=== PATIENT | female | born 1930 | race Caucasian/White ===

== ENCOUNTER 2016-09-29 15:34 | Inpatient (IN) | payer MEDICARE, OTHER ==
[2016-09-29] VITALS (9 sets, daily range): BP systolic 114–135; BP diastolic 64–85; PULSE 74–112; RESP 16–24; TEMP 97.6–98.6; O2SAT 93–94
[~2016-09-29] VITALS: Ht 157.5 cm; Wt 55.9 kg
[~2016-09-29 15:34] MED LIST: ACET5SOL5 PO; BACT2CRE TOP; CEFU1TAB42 PO; COUM5TAB PO; METR-1 PO; POTA20IN3 PO; TRAM50 PO
--- NOTE | 2016-09-29 15:48 | PD ---
Physical Exam Date Seen by Provider: September 29, 2016 Time Seen by Provider: 15:45 Narrative Pt presents with SOB, she has had an OP CT of the chest that shows a large right pleural effusion with collapse of the right lung with mediastinal shift to the left. Pt has stage 4 lung cancer with metastatic disease. She is followed by Dr. Gilman. She appears well despite imaging. VSS, awaiting bed placement. Data Data Last Documented VS Vital Signs Date Time Temp Pulse Resp B/P Pulse Ox O2 Delivery O2 Flow Rate FiO2 09/29/16 15:36 97.6 112 24 135/64 94 Room Air [facility] Supervised Visit with TIFFANY: Bettye Laura September 29, 2016 15:48
[2016-09-29] MEDS ORDERED: SODIUM CHLORIDE 0.9% FLUSH 10 ML FLUSH IVF PRN (16:15)
--- NOTE | 2016-09-29 16:29 | PD ---
HPI Chief Complaint: Respiratory Symptoms Time Seen by Provider: 16:05 Travel History International Travel<30 days: No Contact w/Intl Traveler<30days: No Traveled to known affect area: No History of Present Illness HPI 86-year-old female presents with shortness of breath. She follows with Dr. Gilman and had an outpatient CAT scan today that showed a large pleural effusion was shift and was advised to come here for drainage of this with a specialist. She denies other significant complaints currently. She states she came straight here from Dr. Gilman's office. Quality is hard to catch breath. Severity is increasingly worsening per patient. She denies other modifying factors other than movement. Duration is progressive over the past week PFSH Past Medical History Autoimmune Disease: No Anxiety: No Depression: No Cancer: Yes (SQUAMOUS CELL CA,LUNG CA AND SKIN CA) Cardiovascular Problems: No Chemotherapy: Yes Diabetes: No Endocrine: No Gastrointestinal Disorders: No Genitourinary: Yes (INCONTINENT/ 3 BLADDER SURGERY) Hepatitis: No Hiatal Hernia: No Hypertension: No Immune Disorder: No Medical other: No Musculoskeletal: Yes Neurologic: Yes Psychiatric: No Reproductive: Yes (HYSTERECTOMY) Respiratory: Yes (LUNG CANCER, MET TO BONE IN NECK ) Renal Failure: No Thyroid Disease: No Past Surgical History Abdominal Surgery: Yes (COLONOSCOPY 5 YRS AGO ..OK) AICD: No Cardiac Surgery: No Ear Surgery: No Endocrine Surgery: No Eye Surgery: Yes (DARRON CATARACT SX) Genitourinary Surgery: Yes (ANTERIOR REPAIR, 3 BLADDER SURGERIES ) Gynecologic Surgery: Yes (HYSTERECTOMY, ) Hysterectomy: Yes Joint Replacement: No Neurologic Surgery: No Oral Surgery: No Pacemaker: No Thoracic Surgery: No Other Surgery: Yes Social History Alcohol Use: No Tobacco Use: No Substance Use: No Allergies-Medications (Allergen,Severity, Reaction): Coded Allergies: Codeine (Verified Allergy, Intermediate, NAUSEA AND VOMITING, 09/29/16) Reported Meds & Prescriptions Reported Meds & Active Scripts Active Potassium Chloride inj (Potassium Chloride) 20 Meq Tab 1 Tab PO DAILY Ultram (Tramadol HCl) 50 Mg Tab 50 Mg PO Q6H PRN FOR PAIN Flagyl (Metronidazole) 500 Mg Tab 500 Mg PO Q8H Ceftin 250 Mg Tab (Cefuroxime Axetil) 250 Mg Tab 250 Mg PO Q12HR Bactroban 2% Cream (30 gm) (Mupirocin 2% Cream (30 gm)) 2 % Cre 2 % TOP Q12 APPLY TO Reported Tylenol 325 Mg/10.15 Ml Udc (Acetaminophen) 325 Mg/10 Ml Cup 500 Mg PO Q4H PRN Review of Systems Except as stated in HPI: all other systems reviewed are Neg Physical Exam Narrative GENERAL: Well-nourished, well-developed patient. SKIN: Warm and dry. HEAD: Normocephalic and atraumatic. EYES: No injection or drainage. ENT: No nasal drainage noted. NECK: Supple CARDIOVASCULAR: Regular rate and rhythm RESPIRATORY: Decreased breath sounds right base. No accessory muscle use. GASTROINTESTINAL: Abdomen soft, non-tender, nondistended. NEUROLOGICAL: Awake and alert. Motor and sensory grossly within normal limits. Normal speech. Data Data Last Documented VS Vital Signs Date Time Temp Pulse Resp B/P Pulse Ox O2 Delivery O2 Flow Rate FiO2 09/29/16 16:24 97 18 94 Room Air 09/29/16 15:36 97.6 135/64 Orders Chest, Single Ap (09/29/16 ) Basic Metabolic Panel (Bmp) (09/29/16 16:13) Complete Blood Count With Diff (09/29/16 16:13) Magnesium (Mg) (09/29/16 16:13) Prothrombin Time / Inr (Pt) (09/29/16 16:13) Act Partial Throm Time (Ptt) (09/29/16 16:13) Ecg Monitoring (09/29/16 16:13) Bilateral Bp Monitoring (09/29/16 16:13) Iv Access Insert/Monitor (09/29/16 16:13) Oximetry (09/29/16 16:13) Sodium Chloride 0.9% Flush (Ns Flush) (09/29/16 16:15) Consult Cardiothoracic Surgery (09/29/16 ) Consult Medical Oncology (09/29/16 ) Admit Order (Ed Use Only) (09/29/16 17:00) Labs Laboratory Tests Test 09/29/16 17:01 White Blood Count 6.2 TH/MM3 Red Blood Count 4.49 MIL/MM3 Hemoglobin 13.0 GM/DL Hematocrit 40.8 % Mean Corpuscular Volume 91.0 FL Mean Corpuscular Hemoglobin 29.0 PG Mean Corpuscular Hemoglobin 31.8 % Concent Red Cell Distribution Width 14.2 % Platelet Count 503 TH/MM3 Mean Platelet Volume 8.2 FL Neutrophils (%) (Auto) 69.7 % Lymphocytes (%) (Auto) 16.9 % Monocytes (%) (Auto) 10.5 % Eosinophils (%) (Auto) 2.4 % Basophils (%) (Auto) 0.5 % Neutrophils # (Auto) 4.3 TH/MM3 Lymphocytes # (Auto) 1.0 TH/MM3 Monocytes # (Auto) 0.7 TH/MM3 Eosinophils # (Auto) 0.2 TH/MM3 Basophils # (Auto) 0.0 TH/MM3 CBC Comment DIFF FINAL Differential Comment Prothrombin Time 11.6 SEC Prothromb Time International 1.0 RATIO Ratio Activated Partial 28.4 SEC Thromboplast Time Sodium Level 143 MEQ/L Potassium Level 3.7 MEQ/L Chloride Level 108 MEQ/L Carbon Dioxide Level 26.7 MEQ/L Anion Gap 8 MEQ/L Blood Urea Nitrogen 17 MG/DL Creatinine 0.81 MG/DL Estimat Glomerular Filtration 67 ML/MIN Rate Random Glucose 103 MG/DL Calcium Level 8.7 MG/DL Magnesium Level 2.2 MG/DL [facility] Medical Decision Making Medical Screen Exam Complete: Yes Emergency Medical Condition: Yes Medical Record Reviewed: Yes (past history confirmed) Interpretation(s) Outpatient CAT scan shows very large right pleural effusion with mediastinal shift to the left CBC & BMP Diagram 09/29/16 17:01 Last 24 hours Impressions Chest X-Ray 09/29/16 0000 Signed Impressions: Service Date/Time: September 16:22 - CONCLUSION: Large right effusion with concomitant atelectatic changes. Thanh White MD Differential Diagnosis Effusion, cancer, pneumonia Narrative Course Will check blood work, chest x-ray and discuss with thoracic surgery patient agrees to stay for further care Physician Communication Physician Communication dr wilde states to keep npo after midnight dr mclean agrees to admit Diagnosis Primary Impression: Pleural effusion Additional Impression: Metastatic lung cancer (metastasis from lung to other site) Qualified Code: C34.90 - Metastatic lung cancer (metastasis from lung to other site), unspecified laterality Admitting Information Admitting Physician Requests: Admit Katharine Gay MD September 29, 2016 16:29
--- NOTE | 2016-09-29 16:53 | HHI.HP ---
[facility] Service [facility] Hospitalists Primary Care Physician Christiano Gilman MD Admission Diagnosis Diagnoses: Chief Complaint: Sent by Oncololgy specialist for Pleural effusion management. Travel History International Travel<30 Days: No Contact w/Intl Traveler <30 Da: No Traveled to Known Affected Are: No History of Present Illness This is a pleasant 86 /o Female who came to ER with Shortness of breath, she follows with her Primary editorial specialist Doctor Mukul and had a new CT scan showed a Large Pleural Effusion, recommended to come to this facility for drainage and She denies other significant complaints currently. She states she came straight here from Dr. Gilman's office. Discussed with patient in the room and her Sister Mrs. 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 Incontinence status post urinary Bladder surgery x 3 Past Surgical History ARTURO Cataract surgery 3 Urinary Bladder surgery Reported Medications Reported Meds & Active Scripts Active Potassium Chloride CR 20 meq 20 Meq Tab 1 Tab PO DAILY Ultram (Tramadol HCl) 50 Mg Tab 50 Mg PO Q6H PRN FOR PAIN Flagyl (Metronidazole) 500 Mg Tab 500 Mg PO Q8H Ceftin 250 Mg Tab (Cefuroxime Axetil) 250 Mg Tab 250 Mg PO Q12HR Bactroban 2% Cream (30 gm) (Mupirocin 2% Cream (30 gm)) 2 % Cre 2 % TOP Q12 APPLY TO Reported Tylenol 325 Mg/10.15 Ml Udc (Acetaminophen) 325 Mg/10 Ml Cup 500 Mg PO Q4H PRN Allergies: Coded Allergies: Codeine (Verified Allergy, Intermediate, NAUSEA AND VOMITING, 09/29/16) Active Ordered Medications Current Medications Medications (Trade) Dose Ordered Sig/Ariella Route Start Time Stop Time Status Last Admin (NS Flush) 2 ml UNSCH PRN IVF 09/29/16 16:15 Family History Asked and denied. Social History Lives with her and No Toxic habits Physical Exam Vital Signs Vital Signs Date Time Temp Pulse Resp B/P Pulse Ox O2 Delivery O2 Flow Rate FiO2 09/29/16 16:24 97 18 94 Room Air 09/29/16 15:36 97.6 112 24 135/64 94 Room Air Physical Exam GENERAL: No acute distress. SKIN: Ecchymosis on four extremities. HEAD: Normocephalic and atraumatic. EYES: No injection or drainage. ENT: No nasal drainage noted. NECK: Supple CARDIOVASCULAR: Regular rate and rhythm RESPIRATORY: Absent on the right base, GASTROINTESTINAL: Abdomen soft, non-tender, nondistended. NEUROLOGICAL: Awake and alert. Motor and sensory grossly within normal limits. Normal speech. Assessment and Plan Assessment and Plan 1. Very large Pleural Effusion with mediastinal shift to the left, on outpatient CT scan, discussed with Doctor Spring Han and recommended NPO at midnight and probable will have Chest tube in am tomorrow. 2. 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 consulted her Primary editorial specialist doctor Mukul DVT prophylaxis SCDs awaiting final recommendations by Specialists complete laboratory to follow Bronchodilator, Mucolytic and incentive spirometry. At this time Doctor Spring Han in to see the patient, Preferred the patient to be full code for procedure. her son is POA. Discussed with ER specialist Doctor Katharine Gay. Code Status Full code for procedure tomorrow then will decide this was discussed with patient and she and her Sister in the room accepted. Discussed Condition With Patient, Sister Mrs Willow Ling, ER specialist Doctor Deidra and Cardiothoracic rfid specialist Doctor Guille face to face. Physician Certification 2 Midnight Certification Type: Admission for Inpatient Services Order for Inpatient Services The services are ordered in accordance with Medicare regulations or non- Medicare payer requirements, as applicable. In the case of services not specified as inpatient-only, they are appropriately provided as inpatient services in accordance with the 2-midnight benchmark. Estimated LOS (days): 3 days is the estimated time the patient will need to remain in the hospital, assuming treatment plan goals are met and no additional complications. Post-Hospital Plan: Not yet determined Dom Saunders MD September 29, 2016 16:53
[2016-09-29] MEDS ORDERED: ACETAMINOPHEN 325 MG TAB PO PRN (17:15)
[2016-09-29] MEDS ORDERED: NALOXONE HCL 0.4 MG/ML AMP IV PRN (17:15)
[2016-09-29] MEDS ORDERED: ONDANSETRON HCL 4 MG/2 ML VIAL IVP PRN (17:15)
[2016-09-29] MEDS ORDERED: BISACODYL 10 MG SUPP RECTAL PRN (17:15)
[2016-09-29] MEDS ORDERED: SODIUM CHLORIDE 0.9% FLUSH 10 ML FLUSH IV FLUSH PRN (17:15)
--- NOTE | 2016-09-29 17:15 | RADRPT ---
EXAM DATE/TIME: 09/29/2016 16:22 [facility] COMPARISON: No previous studies available for comparison. INDICATIONS : Short of breath. MEDICAL HISTORY : Carcinoma, lung. SURGICAL HISTORY : None. ENCOUNTER: Initial ACUITY: 2 weeks PAIN SCORE: 0/10 LOCATION: Bilateral chest FINDINGS: A single view of the chest demonstrates large right-sided effusion with concomitant atelectatic juarez es. Left lung is clear. Heart size appears normal. Osseous structures are intact. CONCLUSION: Large right effusion with concomitant atelectatic changes. Thanh White MD on September 29, 2016 at 17:12 Board Certified Radiologist. This report was verified electronically.
[2016-09-29 17:19] LABS: AUTOMATED NEUTROPHIL # 4.3 TH/MM3 (1.8-7.7); BASOPHIL % 0.5 % (0.0-2.0); EOSINOPHIL # 0.2 TH/MM3 (0-0.4); EOSINOPHIL % 2.4 % (0.0-4.0); HEMATOCRIT 40.8 % (35.0-46.0); HEMO FLAGS DIFF FINAL; LYMPH % 16.9 % (9.0-44.0); MEAN CORPUSCULAR HGB CONC 31.8 % (32.0-36.0); MONO % 10.5 % (0.0-8.0); NEUT % 69.7 % (16.0-70.0); PLATELET COUNT 503 TH/MM3 (150-450); RED BLOOD COUNT 4.49 MIL/MM3 (4.00-5.30); RED CELL DISTRIBUTION WIDTH 14.2 % (11.6-17.2); WHITE BLOOD COUNT 6.2 TH/MM3 (4.0-11.0)
[2016-09-29 17:26] LABS: APTT (PATIENT) 28.4 SEC (24.3-30.1); PROTHROMBIN TIME - PATIENT 11.6 SEC (9.8-11.6)
[2016-09-29 17:35] LABS: BICARBONATE 26.7 MEQ/L (21.0-32.0); MAGNESIUM 2.2 MG/DL (1.5-2.5); POTASSIUM 3.7 MEQ/L (3.5-5.1)
[2016-09-29] MEDS ORDERED: INSULIN REGULAR (IV INFUSION) 100 UNITS in SODIUM CHLORIDE 0.9% INJ 100 ML IV SCH (17:45)
[2016-09-29] MEDS ORDERED: CHLORHEXIDINE GLUCONATE 4% SOLN 120 ML BTL TOPICAL SCH (17:45)
[2016-09-29] MEDS ORDERED: ceFAZolin 2 GM PREMIX 50 ML IV SCH (17:45)
--- NOTE | 2016-09-29 17:48 | PD.CONS ---
History of Present Illness Service CT Surgery Consult Requested By Dr. Gilman Reason for Consult Right pleural effusion, h/o lung cancer Primary Care Physician Christiano Gilman MD Diagnoses: (1) Pleural effusion (2) Metastatic lung cancer (metastasis from lung to other site) History of Present Illness 86 y/o female known to Dr. Gilman when she presented with advanced stage lung cancer ~2-3 yrs ago. She was treated with Tarceva and has had a good response. She presents today with exertional dyspnea. She was found to have a large right pleural effusion on CXR today. She was sent to the ED for admission and management of this problem. Review of Systems Constitutional: COMPLAINS OF: Fatigue, DENIES: Diaphoretic episodes, Fever, Weight gain, Weight loss, Chills, Dizziness, Change in appetite, Night Sweats Endocrine: DENIES: Abnorml menstrual pattern, Heat/cold intolerance, Polydipsia , Polyuria, Polyphagia Eyes: DENIES: Blurred vision, Diplopia, Eye inflammation, Eye pain, Vision loss , Photosensitivity, Double Vision Ears, nose, mouth, throat: DENIES: Tinnitus, Hearing loss, Vertigo, Nasal discharge, Oral lesions, Throat pain, Hoarseness, Ear Pain, Running Nose, Epistaxis, Sinus Pain, Toothache, Odynophagia Respiratory: COMPLAINS OF: Cough, Shortness of breath, DENIES: Apneas, Snoring , Wheezing, Hemoptysis, Sputum production Cardiovascular: COMPLAINS OF: Lower Extremity Edema, DENIES: Chest pain, Palpitations, Syncope, Dyspnea on Exertion, PND, Orthopnea, Claudication Gastrointestinal: DENIES: Abdominal pain, Black stools, Bloody stools, Constipation, Diarrhea, Nausea, Vomiting, Difficulty Swallowing, Anorexia Genitourinary: DENIES: Abnormal vaginal bleeding, Dysmenorrhea, Dyspareunia, Sexual dysfunction, Urinary frequency, Urinary incontinence, Urgency, Hematuria , Dysuria, Nocturia, Vaginal discharge Musculoskeletal: DENIES: Joint pain, Muscle aches, Stiffness, Joint Swelling, Back pain, Neck pain Integumentary: DENIES: Abnormal pigmentation, Pruritus, Rash, Nail changes, Breast masses, Breast skin changes, Nipple discharge Hematologic/lymphatic: DENIES: Bruising, Lymphadenopathy Immunologic/allergic: DENIES: Eczema, Urticaria Neurologic: DENIES: Abnormal gait, Headache, Localized weakness, Paresthesias, Seizures, Speech Problems, Tremor, Poor Balance Psychiatric: DENIES: Anxiety, Confusion, Mood changes, Depression, Hallucinations, Agitation, Suicidal Ideation, Homicidal Ideation, Delusions Past Family Social History Allergies: Coded Allergies: Codeine (Verified Allergy, Intermediate, NAUSEA AND VOMITING, 09/29/16) Past Medical History 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 Incontinence status post urinary Bladder surgery x 3 Past Surgical History ARTURO Cataract surgery 3 Urinary Bladder surgery Reported Medications Reported Meds & Active Scripts Active Potassium Chloride CR 20 meq 20 Meq Tab 1 Tab PO DAILY Ultram (Tramadol HCl) 50 Mg Tab 50 Mg PO Q6H PRN FOR PAIN Flagyl (Metronidazole) 500 Mg Tab 500 Mg PO Q8H Ceftin 250 Mg Tab (Cefuroxime Axetil) 250 Mg Tab 250 Mg PO Q12HR Bactroban 2% Cream (30 gm) (Mupirocin 2% Cream (30 gm)) 2 % Cre 2 % TOP Q12 APPLY TO Reported Tylenol 325 Mg/10.15 Ml Udc (Acetaminophen) 325 Mg/10 Ml Cup 500 Mg PO Q4H PRN Active Ordered Medications Current Medications Medications (Trade) Dose Ordered Sig/Ariella Route Start Time Stop Time Status Last Admin (NS 1000 ml Inj) 1,000 ml @ 83 mls/hr Q12H3M IV 09/29/16 23:55 (NS Flush) 2 ml UNSCH PRN IV FLUSH 09/29/16 17:15 (NS Flush) 2 ml BID IV FLUSH 09/29/16 21:00 (Tylenol) 650 mg Q4H PRN PO 09/29/16 17:15 (Zofran Inj) 4 mg Q6H PRN IVP 09/29/16 17:15 (Dulcolax Supp) 10 mg DAILY PRN RECTAL 09/29/16 17:15 (Narcan Inj) 0.4 mg UNSCH PRN IV 09/29/16 17:15 (Mucinex Er) 600 mg BID PO 09/29/16 21:00 Family History unremarkable Social History Denies tobacco abuse, ETOH abuse Retired Physical Exam Vital Signs Vital Signs Date Time Temp Pulse Resp B/P Pulse Ox O2 Delivery O2 Flow Rate FiO2 09/29/16 16:24 97 18 94 Room Air 09/29/16 15:36 97.6 112 24 135/64 94 Room Air Physical Exam GENERAL: This is a well-nourished, well-developed patient, in no apparent distress. SKIN: No rashes, ecchymoses or lesions. Cool and dry. HEAD: Atraumatic. Normocephalic. No temporal or scalp tenderness. EYES: Pupils equal round and reactive. Extraocular motions intact. No scleral icterus. No injection or drainage. ENT: Nose without bleeding, purulent drainage or septal hematoma. Throat without erythema, tonsillar hypertrophy or exudate. Uvula midline. Airway patent. NECK: Trachea midline. No JVD or lymphadenopathy. Supple, nontender, no meningeal signs. CARDIOVASCULAR: Regular rate and rhythm without murmurs, gallops, or rubs. RESPIRATORY: No BS on right GASTROINTESTINAL: Abdomen soft, non-tender, nondistended. No hepato-splenomegaly , or palpable masses. No guarding. MUSCULOSKELETAL: Extremities without clubbing, cyanosis, or edema. No joint tenderness, effusion, or edema noted. No calf tenderness. Negative Homans sign bilaterally. NEUROLOGICAL: Awake and alert. Cranial nerves II through XII intact. Motor and sensory grossly within normal limits. Five out of 5 muscle strength in all muscle groups. Normal speech. Laboratory Laboratory Tests Test 09/29/16 17:01 White Blood Count 6.2 Red Blood Count 4.49 Hemoglobin 13.0 Hematocrit 40.8 Mean Corpuscular Volume 91.0 Mean Corpuscular Hemoglobin 29.0 Mean Corpuscular Hemoglobin 31.8 Concent Red Cell Distribution Width 14.2 Platelet Count 503 Mean Platelet Volume 8.2 Neutrophils (%) (Auto) 69.7 Lymphocytes (%) (Auto) 16.9 Monocytes (%) (Auto) 10.5 Eosinophils (%) (Auto) 2.4 Basophils (%) (Auto) 0.5 Neutrophils # (Auto) 4.3 Lymphocytes # (Auto) 1.0 Monocytes # (Auto) 0.7 Eosinophils # (Auto) 0.2 Basophils # (Auto) 0.0 CBC Comment DIFF FINAL Differential Comment Prothrombin Time 11.6 Prothromb Time International 1.0 Ratio Activated Partial 28.4 Thromboplast Time Sodium Level 143 Potassium Level 3.7 Chloride Level 108 Carbon Dioxide Level 26.7 Anion Gap 8 Blood Urea Nitrogen 17 Creatinine 0.81 Estimat Glomerular Filtration 67 Rate Random Glucose 103 Calcium Level 8.7 Magnesium Level 2.2 Result Diagram: 09/29/16 1701 09/29/16 1701 Imaging Last Impressions Chest X-Ray 09/29/16 0000 Signed Impressions: Service Date/Time: September 16:22 - CONCLUSION: Large right effusion with concomitant atelectatic changes. Thanh White MD Course Stable in ED currently Assessment and Plan Problem List: (1) Pleural effusion Status: Acute (2) Metastatic lung cancer (metastasis from lung to other site) Status: Acute Assessment and Plan 86y/o female presents with a large symptomatic right pleural effusion - most likely malignant. Recommend VATS to drain this effusion and pleuradesis. Fluid will be submitted for genetic testing per Dr. Gilman' request. I discussed the risks and benefits with her and her son. She agrees to proceed. Discussed Condition With patient, son Problem Qualifiers (1) Metastatic lung cancer (metastasis from lung to other site): Qualified Code: C34.91 - Metastatic lung cancer (metastasis from lung to other site), right Spring Han MD September 29, 2016 17:48
[2016-09-29] MEDS ORDERED: ASPI81CH CHEW (18:17)
[2016-09-29] MEDS ORDERED: predniSONE 5 MG TAB PO SCH (20:15)
--- NOTE | 2016-09-29 20:52 | MB ---
cc: RAY GUALLPA DATE OF CONSULTATION 09/29/16 REASON FOR CONSULTATION Patient with history of [id number] lung cancer and a massive right pleural effusion requiring a chest tube placement. PATIENT PROFILE The patient is an 86-year-old white female. She is . Her is very ill. He currently is requiring dialysis. The couple lives together. She has two sons. She never smoked. There is very minimal alcohol intake in the past. She is retired and was involved in retail sales. HISTORY OF PRESENT ILLNESS The patient is an 86-year female whose history dates back to December of 2013 when she was found to have metastatic disease to the cervical spine with near spinal cord compression. 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 She had a biopsy of the left rib on 02/03/2014 which revealed adenocarcinoma. She underwent EGFR mutation and was positive for an EGFR exon 19 mutation. She was treated with radiation therapy to the cervical spine and was given Tarceva. She has done well until presently. Approximately a week ago, she developed a cough which was persistent and mild shortness of breath. She was given an oral antibiotic and was no better at the end of the week. For this reason, I requested an emergency CT scan of the thorax which was performed on September 29, 2016. I have reviewed the images. The patient has a large right pleural effusion with almost complete opacification of the right hemithorax thorax and collapse of the majority of the right lung as well as mediastinal shift to the left. There is interval worsening of a lytic expansile lesion involving the posterior medial aspect of the left eighth rib as well as a new lytic lesion involving the right lateral superior corner of the T10 vertebral body consistent with metastatic disease. As soon as this information became available, I contacted Dr. Han who is a thoracic surgeon and spoke with the emergency room and arranged for admission and I am now seeing the patient in the hospital. I also contacted her son by phone and reviewed with them exactly what is being done and, in fact, he is at her bedside tonight where I am seeing her in the hospital. PAST SURGICAL HISTORY 1. Four bladder surgeries for incontinence 2. Cataract 3. ARTURO-BSO 4. Rib biopsy 01/2014 revealing adenocarcinoma 5. 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 PAST MEDICAL HISTORY 1. 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 2. Original lung mass measured 5.7 cm and metastases included ribs, spine and the left axillary lymph node. 3. Esophageal dilation in 2014 4. DVT right leg 03/23/2012, further worsening on 04/23/2012. The patient was previously treated with oral anticoagulants and now takes only one aspirin. MEDICATIONS Prior to admission, 1. Aspirin 81 mg a day 2. Prednisone 2.5 mg a day 3. Tarceva 75 mg a day. ALLERGIES CIPROFLOXACIN CODEINE DOXYCYCLINE FAMILY HISTORY Noncontributory. REVIEW OF SYSTEMS No change in vision or hearing. She has a sense of fullness in the chest without having chest pain. She has exertional shortness of breath, cough. No abdominal pain. No melena, hematochezia, hematemesis. Appetite has been fairly good. No dysuria or frequency. No bone pain or back pain. No focal weakness. LABORATORY DATA Hemoglobin 13, white count 6200, platelets 503,000. Lytes, BUN and creatinine unremarkable. Last CEA 05/09/2016 was 2.1. PHYSICAL EXAMINATION GENERAL: A female who in spite of her history appears younger than stated age. She is comfortable at rest on room air O2 sat 94%. VITAL SIGNS: Blood pressure 130/70, respiratory rate 18, pulse 80 afebrile. HEENT: Head is normocephalic. Sclerae and conjunctivae are normal. Oropharynx is unremarkable. LYMPHS: There is no cervical, supraclavicular, axillary or inguinal adenopathy. BREASTS: Without masses. HEART: Regular rhythm. LUNGS: Left lung clear, right lung shows diminished breath sounds 3[address] ABDOMEN: Without hepatosplenomegaly. EXTREMITIES: No edema. MUSCULOSKELETAL: No bone pain. NEUROLOGIC: No weakness. There is some superficial ecchymoses consistent with senile purpura. ASSESSMENT The patient is an 86-year-old female who was diagnosed with stage IV adenocarcinoma of the lung in January of 2014 and has received radiation to the cervical spine and has done extremely well with Tarceva. She now has evidence of progressive disease with a massive right pleural effusion and progression involving the thoracic spine. The bony disease is asymptomatic. RECOMMENDATIONS 1. I have contacted Dr. Han (thoracic surgery) who saw the patient this evening and he will place a chest tube and drain the fluid. I would recommend that she have a talc pleurodesis. We will need cytology 2. The patient has had a previous history of DVT. Once the tube is in place, and if there is no bleeding, I strongly recommend Lovenox 40 mg subcu daily as she is at a significant risk of developing recurrent venous thrombosis. She has already had a DVT involving the right leg. 3. If we are able to obtain positive cytology, I want the cells analyzed for a T790M mutation. This occurs in approximately two thirds of patients who progress on Tarceva and if she has the mutation then she is a candidate for Tagrisso. The median time to progression with tagrisso in this setting would be 10 months and it could potentially add significantly longer than this as this was only a median time. If we are not able to obtain adequate diagnostic tissue, then I will proceed with what is called a liquid biopsy. The above was discussed with the patient's son. I am very hopeful that we can remove the fluid, re-expand the lung and hopefully find a T790M mutation and treat with Tagrisso. MD BUSHRA Kemp/ /7:58 PM /8:25 PM MERA
[2016-09-29] MEDS ORDERED: SODIUM CHLORIDE 0.9% FLUSH 10 ML FLUSH IV FLUSH SCH (21:00)
[2016-09-29] MEDS: guaiFENesin E.R. 600 MG TAB PO SCH (22:00)
[2016-09-29] MEDS: MUPIROCIN 2% OINT 1 APPLIC/GM SYR EACH NARE SCH (22:00)
[2016-09-29] MEDS: ZOLPIDEM TARTRATE 5 MG TAB PO PRN (22:00)
[2016-09-29] MEDS: RESP: ALBUTEROL 2.5 MG/IPRATROPIUM 0.5 MG NEB (SCH) NEB (23:17)
[2016-09-29] MEDS ORDERED: SODIUM CHLOR 0.9% 1000 ML INJ 1,000 ML IV SCH (23:55)
[2016-09-30] VITALS (22 sets, daily range): BP systolic 102–133; BP diastolic 55–71; PULSE 80–101; RESP 16–22; TEMP 97.3–98.1; O2SAT 93–98
[2016-09-30] MEDS: RESP: ALBUTEROL 2.5 MG/IPRATROPIUM 0.5 MG NEB (SCH) NEB ×2 (03:53→07:49)
[2016-09-30] MEDS ORDERED: LACTATED RINGER'S 1000 ML IV PRN (04:15)
[2016-09-30] MEDS ORDERED: POVIDONE IODINE 5% (ANTISEPSIS KIT) 4 APPLICATIONS EACH NARE PRN (04:15)
[2016-09-30] MEDS ORDERED: METOPROLOL TARTRATE 25 MG TAB PO PRN (04:15)
[2016-09-30] MEDS ORDERED: INSULIN HUMAN REGULAR 1,000 UNITS/10 ML VIAL SQ PRN (04:15)
[2016-09-30] MEDS ORDERED: CHLORHEXIDINE GLUCONATE 2 % 1 PACK (2 CLOTHS) TOPICAL PRN (04:15)
[2016-09-30] MEDS ORDERED: SODIUM CHLORID 0.9% 500 ML IV PRN (04:15)
[2016-09-30 04:34] LABS: BACTERIA, URINE MANY /hpf; BLOOD, URINE NEG (NEG); COMMENT (UR) CULTURE INDICATED; CULTURE IF INDICATED CULTURE INDICATED; GLUCOSE,URINE NEG (NEG); KETONE, URINE 40 mg/dL (NEG); MUCUS URINE FEW /lpf (OCC); NITRITE,URINE NEG (NEG); PH, URINE 6.5 (5.0-8.5); URINE COLOR YELLOW (YELLW/STRAW)
[2016-09-30 06:58] LABS: AUTOMATED NEUTROPHIL # 5.5 TH/MM3 (1.8-7.7); BASOPHIL % 0.3 % (0.0-2.0); EOSINOPHIL % 0.3 % (0.0-4.0); HEMATOCRIT 36.7 % (35.0-46.0); HEMO FLAGS DIFF FINAL; LYMPH % 5.8 % (9.0-44.0); LYMPHOCYTE # 0.4 TH/MM3 (1.0-4.8); MEAN CELL VOLUME 90.5 FL (80.0-100.0); MEAN CORPUSCULAR HEMOGLOBIN 29.4 PG (27.0-34.0); MEAN CORPUSCULAR HGB CONC 32.5 % (32.0-36.0); MONO % 3.5 % (0.0-8.0); NEUT % 90.1 % (16.0-70.0); PLATELET COUNT 414 TH/MM3 (150-450); RED BLOOD COUNT 4.05 MIL/MM3 (4.00-5.30); RED CELL DISTRIBUTION WIDTH 13.8 % (11.6-17.2); WHITE BLOOD COUNT 6.1 TH/MM3 (4.0-11.0)
[2016-09-30] MEDS ORDERED: BUPIVACAINE HCL PF 0.5% 30 ML VIAL ONE (07:03)
[2016-09-30] MEDS ORDERED: ceFAZolin 2 GM PREMIX 50 ML ONE (07:03)
[2016-09-30] MEDS ORDERED: SUGAMMADEX SODIUM 200 MG/2 ML VIAL IV PUSH ONE ×2 (07:05)
[2016-09-30] MEDS ORDERED: ACETAMINOPHEN 1000 MG/100 ML VIAL IV ONE (07:06)
[2016-09-30 07:19] LABS: BICARBONATE 25.1 MEQ/L (21.0-32.0); POTASSIUM 3.8 MEQ/L (3.5-5.1)
[2016-09-30] MEDS ORDERED: FAMOTIDINE 20 MG/2 ML VIAL ONE (07:31)
--- NOTE | 2016-09-30 08:06 | HHI.PR ---
Subjective Remarks This is a pleasant 86 /o Female who came to ER with Shortness of breath, she follows with her Primary analysis specialist Doctor Mukul and had a new CT scan showed a Large Pleural Effusion, recommended to come to this facility for drainage and She denies other significant complaints currently. She states she came straight here from Dr. Gilman's office. Discussed with patient in the room and her Sister Mrs. 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 09/30: patient seen in her bedroom in the presence of her Sister Mrs. Willow Ling , status post Chest tube placement, stable No nausea, vomit or diarrhea, somnolent. seen by her Primary analysis specialist Doctor Christiano Gilman, Stage IV Adenocarcinoma of the Lung diagnosed January 2014, status post radiation to her Cervical Spine, now with progressive disease with Massive right pleural effusion and progression involving Thoracic spine. started on Lovenox 40 mg Subcutaneous daily, Biopsy taken by Cardiothoracic surgeon, asked cells analyzed for T790M mutation. Objective Vital Signs Date Time Temp Pulse Resp B/P Pulse Ox O2 Delivery O2 Flow Rate FiO2 09/30/16 06:00 87 09/30/16 05:00 88 09/30/16 04:07 98.1 101 16 133/57 93 09/30/16 04:00 90 09/30/16 03:00 89 09/30/16 02:00 90 09/30/16 01:00 88 09/30/16 00:25 97.9 82 16 132/64 94 09/30/16 00:00 86 09/29/16 23:18 94 09/29/16 23:00 74 09/29/16 22:00 84 09/29/16 21:00 86 09/29/16 20:26 97.9 82 16 114/85 93 09/29/16 20:00 80 09/29/16 19:00 81 09/29/16 18:27 98.6 80 18 128/70 94 Room Air 09/29/16 16:24 97 18 94 Room Air 09/29/16 15:36 97.6 112 24 135/64 94 Room Air I/O 09/29/16 09/29/16 09/29/16 09/30/16 09/30/16 09/30/16 07:00 15:00 23:00 07:00 15:00 23:00 Intake Total 440 ml Output Total 300 ml Balance 140 ml Intake Oral 120 ml IV Total 320 ml Output Urine Total 300 ml # Voids 2 # Bowel Movements 0 Result Diagram: 09/30/16 0600 09/30/16 0600 Imaging Last Impressions Chest X-Ray 09/29/16 0000 Signed Impressions: Service Date/Time: September 16:22 - CONCLUSION: Large right effusion with concomitant atelectatic changes. Thanh White MD Procedures Right chest tube placement and Biopsy. Other Results Laboratory Tests Test 09/29/16 09/30/16 09/30/16 17:01 03:52 06:00 Prothrombin Time 11.6 SEC Prothromb Time International 1.0 RATIO Ratio Activated Partial 28.4 SEC Thromboplast Time Magnesium Level 2.2 MG/DL Urine Color YELLOW Urine Turbidity HAZY Urine pH 6.5 Urine Specific [place] 1.027 Urine Protein TRACE mg/dL Urine Glucose (UA) NEG mg/dL Urine Ketones 40 mg/dL Urine Occult Blood NEG Urine Nitrite NEG Urine Bilirubin NEG Urine Urobilinogen 8.0 MG/DL Urine Leukocyte Esterase MOD Urine RBC LESS THAN 1 /hpf Urine WBC 41 /hpf Urine Bacteria MANY /hpf Urine Mucus FEW /lpf Microscopic Urinalysis Comment CULTURE INDICATED White Blood Count 6.1 TH/MM3 Red Blood Count 4.05 MIL/MM3 Hemoglobin 11.9 GM/DL Hematocrit 36.7 % Mean Corpuscular Volume 90.5 FL Mean Corpuscular Hemoglobin 29.4 PG Mean Corpuscular Hemoglobin 32.5 % Concent Red Cell Distribution Width 13.8 % Platelet Count 414 TH/MM3 Mean Platelet Volume 8.2 FL Neutrophils (%) (Auto) 90.1 % Lymphocytes (%) (Auto) 5.8 % Monocytes (%) (Auto) 3.5 % Eosinophils (%) (Auto) 0.3 % Basophils (%) (Auto) 0.3 % Neutrophils # (Auto) 5.5 TH/MM3 Lymphocytes # (Auto) 0.4 TH/MM3 Monocytes # (Auto) 0.2 TH/MM3 Eosinophils # (Auto) 0.0 TH/MM3 Basophils # (Auto) 0.0 TH/MM3 CBC Comment DIFF FINAL Differential Comment Sodium Level 144 MEQ/L Potassium Level 3.8 MEQ/L Chloride Level 109 MEQ/L Carbon Dioxide Level 25.1 MEQ/L Anion Gap 10 MEQ/L Blood Urea Nitrogen 18 MG/DL Creatinine 0.68 MG/DL Estimat Glomerular Filtration 82 ML/MIN Rate Random Glucose 122 MG/DL Calcium Level 8.3 MG/DL Objective Remarks GENERAL: No acute distress. SKIN: Ecchymosis on four extremities. HEAD: Normocephalic and atraumatic. EYES: No injection or drainage. ENT: No nasal drainage noted. NECK: Supple CARDIOVASCULAR: Regular rate and rhythm RESPIRATORY: Absent on the right base, GASTROINTESTINAL: Abdomen soft, non-tender, nondistended. NEUROLOGICAL: Awake and alert. Motor and sensory grossly within normal limits. Normal speech. Medications and IVs Current Medications Medications (Trade) Dose Ordered Sig/Ariella Route Start Time Stop Time Status Last Admin (NS 1000 ml Inj) 1,000 ml @ 83 mls/hr Q12H3M IV 09/29/16 23:55 (NS Flush) 2 ml UNSCH PRN IV FLUSH 09/29/16 17:15 (NS Flush) 2 ml BID IV FLUSH 09/29/16 21:00 09/29/16 22:01 (Tylenol) 650 mg Q4H PRN PO 09/29/16 17:15 (Zofran Inj) 4 mg Q6H PRN IVP 09/29/16 17:15 (Dulcolax Supp) 10 mg DAILY PRN RECTAL 09/29/16 17:15 (Narcan Inj) 0.4 mg UNSCH PRN IV 09/29/16 17:15 (Mucinex Er) 600 mg BID PO 09/29/16 21:00 09/29/16 22:00 (Bactroban Nasal 2% Oint) 1 applic BID EACH NARE 09/29/16 21:00 10/04/16 20:59 09/29/16 22:00 (Ambien) 5 mg HS PRN PO 09/29/16 21:00 09/29/16 22:00 Prednisone 5 mg 5 mg DAILY PO 09/29/16 20:15 09/29/16 22:00 Lactated Ringer's 1,000 ml @ 30 mls/hr Q24H PRN IV 09/30/16 04:15 10/03/16 04:14 (NS 500 ml Inj) 500 ml @ 30 mls/hr [id number] PRN IV 09/30/16 04:15 10/03/16 04:14 A/P Assessment and Plan 1. Very large Pleural Effusion with mediastinal shift to the left, on outpatient CT scan, status post right Chest tube placement and Biopsy 2. Stage IV Metastatic Adenocarcinoma of the lung to the Cervical spine, Thoracic Spine and Massive Pleural effusion. 3. UTI started on Ceftriaxone. following Urine culture. DVT prophylaxis SCDs awaiting final recommendations by Specialists Bronchodilator, Mucolytic and incentive spirometry. Code Status Full code for procedure her Son is POA. Discussed Condition With Discussed with Patient and her sister in the room Mrs. Willow Ling. discussed with nurse Miss Vigil. Discharge Planning once cleared by specialists. Dom Saunders MD September 30, 2016 08:05
--- NOTE | 2016-09-30 08:12 | EKG ---
Date Performed: 09/30/2016 Time Performed: 07:24:24 PTAGE: 86 years EKG: Sinus rhythm WITH OCCASIONAL VENTRICULAR PREMATURE COMPLEXES BORDERLINE ECG NO SIGNIFICANT CHANGE FROM PRIOR ELEC TROCARDIOGRAM. PREVIOUS TRACING : 09/15/2014 14.24 DOCTOR: Fred Ponce Interpretating Date/Time 09/30/2016 08:10:49
[2016-09-30] MEDS ORDERED: methylPREDNISolone SOD SUCC 125 MG/2 ML VIAL ONE (08:43)
[2016-09-30] MEDS ORDERED: cefTRIAXone INJ 1,000 MG in SODIUM CHLORIDE 0.9% INJ 100 ML IV SCH (09:00)
[2016-09-30] MEDS: MUPIROCIN 2% OINT 1 APPLIC/GM SYR EACH NARE SCH ×2 (09:00→20:26)
[2016-09-30] MEDS ORDERED: MAGNESIUM HYDROXIDE SUSP 30 ML CUP PO PRN (09:15)
[2016-09-30] MEDS ORDERED: SODIUM CHLORIDE 0.9% FLUSH 10 ML FLUSH IV FLUSH PRN (09:15)
[2016-09-30] MEDS ORDERED: ACETAMINOPHEN 325 MG TAB PO PRN (09:15)
[2016-09-30] MEDS ORDERED: DEXTROSE 50% IN WATER 50 ML VIAL(D50) IV PUSH PRN (09:15)
[2016-09-30] MEDS ORDERED: MISC INFORMATION OTHER ONE (09:15)
[2016-09-30] MEDS ORDERED: Post-op Orders (for Pharmacy) MISC OTHER ONE (09:15)
[2016-09-30] MEDS ORDERED: GLUCAGON 1 MG/ML VIAL IV PRN (09:15)
--- NOTE | 2016-09-30 09:23 | PD.OP ---
cc: Spring Han MD; Christiano Gilman MD Operative Report Date of Surgery: September 30, 2016 Preoperative Diagnosis: (1) Pleural effusion (2) Metastatic lung cancer (metastasis from lung to other site) Postoperative Diagnosis: same Procedure: Right thoracoscopic exploration to drain pleural effusion, pleural biopsy, talc pleuradesis Anesthesia: Dr. Randolph Surgeon: Spring Han Financial Manager(s): KADEEM Lang Operation and Findings: Specimen: pleural fluid, pleural biopsy (implant) Drains: 28F chest tube Procedure Details After adequate general anesthesia the patient was placed in the left lateral decubitus position and the right chest was prepped and draped in usual manner. A small posterior port incision was performed and electrocautery was used to obtain hemostasis and carry the dissection down through the fascia. A 22G seeker needle was used initially posteriorly and serous fluid was aspirated. A port was initially placed posteriorly followed by the camera. Visualization was very good. Overall, 2000 ml of serous effusion was drained. A second anterior port was positioned at ~6th intercostal space. Exploration of the right hemithorax was significant for pleural erythema and several pleural implants which appeared raised white ~5 mm in diameter . Pleural biopsy was sent to Pathology. A talc pleuradesis was performed through both ports. A 28F chest tube was positioned through the anterior port, and secured with a 0-silk suture. The lung was ventilated and no significant air leaks were found. The subcutaneous tissues of the posterior port was approximated running 2-0 Vicryl suture and the skin was approximated using running 4-0 Monocryl subcuticular stitch. All sponge and history counts were correct at the close the procedure and the patient was transferred to the PACU in stable condition. Spring Han MD September 30, 2016 09:23
[2016-09-30] MEDS ORDERED: STERILE TALC 4 GM AEROSOL CAN OTHER ONE (09:30)
[2016-09-30] MEDS ORDERED: *morphine SULFATE 8 MG/ML PERIprocedure ONLY ONE (09:54)
[2016-09-30] MEDS ORDERED: *ONDANSETRON 4 MG VIAL PERIprocedural Use ONLY ONE (10:07)
--- NOTE | 2016-09-30 10:32 | RADRPT ---
EXAM DATE/TIME: 09/30/2016 09:34 [facility] COMPARISON: CHEST SINGLE AP, September 29, 2016, 16:22. INDICATIONS : Post thoracotomy MEDICAL HISTORY : Carcinoma, lung. SURGICAL HISTORY : None. ENCOUNTER: Subsequent ACUITY: 2 days PAIN SCORE: Non-responsive. LOCATION: Bilateral chest FINDINGS: Large bore chest tube is in place on the right. There is a significant decrease in the amount of flu id. Minimal consolidative changes are present in the right base. The left lung is clear. Heart and pulmonary vascularity are normal. CONCLUSION: 1. Right chest tube in good position. There is no residual pneumothorax. Yosi Bonilla MD FACR on September 30, 2016 at 10:26 Board Certified Radiologist. This report was verified electronically.
[2016-09-30] MEDS ORDERED: *PROMETHAZINE 25 MG/ML VIAL PERIprocedural use ONLY ONE (10:38)
[2016-09-30] MEDS: ENOXAPARIN SODIUM 40 MG/0.4 ML SYRINGE SQ SCH (11:00)
[2016-09-30 11:39] LABS: PLEURAL FLUID LYMPHS 80 %
[2016-09-30] MEDS ORDERED: NORMOSOL R INJ 1,000 ML IV ONE (12:00)
[2016-09-30] MEDS ORDERED: PHENYLEPH/NS 1000 MCG/10 ML SYR IV ONE (12:00)
[2016-09-30] MEDS ORDERED: ONDANSETRON HCL 4 MG/2 ML VIAL IV PUSH ONE (12:00)
[2016-09-30] MEDS ORDERED: fentaNYL CITRATE 250 MCG/5 ML AMP IV ONE (12:00)
[2016-09-30] MEDS ORDERED: LACTATED RINGER'S 1000 ML INJ 1,000 ML IV ONE (12:00)
[2016-09-30] MEDS ORDERED: PROPOFOL 200 MG/20 ML AMP IV ONE (12:00)
[2016-09-30] MEDS: guaiFENesin E.R. 600 MG TAB PO SCH ×2 (13:09→20:26)
[2016-09-30] MEDS: INSULIN ASPART SUPPLEMENTAL SCALE SQ SCH ×3 (13:16→23:25)
[2016-09-30] MEDS: ACETAMINOPHEN 1000 MG/100 ML VIAL IV SCH (20:25)
[2016-09-30] MEDS: SODIUM CHLORIDE 0.9% FLUSH 10 ML FLUSH IV FLUSH SCH (20:26)
[2016-09-30] MEDS: PANTOPRAZOLE SOD 40 MG DELAYED RELEASE TAB PO SCH (20:26)
[2016-09-30] MEDS: DOCUSATE CALCIUM 240 MG CAP PO SCH (20:26)
[2016-10-01] VITALS (25 sets, daily range): BP systolic 104–121; BP diastolic 64–72; PULSE 75–128; RESP 18–20; TEMP 97.6–98.3; O2SAT 95–98
[2016-10-01] MEDS: ACETAMINOPHEN 1000 MG/100 ML VIAL IV SCH ×2 (01:33→08:00)
[2016-10-01] MEDS: oxyCODONE/ACETAMINOPHEN 5 MG/325 MG TAB PO PRN ×5 (02:16→20:49)
--- NOTE | 2016-10-01 05:04 | RADRPT ---
EXAM DATE/TIME: 10/01/2016 04:13 [facility] COMPARISON: CHEST SINGLE AP, September 30, 2016, 9:34. INDICATIONS : Shortness of breath, possible pulmonary disease. MEDICAL HISTORY : Carcinoma, lung. SURGICAL HISTORY : Thoracotomy ENCOUNTER: Subsequent ACUITY: 3 days PAIN SCORE: 8/10 LOCATION: Right chest FINDINGS: Right chest tube remains in place. No evidence of pneumothorax. There are bibasilar pulmonary infiltr ates. The right lower lung infiltrate is about the same. There is a mild increase in the left lower l maulik infiltrate. The heart size is stable. There is subcutaneous emphysema along the right chest wall. CONCLUSION: 1. Right chest tube in place. No pneumothorax. 2. Bibasilar infiltrates, right greater than left. Ernesto Campos MD on October 01, 2016 at 5:02 Board Certified Radiologist. This report was verified electronically.
[2016-10-01] MEDS: INSULIN ASPART SUPPLEMENTAL SCALE SQ SCH ×3 (05:56→17:34)
[2016-10-01 06:52] LABS: AUTOMATED NEUTROPHIL # 11.8 TH/MM3 (1.8-7.7); HEMATOCRIT 40.7 % (35.0-46.0); HEMO FLAGS DIFF FINAL; LYMPH % 4.6 % (9.0-44.0); LYMPHOCYTE # 0.6 TH/MM3 (1.0-4.8); MEAN CELL VOLUME 92.3 FL (80.0-100.0); MEAN CORPUSCULAR HEMOGLOBIN 29.3 PG (27.0-34.0); MEAN CORPUSCULAR HGB CONC 31.7 % (32.0-36.0); MONO % 7.7 % (0.0-8.0); NEUT % 87.7 % (16.0-70.0); PLATELET COUNT 483 TH/MM3 (150-450); RED CELL DISTRIBUTION WIDTH 14.2 % (11.6-17.2); WHITE BLOOD COUNT 13.5 TH/MM3 (4.0-11.0)
[2016-10-01 07:14] LABS: BICARBONATE 27.5 MEQ/L (21.0-32.0); POTASSIUM 3.8 MEQ/L (3.5-5.1)
[2016-10-01] MEDS: guaiFENesin E.R. 600 MG TAB PO SCH ×2 (08:07→20:48)
[2016-10-01] MEDS: ONDANSETRON HCL 4 MG/2 ML VIAL IV PUSH PRN (08:07)
[2016-10-01] MEDS: ASPIRIN 81 MG CHEW TAB CHEW SCH (08:08)
[2016-10-01] MEDS: SODIUM CHLORIDE 0.9% FLUSH 10 ML FLUSH IV FLUSH SCH ×2 (08:08→20:47)
--- NOTE | 2016-10-01 08:17 | HHI.PR ---
Subjective Remarks This is a pleasant 86 /o Female who came to ER with Shortness of breath, she follows with her Primary export specialist Doctor Mukul and had a new CT scan showed a Large Pleural Effusion, recommended to come to this facility for drainage and She denies other significant complaints currently. She states she came straight here from Dr. Gilman's office. Discussed with patient in the room and her Sister Mrs. 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 09/30: patient seen in her bedroom in the presence of her Sister Mrs. Willow Ling , status post Chest tube placement, stable No nausea, vomit or diarrhea, somnolent. seen by her Primary export specialist Doctor Christiano Gilman, Stage IV Adenocarcinoma of the Lung diagnosed January 2014, status post radiation to her Cervical Spine, now with progressive disease with Massive right pleural effusion and progression involving Thoracic spine. started on Lovenox 40 mg Subcutaneous daily, Biopsy taken by Cardiothoracic surgeon, asked cells analyzed for T790M mutation. 10/01: Stable in her bedroom gave 70 ml draining from her Chest tube during the night, awaiting for minimal drainage for talc pleurodesis seen in her bedroom in the presence of nurse Miss Rodney, No nausea, vomit but has constipation given Milk of Mag, added Lactulose. Objective Vital Signs Date Time Temp Pulse Resp B/P Pulse Ox O2 Delivery O2 Flow Rate FiO2 10/01/16 08:14 98 Nasal Cannula 2.00 10/01/16 07:30 98 Nasal Cannula 2.00 10/01/16 07:00 97.8 87 18 104/71 97 10/01/16 07:00 87 10/01/16 06:00 77 10/01/16 05:00 80 10/01/16 04:00 98.3 75 20 118/64 96 10/01/16 04:00 75 10/01/16 04:00 Nasal Cannula 2.00 10/01/16 03:00 77 10/01/16 02:00 82 10/01/16 01:00 81 10/01/16 00:00 80 10/01/16 00:00 Nasal Cannula 2.00 10/01/16 00:00 98.1 80 20 111/66 97 09/30/16 23:00 82 09/30/16 22:00 85 09/30/16 21:00 92 09/30/16 20:00 Nasal Cannula 2.00 09/30/16 20:00 97.9 87 22 125/71 97 09/30/16 20:00 87 09/30/16 18:00 92 09/30/16 17:00 86 09/30/16 16:00 84 09/30/16 15:14 97.6 94 18 102/64 98 09/30/16 15:00 90 09/30/16 14:00 80 09/30/16 13:00 82 09/30/16 11:44 96 Nasal Cannula 2.50 09/30/16 11:15 95 20 116/53 95 Nasal Cannula 2 09/30/16 11:00 91 09/30/16 11:00 97.3 94 18 118/55 95 09/30/16 11:00 92 20 131/62 95 Nasal Cannula 2 09/30/16 10:45 91 20 136/57 97 Nasal Cannula 2 09/30/16 10:30 91 20 130/61 97 Nasal Cannula 2 09/30/16 10:15 109 22 147/66 97 Nasal Cannula 2 09/30/16 10:00 88 20 111/64 96 Nasal Cannula 2 09/30/16 09:45 93 22 116/63 98 Nasal Cannula 2 09/30/16 09:39 96.2 95 22 127/79 99 Nasal Cannula 2 I/O 09/30/16 09/30/16 09/30/16 10/01/16 10/01/16 10/01/16 07:00 15:00 23:00 07:00 15:00 23:00 Intake Total 2440 ml 900 ml 640 ml Output Total 365 ml 480 ml 700 ml Balance 2075 ml 420 ml -60 ml Intake Oral 120 ml 300 ml 240 ml IV Total 920 ml 600 ml 400 ml Other 1400 ml Output Urine Total 315 ml 300 ml 650 ml Chest Tube Drainage Total 180 ml 50 ml Estimated Blood Loss 50 ml # Voids 2 # Bowel Movements 0 0 0 Result Diagram: 10/01/16 0455 10/01/16 0455 Imaging Last Impressions Chest X-Ray 10/01/16 0500 Signed Impressions: Service Date/Time: Saturday, October 01, 2016 04:13 - CONCLUSION: 1. Right chest tube in place. No pneumothorax. 2. Bibasilar infiltrates, right greater than left. Ernesto Campos MD Procedures Right chest tube placement and Biopsy. Other Results Laboratory Tests Test 09/29/16 09/30/16 09/30/16 09/30/16 17:01 03:52 08:19 09:00 Prothrombin Time 11.6 SEC Prothromb Time International 1.0 RATIO Ratio Activated Partial 28.4 SEC Thromboplast Time Magnesium Level 2.2 MG/DL Urine Color YELLOW Urine Turbidity HAZY Urine pH 6.5 Urine Specific [place] 1.027 Urine Protein TRACE mg/dL Urine Glucose (UA) NEG mg/dL Urine Ketones 40 mg/dL Urine Occult Blood NEG Urine Nitrite NEG Urine Bilirubin NEG Urine Urobilinogen 8.0 MG/DL Urine Leukocyte Esterase MOD Urine RBC LESS THAN 1 /hpf Urine WBC 41 /hpf Urine Bacteria MANY /hpf Urine Mucus FEW /lpf Microscopic Urinalysis Comment CULTURE INDICATED Blood Type A POSITIVE Antibody Screen NEGATIVE Crossmatch Leukocyte-Reduced Red Blood Cells Blood Bank Comment Pleural Fluid WBC 1430 /MM3 Pleural Fluid RBC 5408 /MM3 Pleural Fluid Neutrophils 9 % Pleural Fluid Lymphocytes 80 % Pleural Fluid Monocytes 8 % Pleural Fluid Eosinophils 2 % Pleural Fluid Histiocytes 1 % Test 10/01/16 04:55 White Blood Count 13.5 TH/MM3 Red Blood Count 4.40 MIL/MM3 Hemoglobin 12.9 GM/DL Hematocrit 40.7 % Mean Corpuscular Volume 92.3 FL Mean Corpuscular Hemoglobin 29.3 PG Mean Corpuscular Hemoglobin 31.7 % Concent Red Cell Distribution Width 14.2 % Platelet Count 483 TH/MM3 Mean Platelet Volume 8.1 FL Neutrophils (%) (Auto) 87.7 % Lymphocytes (%) (Auto) 4.6 % Monocytes (%) (Auto) 7.7 % Eosinophils (%) (Auto) 0.0 % Basophils (%) (Auto) 0.0 % Neutrophils # (Auto) 11.8 TH/MM3 Lymphocytes # (Auto) 0.6 TH/MM3 Monocytes # (Auto) 1.0 TH/MM3 Eosinophils # (Auto) 0.0 TH/MM3 Basophils # (Auto) 0.0 TH/MM3 CBC Comment DIFF FINAL Differential Comment Sodium Level 143 MEQ/L Potassium Level 3.8 MEQ/L Chloride Level 108 MEQ/L Carbon Dioxide Level 27.5 MEQ/L Anion Gap 8 MEQ/L Blood Urea Nitrogen 10 MG/DL Creatinine 0.84 MG/DL Estimat Glomerular Filtration 65 ML/MIN Rate Random Glucose 127 MG/DL Calcium Level 8.3 MG/DL Objective Remarks GENERAL: No acute distress. SKIN: Ecchymosis on four extremities. HEAD: Normocephalic and atraumatic. EYES: No injection or drainage. ENT: No nasal drainage noted. NECK: Supple CARDIOVASCULAR: Regular rate and rhythm RESPIRATORY: Improving on the Right base, Chest tube in place draining well. GASTROINTESTINAL: Abdomen soft, non-tender, nondistended. NEUROLOGICAL: Awake and alert. Motor and sensory grossly within normal limits. Normal speech. Medications and IVs Current Medications Medications (Trade) Dose Ordered Sig/Ariella Route Start Time Stop Time Status Last Admin (Dulcolax Supp) 10 mg DAILY PRN RECTAL 09/29/16 17:15 (Narcan Inj) 0.4 mg UNSCH PRN IV 09/29/16 17:15 (Mucinex Er) 600 mg BID PO 09/29/16 21:00 10/01/16 08:07 (Bactroban Nasal 2% Oint) 1 applic BID EACH NARE 09/29/16 21:00 10/04/16 20:59 09/30/16 20:26 Zolpidem Tartrate 5 mg 5 mg HS PRN PO 09/29/16 21:00 09/29/16 22:00 (Lr 1000 ml Inj) 1,000 ml @ 30 mls/hr Q24H PRN IV 09/30/16 04:15 10/03/16 04:14 (NS Flush) 2 ml BID IV FLUSH 09/30/16 21:00 10/01/16 08:08 (NS Flush) 2 ml UNSCH PRN IV FLUSH 09/30/16 09:15 (Protonix) 40 mg HS PO 09/30/16 21:00 09/30/16 20:26 (Zofran Inj) 4 mg Q6H PRN IV PUSH 09/30/16 09:15 10/01/16 08:07 (Surfak) 240 mg HS PO 09/30/16 21:00 09/30/16 20:26 (Milk Of Magnesia Liq) 30 ml DAILY PRN PO 09/30/16 09:15 10/01/16 08:07 (Tylenol) 650 mg Q4H PRN PO 09/30/16 09:15 09/30/16 17:58 (NovoLOG SUPPLEMENTAL SCALE) Q6HR SQ 09/30/16 12:00 09/30/16 23:25 (D50w (Vial) Inj) 25 ml UNSCH PRN IV PUSH 09/30/16 09:15 (Glucagon Inj) 1 mg UNSCH PRN IV 09/30/16 09:15 (Percocet 5-325 Mg) 1 tab Q3H PRN PO 09/30/16 09:15 10/01/16 05:55 (Aspirin Chew) 81 mg DAILY CHEW 10/01/16 09:00 10/01/16 08:08 (Lovenox Inj) 40 mg Q24H SQ 09/30/16 11:00 A/P Assessment and Plan 1. Very large Pleural Effusion with mediastinal shift to the left, on outpatient CT scan, status post right Chest tube placement and Biopsy, awaiting for minimal draining for Talc Pleurodesis. 2. Stage IV Metastatic Adenocarcinoma of the lung to the Cervical spine, Thoracic Spine and Massive Pleural effusion. 3. UTI started on Ceftriaxone. following Urine culture. increased Leukocytosis probable reactive to her Chest tube placement Cultures negative. DVT prophylaxis SCDs awaiting final recommendations by Specialists Bronchodilator, Mucolytic and incentive spirometry. Code Status Full code for procedure her Son is POA. Discussed Condition With Discussed with Patient and Nurse Miss Rodney all questions answered to the best of my abilities. Discharge Planning once cleared by specialists. Dom Saunders MD October 01, 2016 08:17
[2016-10-01] MEDS: MUPIROCIN 2% OINT 1 APPLIC/GM SYR EACH NARE SCH ×2 (09:00→20:47)
--- NOTE | 2016-10-01 09:01 | PD.ONC.PN ---
Subjective Subjective Remarks breathing much better Objective Data Date Time Temp Pulse Resp B/P Pulse Ox O2 Delivery O2 Flow Rate FiO2 10/01/16 08:14 98 Nasal Cannula 2.00 10/01/16 07:30 98 Nasal Cannula 2.00 10/01/16 07:00 97.8 87 18 104/71 97 10/01/16 07:00 87 10/01/16 06:00 77 10/01/16 05:00 80 10/01/16 04:00 98.3 75 20 118/64 96 10/01/16 04:00 75 10/01/16 04:00 Nasal Cannula 2.00 10/01/16 03:00 77 10/01/16 02:00 82 10/01/16 01:00 81 10/01/16 00:00 80 10/01/16 00:00 Nasal Cannula 2.00 10/01/16 00:00 98.1 80 20 111/66 97 09/30/16 23:00 82 09/30/16 22:00 85 09/30/16 21:00 92 09/30/16 20:00 Nasal Cannula 2.00 09/30/16 20:00 97.9 87 22 125/71 97 09/30/16 20:00 87 09/30/16 18:00 92 09/30/16 17:00 86 09/30/16 16:00 84 09/30/16 15:14 97.6 94 18 102/64 98 09/30/16 15:00 90 09/30/16 14:00 80 09/30/16 13:00 82 09/30/16 11:44 96 Nasal Cannula 2.50 09/30/16 11:15 95 20 116/53 95 Nasal Cannula 2 09/30/16 11:00 91 09/30/16 11:00 97.3 94 18 118/55 95 09/30/16 11:00 92 20 131/62 95 Nasal Cannula 2 09/30/16 10:45 91 20 136/57 97 Nasal Cannula 2 09/30/16 10:30 91 20 130/61 97 Nasal Cannula 2 09/30/16 10:15 109 22 147/66 97 Nasal Cannula 2 09/30/16 10:00 88 20 111/64 96 Nasal Cannula 2 09/30/16 09:45 93 22 116/63 98 Nasal Cannula 2 09/30/16 09:39 96.2 95 22 127/79 99 Nasal Cannula 2 10/01/16 10/01/16 10/01/16 06:59 14:59 22:59 Intake Total 640 ml Output Total 700 ml Balance -60 ml Result Diagram: 10/01/16 0455 10/01/16 0455 Laboratory Results Laboratory Tests Test 09/30/16 10/01/16 09:00 04:55 Pleural Fluid WBC 1430 /MM3 Pleural Fluid RBC 5408 /MM3 Pleural Fluid Neutrophils 9 % Pleural Fluid Lymphocytes 80 % Pleural Fluid Monocytes 8 % Pleural Fluid Eosinophils 2 % Pleural Fluid Histiocytes 1 % White Blood Count 13.5 TH/MM3 Red Blood Count 4.40 MIL/MM3 Hemoglobin 12.9 GM/DL Hematocrit 40.7 % Mean Corpuscular Volume 92.3 FL Mean Corpuscular Hemoglobin 29.3 PG Mean Corpuscular Hemoglobin 31.7 % Concent Red Cell Distribution Width 14.2 % Platelet Count 483 TH/MM3 Mean Platelet Volume 8.1 FL Neutrophils (%) (Auto) 87.7 % Lymphocytes (%) (Auto) 4.6 % Monocytes (%) (Auto) 7.7 % Eosinophils (%) (Auto) 0.0 % Basophils (%) (Auto) 0.0 % Neutrophils # (Auto) 11.8 TH/MM3 Lymphocytes # (Auto) 0.6 TH/MM3 Monocytes # (Auto) 1.0 TH/MM3 Eosinophils # (Auto) 0.0 TH/MM3 Basophils # (Auto) 0.0 TH/MM3 CBC Comment DIFF FINAL Differential Comment Sodium Level 143 MEQ/L Potassium Level 3.8 MEQ/L Chloride Level 108 MEQ/L Carbon Dioxide Level 27.5 MEQ/L Anion Gap 8 MEQ/L Blood Urea Nitrogen 10 MG/DL Creatinine 0.84 MG/DL Estimat Glomerular Filtration 65 ML/MIN Rate Random Glucose 127 MG/DL Calcium Level 8.3 MG/DL Culture Results Microbiology Date/Time Procedure Status Source Growth 09/30/16 03:52 Urine Culture Received Urine Clean Catch Pending 09/30/16 09:00 Gram Stain - Final Resulted Fluid Pleural Fluid 09/30/16 09:00 Body Fluid Culture Resulted Fluid Pleural Fluid Pending 09/30/16 09:00 Acid Fast Stain Received Fluid Pleural Fluid Pending 09/30/16 09:00 Mycobacterial Culture Received Fluid Pleural Fluid Pending 09/30/16 09:00 Fungal Smear - Final Resulted Fluid Pleural Fluid NO FUNGAL ELEMENTS SEEN. 09/30/16 09:00 Fungal Culture Resulted Fluid Pleural Fluid Pending Imaging Studies Last 24 hours Impressions Chest X-Ray 10/01/16 0500 Signed Impressions: Service Date/Time: Saturday, October 01, 2016 04:13 - CONCLUSION: 1. Right chest tube in place. No pneumothorax. 2. Bibasilar infiltrates, right greater than left. Ernesto Campos MD Administered Medications Medications (Trade) Dose Ordered Sig/Ariella Route PRN Reason Start Time Stop Time Status Last Admin Dose Admin Guaifenesin (Mucinex Er) 600 mg BID PO 09/29/16 21:00 10/01/16 08:07 Mupirocin (Bactroban Nasal 2% Oint) 1 applic BID EACH NARE 09/29/16 21:00 10/04/16 20:59 09/30/16 20:26 Zolpidem Tartrate (Ambien) 5 mg HS PRN PO /SEPTEMBER REPEAT X1 DOSE 09/29/16 21:00 09/29/16 22:00 Sodium Chloride (NS Flush) 2 ml BID IV FLUSH 09/30/16 21:00 10/01/16 08:08 Pantoprazole Sodium (Protonix) 40 mg HS PO 09/30/16 21:00 09/30/16 20:26 Ondansetron HCl (Zofran Inj) 4 mg Q6H PRN IV PUSH NAUSEA OR VOMITING 09/30/16 09:15 10/01/16 08:07 Docusate Calcium (Surfak) 240 mg HS PO 09/30/16 21:00 09/30/16 20:26 Magnesium Hydroxide (Milk Of Magnesia Liq) 30 ml DAILY PRN PO CONSTIPATION 09/30/16 09:15 10/01/16 08:07 Acetaminophen (Tylenol) 650 mg Q4H PRN PO TEMPERATURE > 101 F 09/30/16 09:15 09/30/16 17:58 Insulin Aspart (NovoLOG SUPPLEMENTAL SCALE) Q6HR SQ 09/30/16 12:00 09/30/16 23:25 Oxycodone/ Acetaminophen (Percocet 5-325 Mg) 1 tab Q3H PRN PO PAIN SCALE 3 TO 5 09/30/16 09:15 10/01/16 05:55 Aspirin (Aspirin Chew) 81 mg DAILY CHEW 10/01/16 09:00 10/01/16 08:08 Objective Remarks GENERAL: appears well and breathing is not labored. SKIN: Warm and dry. HEAD: Normocephalic. EYES: No scleral icterus. No injection or drainage. NECK: Supple, trachea midline. No JVD or lymphadenopathy. LYMPHATIC: No adenopathy. CARDIOVASCULAR: Regular rate and rhythm without murmurs. RESPIRATORY: decreased sounds right base but aeration much better. GASTROINTESTINAL: Abdomen soft, non-tender, nondistended. EXTREMITIES: No cyanosis, or edema. MUSCULOSKELETAL: Adequate muscle tone. NEUROLOGICAL: No obvious focal deficit. Awake, alert, and oriented x3. PSYCHIATRIC: Appropriate mood and affect; insight and judgment normal. Assessment/Plan Assessment 1: appreciate all the help. She is doing well and once drainage is minimal would do talc pleurodesis and then discharge home. I will make arrangements for pathology to be sent for T790M mutation analysis. continue lovenex until discharge and she will continue aspirin as outpatient. Christiano Gilman MD October 01, 2016 09:01
[2016-10-01] MEDS ORDERED: SOD PHOSPHATE/SOD BIPHOSPHATE (ADULT) ENEMA 133ML RECTAL PRN (09:30)
[2016-10-01] MEDS ORDERED: GLYCERIN ADULT 2 GM SUPP RECTAL PRN (09:30)
[2016-10-01] MEDS ORDERED: LACTULOSE SYRUP 20 GM/30 ML CUP PO ONE (09:30)
[2016-10-01] MEDS: ENOXAPARIN SODIUM 40 MG/0.4 ML SYRINGE SQ SCH (11:23)
[2016-10-01] MEDS: cefTRIAXone INJ 1,000 MG in SODIUM CHLORIDE 0.9% INJ 100 ML IV SCH (11:23)
--- NOTE | 2016-10-01 11:45 | PD.CAR.PN ---
CVT Progress Note CVT: POD #: 1 Subjective/Hospital Course: 10/01/16 Doing well. No complaints Objective: Vital Signs Date Time Temp Pulse Resp B/P Pulse Ox O2 Delivery O2 Flow Rate FiO2 10/01/16 11:00 84 10/01/16 10:00 82 10/01/16 09:00 90 10/01/16 08:14 98 Nasal Cannula 2.00 10/01/16 08:00 84 10/01/16 07:30 98 Nasal Cannula 2.00 10/01/16 07:00 97.8 87 18 104/71 97 10/01/16 07:00 87 10/01/16 06:00 77 10/01/16 05:00 80 10/01/16 04:00 98.3 75 20 118/64 96 10/01/16 04:00 75 10/01/16 04:00 Nasal Cannula 2.00 10/01/16 03:00 77 10/01/16 02:00 82 10/01/16 01:00 81 10/01/16 00:00 80 10/01/16 00:00 Nasal Cannula 2.00 10/01/16 00:00 98.1 80 20 111/66 97 09/30/16 23:00 82 09/30/16 22:00 85 09/30/16 21:00 92 09/30/16 20:00 Nasal Cannula 2.00 09/30/16 20:00 97.9 87 22 125/71 97 09/30/16 20:00 87 09/30/16 18:00 92 09/30/16 17:00 86 09/30/16 16:00 84 09/30/16 15:14 97.6 94 18 102/64 98 09/30/16 15:00 90 09/30/16 14:00 80 09/30/16 13:00 82 09/30/16 11:44 96 Nasal Cannula 2.50 Labs: Laboratory Tests Test 10/01/16 04:55 White Blood Count 13.5 TH/MM3 (4.0-11.0) Red Blood Count 4.40 MIL/MM3 (4.00-5.30) Hemoglobin 12.9 GM/DL (11.6-15.3) Hematocrit 40.7 % (35.0-46.0) Mean Corpuscular Volume 92.3 FL (80.0-100.0) Mean Corpuscular Hemoglobin 29.3 PG (27.0-34.0) Mean Corpuscular Hemoglobin 31.7 % Concent (32.0-36.0) Red Cell Distribution Width 14.2 % (11.6-17.2) Platelet Count 483 TH/MM3 (150-450) Mean Platelet Volume 8.1 FL (7.0-11.0) Neutrophils (%) (Auto) 87.7 % (16.0-70.0) Lymphocytes (%) (Auto) 4.6 % (9.0-44.0) Monocytes (%) (Auto) 7.7 % (0.0-8.0) Eosinophils (%) (Auto) 0.0 % (0.0-4.0) Basophils (%) (Auto) 0.0 % (0.0-2.0) Neutrophils # (Auto) 11.8 TH/MM3 (1.8-7.7) Lymphocytes # (Auto) 0.6 TH/MM3 (1.0-4.8) Monocytes # (Auto) 1.0 TH/MM3 (0-0.9) Eosinophils # (Auto) 0.0 TH/MM3 (0-0.4) Basophils # (Auto) 0.0 TH/MM3 (0-0.2) CBC Comment DIFF FINAL Differential Comment Sodium Level 143 MEQ/L (136-145) Potassium Level 3.8 MEQ/L (3.5-5.1) Chloride Level 108 MEQ/L (98-107) Carbon Dioxide Level 27.5 MEQ/L (21.0-32.0) Anion Gap 8 MEQ/L (5-15) Blood Urea Nitrogen 10 MG/DL (7-18) Creatinine 0.84 MG/DL (0.50-1.00) Estimat Glomerular Filtration 65 ML/MIN (>89) Rate Random Glucose 127 MG/DL (74-106) Calcium Level 8.3 MG/DL (8.5-10.1) Result Diagram: 10/01/16 0455 10/01/16 0455 Imaging: Last 24 hours Impressions Chest X-Ray 10/01/16 7900 Signed Impressions: Service Date/Time: Saturday, October 01, 2016 04:13 - CONCLUSION: 1. Right chest tube in place. No pneumothorax. 2. Bibasilar infiltrates, right greater than left. Ernesto Campos MD Cardiovascular: RRR Telemetry: NSR Pulmonary: Few crackles bilaterally GI/: NABS, NT Incision: dry and intact CT: 250/24 hrs Plan: Chest tube to water seal Encourage ambulation x 6, up to chair Stim BM Physical therapy CXR in AM Spring Han MD October 01, 2016 11:45
[2016-10-01] MEDS: RESP: ALBUTEROL 2.5 MG/IPRATROPIUM 0.5 MG NEB (SCH) NEB ×4 (12:51→22:42)
[2016-10-01] MEDS: DOCUSATE CALCIUM 240 MG CAP PO SCH (20:47)
[2016-10-01] MEDS: PANTOPRAZOLE SOD 40 MG DELAYED RELEASE TAB PO SCH (20:47)
[2016-10-01] MEDS ORDERED: guaiFENesin E.R. 600 MG TAB PO SCH (21:00)
[2016-10-01] MEDS ORDERED: SODIUM CHLORID 0.9% 500 ML INJ 500 ML IV ONE (21:15)
[2016-10-02] VITALS (27 sets, daily range): BP systolic 95–130; BP diastolic 51–72; PULSE 94–134; RESP 18–20; TEMP 95.5–98.5; O2SAT 94–98
[2016-10-02] MEDS: oxyCODONE/ACETAMINOPHEN 5 MG/325 MG TAB PO PRN ×2 (01:35→04:48)
[2016-10-02] MEDS ORDERED: SODIUM CHLORID 0.9% 500 ML INJ 500 ML IV ONE (01:45)
--- NOTE | 2016-10-02 02:26 | RADRPT ---
EXAM DATE/TIME: 10/02/2016 02:07 [facility] COMPARISON: CHEST SINGLE AP, October 01, 2016, 4:13. INDICATIONS : Shortness of breath, possible pulmonary disease. MEDICAL HISTORY : Carcinoma, lung. SURGICAL HISTORY : Thoracotomy ENCOUNTER: Subsequent ACUITY: 4 - 6 days PAIN SCORE: 0/10 LOCATION: Bilateral chest FINDINGS: Right chest tube remains in place. There is a small apical right pneumothorax with 5 mm of separation . There continues to be an infiltrate in the right lung base which is stable. There is left lower srinivasan g atelectasis. The heart size is stable. CONCLUSION: Small right apical pneumothorax with 5 mm of separation. No change in the bibasilar infiltrates, righ t greater than left. Ernesto Campos MD on October 02, 2016 at 2:24 Board Certified Radiologist. This report was verified electronically.
[2016-10-02] MEDS: RESP: ALBUTEROL 2.5 MG/IPRATROPIUM 0.5 MG NEB (SCH) NEB ×2 (03:27→07:54)
[2016-10-02 04:46] LABS: AUTOMATED NEUTROPHIL # 9.7 TH/MM3 (1.8-7.7); BASOPHIL % 0.3 % (0.0-2.0); EOSINOPHIL % 0.2 % (0.0-4.0); HEMATOCRIT 37.7 % (35.0-46.0); HEMO FLAGS DIFF FINAL; LYMPH % 5.4 % (9.0-44.0); LYMPHOCYTE # 0.6 TH/MM3 (1.0-4.8); MEAN CELL VOLUME 91.1 FL (80.0-100.0); MEAN CORPUSCULAR HEMOGLOBIN 30.7 PG (27.0-34.0); MEAN CORPUSCULAR HGB CONC 33.7 % (32.0-36.0); MONO % 9.7 % (0.0-8.0); NEUT % 84.4 % (16.0-70.0); PLATELET COUNT 441 TH/MM3 (150-450); RED BLOOD COUNT 4.13 MIL/MM3 (4.00-5.30); RED CELL DISTRIBUTION WIDTH 14.5 % (11.6-17.2); WHITE BLOOD COUNT 11.5 TH/MM3 (4.0-11.0)
[2016-10-02] MEDS: INSULIN ASPART SUPPLEMENTAL SCALE SQ SCH ×3 (04:49→12:00)
[2016-10-02 04:55] LABS: BICARBONATE 25.9 MEQ/L (21.0-32.0); POTASSIUM 3.8 MEQ/L (3.5-5.1)
--- NOTE | 2016-10-02 07:59 | HHI.PR ---
Subjective Remarks This is a pleasant 86 /o Female who came to ER with Shortness of breath, she follows with her Primary medical administrative specialist Doctor Mukul and had a new CT scan showed a Large Pleural Effusion, recommended to come to this facility for drainage and She denies other significant complaints currently. She states she came straight here from Dr. Gilman's office. Discussed with patient in the room and her Sister Mrs. 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 09/30: patient seen in her bedroom in the presence of her Sister Mrs. Willow Ling , status post Chest tube placement, stable No nausea, vomit or diarrhea, somnolent. 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 started on Lovenox 40 mg Subcutaneous daily, Biopsy taken by Cardiothoracic surgeon, asked cells analyzed for T790M mutation. 10/01: Stable in her bedroom gave 70 ml draining from her Chest tube during the night, awaiting for minimal drainage for talc pleurodesis seen in her bedroom in the presence of nurse Miss Rodney, No nausea, vomit but has constipation given Milk of Mag, added Lactulose. 10/02: Seen in her bedroom in the presence of nurse Mr. Stringer and also her Sister Mrs. Willow Ling in the room, Improving condition as per Cardiothoracic Surgery to remove Chest tube in am and discharge Home. No nausea, vomit or diarrhea, but complaint of painful cough added Ipratropium bromide and Budesonide inhaled. Objective Vital Signs Date Time Temp Pulse Resp B/P Pulse Ox O2 Delivery O2 Flow Rate FiO2 10/02/16 07:55 98 Nasal Cannula 2.00 10/02/16 07:01 104 10/02/16 06:00 101 10/02/16 05:00 100 10/02/16 04:00 Nasal Cannula 2.00 10/02/16 04:00 106 10/02/16 04:00 98.2 106 20 122/68 96 10/02/16 03:00 106 10/02/16 02:00 114 10/02/16 01:00 122 10/02/16 00:00 98.4 130 20 95/56 97 10/02/16 00:00 Nasal Cannula 2.00 10/02/16 00:00 130 10/01/16 23:00 120 10/01/16 22:00 120 10/01/16 21:00 122 10/01/16 20:00 128 10/01/16 20:00 98.2 128 20 118/71 98 10/01/16 20:00 Nasal Cannula 2.00 10/01/16 19:09 95 Nasal Cannula 2.00 10/01/16 18:03 115 10/01/16 17:09 121 10/01/16 16:00 103 10/01/16 15:00 105 10/01/16 15:00 97.6 106 18 112/72 98 10/01/16 14:00 96 10/01/16 13:03 89 10/01/16 12:55 17 10/01/16 12:00 84 10/01/16 11:00 97.6 89 18 121/64 98 10/01/16 11:00 84 10/01/16 10:00 82 10/01/16 09:00 90 10/01/16 08:14 98 Nasal Cannula 2.00 10/01/16 08:00 84 I/O 10/01/16 10/01/16 10/01/16 10/02/16 10/02/16 10/02/16 07:00 15:00 23:00 07:00 15:00 23:00 Intake Total 640 ml 710 ml 1240 ml Output Total 700 ml 40 ml 500 ml Balance -60 ml 670 ml 740 ml Intake Oral 240 ml 710 ml 240 ml IV Total 400 ml 1000 ml Output Urine Total 650 ml 500 ml Chest Tube Drainage Total 50 ml 40 ml # Voids 5 # Bowel Movements 0 0 Result Diagram: 10/02/16 0400 10/02/16 0400 Imaging Last Impressions Chest X-Ray 10/02/16 0000 Signed Impressions: Service Date/Time: Sunday, October 02, 2016 02:07 - CONCLUSION: Small right apical pneumothorax with 5 mm of separation. No change in the bibasilar infiltrates, right greater than left. Ernesto Campos MD Procedures Right chest tube placement and Biopsy. Other Results Laboratory Tests Test 09/29/16 09/30/16 09/30/16 09/30/16 17:01 03:52 08:19 09:00 Prothrombin Time 11.6 SEC Prothromb Time International 1.0 RATIO Ratio Activated Partial 28.4 SEC Thromboplast Time Magnesium Level 2.2 MG/DL Urine Color YELLOW Urine Turbidity HAZY Urine pH 6.5 Urine Specific Crawford 1.027 Urine Protein TRACE mg/dL Urine Glucose (UA) NEG mg/dL Urine Ketones 40 mg/dL Urine Occult Blood NEG Urine Nitrite NEG Urine Bilirubin NEG Urine Urobilinogen 8.0 MG/DL Urine Leukocyte Esterase MOD Urine RBC LESS THAN 1 /hpf Urine WBC 41 /hpf Urine Bacteria MANY /hpf Urine Mucus FEW /lpf Microscopic Urinalysis Comment CULTURE INDICATED Blood Type A POSITIVE Antibody Screen NEGATIVE Crossmatch Leukocyte-Reduced Red Blood Cells Blood Bank Comment Pleural Fluid WBC 1430 /MM3 Pleural Fluid RBC 5408 /MM3 Pleural Fluid Neutrophils 9 % Pleural Fluid Lymphocytes 80 % Pleural Fluid Monocytes 8 % Pleural Fluid Eosinophils 2 % Pleural Fluid Histiocytes 1 % Test 10/02/16 04:00 White Blood Count 11.5 TH/MM3 Red Blood Count 4.13 MIL/MM3 Hemoglobin 12.7 GM/DL Hematocrit 37.7 % Mean Corpuscular Volume 91.1 FL Mean Corpuscular Hemoglobin 30.7 PG Mean Corpuscular Hemoglobin 33.7 % Concent Red Cell Distribution Width 14.5 % Platelet Count 441 TH/MM3 Mean Platelet Volume 8.3 FL Neutrophils (%) (Auto) 84.4 % Lymphocytes (%) (Auto) 5.4 % Monocytes (%) (Auto) 9.7 % Eosinophils (%) (Auto) 0.2 % Basophils (%) (Auto) 0.3 % Neutrophils # (Auto) 9.7 TH/MM3 Lymphocytes # (Auto) 0.6 TH/MM3 Monocytes # (Auto) 1.1 TH/MM3 Eosinophils # (Auto) 0.0 TH/MM3 Basophils # (Auto) 0.0 TH/MM3 CBC Comment DIFF FINAL Differential Comment Sodium Level 141 MEQ/L Potassium Level 3.8 MEQ/L Chloride Level 108 MEQ/L Carbon Dioxide Level 25.9 MEQ/L Anion Gap 7 MEQ/L Blood Urea Nitrogen 19 MG/DL Creatinine 0.69 MG/DL Estimat Glomerular Filtration 81 ML/MIN Rate Random Glucose 140 MG/DL Calcium Level 8.1 MG/DL Objective Remarks GENERAL: No acute distress. SKIN: Ecchymosis on four extremities. HEAD: Normocephalic and atraumatic. EYES: No injection or drainage. ENT: No nasal drainage noted. NECK: Supple CARDIOVASCULAR: Regular rate and rhythm RESPIRATORY: Improving on the Right base, Chest tube in place to water seal. GASTROINTESTINAL: Abdomen soft, non-tender, nondistended. NEUROLOGICAL: Awake and alert. Motor and sensory grossly within normal limits. Normal speech. Medications and IVs Current Medications Medications (Trade) Dose Ordered Sig/Ariella Route Start Time Stop Time Status Last Admin (Dulcolax Supp) 10 mg DAILY PRN RECTAL 09/29/16 17:15 (Narcan Inj) 0.4 mg UNSCH PRN IV 09/29/16 17:15 (Mucinex Er) 600 mg BID PO 09/29/16 21:00 10/01/16 20:48 (Bactroban Nasal 2% Oint) 1 applic BID EACH NARE 09/29/16 21:00 10/04/16 20:59 10/01/16 20:47 Zolpidem Tartrate 5 mg 5 mg HS PRN PO 09/29/16 21:00 09/29/16 22:00 (Lr 1000 ml Inj) 1,000 ml @ 30 mls/hr Q24H PRN IV 09/30/16 04:15 10/03/16 04:14 (NS Flush) 2 ml BID IV FLUSH 09/30/16 21:00 10/01/16 20:47 (NS Flush) 2 ml UNSCH PRN IV FLUSH 09/30/16 09:15 (Protonix) 40 mg HS PO 09/30/16 21:00 10/01/16 20:47 (Zofran Inj) 4 mg Q6H PRN IV PUSH 09/30/16 09:15 10/01/16 08:07 (Surfak) 240 mg HS PO 09/30/16 21:00 10/01/16 20:47 (Milk Of Magnesia Liq) 30 ml DAILY PRN PO 09/30/16 09:15 10/01/16 08:07 (Tylenol) 650 mg Q4H PRN PO 09/30/16 09:15 09/30/16 17:58 (NovoLOG SUPPLEMENTAL SCALE) Q6HR SQ 09/30/16 12:00 09/30/16 23:25 (D50w (Vial) Inj) 25 ml UNSCH PRN IV PUSH 09/30/16 09:15 (Glucagon Inj) 1 mg UNSCH PRN IV 09/30/16 09:15 (Percocet 5-325 Mg) 1 tab Q3H PRN PO 09/30/16 09:15 10/02/16 04:48 (Aspirin Chew) 81 mg DAILY CHEW 10/01/16 09:00 10/01/16 08:08 (Lovenox Inj) 40 mg Q24H SQ 09/30/16 11:00 10/01/16 11:23 (Glycerin Adult Supp) 2 gm DAILY PRN RECTAL 10/01/16 09:30 Sodium Biphosphate/ Sodium Phosphate 133 ml 133 ml UNSCH PRN RECTAL 10/01/16 09:30 (Rocephin Inj/NS Inj) 100 ml @ 200 mls/hr Q24H IV 10/01/16 11:00 10/01/16 11:23 A/P Assessment and Plan 1. Very large Pleural Effusion with mediastinal shift to the left, on outpatient CT scan, status post right Chest tube placement and Biopsy, stable today chest tube to water seal, and to remove chest tube in am tomorrow added Ipratropium bromide and Budesonide inhaled. 2. Stage IV Metastatic Adenocarcinoma of the lung to the Cervical spine, Thoracic Spine and Massive Pleural effusion. 3. UTI started on Ceftriaxone. following Urine culture. increased Leukocytosis probable reactive to her Chest tube placement Cultures negative. DVT prophylaxis SCDs awaiting final recommendations by Specialists Bronchodilator, Mucolytic and incentive spirometry. Code Status Full code for procedure her Son is POA. Discussed Condition With Discussed with Patient and Nurse Mr. Stringer and her Sister Mrs. Willow Ling, all questions answered to the best of my abilities. Discharge Planning Expected by tomorrow. Dom Saunders MD October 02, 2016 07:59
[2016-10-02] MEDS: guaiFENesin E.R. 600 MG TAB PO SCH ×2 (08:43→20:39)
[2016-10-02] MEDS: MUPIROCIN 2% OINT 1 APPLIC/GM SYR EACH NARE SCH ×2 (08:43→20:38)
[2016-10-02] MEDS: ASPIRIN 81 MG CHEW TAB CHEW SCH (08:43)
[2016-10-02] MEDS: SODIUM CHLORIDE 0.9% FLUSH 10 ML FLUSH IV FLUSH SCH ×2 (08:43→20:42)
--- NOTE | 2016-10-02 10:10 | PD.ONC.PN ---
Subjective Subjective Remarks Afebrile overnight. patient had a difficult night last night. She said she took some medication that made her feel nauseous and she vomited twice. She feels ok now but does not want to try and eat breakfast. Objective Data Date Time Temp Pulse Resp B/P Pulse Ox O2 Delivery O2 Flow Rate FiO2 10/02/16 07:55 98 Nasal Cannula 2.00 10/02/16 07:01 104 10/02/16 06:00 101 10/02/16 05:00 100 10/02/16 04:00 Nasal Cannula 2.00 10/02/16 04:00 106 10/02/16 04:00 98.2 106 20 122/68 96 10/02/16 03:00 106 10/02/16 02:00 114 10/02/16 01:00 122 10/02/16 00:00 98.4 130 20 95/56 97 10/02/16 00:00 Nasal Cannula 2.00 10/02/16 00:00 130 10/01/16 23:00 120 10/01/16 22:00 120 10/01/16 21:00 122 10/01/16 20:00 128 10/01/16 20:00 98.2 128 20 118/71 98 10/01/16 20:00 Nasal Cannula 2.00 10/01/16 19:09 95 Nasal Cannula 2.00 10/01/16 18:03 115 10/01/16 17:09 121 10/01/16 16:00 103 10/01/16 15:00 105 10/01/16 15:00 97.6 106 18 112/72 98 10/01/16 14:00 96 10/01/16 13:03 89 10/01/16 12:55 17 10/01/16 12:00 84 10/01/16 11:00 97.6 89 18 121/64 98 10/01/16 11:00 84 10/02/16 10/02/16 10/02/16 07:00 15:00 23:00 Intake Total 1240 ml Output Total 500 ml Balance 740 ml Result Diagram: 10/02/16 0400 10/02/16 0400 Laboratory Results Laboratory Tests Test 10/02/16 04:00 White Blood Count 11.5 TH/MM3 Red Blood Count 4.13 MIL/MM3 Hemoglobin 12.7 GM/DL Hematocrit 37.7 % Mean Corpuscular Volume 91.1 FL Mean Corpuscular Hemoglobin 30.7 PG Mean Corpuscular Hemoglobin 33.7 % Concent Red Cell Distribution Width 14.5 % Platelet Count 441 TH/MM3 Mean Platelet Volume 8.3 FL Neutrophils (%) (Auto) 84.4 % Lymphocytes (%) (Auto) 5.4 % Monocytes (%) (Auto) 9.7 % Eosinophils (%) (Auto) 0.2 % Basophils (%) (Auto) 0.3 % Neutrophils # (Auto) 9.7 TH/MM3 Lymphocytes # (Auto) 0.6 TH/MM3 Monocytes # (Auto) 1.1 TH/MM3 Eosinophils # (Auto) 0.0 TH/MM3 Basophils # (Auto) 0.0 TH/MM3 CBC Comment DIFF FINAL Differential Comment Sodium Level 141 MEQ/L Potassium Level 3.8 MEQ/L Chloride Level 108 MEQ/L Carbon Dioxide Level 25.9 MEQ/L Anion Gap 7 MEQ/L Blood Urea Nitrogen 19 MG/DL Creatinine 0.69 MG/DL Estimat Glomerular Filtration 81 ML/MIN Rate Random Glucose 140 MG/DL Calcium Level 8.1 MG/DL Culture Results Microbiology Date/Time Procedure Status Source Growth 09/30/16 03:52 Urine Culture - Preliminary Resulted Urine Clean Catch Gram Negative [place] 09/30/16 09:00 Gram Stain - Final Resulted Fluid Pleural Fluid 09/30/16 09:00 Body Fluid Culture - Preliminary Resulted Fluid Pleural Fluid NO GROWTH IN 48 HOURS. 09/30/16 09:00 Acid Fast Stain Received Fluid Pleural Fluid Pending 09/30/16 09:00 Mycobacterial Culture Received Fluid Pleural Fluid Pending 09/30/16 09:00 Fungal Smear - Final Resulted Fluid Pleural Fluid NO FUNGAL ELEMENTS SEEN. 09/30/16 09:00 Fungal Culture Resulted Fluid Pleural Fluid Pending Imaging Studies Last 24 hours Impressions Chest X-Ray 10/02/16 0000 Signed Impressions: Service Date/Time: Sunday, October 02, 2016 02:07 - CONCLUSION: Small right apical pneumothorax with 5 mm of separation. No change in the bibasilar infiltrates, right greater than left. Ernesto Campos MD Administered Medications Medications (Trade) Dose Ordered Sig/Ariella Route PRN Reason Start Time Stop Time Status Last Admin Dose Admin Guaifenesin (Mucinex Er) 600 mg BID PO 09/29/16 21:00 10/02/16 08:43 Mupirocin (Bactroban Nasal 2% Oint) 1 applic BID EACH NARE 09/29/16 21:00 10/04/16 20:59 10/02/16 08:43 Zolpidem Tartrate (Ambien) 5 mg HS PRN PO INSOMNIA/MAY REPEAT X1 DOSE 09/29/16 21:00 09/29/16 22:00 Sodium Chloride (NS Flush) 2 ml BID IV FLUSH 09/30/16 21:00 10/02/16 08:43 Pantoprazole Sodium (Protonix) 40 mg HS PO 09/30/16 21:00 10/01/16 20:47 Ondansetron HCl (Zofran Inj) 4 mg Q6H PRN IV PUSH NAUSEA OR VOMITING 09/30/16 09:15 10/01/16 08:07 Docusate Calcium (Surfak) 240 mg HS PO 09/30/16 21:00 10/01/16 20:47 Magnesium Hydroxide (Milk Of [employer] Liq) 30 ml DAILY PRN PO CONSTIPATION 09/30/16 09:15 10/01/16 08:07 Acetaminophen (Tylenol) 650 mg Q4H PRN PO TEMPERATURE > 101 F 09/30/16 09:15 09/30/16 17:58 Insulin Aspart (NovoLOG SUPPLEMENTAL SCALE) Q6HR SQ 09/30/16 12:00 09/30/16 23:25 Oxycodone/ Acetaminophen (Percocet 5-325 Mg) 1 tab Q3H PRN PO PAIN SCALE 3 TO 5 09/30/16 09:15 10/02/16 04:48 Aspirin (Aspirin Chew) 81 mg DAILY CHEW 10/01/16 09:00 10/02/16 08:43 Enoxaparin Sodium 40 mg 40 mg Q24H SQ 09/30/16 11:00 10/01/16 11:23 Ceftriaxone Sodium/Sodium Chloride (Rocephin Inj/NS Inj) 100 ml @ 200 mls/hr Q24H IV 10/01/16 11:00 10/01/16 11:23 Objective Remarks GENERAL: Elderly female, sitting up in bed in nad SKIN: Warm and dry. HEAD: Normocephalic. EYES: No injection or drainage. NECK: Supple, trachea midline. CARDIOVASCULAR: Regular rate and rhythm RESPIRATORY: diminished in right lung valle. CT in place GASTROINTESTINAL: Abdomen soft, non-tender, nondistended. EXTREMITIES: No cyanosis NEUROLOGICAL: No obvious focal deficit. Awake, alert, and oriented x3. Assessment/Plan Assessment 86y/o with NSCLC admitted with right sided pleural effusion, s/p CT placement Plan 1. continue Lovenox 2. await pathology for T790M mutation analysis 3. talc pleurodesis per CTS Attending Statement The exam, history, and the medical decision-making described in the above note were completed with the assistance of the mid-level provider. I reviewed and agree with the findings presented. I attest that I had a [id number] encounter with the patient on the same day, and personally performed and documented my assessment and findings in the medical record. had rough night vomiting after oral narcotic. doing will now and will probably undergo pleurodesis with Talc tomorrow and will be able to go home afterwards as long as no problems with severe pain or respirator problems with pleurodesis. I will follow as outpatient. I spoke with son about plans and he looks after his parents and is very responsible. she will continue Tarceva until mutation studies back. Jaja Felder October 02, 2016 10:10 Christiano Gilman MD October 02, 2016 12:03
[2016-10-02] MEDS: ENOXAPARIN SODIUM 40 MG/0.4 ML SYRINGE SQ SCH (11:00)
[2016-10-02] MEDS: cefTRIAXone INJ 1,000 MG in SODIUM CHLORIDE 0.9% INJ 100 ML IV SCH (11:00)
--- NOTE | 2016-10-02 11:05 | PD.CAR.PN ---
CVT Progress Note Subjective/Hospital Course: 10/01/16 Doing well. No complaints 10/02/16 c/o nausea/vomiting Objective: Vital Signs Date Time Temp Pulse Resp B/P Pulse Ox O2 Delivery O2 Flow Rate FiO2 10/02/16 10:01 124 10/02/16 09:00 134 10/02/16 08:45 97 Nasal Cannula 2.00 10/02/16 08:45 97.9 128 20 115/71 98 10/02/16 08:00 112 10/02/16 07:55 98 Nasal Cannula 2.00 10/02/16 07:01 104 10/02/16 06:00 101 10/02/16 05:00 100 10/02/16 04:00 Nasal Cannula 2.00 10/02/16 04:00 106 10/02/16 04:00 98.2 106 20 122/68 96 10/02/16 03:00 106 10/02/16 02:00 114 10/02/16 01:00 122 10/02/16 00:00 98.4 130 20 95/56 97 10/02/16 00:00 Nasal Cannula 2.00 10/02/16 00:00 130 10/01/16 23:00 120 10/01/16 22:00 120 10/01/16 21:00 122 10/01/16 20:00 128 10/01/16 20:00 98.2 128 20 118/71 98 10/01/16 20:00 Nasal Cannula 2.00 10/01/16 19:09 95 Nasal Cannula 2.00 10/01/16 18:03 115 10/01/16 17:09 121 10/01/16 16:00 103 10/01/16 15:00 105 10/01/16 15:00 97.6 106 18 112/72 98 10/01/16 14:00 96 10/01/16 13:03 89 10/01/16 12:55 17 10/01/16 12:00 84 Labs: Laboratory Tests Test 10/02/16 04:00 White Blood Count 11.5 TH/MM3 (4.0-11.0) Red Blood Count 4.13 MIL/MM3 (4.00-5.30) Hemoglobin 12.7 GM/DL (11.6-15.3) Hematocrit 37.7 % (35.0-46.0) Mean Corpuscular Volume 91.1 FL (80.0-100.0) Mean Corpuscular Hemoglobin 30.7 PG (27.0-34.0) Mean Corpuscular Hemoglobin 33.7 % Concent (32.0-36.0) Red Cell Distribution Width 14.5 % (11.6-17.2) Platelet Count 441 TH/MM3 (150-450) Mean Platelet Volume 8.3 FL (7.0-11.0) Neutrophils (%) (Auto) 84.4 % (16.0-70.0) Lymphocytes (%) (Auto) 5.4 % (9.0-44.0) Monocytes (%) (Auto) 9.7 % (0.0-8.0) Eosinophils (%) (Auto) 0.2 % (0.0-4.0) Basophils (%) (Auto) 0.3 % (0.0-2.0) Neutrophils # (Auto) 9.7 TH/MM3 (1.8-7.7) Lymphocytes # (Auto) 0.6 TH/MM3 (1.0-4.8) Monocytes # (Auto) 1.1 TH/MM3 (0-0.9) Eosinophils # (Auto) 0.0 TH/MM3 (0-0.4) Basophils # (Auto) 0.0 TH/MM3 (0-0.2) CBC Comment DIFF FINAL Differential Comment Sodium Level 141 MEQ/L (136-145) Potassium Level 3.8 MEQ/L (3.5-5.1) Chloride Level 108 MEQ/L (98-107) Carbon Dioxide Level 25.9 MEQ/L (21.0-32.0) Anion Gap 7 MEQ/L (5-15) Blood Urea Nitrogen 19 MG/DL (7-18) Creatinine 0.69 MG/DL (0.50-1.00) Estimat Glomerular Filtration 81 ML/MIN (>89) Rate Random Glucose 140 MG/DL (74-106) Calcium Level 8.1 MG/DL (8.5-10.1) Result Diagram: 10/02/16 0400 10/02/16 0400 Imaging: Last 24 hours Impressions Chest X-Ray 10/02/16 0000 Signed Impressions: Service Date/Time: Sunday, October 02, 2016 02:07 - CONCLUSION: Small right apical pneumothorax with 5 mm of separation. No change in the bibasilar infiltrates, right greater than left. Ernesto Campos MD Cardiovascular: RRR Telemetry: ST Pulmonary: CTA GI/: NABS, NT CT: 40ml charted, no air leak Plan: Chest tube to water seal Plan to remove chest tube tomorrow and discharge home. Encourage ambulation, up to chair. Spring Han MD October 02, 2016 11:05
[2016-10-02] MEDS: ONDANSETRON HCL 4 MG/2 ML VIAL IV PUSH PRN ×2 (14:59→23:41)
[2016-10-02] MEDS ORDERED: RESP: BUDESONIDE 0.5 MG/2 ML NEB NEB SCH (15:00)
[2016-10-02] MEDS ORDERED: POTASSIUM CHLORIDE 20 MEQ CONTROLLED RELEASE TAB PO ONE (15:30)
[2016-10-02] MEDS: RESP: IPRATROPIUM 0.5 MG/2.5 ML NEB NEB SCH ×2 (15:43→19:33)
[2016-10-02] MEDS ORDERED: LACTULOSE SYRUP 20 GM/30 ML CUP PO ONE (19:00)
[2016-10-02] MEDS: RESP: BUDESONIDE 0.5 MG/2 ML NEB NEB SCH (19:33)
[2016-10-02] MEDS: PANTOPRAZOLE SOD 40 MG DELAYED RELEASE TAB PO SCH (20:38)
[2016-10-02] MEDS: ZOLPIDEM TARTRATE 5 MG TAB PO PRN (20:39)
[2016-10-02] MEDS: DOCUSATE CALCIUM 240 MG CAP PO SCH (20:39)
[2016-10-03] VITALS (29 sets, daily range): BP systolic 117–148; BP diastolic 59–78; PULSE 102–120; RESP 16–20; TEMP 97.5–98.4; O2SAT 95–98
[2016-10-03] MEDS: RESP: IPRATROPIUM 0.5 MG/2.5 ML NEB NEB SCH ×6 (03:49→15:59)
--- NOTE | 2016-10-03 05:59 | RADRPT ---
EXAM DATE/TIME: 10/03/2016 05:16 [facility] COMPARISON: CHEST SINGLE AP, October 02, 2016, 2:07. INDICATIONS : Shortness of breath, all of small right apical pneumothorax. possible pulmonary disease. MEDICAL HISTORY : Carcinoma, lung. SURGICAL HISTORY : Thoracotomy ENCOUNTER: Subsequent ACUITY: 1 week PAIN SCORE: 0/10 LOCATION: Bilateral chest FINDINGS: A single AP semierect view of the chest was obtained and again demonstrates a right-sided chest tube in place. There is a small amount of subcutaneous emphysema over the right lateral chest wall at the previously noted right apical pneumothorax is no longer distinctly visualized. There is coarse opacit y at the right lung base with blunting of the costophrenic angle. The heart size is within normal paris its with no perihilar edema. There is mild patchy opacity remaining at the left lung base. CONCLUSION: 1. The right-sided chest tube remains in place and a small right apical pneumothorax is no longer vis ualized. 2. Opacity remains at the lung bases right greater than left with blunting of the right costophrenic angle. Abelardo Harman MD on October 03, 2016 at 5:56 Board Certified Radiologist. This report was verified electronically.
[2016-10-03] MEDS: INSULIN ASPART SUPPLEMENTAL SCALE SQ SCH ×4 (06:00→18:00)
--- NOTE | 2016-10-03 07:56 | HHI.PR ---
Subjective Remarks This is a pleasant 86 /o Female who came to ER with Shortness of breath, she follows with her Primary fire fighting equipment specialist Doctor Mukul and had a new CT scan showed a Large Pleural Effusion, recommended to come to this facility for drainage and She denies other significant complaints currently. She states she came straight here from Dr. Gilman's office. Discussed with patient in the room and her Sister Mrs. 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 09/30: patient seen in her bedroom in the presence of her Sister Mrs. Willow Ling , status post Chest tube placement, stable No nausea, vomit or diarrhea, somnolent. 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 started on Lovenox 40 mg Subcutaneous daily, Biopsy taken by Cardiothoracic surgeon, asked cells analyzed for T790M mutation. 10/01: Stable in her bedroom gave 70 ml draining from her Chest tube during the night, awaiting for minimal drainage for talc pleurodesis seen in her bedroom in the presence of nurse Miss Rodney, No nausea, vomit but has constipation given Milk of Mag, added Lactulose. 10/02: Seen in her bedroom in the presence of nurse Len Stringer and also her Sister Mrs. Willow Ling in the room, Improving condition as per Cardiothoracic Surgery to remove Chest tube in am and discharge Home. No nausea, vomit or diarrhea, but complaint of painful cough added Ipratropium bromide and Budesonide inhaled. 10/03: Patient stable in her bedroom discussed with nurse Mr. Stringer the Chest tube removed by Cardiothoracic surgery, she developed vomit giving her supportive care, now able to drink fluids, continue Zofran and follow but, her abdomen has no rebound tenderness no pain on deep palpation. No diarrhea. Objective Vital Signs Date Time Temp Pulse Resp B/P Pulse Ox O2 Delivery O2 Flow Rate FiO2 10/03/16 06:00 106 10/03/16 05:00 108 10/03/16 04:00 108 10/03/16 03:00 112 10/03/16 03:00 97.5 108 20 148/78 97 10/03/16 02:00 114 10/03/16 01:00 116 10/03/16 00:00 120 10/02/16 23:00 98.5 120 18 111/64 96 10/02/16 23:00 120 10/02/16 22:00 130 10/02/16 21:39 18 10/02/16 21:00 124 10/02/16 20:00 118 10/02/16 19:37 96 Nasal Cannula 2.00 10/02/16 19:00 97 Nasal Cannula 2.00 10/02/16 19:00 95.5 118 18 128/51 94 10/02/16 19:00 118 10/02/16 16:01 124 10/02/16 15:01 98.0 94 18 130/72 94 10/02/16 15:00 110 10/02/16 14:00 106 10/02/16 13:00 108 10/02/16 12:01 124 10/02/16 11:01 98.0 120 20 122/72 98 10/02/16 11:00 130 10/02/16 10:01 124 10/02/16 09:00 134 10/02/16 08:45 97 Nasal Cannula 2.00 10/02/16 08:45 97.9 128 20 115/71 98 10/02/16 08:00 112 10/02/16 07:55 98 Nasal Cannula 2.00 I/O 10/02/16 10/02/16 10/02/16 10/03/16 10/03/16 10/03/16 07:00 15:00 23:00 07:00 15:00 23:00 Intake Total 1240 ml 124 ml Output Total 500 ml 700 ml Balance 740 ml -576 ml Intake Oral 240 ml 24 ml IV Total 1000 ml 100 ml Output Urine Total 500 ml 150 ml Emesis 500 ml Chest Tube Drainage Total 50 ml # Voids 6 # Bowel Movements 0 Result Diagram: 10/02/16 0400 10/02/16 0400 Imaging Last Impressions Chest X-Ray 10/03/16 0500 Signed Impressions: Service Date/Time: Monday, October 03, 2016 05:16 - CONCLUSION: 1. The right- sided chest tube remains in place and a small right apical pneumothorax is no longer visualized. 2. Opacity remains at the lung bases right greater than left with blunting of the right costophrenic angle. Abelardo Harman MD Procedures Right chest tube placement and Biopsy. Other Results Laboratory Tests Test 09/29/16 09/30/16 09/30/16 09/30/16 17:01 03:52 08:19 09:00 Prothrombin Time 11.6 SEC Prothromb Time International 1.0 RATIO Ratio Activated Partial 28.4 SEC Thromboplast Time Magnesium Level 2.2 MG/DL Urine Color YELLOW Urine Turbidity HAZY Urine pH 6.5 Urine Specific [place] 1.027 Urine Protein TRACE mg/dL Urine Glucose (UA) NEG mg/dL Urine Ketones 40 mg/dL Urine Occult Blood NEG Urine Nitrite NEG Urine Bilirubin NEG Urine Urobilinogen 8.0 MG/DL Urine Leukocyte Esterase MOD Urine RBC LESS THAN 1 /hpf Urine WBC 41 /hpf Urine Bacteria MANY /hpf Urine Mucus FEW /lpf Microscopic Urinalysis Comment CULTURE INDICATED Blood Type A POSITIVE Antibody Screen NEGATIVE Crossmatch Leukocyte-Reduced Red Blood Cells Blood Bank Comment Pleural Fluid WBC 1430 /MM3 Pleural Fluid RBC 5408 /MM3 Pleural Fluid Neutrophils 9 % Pleural Fluid Lymphocytes 80 % Pleural Fluid Monocytes 8 % Pleural Fluid Eosinophils 2 % Pleural Fluid Histiocytes 1 % Test 10/02/16 04:00 White Blood Count 11.5 TH/MM3 Red Blood Count 4.13 MIL/MM3 Hemoglobin 12.7 GM/DL Hematocrit 37.7 % Mean Corpuscular Volume 91.1 FL Mean Corpuscular Hemoglobin 30.7 PG Mean Corpuscular Hemoglobin 33.7 % Concent Red Cell Distribution Width 14.5 % Platelet Count 441 TH/MM3 Mean Platelet Volume 8.3 FL Neutrophils (%) (Auto) 84.4 % Lymphocytes (%) (Auto) 5.4 % Monocytes (%) (Auto) 9.7 % Eosinophils (%) (Auto) 0.2 % Basophils (%) (Auto) 0.3 % Neutrophils # (Auto) 9.7 TH/MM3 Lymphocytes # (Auto) 0.6 TH/MM3 Monocytes # (Auto) 1.1 TH/MM3 Eosinophils # (Auto) 0.0 TH/MM3 Basophils # (Auto) 0.0 TH/MM3 CBC Comment DIFF FINAL Differential Comment Sodium Level 141 MEQ/L Potassium Level 3.8 MEQ/L Chloride Level 108 MEQ/L Carbon Dioxide Level 25.9 MEQ/L Anion Gap 7 MEQ/L Blood Urea Nitrogen 19 MG/DL Creatinine 0.69 MG/DL Estimat Glomerular Filtration 81 ML/MIN Rate Random Glucose 140 MG/DL Calcium Level 8.1 MG/DL Objective Remarks GENERAL: No acute distress. SKIN: Ecchymosis on four extremities. HEAD: Normocephalic and atraumatic. EYES: No injection or drainage. ENT: No nasal drainage noted. NECK: Supple CARDIOVASCULAR: Regular rate and rhythm RESPIRATORY: Decreased breath sounds bilateral, no wheezing, soft crackles on both bases. GASTROINTESTINAL: Abdomen soft, non-tender, nondistended. NEUROLOGICAL: Awake and alert. Motor and sensory grossly within normal limits. Normal speech. Medications and IVs Current Medications Medications (Trade) Dose Ordered Sig/Ariella Route Start Time Stop Time Status Last Admin (Dulcolax Supp) 10 mg DAILY PRN RECTAL 09/29/16 17:15 10/02/16 17:26 (Narcan Inj) 0.4 mg UNSCH PRN IV 09/29/16 17:15 (Mucinex Er) 600 mg BID PO 09/29/16 21:00 10/02/16 20:39 (Bactroban Nasal 2% Oint) 1 applic BID EACH NARE 09/29/16 21:00 10/04/16 20:59 10/02/16 20:38 (Ambien) 5 mg HS PRN PO 09/29/16 21:00 10/02/16 20:39 (NS Flush) 2 ml BID IV FLUSH 09/30/16 21:00 10/02/16 20:42 (NS Flush) 2 ml UNSCH PRN IV FLUSH 09/30/16 09:15 (Protonix) 40 mg HS PO 09/30/16 21:00 10/02/16 20:38 (Zofran Inj) 4 mg Q6H PRN IV PUSH 09/30/16 09:15 10/02/16 23:41 (Surfak) 240 mg HS PO 09/30/16 21:00 10/02/16 20:39 (Milk Of Magnesia Liq) 30 ml DAILY PRN PO 09/30/16 09:15 10/01/16 08:07 (Tylenol) 650 mg Q4H PRN PO 09/30/16 09:15 09/30/16 17:58 (NovoLOG SUPPLEMENTAL SCALE) Q6HR SQ 09/30/16 12:00 09/30/16 23:25 (D50w (Vial) Inj) 25 ml UNSCH PRN IV PUSH 09/30/16 09:15 (Glucagon Inj) 1 mg UNSCH PRN IV 09/30/16 09:15 (Aspirin Chew) 81 mg DAILY CHEW 10/01/16 09:00 10/02/16 08:43 (Lovenox Inj) 40 mg Q24H SQ 09/30/16 11:00 10/02/16 11:00 (Glycerin Adult Supp) 2 gm DAILY PRN RECTAL 10/01/16 09:30 Sodium Biphosphate/ Sodium Phosphate 133 ml 133 ml UNSCH PRN RECTAL 10/01/16 09:30 (Rocephin Inj/NS Inj) 100 ml @ 200 mls/hr Q24H IV 10/01/16 11:00 10/02/16 11:00 (Roxicodone) 5 mg Q4H PRN PO 10/02/16 12:00 10/02/16 20:39 A/P Assessment and Plan 1. Very large Pleural Effusion with mediastinal shift to the left, on outpatient CT scan, status post right Chest tube placement and Biopsy, chest tube removed. 2. Stage IV Metastatic Adenocarcinoma of the lung to the Cervical spine, Thoracic Spine and Massive Pleural effusion. 3. UTI started on Ceftriaxone. following Urine culture. increased Leukocytosis probable reactive to her Chest tube placement Cultures negative. 4. Nausea and vomit probable related to GERD Protonix from by mouth to IV and Carafate, no surgical abdomen at this time continue supportive care, IV fluids started by Cardiothoracic Surgery. DVT prophylaxis SCDs awaiting final recommendations by Specialists Bronchodilator, Mucolytic and incentive spirometry. Code Status Full code for procedure her Son is POA. Discussed Condition With Discussed with patient and nurse Mr. Stringer all questions answered to the best of my abilities. Discharge Planning Expected in one to two days. Dom Saunders MD October 03, 2016 07:56
[2016-10-03] MEDS: RESP: BUDESONIDE 0.5 MG/2 ML NEB NEB SCH ×2 (08:34→19:18)
[2016-10-03] MEDS: guaiFENesin E.R. 600 MG TAB PO SCH (09:00)
[2016-10-03] MEDS: ASPIRIN 81 MG CHEW TAB CHEW SCH (09:00)
[2016-10-03] MEDS: SODIUM CHLORIDE 0.9% FLUSH 10 ML FLUSH IV FLUSH SCH ×2 (09:01→20:38)
[2016-10-03] MEDS: MUPIROCIN 2% OINT 1 APPLIC/GM SYR EACH NARE SCH ×2 (09:01→20:38)
--- NOTE | 2016-10-03 10:02 | PD.ONC.PN ---
Subjective Subjective Remarks weak,tired and vomited brownish material Objective Data Date Time Temp Pulse Resp B/P Pulse Ox O2 Delivery O2 Flow Rate FiO2 10/03/16 08:38 95 Nasal Cannula 1.50 10/03/16 06:00 106 10/03/16 05:00 108 10/03/16 04:00 108 10/03/16 03:00 112 10/03/16 03:00 97.5 108 20 148/78 97 10/03/16 02:00 114 10/03/16 01:00 116 10/03/16 00:00 120 10/02/16 23:00 98.5 120 18 111/64 96 10/02/16 23:00 120 10/02/16 22:00 130 10/02/16 21:39 18 10/02/16 21:00 124 10/02/16 20:00 118 10/02/16 19:37 96 Nasal Cannula 2.00 10/02/16 19:00 97 Nasal Cannula 2.00 10/02/16 19:00 95.5 118 18 128/51 94 10/02/16 19:00 118 10/02/16 16:01 124 10/02/16 15:01 98.0 94 18 130/72 94 10/02/16 15:00 110 10/02/16 14:00 106 10/02/16 13:00 108 10/02/16 12:01 124 10/02/16 11:01 98.0 120 20 122/72 98 10/02/16 11:00 130 10/02/16 10:01 124 Result Diagram: 10/02/16 0400 10/02/16 0400 Imaging Studies Last 24 hours Impressions Chest X-Ray 10/03/16 0500 Signed Impressions: Service Date/Time: Monday, October 03, 2016 05:16 - CONCLUSION: 1. The right- sided chest tube remains in place and a small right apical pneumothorax is no longer visualized. 2. Opacity remains at the lung bases right greater than left with blunting of the right costophrenic angle. Abelardo Harman MD Administered Medications Medications (Trade) Dose Ordered Sig/Ariella Route PRN Reason Start Time Stop Time Status Last Admin Dose Admin Bisacodyl (Dulcolax Supp) 10 mg DAILY PRN RECTAL CONSTIPATION 09/29/16 17:15 10/02/16 17:26 Mupirocin (Bactroban Nasal 2% Oint) 1 applic BID EACH NARE 09/29/16 21:00 10/04/16 20:59 10/03/16 09:01 Zolpidem Tartrate (Ambien) 5 mg HS PRN PO INSOMNIA/MAY REPEAT X1 DOSE 09/29/16 21:00 10/02/16 20:39 Sodium Chloride (NS Flush) 2 ml BID IV FLUSH 09/30/16 21:00 10/03/16 09:01 Pantoprazole Sodium (Protonix) 40 mg HS PO 09/30/16 21:00 10/02/16 20:38 Ondansetron HCl (Zofran Inj) 4 mg Q6H PRN IV PUSH NAUSEA OR VOMITING 09/30/16 09:15 10/02/16 23:41 Docusate Calcium (Surfak) 240 mg HS PO 09/30/16 21:00 10/02/16 20:39 Magnesium Hydroxide (Milk Of [place] Liq) 30 ml DAILY PRN PO CONSTIPATION 09/30/16 09:15 10/01/16 08:07 Acetaminophen (Tylenol) 650 mg Q4H PRN PO TEMPERATURE > 101 F 09/30/16 09:15 09/30/16 17:58 Insulin Aspart (NovoLOG SUPPLEMENTAL SCALE) Q6HR SQ 09/30/16 12:00 09/30/16 23:25 Enoxaparin Sodium 40 mg 40 mg Q24H SQ 09/30/16 11:00 10/02/16 11:00 Ceftriaxone Sodium/Sodium Chloride (Rocephin Inj/NS Inj) 100 ml @ 200 mls/hr Q24H IV 10/01/16 11:00 10/02/16 11:00 Objective Remarks GENERAL: tired gaunt and weak. SKIN: Warm and dry. HEAD: Normocephalic. EYES: No scleral icterus. No injection or drainage. NECK: Supple, trachea midline. No JVD or lymphadenopathy. LYMPHATIC: No adenopathy. CARDIOVASCULAR: Regular rate and rhythm without murmurs. RESPIRATORY: decreased sounds at right base. GASTROINTESTINAL: Abdomen soft, non-tender, nondistended. EXTREMITIES: No cyanosis, or edema. MUSCULOSKELETAL: muscle wasting. NEUROLOGICAL: No obvious focal deficit. Awake, alert, and oriented x3. PSYCHIATRIC: Appropriate mood and affect; insight and judgment normal. Assessment/Plan Assessment 1: a great deal of nausea and vomiting with benign abdomen. will stop aspirin, Mucinex, oxycodone, and use tramadol for pain. She is not taking much orally and appears dehydrated. will give IV fluids. 2: for pleurodesis and removal of chest tube 3: to weak to go home today. Plan Christiano Gilman MD October 03, 2016 10:02
[2016-10-03] MEDS: D5-1/2 NS + KCL 20 MEQ INJ 1,000 ML IV SCH (11:48)
[2016-10-03] MEDS: cefTRIAXone INJ 1,000 MG in SODIUM CHLORIDE 0.9% INJ 100 ML IV SCH (11:48)
[2016-10-03] MEDS: ENOXAPARIN SODIUM 40 MG/0.4 ML SYRINGE SQ SCH (11:49)
--- NOTE | 2016-10-03 15:14 | PD.CAR.PN ---
CVT Progress Note Subjective/Hospital Course: 10/01/16 Doing well. No complaints 10/02/16 c/o nausea/vomiting 10/03 vomited some brownish liguid abdomen benign oxycodone dc , ASA dc chest tube dc without difficulty f/u CXR in am , if stable will follow prn Objective: GENERAL: SKIN: Warm and dry.incision intact and well approximated , right posterior chest , HEAD: Normocephalic. EYES: No scleral icterus. No injection or drainage. NECK: Supple, trachea midline. No JVD or lymphadenopathy. CARDIOVASCULAR: Regular rate and rhythm without murmurs, gallops, or rubs. RESPIRATORY: diminished to right lower chest , vaseline gauze dressing to chest tube site GASTROINTESTINAL: Abdomen soft, non-tender, nondistended. MUSCULOSKELETAL: No cyanosis, or edema. BACK: Nontender without obvious deformity. No CVA tenderness. Vital Signs Date Time Temp Pulse Resp B/P Pulse Ox O2 Delivery O2 Flow Rate FiO2 10/03/16 14:01 115 10/03/16 13:00 108 10/03/16 12:00 108 10/03/16 11:45 98.2 110 20 131/65 96 10/03/16 11:00 104 10/03/16 10:00 112 10/03/16 09:00 112 10/03/16 08:45 98.1 112 20 125/75 97 10/03/16 08:45 97 Nasal Cannula 2.00 10/03/16 08:38 95 Nasal Cannula 1.50 10/03/16 08:00 106 10/03/16 07:00 106 10/03/16 06:00 106 10/03/16 05:00 108 10/03/16 04:00 108 10/03/16 03:00 112 10/03/16 03:00 97.5 108 20 148/78 97 10/03/16 02:00 114 10/03/16 01:00 116 10/03/16 00:00 120 10/02/16 23:00 98.5 120 18 111/64 96 10/02/16 23:00 120 10/02/16 22:00 130 10/02/16 21:39 18 10/02/16 21:00 124 10/02/16 20:00 118 10/02/16 19:37 96 Nasal Cannula 2.00 10/02/16 19:00 97 Nasal Cannula 2.00 10/02/16 19:00 95.5 118 18 128/51 94 10/02/16 19:00 118 10/02/16 16:01 124 Result Diagram: 10/02/1639910/02/16399 Telemetry: NSR (1) Metastatic lung cancer (metastasis from lung to other site) (2) Pleural effusion (3) Right thoracoscopic exploration to drain pleural effusion, pleural biopsy, talc pleuradesis Plan: chest tube removed without difficulty vaseline gauze dressing in place, nursing to leave current dressing in place x 48 hrs, then ok to remove and shower Problem Qualifiers (1) Metastatic lung cancer (metastasis from lung to other site): Qualified Code: C34.91 - Metastatic lung cancer (metastasis from lung to other site), right Elli Villanueva October 03, 2016 15:14
[2016-10-03] MEDS: SUCRALFATE 1 GM/10 ML CUP PO SCH ×2 (16:22→20:38)
[2016-10-03] MEDS: PANTOPRAZOLE SODIUM 40 MG VIAL IV PUSH SCH (16:22)
--- NOTE | 2016-10-03 20:06 | RADRPT ---
EXAM DATE/TIME: 10/03/2016 19:45 [facility] COMPARISON: No previous studies available for comparison. INDICATIONS : Obstruction. Last bowel movement four days ago. MEDICAL HISTORY : Carcinoma, lung. SURGICAL HISTORY : Thoracotomy. ENCOUNTER: Initial ACUITY: 4 - 6 days PAIN SCORE: 5/10 LOCATION: abdomen. FINDINGS: Supine view of the abdomen was performed. The abdominal bowel gas pattern is normal. No abnormal ma sses, calcifications, or organomegaly is seen. The osseous structures are unremarkable. CONCLUSION: No obstruction. Renan Gutierres MD on October 03, 2016 at 20:03 Board Certified Radiologist. This report was verified electronically.
[2016-10-03] MEDS: DOCUSATE CALCIUM 240 MG CAP PO SCH (20:38)
[2016-10-04] VITALS (29 sets, daily range): BP systolic 120–157; BP diastolic 64–76; PULSE 84–120; RESP 16–20; TEMP 97.7–98.7; O2SAT 92–99
[2016-10-04] MEDS: INSULIN ASPART SUPPLEMENTAL SCALE SQ SCH ×4 (06:00→17:27)
--- NOTE | 2016-10-04 06:33 | RADRPT ---
EXAM DATE/TIME: 10/04/2016 05:17 [facility] COMPARISON: CHEST SINGLE AP, October 03, 2016, 5:16. INDICATIONS : Shortness of breath. Interval removal of right-sided chest tube. MEDICAL HISTORY : Carcinoma, lung. SURGICAL HISTORY : Thoracotomy. ENCOUNTER: Subsequent ACUITY: 4 - 6 days PAIN SCORE: 0/10 LOCATION: Bilateral chest FINDINGS: A single AP portable semierect view of the chest was obtained and demonstrates a mild increase in haz y opacity in the right lower lobe. The right-sided chest tube has been removed and there is no eviden ce of a pneumothorax. The heart size is at the upper limits of normal. There stable elevation left he midiaphragm. Both costophrenic angles remain mildly blunted. There are multiple overlying electrocard iogram leads. CONCLUSION: 1. Interval removal of right-sided chest tube with no pneumothorax. 2. Mild increase in hazy opacity at the right lung base. Abelardo Harman MD on October 04, 2016 at 6:29 Board Certified Radiologist. This report was verified electronically.
[2016-10-04] MEDS: RESP: BUDESONIDE 0.5 MG/2 ML NEB NEB SCH ×2 (07:35→20:21)
[2016-10-04] MEDS: MUPIROCIN 2% OINT 1 APPLIC/GM SYR EACH NARE SCH (08:08)
[2016-10-04] MEDS: SUCRALFATE 1 GM/10 ML CUP PO SCH ×4 (08:08→22:21)
[2016-10-04] MEDS: SODIUM CHLORIDE 0.9% FLUSH 10 ML FLUSH IV FLUSH SCH ×2 (08:09→21:00)
--- NOTE | 2016-10-04 09:50 | PD.CAR.PN ---
CVT Progress Note Subjective/Hospital Course: 10/01/16 Doing well. No complaints 10/02/16 c/o nausea/vomiting 10/03 vomited some brownish liguid abdomen benign oxycodone dc , ASA dc chest tube dc without difficulty f/u CXR in am , if stable will follow prn 10/04 cxr stable no PTX after chest tube removed pt still having intermittent nausea and vomiting after taking po meds PCP following [facility] will s/o will provide post op office visit for wound care cytology pending Objective: Vital Signs Date Time Temp Pulse Resp B/P Pulse Ox O2 Delivery O2 Flow Rate FiO2 10/04/16 09:01 92 10/04/16 08:45 98.1 101 20 131/70 96 10/04/16 08:45 97 Nasal Cannula 2.00 10/04/16 08:00 94 10/04/16 07:35 92 Nasal Cannula 3.00 10/04/16 07:01 92 10/04/16 06:00 90 10/04/16 05:00 104 10/04/16 04:00 96 10/04/16 03:00 106 10/04/16 03:00 98.2 102 18 131/69 98 10/04/16 02:00 108 10/04/16 01:00 107 10/04/16 00:00 120 10/03/16 23:00 118 10/03/16 23:00 98.0 120 18 122/59 95 10/03/16 22:00 102 10/03/16 21:00 106 10/03/16 20:00 104 10/03/16 19:21 97 Nasal Cannula 2.00 10/03/16 19:00 106 10/03/16 19:00 97.9 106 16 124/73 97 10/03/16 19:00 97 Nasal Cannula 2.00 10/03/16 18:01 111 10/03/16 17:00 106 10/03/16 16:00 108 10/03/16 15:45 98.4 107 18 117/60 98 10/03/16 15:00 105 10/03/16 14:01 115 10/03/16 13:00 108 10/03/16 12:00 108 10/03/16 11:45 98.2 110 20 131/65 96 10/03/16 11:00 104 10/03/16 10:00 112 Result Diagram: 10/02/1639910/02/16399 (1) Metastatic lung cancer (metastasis from lung to other site) (2) Pleural effusion (3) Right thoracoscopic exploration to drain pleural effusion, pleural biopsy, talc pleuradesis Plan: chest tube removed without difficulty vaseline gauze dressing in place, nursing to leave current dressing in place x 48 hrs, then ok to remove and shower post cxr stable cytology pending will sign off Problem Qualifiers (1) Metastatic lung cancer (metastasis from lung to other site): Qualified Code: C34.91 - Metastatic lung cancer (metastasis from lung to other site), right Elli Villanueva October 04, 2016 09:50
[2016-10-04] MEDS: ENOXAPARIN SODIUM 40 MG/0.4 ML SYRINGE SQ SCH (10:53)
[2016-10-04] MEDS: cefTRIAXone INJ 1,000 MG in SODIUM CHLORIDE 0.9% INJ 100 ML IV SCH (10:53)
[2016-10-04] MEDS: D5-1/2 NS + KCL 20 MEQ INJ 1,000 ML IV SCH (10:53)
--- NOTE | 2016-10-04 13:10 | PD.ONC.PN ---
Subjective Subjective Remarks Afebrile overnight. Pt sitting in chair at bedside, asking to get back into bed. She continues to have persistent nausea. States "I don't know if I can go on like this" Objective Data Date Time Temp Pulse Resp B/P Pulse Ox O2 Delivery O2 Flow Rate FiO2 10/04/16 12:01 112 10/04/16 11:15 98.3 100 18 120/68 95 10/04/16 11:00 111 10/04/16 10:00 90 10/04/16 09:01 92 10/04/16 08:45 98.1 101 20 131/70 96 10/04/16 08:45 97 Nasal Cannula 2.00 10/04/16 08:00 94 10/04/16 07:35 92 Nasal Cannula 3.00 10/04/16 07:01 92 10/04/16 06:00 90 10/04/16 05:00 104 10/04/16 04:00 96 10/04/16 03:00 106 10/04/16 03:00 98.2 102 18 131/69 98 10/04/16 02:00 108 10/04/16 01:00 107 10/04/16 00:00 120 10/03/16 23:00 118 10/03/16 23:00 98.0 120 18 122/59 95 10/03/16 22:00 102 10/03/16 21:00 106 10/03/16 20:00 104 10/03/16 19:21 97 Nasal Cannula 2.00 10/03/16 19:00 106 10/03/16 19:00 97.9 106 16 124/73 97 10/03/16 19:00 97 Nasal Cannula 2.00 10/03/16 18:01 111 10/03/16 17:00 106 10/03/16 16:00 108 10/03/16 15:45 98.4 107 18 117/60 98 10/03/16 15:00 105 10/03/16 14:01 115 10/04/16 10/04/16 10/04/16 07:00 15:00 23:00 Intake Total 910 ml Output Total 525 ml Balance 385 ml Result Diagram: 10/02/16 0400 10/02/16 0400 Culture Results Microbiology Date/Time Procedure Status Source Growth 10/03/16 22:10 Gastric Occult Blood - Final Complete Gastric GASTROCCULT POSITIVE Imaging Studies Last 24 hours Impressions Chest X-Ray 10/04/16 0600 Signed Impressions: Service Date/Time: Tuesday, October 04, 2016 05:17 - CONCLUSION: 1. Interval removal of right-sided chest tube with no pneumothorax. 2. Mild increase in hazy opacity at the right lung base. Abelardo Harman MD Administered Medications Medications (Trade) Dose Ordered Sig/Ariella Route PRN Reason Start Time Stop Time Status Last Admin Dose Admin Bisacodyl (Dulcolax Supp) 10 mg DAILY PRN RECTAL CONSTIPATION 09/29/16 17:15 10/02/16 17:26 Mupirocin (Bactroban Nasal 2% Oint) 1 applic BID EACH NARE 09/29/16 21:00 10/04/16 20:59 10/04/16 08:08 Zolpidem Tartrate (Ambien) 5 mg HS PRN PO /SEPTEMBER REPEAT X1 DOSE 09/29/16 21:00 10/02/16 20:39 Sodium Chloride (NS Flush) 2 ml BID IV FLUSH 09/30/16 21:00 10/04/16 08:09 Ondansetron HCl (Zofran Inj) 4 mg Q6H PRN IV PUSH NAUSEA OR VOMITING 09/30/16 09:15 10/02/16 23:41 Docusate Calcium (Surfak) 240 mg HS PO 09/30/16 21:00 10/03/16 20:38 Magnesium Hydroxide (Milk Of Magnesia Liq) 30 ml DAILY PRN PO CONSTIPATION 09/30/16 09:15 10/01/16 08:07 Acetaminophen (Tylenol) 650 mg Q4H PRN PO TEMPERATURE > 101 F 09/30/16 09:15 09/30/16 17:58 Insulin Aspart (NovoLOG SUPPLEMENTAL SCALE) Q6HR SQ 09/30/16 12:00 09/30/16 23:25 Enoxaparin Sodium 40 mg 40 mg Q24H SQ 09/30/16 11:00 10/04/16 10:53 Ceftriaxone Sodium 1000 mg/ Sodium Chloride 100 ml @ 200 mls/hr Q24H IV 10/01/16 11:00 10/04/16 10:53 Potassium Chloride/Dextrose/ Sod Cl (D5-1/2 NS + KCl 20 Meq Inj) 1,000 ml @ 42 mls/hr [id number] IV 10/03/16 09:45 10/04/16 10:53 Pantoprazole Sodium (Protonix Inj) 40 mg Q24H IV PUSH 10/03/16 15:00 10/03/16 16:22 Sucralfate (Carafate Liq) 1 gm ACHS PO 10/03/16 16:00 10/04/16 10:53 Objective Remarks GENERAL: Elderly female, sitting up in chair at bedside holding emesis basin. SKIN: Warm and dry. Multiple ecchymoses to BUE. HEAD: Normocephalic. EYES: No injection or drainage. NECK: Supple, trachea midline. CARDIOVASCULAR: Regular rate and rhythm RESPIRATORY: R lung valle diminished. GASTROINTESTINAL: Abdomen soft, non-tender, nondistended. EXTREMITIES: No cyanosis. NEUROLOGICAL: No obvious focal deficit. Awake, alert, and oriented x3. Assessment/Plan Assessment 1: Pt had chest tube removal today with talc pleurodesis. She continues to be quite nauseous. Her last normal BM was 5 days ago. This may be contributing to the nausea. She has no abdominal pain. Will give MOM to try and induce BM. Plan The exam, history, and the medical decision-making described in the above note were completed with the assistance of the mid-level provider. I reviewed and agree with the findings presented. I attest that I had a [id number] encounter with the patient on the same day, and personally performed and documented my assessment and findings in the medical record. Attending Statement The exam, history, and the medical decision-making described in the above note were completed with the assistance of the mid-level provider. I reviewed and agree with the findings presented. I attest that I had a [id number] encounter with the patient on the same day, and personally performed and documented my assessment and findings in the medical record. patient seen last night and note written this am. She continues to vomit dark watery liquid without abdominal pain. She initially refused ct of abd and upper endo but after speaking to he son she will go ahead with both tests. the pleural bx is + for cancer and being sent for T790m mutation and hopefully this will be positive. await ct and upper endo and home when stable. will continue IV fluids as she can not take adequate po. abdominal exam is benign. Huyen Galvin October 04, 2016 13:10 Christiano Gilman MD October 05, 2016 07:35
--- NOTE | 2016-10-04 13:50 | HHI.PR ---
Subjective Remarks This is a pleasant 86 /o Female who came to ER with Shortness of breath, she follows with her [facility] specialist Doctor Mukul and had a new CT scan showed a Large Pleural Effusion, recommended to come to this facility for drainage and She denies other significant complaints currently. She states she came straight here from Dr. Gilman's office. Discussed with patient in the room and her Sister Mrs. 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 09/30: patient seen in her bedroom in the presence of her Sister Mrs. Willow Ling , status post Chest tube placement, stable No nausea, vomit or diarrhea, somnolent. 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 started on Lovenox 40 mg Subcutaneous daily, Biopsy taken by Cardiothoracic surgeon, asked cells analyzed for T790M mutation. 10/01: Stable in her bedroom gave 70 ml draining from her Chest tube during the night, awaiting for minimal drainage for talc pleurodesis seen in her bedroom in the presence of nurse Miss Rodney, No nausea, vomit but has constipation given Milk of Mag, added Lactulose. 10/02: Seen in her bedroom in the presence of nurse Mr. Stringer and also her Sister Mrs. Willow Ling in the room, Improving condition as per Cardiothoracic Surgery to remove Chest tube in am and discharge Home. No nausea, vomit or diarrhea, but complaint of painful cough added Ipratropium bromide and Budesonide inhaled. 10/03: Patient stable in her bedroom discussed with nurse Mr. Stringer the Chest tube removed by Cardiothoracic surgery, she developed vomit giving her supportive care, now able to drink fluids, continue Zofran and follow but, her abdomen has no rebound tenderness no pain on deep palpation. No diarrhea. 10/04: Stable in her bedroom in the presence of her Sister Mrs. Willow Ling, and discussed with nurse Mr. Stringer no diarrhea but continue with vomit, asked for GI specialist consult. Objective Vital Signs Date Time Temp Pulse Resp B/P Pulse Ox O2 Delivery O2 Flow Rate FiO2 10/04/16 12:01 112 10/04/16 11:15 98.3 100 18 120/68 95 10/04/16 11:00 111 10/04/16 10:00 90 10/04/16 09:01 92 10/04/16 08:45 98.1 101 20 131/70 96 10/04/16 08:45 97 Nasal Cannula 2.00 10/04/16 08:00 94 10/04/16 07:35 92 Nasal Cannula 3.00 10/04/16 07:01 92 10/04/16 06:00 90 10/04/16 05:00 104 10/04/16 04:00 96 10/04/16 03:00 106 10/04/16 03:00 98.2 102 18 131/69 98 10/04/16 02:00 108 10/04/16 01:00 107 10/04/16 00:00 120 10/03/16 23:00 118 10/03/16 23:00 98.0 120 18 122/59 95 10/03/16 22:00 102 10/03/16 21:00 106 10/03/16 20:00 104 10/03/16 19:21 97 Nasal Cannula 2.00 10/03/16 19:00 106 10/03/16 19:00 97.9 106 16 124/73 97 10/03/16 19:00 97 Nasal Cannula 2.00 10/03/16 18:01 111 10/03/16 17:00 106 10/03/16 16:00 108 10/03/16 15:45 98.4 107 18 117/60 98 10/03/16 15:00 105 10/03/16 14:01 115 I/O 10/03/16 10/03/16 10/03/16 10/04/16 10/04/16 10/04/16 07:00 15:00 23:00 07:00 15:00 23:00 Intake Total 811 ml 910 ml Output Total 400 ml 525 ml Balance 411 ml 385 ml Intake Oral 500 ml 480 ml IV Total 311 ml 430 ml Output Urine Total 0 ml 325 ml Emesis 400 ml 200 ml # Voids 0 # Bowel Movements 0 Result Diagram: 10/02/16 0400 10/02/16 0400 Imaging Last Impressions Chest X-Ray 10/04/16 0600 Signed Impressions: Service Date/Time: Tuesday, October 04, 2016 05:17 - CONCLUSION: 1. Interval removal of right-sided chest tube with no pneumothorax. 2. Mild increase in hazy opacity at the right lung base. Abelardo Harman MD Abdomen X-Ray 10/03/16 0000 Signed Impressions: Service Date/Time: Monday, October 03, 2016 19:45 - CONCLUSION: No obstruction. Renan Gutierres MD Procedures Right chest tube placement and Biopsy. Other Results Laboratory Tests Test 09/30/16 09/30/16 09/30/16 10/02/16 03:52 08:19 09:00 04:00 Urine Color YELLOW Urine Turbidity HAZY Urine pH 6.5 Urine Specific [place] 1.027 Urine Protein TRACE mg/dL Urine Glucose (UA) NEG mg/dL Urine Ketones 40 mg/dL Urine Occult Blood NEG Urine Nitrite NEG Urine Bilirubin NEG Urine Urobilinogen 8.0 MG/DL Urine Leukocyte Esterase MOD Urine RBC LESS THAN 1 /hpf Urine WBC 41 /hpf Urine Bacteria MANY /hpf Urine Mucus FEW /lpf Microscopic Urinalysis Comment CULTURE INDICATED Blood Type A POSITIVE Antibody Screen NEGATIVE Crossmatch Leukocyte-Reduced Red Blood Cells Blood Bank Comment Pleural Fluid WBC 1430 /MM3 Pleural Fluid RBC 5408 /MM3 Pleural Fluid Neutrophils 9 % Pleural Fluid Lymphocytes 80 % Pleural Fluid Monocytes 8 % Pleural Fluid Eosinophils 2 % Pleural Fluid Histiocytes 1 % White Blood Count 11.5 TH/MM3 Red Blood Count 4.13 MIL/MM3 Hemoglobin 12.7 GM/DL Hematocrit 37.7 % Mean Corpuscular Volume 91.1 FL Mean Corpuscular Hemoglobin 30.7 PG Mean Corpuscular Hemoglobin 33.7 % Concent Red Cell Distribution Width 14.5 % Platelet Count 441 TH/MM3 Mean Platelet Volume 8.3 FL Neutrophils (%) (Auto) 84.4 % Lymphocytes (%) (Auto) 5.4 % Monocytes (%) (Auto) 9.7 % Eosinophils (%) (Auto) 0.2 % Basophils (%) (Auto) 0.3 % Neutrophils # (Auto) 9.7 TH/MM3 Lymphocytes # (Auto) 0.6 TH/MM3 Monocytes # (Auto) 1.1 TH/MM3 Eosinophils # (Auto) 0.0 TH/MM3 Basophils # (Auto) 0.0 TH/MM3 CBC Comment DIFF FINAL Differential Comment Sodium Level 141 MEQ/L Potassium Level 3.8 MEQ/L Chloride Level 108 MEQ/L Carbon Dioxide Level 25.9 MEQ/L Anion Gap 7 MEQ/L Blood Urea Nitrogen 19 MG/DL Creatinine 0.69 MG/DL Estimat Glomerular Filtration 81 ML/MIN Rate Random Glucose 140 MG/DL Calcium Level 8.1 MG/DL Objective Remarks GENERAL: No acute distress. SKIN: Ecchymosis on four extremities. HEAD: Normocephalic and atraumatic. EYES: No injection or drainage. ENT: No nasal drainage noted. NECK: Supple CARDIOVASCULAR: Regular rate and rhythm RESPIRATORY: Decreased breath sounds bilateral, no wheezing, No crackles. GASTROINTESTINAL: Abdomen soft, non-tender, nondistended. NEUROLOGICAL: Awake and alert. Motor and sensory grossly within normal limits. Normal speech. Medications and IVs Current Medications Medications (Trade) Dose Ordered Sig/Ariella Route Start Time Stop Time Status Last Admin (Dulcolax Supp) 10 mg DAILY PRN RECTAL 09/29/16 17:15 10/02/16 17:26 (Narcan Inj) 0.4 mg UNSCH PRN IV 09/29/16 17:15 (Bactroban Nasal 2% Oint) 1 applic BID EACH NARE 09/29/16 21:00 10/04/16 20:59 10/04/16 08:08 (Ambien) 5 mg HS PRN PO 09/29/16 21:00 10/02/16 20:39 (NS Flush) 2 ml BID IV FLUSH 09/30/16 21:00 10/04/16 08:09 (NS Flush) 2 ml UNSCH PRN IV FLUSH 09/30/16 09:15 (Zofran Inj) 4 mg Q6H PRN IV PUSH 09/30/16 09:15 10/02/16 23:41 (Surfak) 240 mg HS PO 09/30/16 21:00 10/03/16 20:38 (Milk Of Magnesia Liq) 30 ml DAILY PRN PO 09/30/16 09:15 10/01/16 08:07 (Tylenol) 650 mg Q4H PRN PO 09/30/16 09:15 09/30/16 17:58 (NovoLOG SUPPLEMENTAL SCALE) Q6HR SQ 09/30/16 12:00 09/30/16 23:25 (D50w (Vial) Inj) 25 ml UNSCH PRN IV PUSH 09/30/16 09:15 (Glucagon Inj) 1 mg UNSCH PRN IV 09/30/16 09:15 (Lovenox Inj) 40 mg Q24H SQ 09/30/16 11:00 10/04/16 10:53 (Glycerin Adult Supp) 2 gm DAILY PRN RECTAL 10/01/16 09:30 Sodium Biphosphate/ Sodium Phosphate 133 ml 133 ml UNSCH PRN RECTAL 10/01/16 09:30 (Rocephin Inj/NS Inj) 100 ml @ 200 mls/hr Q24H IV 10/01/16 11:00 10/04/16 10:53 Tramadol HCl 50 mg 50 mg Q8H PRN PO 10/03/16 09:45 (D5-1/2 NS + KCl 20 Meq Inj) 1,000 ml @ 42 mls/hr [id number] IV 10/03/16 09:45 10/04/16 10:53 (Protonix Inj) 40 mg Q24H IV PUSH 10/03/16 15:00 10/03/16 16:22 (Carafate Liq) 1 gm ACHS PO 10/03/16 16:00 10/04/16 10:53 A/P Assessment and Plan 1. Very large Pleural Effusion with mediastinal shift to the left, on outpatient CT scan, status post right Chest tube placement and Biopsy, chest tube removed. today Cardiothoracic surgery signed off the case. 2. Stage IV Metastatic Adenocarcinoma of the lung to the Cervical spine, Thoracic Spine and Massive Pleural effusion. 3. UTI started on Ceftriaxone. following Urine culture. increased Leukocytosis probable reactive to her Chest tube placement Cultures negative. 4. Nausea and vomit probable related to GERD Protonix from by mouth to IV and Carafate, no surgical abdomen at this time continue supportive care, continue on IV fluids started by Cardiothoracic Surgeon, GI specialist consulted. DVT prophylaxis SCDs awaiting final recommendations by Specialists Bronchodilator, Mucolytic and incentive spirometry. Code Status Full code for procedure her Son is POA. Discussed Condition With Discussed with patient and her Sister Mrs. Willow Ling all questions answered to the best of my abilities Discussed with nurse Len Myke. Discharge Planning Not yet ready for discharge Dom Saunders MD October 04, 2016 13:49
[2016-10-04] MEDS: PANTOPRAZOLE SODIUM 40 MG VIAL IV PUSH SCH (15:00)
--- NOTE | 2016-10-04 15:25 | PD.CONS ---
HPI History of Present Illness This is a 86 year old woman with lung cancer. GI is consulted for intractable vomiting. the emesis is brown and heme positive. she is not moving bowels. The vomiting has been going on for over three days. She is unable to eat and has associated sore throat. she has been treated for lung cancer for three years and now she has a pleural effusion treated this admission with tube drainage. The tube is now removed. She denies prior EGD or ulcer in the past. Denies abdominal distension. KUB this morning was normal. She was offered EGD to evaluate for ulcer or obstruction of the stomach but she has initially declined. []. 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 Incontinence status post urinary Bladder surgery x 3 Past Surgical History ARTURO Cataract surgery 3 Urinary Bladder surgery Coded Allergies: Codeine (Verified Allergy, Intermediate, NAUSEA AND VOMITING, 09/29/16) Medications Current Medications Medications (Trade) Dose Ordered Sig/Ariella Route Start Time Stop Time Status Last Admin (Dulcolax Supp) 10 mg DAILY PRN RECTAL 09/29/16 17:15 10/02/16 17:26 (Narcan Inj) 0.4 mg UNSCH PRN IV 09/29/16 17:15 (Bactroban Nasal 2% Oint) 1 applic BID EACH NARE 09/29/16 21:00 10/04/16 20:59 10/04/16 08:08 (Ambien) 5 mg HS PRN PO 09/29/16 21:00 10/02/16 20:39 (NS Flush) 2 ml BID IV FLUSH 09/30/16 21:00 10/04/16 08:09 (NS Flush) 2 ml UNSCH PRN IV FLUSH 09/30/16 09:15 (Zofran Inj) 4 mg Q6H PRN IV PUSH 09/30/16 09:15 10/02/16 23:41 (Surfak) 240 mg HS PO 09/30/16 21:00 10/03/16 20:38 (Milk Of Magnesia Liq) 30 ml DAILY PRN PO 09/30/16 09:15 10/01/16 08:07 (Tylenol) 650 mg Q4H PRN PO 09/30/16 09:15 09/30/16 17:58 (NovoLOG SUPPLEMENTAL SCALE) Q6HR SQ 09/30/16 12:00 09/30/16 23:25 (D50w (Vial) Inj) 25 ml UNSCH PRN IV PUSH 09/30/16 09:15 (Glucagon Inj) 1 mg UNSCH PRN IV 09/30/16 09:15 (Lovenox Inj) 40 mg Q24H SQ 09/30/16 11:00 10/04/16 10:53 (Glycerin Adult Supp) 2 gm DAILY PRN RECTAL 10/01/16 09:30 Sodium Biphosphate/ Sodium Phosphate 133 ml 133 ml UNSCH PRN RECTAL 10/01/16 09:30 (Rocephin Inj/NS Inj) 100 ml @ 200 mls/hr Q24H IV 10/01/16 11:00 10/04/16 10:53 Tramadol HCl 50 mg 50 mg Q8H PRN PO 10/03/16 09:45 (D5-1/2 NS + KCl 20 Meq Inj) 1,000 ml @ 42 mls/hr [id number] IV 10/03/16 09:45 10/04/16 10:53 (Protonix Inj) 40 mg Q24H IV PUSH 10/03/16 15:00 10/03/16 16:22 (Carafate Liq) 1 gm ACHS PO 10/03/16 16:00 10/04/16 10:53 Family History Asked and denied. Social History Lives with her and No Toxic habits Review of Systems Constitutional: COMPLAINS OF: Diaphoretic episodes, Fatigue, Fever, Weight gain , Weight loss, Chills, Dizziness, Change in appetite, Night Sweats Psychiatric: COMPLAINS OF: Anxiety, Confusion, Mood changes, Depression, Agitation, Suicidal Ideation GI Exam Vitals I&O Vital Signs Date Time Temp Pulse Resp B/P Pulse Ox O2 Delivery O2 Flow Rate FiO2 10/04/16 12:01 112 10/04/16 11:15 98.3 100 18 120/68 95 10/04/16 11:00 111 10/04/16 10:00 90 10/04/16 09:01 92 10/04/16 08:45 98.1 101 20 131/70 96 10/04/16 08:45 97 Nasal Cannula 2.00 10/04/16 08:00 94 10/04/16 07:35 92 Nasal Cannula 3.00 10/04/16 07:01 92 10/04/16 06:00 90 10/04/16 05:00 104 10/04/16 04:00 96 10/04/16 03:00 106 10/04/16 03:00 98.2 102 18 131/69 98 10/04/16 02:00 108 10/04/16 01:00 107 10/04/16 00:00 120 10/03/16 23:00 118 10/03/16 23:00 98.0 120 18 122/59 95 10/03/16 22:00 102 10/03/16 21:00 106 10/03/16 20:00 104 10/03/16 19:21 97 Nasal Cannula 2.00 10/03/16 19:00 106 10/03/16 19:00 97.9 106 16 124/73 97 10/03/16 19:00 97 Nasal Cannula 2.00 10/03/16 18:01 111 10/03/16 17:00 106 10/03/16 16:00 108 10/03/16 15:45 98.4 107 18 117/60 98 I/O 10/03/16 10/03/16 10/03/16 10/04/16 10/04/16 10/04/16 07:00 15:00 23:00 07:00 15:00 23:00 Intake Total 811 ml 910 ml Output Total 400 ml 525 ml Balance 411 ml 385 ml Intake Oral 500 ml 480 ml IV Total 311 ml 430 ml Output Urine Total 0 ml 325 ml Emesis 400 ml 200 ml # Voids 0 # Bowel Movements 0 Laboratory Date/Time Procedure Status Source Growth 10/03/16 22:10 Gastric Occult Blood - Final Complete Gastric GASTROCCULT POSITIVE 09/30/16 09:00 Gram Stain - Final Complete Fluid Pleural Fluid 09/30/16 09:00 Body Fluid Culture - Final Complete Fluid Pleural Fluid NO GROWTH IN 72 HRS.--AEROBICALLY OR ... 09/30/16 09:00 Fungal Smear - Final Resulted Fluid Pleural Fluid NO FUNGAL ELEMENTS SEEN. 09/30/16 09:00 Fungal Culture Resulted Fluid Pleural Fluid Pending 09/30/16 09:00 Acid Fast Stain - Final Resulted Fluid Pleural Fluid NO ACID FAST BACILLI SEEN 09/30/16 09:00 Mycobacterial Culture Resulted Fluid Pleural Fluid Pending 09/30/16 03:52 Urine Culture - Final Complete Urine Clean Catch Escherichia Coli Physical Examination HEENT: Pupils round and reactive to light; normocephalic; atraumatic; no jaundice. Throat is clear. NECK: Neck is supple, no JVD, no lymphadenopathy. CHEST: Chest is clear to auscultation and percussion. CARDIAC: Regular rate and rhythm with no murmur gallop or rubs. ABDOMEN: Soft, nondistended, nontender; no hepatosplenomegaly; bowel sounds are present in all four quadrants. EXTREMITIES: No clubbing, cyanosis, or edema. SKIN: Normal; no rash; no jaundice. MALL MANAGER: No focal deficits; alert and oriented times three. Assessment and Plan Plan Imp: Intractable vomiting with hemoccult pos Lung cancer, advanced Skin cancer Rec: CT abdomen and pelvis offered, she does not want. EGD was offered. She will consider it. If she agrees, will do tomorrow. Supportive care. Zhen Perdomo MD October 04, 2016 15:25
[2016-10-04] MEDS: DOCUSATE CALCIUM 240 MG CAP PO SCH (21:00)
[2016-10-04] MEDS ORDERED: EPINEPHrine HCL (1:10,000) 1 MG/10 ML SYRINGE ONE (22:24)
[2016-10-04] MEDS ORDERED: ATROPINE SULFATE 1 MG/10 ML SYRINGE ONE (22:24)
--- NOTE | 2016-10-04 23:29 | RADRPT ---
EXAM DATE/TIME: 10/04/2016 22:39 [facility] COMPARISON: CT ABDOMEN & PELVIS W/O CONTRAST, September 15, 2014, 14:16. INDICATIONS : Nausea and vomiting. ORAL CONTRAST: No oral contrast ingested. RADIATION DOSE: 6.64 CTDIvol (mGy) MEDICAL HISTORY : Carcinoma, lung. SURGICAL HISTORY : Hysterectomy. ENCOUNTER: Initial ACUITY: 1 day PAIN SCALE: 0/10 LOCATION: All quadrants. TECHNIQUE: Volumetric scanning of the abdomen and pelvis was performed. Using automated exposure control and ad justment of the mA and/or kV according to patient size, radiation dose was kept as low as reasonably achievable to obtain optimal diagnostic quality images. FINDINGS: LOWER LUNGS: There is a small right pleural effusion which appears partially loculated. There is minimal left effu maria luz. Consolidation is noted in both lung bases with an ill-defined masslike soft tissue area in the right lower lobe measuring up to 3 cm. There also areas of calcification in the consolidative lung in the right lower lobe.. LIVER: Homogeneous density without lesion. There is no dilation of the biliary tree. No calcified gallston es. SPLEEN: Normal size without lesion. PANCREAS: Within normal limits. KIDNEYS: Normal in size and shape. There is no mass, stone, or hydronephrosis. ADRENAL GLANDS: Within normal limits. VASCULAR: There is no aortic aneurysm. BOWEL/MESENTERY: There is a new abnormal bowel gas pattern with multiple loops of borderline dilated fluid containing small bowel with several small air-fluid levels. The distal most portion of the small bowel and colon are decompressed. There are multiple diverticuli in the colon. There is several air fluid levels in the small bowel and stomach. There is no free air or fluid. ABDOMINAL WALL: Within normal limits. RETROPERITONEUM: There is no lymphadenopathy. BLADDER: No wall thickening or mass. REPRODUCTIVE: Within normal limits. INGUINAL: There is no lymphadenopathy or hernia. MUSCULOSKELETAL: Within normal limits for patient age. CONCLUSION: 1. Abnormal bowel gas pattern of concern for distal small bowel obstruction. 2. Masslike area of soft tissue in the right lower lobe likely representing the patient's known tumor . There is a loculated right effusion. There is consolidation in both lung bases. 3. Moderate diverticulosis. Abelardo Harman MD on October 04, 2016 at 23:22 Board Certified Radiologist. This report was verified electronically.
[2016-10-05] VITALS (30 sets, daily range): BP systolic 112–151; BP diastolic 55–96; PULSE 77–101; RESP 17–19; TEMP 97.5–98.1; O2SAT 93–98
[2016-10-05] MEDS: INSULIN ASPART SUPPLEMENTAL SCALE SQ SCH ×4 (06:00→18:00)
[2016-10-05] MEDS: SUCRALFATE 1 GM/10 ML CUP PO SCH ×4 (06:38→21:00)
[2016-10-05 06:52] LABS: AUTOMATED NEUTROPHIL # 8.2 TH/MM3 (1.8-7.7); BASOPHIL % 0.3 % (0.0-2.0); EOSINOPHIL # 0.2 TH/MM3 (0-0.4); HEMATOCRIT 35.1 % (35.0-46.0); HEMO FLAGS DIFF FINAL; LYMPH % 4.8 % (9.0-44.0); LYMPHOCYTE # 0.5 TH/MM3 (1.0-4.8); MEAN CELL VOLUME 89.3 FL (80.0-100.0); MEAN CORPUSCULAR HEMOGLOBIN 29.9 PG (27.0-34.0); MEAN CORPUSCULAR HGB CONC 33.5 % (32.0-36.0); MONO % 7.1 % (0.0-8.0); NEUT % 85.8 % (16.0-70.0); PLATELET COUNT 412 TH/MM3 (150-450); RED BLOOD COUNT 3.93 MIL/MM3 (4.00-5.30); RED CELL DISTRIBUTION WIDTH 14.2 % (11.6-17.2); WHITE BLOOD COUNT 9.5 TH/MM3 (4.0-11.0)
[2016-10-05 07:15] LABS: BICARBONATE 31.5 MEQ/L (21.0-32.0); MAGNESIUM 2.1 MG/DL (1.5-2.5); POTASSIUM 4.5 MEQ/L (3.5-5.1)
[2016-10-05] MEDS: RESP: BUDESONIDE 0.5 MG/2 ML NEB NEB SCH ×2 (07:43→20:19)
--- NOTE | 2016-10-05 07:55 | HHI.PR ---
Subjective Remarks This is a pleasant 86 /o Female who came to ER with Shortness of breath, she follows with her Primary retail customer service specialist Doctor Mukul and had a new CT scan showed a Large Pleural Effusion, recommended to come to this facility for drainage and She denies other significant complaints currently. She states she came straight here from Dr. Gilman's office. Discussed with patient in the room and her Sister Mrs. 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 09/30: patient seen in her bedroom in the presence of her Sister Mrs. Willow Ling , status post Chest tube placement, stable No nausea, vomit or diarrhea, somnolent. 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 started on Lovenox 40 mg Subcutaneous daily, Biopsy taken by Cardiothoracic surgeon, asked cells analyzed for T790M mutation. 10/01: Stable in her bedroom gave 70 ml draining from her Chest tube during the night, awaiting for minimal drainage for talc pleurodesis seen in her bedroom in the presence of nurse Miss Rodney, No nausea, vomit but has constipation given Milk of Mag, added Lactulose. 10/02: Seen in her bedroom in the presence of nurse Mr. Stringer and also her Sister Mrs. Willow Ling in the room, Improving condition as per Cardiothoracic Surgery to remove Chest tube in am and discharge Home. No nausea, vomit or diarrhea, but complaint of painful cough added Ipratropium bromide and Budesonide inhaled. 10/03: Patient stable in her bedroom discussed with nurse Mr. Stringer the Chest tube removed by Cardiothoracic surgery, she developed vomit giving her supportive care, now able to drink fluids, continue Zofran and follow but, her abdomen has no rebound tenderness no pain on deep palpation. No diarrhea. 10/04: Stable in her bedroom in the presence of her Sister Mrs. Willow Ling, and discussed with nurse Mr. Stringer no diarrhea but continue with vomit, asked for GI specialist consult. 10/05: In her bedroom seen in the presence of her Sister Mrs. Willow Ling, she had CT showing probable Small Bowel obstruction had NG tube insertion, recommended by Oncology to start TPN, made DNR by retail customer service specialist, EGD performed today, stable continue present care. Objective Vital Signs Date Time Temp Pulse Resp B/P Pulse Ox O2 Delivery O2 Flow Rate FiO2 10/05/16 07:53 91 10/05/16 05:00 91 10/05/16 04:13 82 10/05/16 03:10 97.8 94 19 128/60 94 10/05/16 02:00 98 10/05/16 01:00 101 10/05/16 00:00 94 10/04/16 23:05 97.7 85 18 120/64 97 10/04/16 23:00 84 10/04/16 22:00 102 10/04/16 21:00 106 10/04/16 20:56 98.7 105 16 132/72 97 10/04/16 20:56 97 Nasal Cannula 2.00 10/04/16 20:56 86 10/04/16 20:21 98 Nasal Cannula 10/04/16 18:01 92 10/04/16 17:01 92 10/04/16 16:00 112 10/04/16 15:15 98.5 111 18 157/76 99 10/04/16 15:00 104 10/04/16 14:00 106 10/04/16 13:00 96 10/04/16 12:01 112 10/04/16 11:15 98.3 100 18 120/68 95 10/04/16 11:00 111 10/04/16 10:00 90 10/04/16 09:01 92 10/04/16 08:45 98.1 101 20 131/70 96 10/04/16 08:45 97 Nasal Cannula 2.00 10/04/16 08:00 94 I/O 10/04/16 10/04/16 10/04/16 10/05/16 10/05/16 10/05/16 07:00 15:00 23:00 07:00 15:00 23:00 Intake Total 910 ml 654 ml Output Total 525 ml 400 ml Balance 385 ml 254 ml Intake Oral 480 ml 120 ml IV Total 430 ml 534 ml Output Urine Total 325 ml 400 ml Emesis 200 ml Result Diagram: 10/05/16 0610/05/16 06 Imaging Last Impressions Chest X-Ray 10/04/16 06 Signed Impressions: Service Date/Time: Tuesday, October 04, 2016 05:17 - CONCLUSION: 1. Interval removal of right-sided chest tube with no pneumothorax. 2. Mild increase in hazy opacity at the right lung base. Abelardo Harman MD Abdomen/Pelvis CT 10/04/16 0000 Signed Impressions: Service Date/Time: Tuesday, October 04, 2016 22:39 - CONCLUSION: 1. Abnormal bowel gas pattern of concern for distal small bowel obstruction. 2. Masslike area of soft tissue in the right lower lobe likely representing the patient's known tumor. There is a loculated right effusion. There is consolidation in both lung bases. 3. Moderate diverticulosis. Abelardo Hraman MD Abdomen X-Ray 10/03/16 0000 Signed Impressions: Service Date/Time: Monday, October 03, 2016 19:45 - CONCLUSION: No obstruction. Renan Gutierres MD Procedures Right chest tube placement and Biopsy. Other Results Laboratory Tests Test 09/30/16 09/30/16 10/05/16 03:52 08:19 06:08 Urine Color YELLOW Urine Turbidity HAZY Urine pH 6.5 Urine Specific Everly 1.027 Urine Protein TRACE mg/dL Urine Glucose (UA) NEG mg/dL Urine Ketones 40 mg/dL Urine Occult Blood NEG Urine Nitrite NEG Urine Bilirubin NEG Urine Urobilinogen 8.0 MG/DL Urine Leukocyte Esterase MOD Urine RBC LESS THAN 1 /hpf Urine WBC 41 /hpf Urine Bacteria MANY /hpf Urine Mucus FEW /lpf Microscopic Urinalysis Comment CULTURE INDICATED Blood Type A POSITIVE Antibody Screen NEGATIVE Crossmatch Leukocyte-Reduced Red Blood Cells Blood Bank Comment White Blood Count 9.5 TH/MM3 Red Blood Count 3.93 MIL/MM3 Hemoglobin 11.8 GM/DL Hematocrit 35.1 % Mean Corpuscular Volume 89.3 FL Mean Corpuscular Hemoglobin 29.9 PG Mean Corpuscular Hemoglobin 33.5 % Concent Red Cell Distribution Width 14.2 % Platelet Count 412 TH/MM3 Mean Platelet Volume 8.2 FL Neutrophils (%) (Auto) 85.8 % Lymphocytes (%) (Auto) 4.8 % Monocytes (%) (Auto) 7.1 % Eosinophils (%) (Auto) 2.0 % Basophils (%) (Auto) 0.3 % Neutrophils # (Auto) 8.2 TH/MM3 Lymphocytes # (Auto) 0.5 TH/MM3 Monocytes # (Auto) 0.7 TH/MM3 Eosinophils # (Auto) 0.2 TH/MM3 Basophils # (Auto) 0.0 TH/MM3 CBC Comment DIFF FINAL Differential Comment Sodium Level 136 MEQ/L Potassium Level 4.5 MEQ/L Chloride Level 99 MEQ/L Carbon Dioxide Level 31.5 MEQ/L Anion Gap 6 MEQ/L Blood Urea Nitrogen 10 MG/DL Creatinine 0.43 MG/DL Estimat Glomerular Filtration 140 ML/MIN Rate Random Glucose 104 MG/DL Calcium Level 8.5 MG/DL Phosphorus Level 1.7 MG/DL Magnesium Level 2.1 MG/DL Objective Remarks GENERAL: No acute distress. SKIN: Ecchymosis on four extremities. HEAD: Normocephalic and atraumatic. EYES: No injection or drainage. ENT: No nasal drainage noted. NG tube in place to slow suction. NECK: Supple CARDIOVASCULAR: Regular rate and rhythm RESPIRATORY: Decreased breath sounds bilateral, no wheezing, No crackles. GASTROINTESTINAL: Abdomen soft, non-tender, nondistended. NEUROLOGICAL: Awake and alert. Motor and sensory grossly within normal limits. Normal speech. Medications and IVs Current Medications Medications (Trade) Dose Ordered Sig/Ariella Route Start Time Stop Time Status Last Admin (Dulcolax Supp) 10 mg DAILY PRN RECTAL 09/29/16 17:15 10/02/16 17:26 (Narcan Inj) 0.4 mg UNSCH PRN IV 09/29/16 17:15 (Ambien) 5 mg HS PRN PO 09/29/16 21:00 10/02/16 20:39 (NS Flush) 2 ml BID IV FLUSH 09/30/16 21:00 10/04/16 08:09 (NS Flush) 2 ml UNSCH PRN IV FLUSH 09/30/16 09:15 (Zofran Inj) 4 mg Q6H PRN IV PUSH 09/30/16 09:15 10/02/16 23:41 (Surfak) 240 mg HS PO 09/30/16 21:00 10/03/16 20:38 (Milk Of Magnesia Liq) 30 ml DAILY PRN PO 09/30/16 09:15 10/01/16 08:07 (Tylenol) 650 mg Q4H PRN PO 09/30/16 09:15 09/30/16 17:58 (NovoLOG SUPPLEMENTAL SCALE) Q6HR SQ 09/30/16 12:00 09/30/16 23:25 (D50w (Vial) Inj) 25 ml UNSCH PRN IV PUSH 09/30/16 09:15 (Glucagon Inj) 1 mg UNSCH PRN IV 09/30/16 09:15 (Lovenox Inj) 40 mg Q24H SQ 09/30/16 11:00 10/04/16 10:53 (Glycerin Adult Supp) 2 gm DAILY PRN RECTAL 10/01/16 09:30 Sodium Biphosphate/ Sodium Phosphate 133 ml 133 ml UNSCH PRN RECTAL 10/01/16 09:30 (Rocephin Inj/NS Inj) 100 ml @ 200 mls/hr Q24H IV 10/01/16 11:00 10/04/16 10:53 Tramadol HCl 50 mg 50 mg Q8H PRN PO 10/03/16 09:45 (D5-1/2 NS + KCl 20 Meq Inj) 1,000 ml @ 42 mls/hr [id number] IV 10/03/16 09:45 10/04/16 10:53 (Protonix Inj) 40 mg Q24H IV PUSH 10/03/16 15:00 10/04/16 15:00 (Carafate Liq) 1 gm ACHS PO 10/03/16 16:00 10/05/16 06:38 A/P Assessment and Plan 1. Very large Pleural Effusion with mediastinal shift to the left, on outpatient CT scan, status post right Chest tube placement and Biopsy, chest tube removed. today Cardiothoracic surgery signed off the case. 2. Stage IV Metastatic Adenocarcinoma of the lung to the Cervical spine, Thoracic Spine and Massive Pleural effusion. 3. UTI started on Ceftriaxone. following Urine culture. secondary to E Coli sensitive to most antibiotics. 4. Small Bowel Obstruction after CT performed status post EGD, GI specialist following, has NG tube placed the patient do not want procedures, was made DNR. Oncology will start TPN Code Status DNR. Discussed Condition With Discussed with patient and her Sister Mrs. Willow Ling all questions answered to the best of my abilities Discharge Planning Once cleared for discharge by retail customer service specialist. Dom Saunders MD October 05, 2016 07:55 Discharge Planning Not yet ready for discharge Dom Saunders MD October 05, 2016 07:55
[2016-10-05] MEDS ORDERED: LORazepam 2 MG/ML VIAL IV PUSH ONE (08:00)
--- NOTE | 2016-10-05 08:02 | PD.ONC.PN ---
Subjective Subjective Remarks Pt resting in bed with son at bedside. She is still having persistent nausea. Objective Data Date Time Temp Pulse Resp B/P Pulse Ox O2 Delivery O2 Flow Rate FiO2 10/05/16 04:13 82 10/05/16 03:10 97.8 94 19 128/60 94 10/05/16 02:00 98 10/05/16 01:00 101 10/05/16 00:00 94 10/04/16 23:05 97.7 85 18 120/64 97 10/04/16 23:00 84 10/04/16 22:00 102 10/04/16 21:00 106 10/04/16 20:56 98.7 105 16 132/72 97 10/04/16 20:56 97 Nasal Cannula 2.00 10/04/16 20:56 86 10/04/16 20:21 98 Nasal Cannula 10/04/16 18:01 92 10/04/16 17:01 92 10/04/16 16:00 112 10/04/16 15:15 98.5 111 18 157/76 99 10/04/16 15:00 104 10/04/16 14:00 106 10/04/16 13:00 96 10/04/16 12:01 112 10/04/16 11:15 98.3 100 18 120/68 95 10/04/16 11:00 111 10/04/16 10:00 90 10/04/16 09:01 92 10/04/16 08:45 98.1 101 20 131/70 96 10/04/16 08:45 97 Nasal Cannula 2.00 10/04/16 08:00 94 Result Diagram: 10/05/16 0608 10/05/16 0608 Laboratory Results Laboratory Tests Test 10/05/16 06:08 White Blood Count 9.5 TH/MM3 Red Blood Count 3.93 MIL/MM3 Hemoglobin 11.8 GM/DL Hematocrit 35.1 % Mean Corpuscular Volume 89.3 FL Mean Corpuscular Hemoglobin 29.9 PG Mean Corpuscular Hemoglobin 33.5 % Concent Red Cell Distribution Width 14.2 % Platelet Count 412 TH/MM3 Mean Platelet Volume 8.2 FL Neutrophils (%) (Auto) 85.8 % Lymphocytes (%) (Auto) 4.8 % Monocytes (%) (Auto) 7.1 % Eosinophils (%) (Auto) 2.0 % Basophils (%) (Auto) 0.3 % Neutrophils # (Auto) 8.2 TH/MM3 Lymphocytes # (Auto) 0.5 TH/MM3 Monocytes # (Auto) 0.7 TH/MM3 Eosinophils # (Auto) 0.2 TH/MM3 Basophils # (Auto) 0.0 TH/MM3 CBC Comment DIFF FINAL Differential Comment Sodium Level 136 MEQ/L Potassium Level 4.5 MEQ/L Chloride Level 99 MEQ/L Carbon Dioxide Level 31.5 MEQ/L Anion Gap 6 MEQ/L Blood Urea Nitrogen 10 MG/DL Creatinine 0.43 MG/DL Estimat Glomerular Filtration 140 ML/MIN Rate Random Glucose 104 MG/DL Calcium Level 8.5 MG/DL Phosphorus Level 1.7 MG/DL Magnesium Level 2.1 MG/DL Culture Results Microbiology Date/Time Procedure Status Source Growth 10/03/16 22:10 Gastric Occult Blood - Final Complete Gastric GASTROCCULT POSITIVE Administered Medications Medications (Trade) Dose Ordered Sig/Ariella Route PRN Reason Start Time Stop Time Status Last Admin Dose Admin Bisacodyl (Dulcolax Supp) 10 mg DAILY PRN RECTAL CONSTIPATION 09/29/16 17:15 10/02/16 17:26 Zolpidem Tartrate (Ambien) 5 mg HS PRN PO INSOMNIA/MAY REPEAT X1 DOSE 09/29/16 21:00 10/02/16 20:39 Sodium Chloride (NS Flush) 2 ml BID IV FLUSH 09/30/16 21:00 10/04/16 08:09 Ondansetron HCl (Zofran Inj) 4 mg Q6H PRN IV PUSH NAUSEA OR VOMITING 09/30/16 09:15 10/02/16 23:41 Docusate Calcium (Surfak) 240 mg HS PO 09/30/16 21:00 10/03/16 20:38 Magnesium Hydroxide (Milk Of Magnesia Liq) 30 ml DAILY PRN PO CONSTIPATION 09/30/16 09:15 10/01/16 08:07 Acetaminophen (Tylenol) 650 mg Q4H PRN PO TEMPERATURE > 101 F 09/30/16 09:15 09/30/16 17:58 Insulin Aspart (NovoLOG SUPPLEMENTAL SCALE) Q6HR SQ 09/30/16 12:00 09/30/16 23:25 Enoxaparin Sodium 40 mg 40 mg Q24H SQ 5/12/17 11:00 10/04/16 10:53 Ceftriaxone Sodium 1000 mg/ Sodium Chloride 100 ml @ 200 mls/hr Q24H IV 10/01/16 11:00 10/04/16 10:53 Potassium Chloride/Dextrose/ Sod Cl (D5-1/2 NS + KCl 20 Meq Inj) 1,000 ml @ 42 mls/hr [id number] IV 10/03/16 09:45 10/04/16 10:53 Pantoprazole Sodium (Protonix Inj) 40 mg Q24H IV PUSH 10/03/16 15:00 10/04/16 15:00 Sucralfate (Carafate Liq) 1 gm ACHS PO 10/03/16 16:00 10/05/16 06:38 Objective Remarks GENERAL: Elderly female, sitting up in chair at bedside holding emesis basin. SKIN: Warm and dry. Multiple ecchymoses to BUE. HEAD: Normocephalic. EYES: No injection or drainage. NECK: Supple, trachea midline. CARDIOVASCULAR: Regular rate and rhythm RESPIRATORY: R lung valle diminished. GASTROINTESTINAL: Abdomen soft, slightly distended. EXTREMITIES: No cyanosis. NEUROLOGICAL: No obvious focal deficit. Awake, alert, and oriented x3. Assessment/Plan Assessment 1. Nausea is persisting. CT scan showed possible small bowel obstruction, likely an ileus. Will place NGT to relieve nausea and vomiting. Discussed with pt, son and nursing staff. Will give Ativan prior to insertion. We will start TPN today in the interim. The pt discussed her wishes that she would not like life saving measures to be done. She would not be likely to have any quality of life should she be resuscitated. She will be made a no code. Plan The exam, history, and the medical decision-making described in the above note were completed with the assistance of the mid-level provider. I reviewed and agree with the findings presented. I attest that I had a [id number] encounter with the patient on the same day, and personally performed and documented my assessment and findings in the medical record. Attending Statement The exam, history, and the medical decision-making described in the above note were completed with the assistance of the mid-level provider. I reviewed and agree with the findings presented. I attest that I had a [id number] encounter with the patient on the same day, and personally performed and documented my assessment and findings in the medical record. she continues to vomit and ct scan most consistent with ileus although can not rule out mechanical obstruction. I met with Misti and Son, Rashi. -place ng tube - TPN she is dying of starvation -? upper endo - NO CODE. -await T790m mutation. if present. 60 % probability, she will get better. Huyen Galvin October 05, 2016 08:02 Christiano Gilman MD October 05, 2016 08:09
[2016-10-05] MEDS: SODIUM CHLORIDE 0.9% FLUSH 10 ML FLUSH IV FLUSH SCH ×2 (09:00→21:52)
[2016-10-05] MEDS: D5-1/2 NS + KCL 20 MEQ INJ 1,000 ML IV SCH (09:23)
[2016-10-05] MEDS ORDERED: SODIUM PHOSPHATE INJ 15 MMOL in SODIUM CHLORIDE 0.9% INJ 150 ML IV ONE (10:00)
[2016-10-05] MEDS: ENOXAPARIN SODIUM 40 MG/0.4 ML SYRINGE SQ SCH (11:00)
[2016-10-05] MEDS: cefTRIAXone INJ 1,000 MG in SODIUM CHLORIDE 0.9% INJ 100 ML IV SCH (11:00)
--- NOTE | 2016-10-05 11:14 | HHI.GIFU ---
Subjective Remarks Resting in bed. Feeling weak. C/O NGT hurting her throat. D/W patient further evaluation with EGD. She is okay with this. Objective Vitals I&O Vital Signs Date Time Temp Pulse Resp B/P Pulse Ox O2 Delivery O2 Flow Rate FiO2 10/05/16 09:35 85 10/05/16 08:02 98 Nasal Cannula 2.00 10/05/16 07:53 91 10/05/16 07:44 97.8 96 19 151/77 98 10/05/16 05:00 91 10/05/16 04:13 82 10/05/16 03:10 97.8 94 19 128/60 94 10/05/16 02:00 98 10/05/16 01:00 101 10/05/16 00:00 94 10/04/16 23:05 97.7 85 18 120/64 97 10/04/16 23:00 84 10/04/16 22:00 102 10/04/16 21:00 106 10/04/16 20:56 98.7 105 16 132/72 97 10/04/16 20:56 97 Nasal Cannula 2.00 10/04/16 20:56 86 10/04/16 20:21 98 Nasal Cannula 10/04/16 18:01 92 10/04/16 17:01 92 10/04/16 16:00 112 10/04/16 15:15 98.5 111 18 157/76 99 10/04/16 15:00 104 10/04/16 14:00 106 10/04/16 13:00 96 10/04/16 12:01 112 10/04/16 11:15 98.3 100 18 120/68 95 10/04/16 11:00 111 I/O 10/04/16 10/04/16 10/04/16 10/05/16 10/05/16 10/05/16 07:00 15:00 23:00 07:00 15:00 23:00 Intake Total 910 ml 654 ml Output Total 525 ml 400 ml Balance 385 ml 254 ml Intake Oral 480 ml 120 ml IV Total 430 ml 534 ml Output Urine Total 325 ml 400 ml Emesis 200 ml Laboratory Laboratory Tests Test 10/05/16 06:08 White Blood Count 9.5 Red Blood Count 3.93 Hemoglobin 11.8 Hematocrit 35.1 Mean Corpuscular Volume 89.3 Mean Corpuscular Hemoglobin 29.9 Mean Corpuscular Hemoglobin 33.5 Concent Red Cell Distribution Width 14.2 Platelet Count 412 Mean Platelet Volume 8.2 Neutrophils (%) (Auto) 85.8 Lymphocytes (%) (Auto) 4.8 Monocytes (%) (Auto) 7.1 Eosinophils (%) (Auto) 2.0 Basophils (%) (Auto) 0.3 Neutrophils # (Auto) 8.2 Lymphocytes # (Auto) 0.5 Monocytes # (Auto) 0.7 Eosinophils # (Auto) 0.2 Basophils # (Auto) 0.0 CBC Comment DIFF FINAL Differential Comment Sodium Level 136 Potassium Level 4.5 Chloride Level 99 Carbon Dioxide Level 31.5 Anion Gap 6 Blood Urea Nitrogen 10 Creatinine 0.43 Estimat Glomerular Filtration 140 Rate Random Glucose 104 Calcium Level 8.5 Phosphorus Level 1.7 Magnesium Level 2.1 Date/Time Procedure Status Source Growth 10/03/16 22:10 Gastric Occult Blood - Final Complete Gastric GASTROCCULT POSITIVE Imaging Last Impressions Chest X-Ray 10/04/16 0600 Signed Impressions: Service Date/Time: Tuesday, October 04, 2016 05:17 - CONCLUSION: 1. Interval removal of right-sided chest tube with no pneumothorax. 2. Mild increase in hazy opacity at the right lung base. Abelardo Harman MD Abdomen/Pelvis CT 10/04/16 0000 Signed Impressions: Service Date/Time: Tuesday, October 04, 2016 22:39 - CONCLUSION: 1. Abnormal bowel gas pattern of concern for distal small bowel obstruction. 2. Masslike area of soft tissue in the right lower lobe likely representing the patient's known tumor. There is a loculated right effusion. There is consolidation in both lung bases. 3. Moderate diverticulosis. Abelardo Harman MD Abdomen X-Ray 10/03/16 0000 Signed Impressions: Service Date/Time: Monday, October 03, 2016 19:45 - CONCLUSION: No obstruction. Renan Gutierres MD Physical Exam HEENT: Normocephalic; atraumatic; no jaundice. CHEST: CTA. CARDIAC: RRR. ABDOMEN: Soft, nondistended, nontender; no hepatosplenomegaly; bowel sounds are present in all four quadrants. EXTREMITIES: Generalized edema. SKIN: Multiple ecchymotic areas PROGRAM ELIGIBILITY SPECIALIST: No focal deficits; Lethargic Assessment and Plan Plan ASSESSMENT: - Intractable nausea/vomiting, hemoccult positive stool. Abdomen/Pelvis CT ()----> 1. Abnormal bowel gas pattern of concern for distal small bowel obstruction. 2. Masslike area of soft tissue in the right lower lobe likely representing the patient's known tumor. There is a loculated right effusion. There is consolidation in both lung bases. 3. Moderate diverticulosis. ? Likely ilues. NGT to LIWS- ~150cc dark bilious gastric secretions. EGD today. Protonix, Carafate. Will get dietary consult for PPN recommendations. - Lung cancer, advanced. Oncology following, would like to continue treatment until T790m mutation resulted, as if this is present, there is a 60% probability that she will get better per oncology. - UTI. Per primary - Large pleural effusion. S/P CVT evaluation. PLAN: - Plan for egd today - Obtain consents - NPO - Consult reconciliation clerk for PPN recommendations - PPI - Carafate - Monitor labs - Oncology following - Supportive care - Further recommendations to follow based on results of above - Pt seen and examined by Dr. Perdomo and myself and this note is written on his behalf Shayy Brothers October 05, 2016 11:14
[2016-10-05] MEDS ORDERED: ONDANSETRON HCL 4 MG/2 ML VIAL IV PUSH ONE (12:00)
[2016-10-05] MEDS: PANTOPRAZOLE SODIUM 40 MG VIAL IV PUSH SCH (15:00)
[2016-10-05] MEDS ORDERED: PROPOFOL 200 MG/20 ML AMP IV ONE (15:43)
[2016-10-05] MEDS ORDERED: NALOXONE HCL 0.4 MG/ML AMP IV PRN (16:15)
[2016-10-05] MEDS ORDERED: FLUMAZENIL 0.5 MG/5 ML VIAL IV PRN ×2 (16:15)
--- NOTE | 2016-10-05 16:27 | HHI.GIFU ---
Subjective Remarks Immediate postop note EGD with biopsy. Indication: nausea and vomiting Sedation: intubated. Tolerated well. findings: Esophagus: normal Stomach: full of bilious liquid. Mild gastritis. Biopsy taken from antrum. Duodenum: normal. Impression: Findings compatible with ileus or small bowel obstruction. Mild gastritis. Biopsy taken. Objective Vitals I&O Vital Signs Date Time Temp Pulse Resp B/P Pulse Ox O2 Delivery O2 Flow Rate FiO2 10/05/16 15:01 95 10/05/16 15:01 97.8 95 19 130/86 98 10/05/16 13:09 92 10/05/16 12:36 95 10/05/16 11:47 98 Nasal Cannula 2.00 10/05/16 11:27 97.9 96 19 132/96 97 10/05/16 11:27 96 10/05/16 10:27 96 10/05/16 09:35 85 10/05/16 08:02 98 Nasal Cannula 2.00 10/05/16 07:53 91 10/05/16 07:44 97.8 96 19 151/77 98 10/05/16 05:00 91 10/05/16 04:13 82 10/05/16 03:10 97.8 94 19 128/60 94 10/05/16 02:00 98 10/05/16 01:00 101 10/05/16 00:00 94 10/04/16 23:05 97.7 85 18 120/64 97 10/04/16 23:00 84 10/04/16 22:00 102 10/04/16 21:00 106 10/04/16 20:56 98.7 105 16 132/72 97 10/04/16 20:56 97 Nasal Cannula 2.00 10/04/16 20:56 86 10/04/16 20:21 98 Nasal Cannula 10/04/16 18:01 92 10/04/16 17:01 92 I/O 10/04/16 10/04/16 10/04/16 10/05/16 10/05/16 10/05/16 07:00 15:00 23:00 07:00 15:00 23:00 Intake Total 910 ml 654 ml Output Total 525 ml 400 ml Balance 385 ml 254 ml Intake Oral 480 ml 120 ml IV Total 430 ml 534 ml Output Urine Total 325 ml 400 ml Emesis 200 ml Laboratory Laboratory Tests Test 10/05/16 06:08 White Blood Count 9.5 Red Blood Count 3.93 Hemoglobin 11.8 Hematocrit 35.1 Mean Corpuscular Volume 89.3 Mean Corpuscular Hemoglobin 29.9 Mean Corpuscular Hemoglobin 33.5 Concent Red Cell Distribution Width 14.2 Platelet Count 412 Mean Platelet Volume 8.2 Neutrophils (%) (Auto) 85.8 Lymphocytes (%) (Auto) 4.8 Monocytes (%) (Auto) 7.1 Eosinophils (%) (Auto) 2.0 Basophils (%) (Auto) 0.3 Neutrophils # (Auto) 8.2 Lymphocytes # (Auto) 0.5 Monocytes # (Auto) 0.7 Eosinophils # (Auto) 0.2 Basophils # (Auto) 0.0 CBC Comment DIFF FINAL Differential Comment Sodium Level 136 Potassium Level 4.5 Chloride Level 99 Carbon Dioxide Level 31.5 Anion Gap 6 Blood Urea Nitrogen 10 Creatinine 0.43 Estimat Glomerular Filtration 140 Rate Random Glucose 104 Calcium Level 8.5 Phosphorus Level 1.7 Magnesium Level 2.1 Date/Time Procedure Status Source Growth 10/03/16 22:10 Gastric Occult Blood - Final Complete Gastric GASTROCCULT POSITIVE Physical Exam HEENT: Normocephalic; atraumatic; no jaundice. CHEST: CTA. CARDIAC: RRR. ABDOMEN: Soft, nondistended, nontender; no hepatosplenomegaly; bowel sounds are present in all four quadrants. EXTREMITIES: Generalized edema. SKIN: Multiple ecchymotic areas CONSTRUCTION DRILLER: No focal deficits; Lethargic Assessment and Plan Plan ASSESSMENT: - Intractable nausea/vomiting, hemoccult positive stool. Abdomen/Pelvis CT ()----> 1. Abnormal bowel gas pattern of concern for distal small bowel obstruction. 2. Masslike area of soft tissue in the right lower lobe likely representing the patient's known tumor. There is a loculated right effusion. There is consolidation in both lung bases. 3. Moderate diverticulosis. ? Likely ilues. NGT to LIWS- ~150cc dark bilious gastric secretions. EGD today. Protonix, Carafate. Will get dietary consult for PPN recommendations. - Lung cancer, advanced. Oncology following, would like to continue treatment until T790m mutation resulted, as if this is present, there is a 60% probability that she will get better per oncology. - UTI. Per primary - Large pleural effusion. S/P CVT evaluation. PLAN: - NPO with NG tube to low intermittent suction OK to have sips of clear liquids to moisten her throat and esophagus - Consult [facility] for PPN recommendations - PPI -Await biopsy result for gastritis. Zhen Perdomo MD October 05, 2016 16:27
[2016-10-05] MEDS ORDERED: DO NOT ADM ANY ANTICOAGULANT DRUGS PRN (16:45)
[2016-10-05] MEDS: DOCUSATE CALCIUM 240 MG CAP PO SCH (21:00)
[2016-10-05] MEDS: FAT EMULSION 20% INJ 250 ML (@10 mls/hr) IV SCH (21:51)
[2016-10-05] MEDS: CLINIMIX E 4.25/5 2000 mL- >42 mls/hr IV SCH ×3 (21:51)
[2016-10-05] MEDS ORDERED: GLUCAGON 1 MG/ML VIAL IM ONE (23:30)
[2016-10-05] MEDS ORDERED: DEXTROSE 50% IN WATER 50 ML VIAL(D50) IV ONE (23:30)
[2016-10-06] VITALS (29 sets, daily range): BP systolic 113–136; BP diastolic 59–98; PULSE 80–96; RESP 16–18; TEMP 97.5–98; O2SAT 93–98
[2016-10-06] MEDS: INSULIN ASPART SUPPLEMENTAL SCALE SQ SCH ×5 (06:00→21:54)
[2016-10-06] MEDS: SUCRALFATE 1 GM/10 ML CUP PO SCH ×4 (06:04→21:45)
[2016-10-06] MEDS: RESP: BUDESONIDE 0.5 MG/2 ML NEB NEB SCH ×2 (07:45→19:51)
--- NOTE | 2016-10-06 08:10 | MR ---
cc: [facility] DATE 10/05/2016 PROCEDURE PERFORMED Esophagogastroduodenoscopy with biopsy INDICATIONS Nausea and vomiting with possible small bowel obstruction. HISTORY The patient has lung cancer that has spread to the bones, as well as local spread in her lungs. She has had three days of nausea and vomiting without relief. NG tube has been placed. PROCEDURE After informed consent was obtained, the patient was taken to the operating room, she was given general endotracheal anesthesia. After adequate sedation was achieved, the Olympus video gastroscope was inserted in the oropharynx and advanced down through the esophagus into the stomach. There was a large amount of bilious liquid in the stomach. This was aspirated completely. The scope was then advanced into the duodenum. It was then withdrawn slowly examining the mucosal surfaces carefully. Biopsy was obtained from the gastric antrum. The scope was retroflexed. The fundus and cardioscope was then straightened and pulled out through the esophagus taking care to leave the NG tube in place. The procedure was then terminated. She tolerated the procedure well and she was extubated and returned to the recovery area in good condition. FINDINGS 1. The esophagus appeared normal. 2. In the stomach, there was a large amount of bilious liquid. This was aspirated completely. 3. There was also some mild erythema in the gastric antrum, a biopsy was obtained. 4. The pylorus was widely open and the duodenum was normal without any evidence of ulceration or obstruction. IMPRESSION Recurrent nausea and vomiting probably due to ileus or partial small bowel obstruction. PLAN 1. Leave the NG tube in place to low intermittent suction. 2. The patient may have sips of clear liquids to improve comfort in her throat and esophagus. 3. We will start peripheral parenteral nutrition awaiting the results her lung cancer tissue testing. MD HELLEN Larry/ERIC /4:33 PM /7:59 AM
[2016-10-06] MEDS: SODIUM CHLORIDE 0.9% FLUSH 10 ML FLUSH IV FLUSH SCH ×2 (09:00→21:46)
[2016-10-06] MEDS: ENOXAPARIN SODIUM 40 MG/0.4 ML SYRINGE SQ SCH (12:33)
[2016-10-06] MEDS: traMADol HCL 50 MG TAB PO PRN (12:46)
--- NOTE | 2016-10-06 14:39 | PD.ONC.PN ---
Subjective Subjective Remarks Afebrile overnight. patient resting comfortably. c/o irritation at NG tube in nose. No vomiting today. "I feel better." Objective Data Date Time Temp Pulse Resp B/P Pulse Ox O2 Delivery O2 Flow Rate FiO2 10/06/16 14:01 84 10/06/16 13:00 88 10/06/16 12:00 88 10/06/16 11:45 97.8 94 18 134/67 96 10/06/16 11:00 96 10/06/16 10:00 86 10/06/16 09:00 80 10/06/16 08:45 97.9 90 18 113/60 94 10/06/16 08:45 97 Nasal Cannula 2.00 10/06/16 08:00 86 10/06/16 07:45 96 Nasal Cannula 1.00 10/06/16 07:01 83 10/06/16 06:44 82 10/06/16 05:00 96 10/06/16 04:16 96 10/06/16 03:20 85 10/06/16 03:20 98.0 92 16 123/63 98 10/06/16 02:08 91 10/06/16 01:00 84 10/06/16 00:00 90 10/05/16 23:30 97.5 85 17 112/55 94 10/05/16 23:00 89 10/05/16 22:00 86 10/05/16 21:00 86 10/05/16 20:19 Nasal Cannula 1.00 10/05/16 20:00 94 Nasal Cannula 2.00 10/05/16 20:00 97.8 88 18 125/61 94 10/05/16 20:00 81 10/05/16 18:51 98.1 80 18 132/74 96 10/05/16 18:39 98.1 77 18 136/74 95 10/05/16 18:23 80 10/05/16 18:20 98.1 78 18 136/66 95 10/05/16 18:00 98.1 80 18 146/71 93 10/05/16 17:45 98.1 97 18 127/70 98 10/05/16 17:30 98.1 87 18 125/66 93 10/05/16 17:26 98.0 86 18 127/70 96 10/05/16 17:07 98.0 88 18 127/59 93 10/05/16 17:06 88 10/05/16 16:55 95 16 128/59 99 Nasal Cannula 2 10/05/16 16:45 103 16 136/67 99 Nasal Cannula 2 10/05/16 16:30 104 16 128/55 98 Nasal Cannula 2 10/05/16 16:10 98.5 104 16 128/72 98 Nasal Cannula 2 10/05/16 15:01 95 10/05/16 15:01 97.8 95 19 130/86 98 10/06/16 10/06/16 10/06/16 07:00 15:00 23:00 Intake Total 390 ml Output Total 675 ml Balance -285 ml Result Diagram: 10/05/16 0608 10/06/16 0051 Laboratory Results Laboratory Tests Test 10/06/16 00:51 Random Glucose 95 MG/DL Culture Results Microbiology Date/Time Procedure Status Source Growth 10/03/16 22:10 Gastric Occult Blood - Final Complete Gastric GASTROCCULT POSITIVE Administered Medications Medications (Trade) Dose Ordered Sig/Ariella Route PRN Reason Start Time Stop Time Status Last Admin Dose Admin Bisacodyl (Dulcolax Supp) 10 mg DAILY PRN RECTAL CONSTIPATION 09/29/16 17:15 10/02/16 17:26 Zolpidem Tartrate (Ambien) 5 mg HS PRN PO INSOMNIA/MAY REPEAT X1 DOSE 09/29/16 21:00 10/02/16 20:39 Sodium Chloride (NS Flush) 2 ml BID IV FLUSH 09/30/16 21:00 10/06/16 09:00 Ondansetron HCl (Zofran Inj) 4 mg Q6H PRN IV PUSH NAUSEA OR VOMITING 09/30/16 09:15 10/02/16 23:41 Docusate Calcium (Surfak) 240 mg HS PO 09/30/16 21:00 10/03/16 20:38 Magnesium Hydroxide (Milk Of Magnesia Liq) 30 ml DAILY PRN PO CONSTIPATION 09/30/16 09:15 10/01/16 08:07 Acetaminophen (Tylenol) 650 mg Q4H PRN PO TEMPERATURE > 101 F 09/30/16 09:15 09/30/16 17:58 Insulin Aspart (NovoLOG SUPPLEMENTAL SCALE) Q6HR SQ 09/30/16 12:00 09/30/16 23:25 Enoxaparin Sodium 40 mg 40 mg Q24H SQ 09/30/16 11:00 10/06/16 12:33 Ceftriaxone Sodium/Sodium Chloride (Rocephin Inj/NS Inj) 100 ml @ 200 mls/hr Q24H IV 10/01/16 11:00 10/05/16 11:00 Tramadol HCl 50 mg 50 mg Q8H PRN PO PAIN SCALE 4 TO 10 10/03/16 09:45 10/06/16 12:46 Potassium Chloride/Dextrose/ Sod Cl (D5-1/2 NS + KCl 20 Meq Inj) 1,000 ml @ 42 mls/hr [id number] IV 10/03/16 09:45 10/05/16 09:23 Pantoprazole Sodium (Protonix Inj) 40 mg Q24H IV PUSH 10/03/16 15:00 10/05/16 15:00 Sucralfate 1 gm 1 gm ACHS PO 10/03/16 16:00 10/06/16 12:31 Multivitamins 10 ml/Folic Acid 1 mg/Amino Acids/ Electrolytes/ Dextrose 2,010.2 ml @ 75 mls/hr Q24H IV 10/05/16 20:00 10/05/16 21:51 Fat Emulsion Intravenous (Liposyn Iii 20% Inj) 250 ml @ 10 mls/hr Q24H IV 10/05/16 20:00 10/05/16 21:51 Objective Remarks GENERAL: Pleasant elderly female, sitting up in bed, NG tube in place to LIWS SKIN: Warm and dry. HEAD: Normocephalic. EYES: No injection or drainage. NECK: Supple, trachea midline. CARDIOVASCULAR: Regular rate and rhythm RESPIRATORY: diminished at bases, anterior valle with occasional rhonchi. on 2L O2 via NC GASTROINTESTINAL: Abdomen soft, non-tender, nondistended. EXTREMITIES: No cyanosis NEUROLOGICAL: No obvious focal deficit. Awake, alert, and oriented x3. Assessment/Plan Assessment 86y/o with NSCLC admitted with pleural effusion, now with intractable n/v Plan 1. discussed with GI--they plan SBFT for peristent vomiting 2. continue supportive care with TPN 3. waiting on T790M mutation analysis. Attending Statement The exam, history, and the medical decision-making described in the above note were completed with the assistance of the mid-level provider. I reviewed and agree with the findings presented. I attest that I had a [id number] encounter with the patient on the same day, and personally performed and documented my assessment and findings in the medical record. Patient seen and examined, labs reviewed, imaging studies reviewed, business solutions consultant notes reviewed, medications reviewed. Subjectively her major complaint is that of discomfort secondary to the NG tube. The NG tube has been suctioning out gastric contents and bilious drainage. She is now on day 7 without a bowel movement consistent with her assessment off bowel obstruction. Presently on parenteral nutrition. Tells me she generally feels weak, breathing is improved, nausea is also improved with the NG tube placement. Awaiting results of T790M mutation, if positive she will be a candidate for Tagrisso. Jaja Felder October 06, 2016 14:39 Jaret Ho MD October 06, 2016 18:21
[2016-10-06] MEDS: cefTRIAXone INJ 1,000 MG in SODIUM CHLORIDE 0.9% INJ 100 ML IV SCH (15:01)
--- NOTE | 2016-10-06 15:31 | HHI.GIFU ---
Subjective Remarks Resting in bed. C/O sore throat from the NGT. No BM since Monday. Has passed flatus. no abdominal pain Objective Vitals I&O Vital Signs Date Time Temp Pulse Resp B/P Pulse Ox O2 Delivery O2 Flow Rate FiO2 10/06/16 14:01 84 10/06/16 13:00 88 10/06/16 12:00 88 10/06/16 11:45 97.8 94 18 134/67 96 10/06/16 11:00 96 10/06/16 10:00 86 10/06/16 09:00 80 10/06/16 08:45 97.9 90 18 113/60 94 10/06/16 08:45 97 Nasal Cannula 2.00 10/06/16 08:00 86 10/06/16 07:45 96 Nasal Cannula 1.00 10/06/16 07:01 83 10/06/16 06:44 82 10/06/16 05:00 96 10/06/16 04:16 96 10/06/16 03:20 85 10/06/16 03:20 98.0 92 16 123/63 98 10/06/16 02:08 91 10/06/16 01:00 84 10/06/16 00:00 90 10/05/16 23:30 97.5 85 17 112/55 94 10/05/16 23:00 89 10/05/16 22:00 86 10/05/16 21:00 86 10/05/16 20:19 Nasal Cannula 1.00 10/05/16 20:00 94 Nasal Cannula 2.00 10/05/16 20:00 97.8 88 18 125/61 94 10/05/16 20:00 81 10/05/16 18:51 98.1 80 18 132/74 96 10/05/16 18:39 98.1 77 18 136/74 95 10/05/16 18:23 80 10/05/16 18:20 98.1 78 18 136/66 95 10/05/16 18:00 98.1 80 18 146/71 93 10/05/16 17:45 98.1 97 18 127/70 98 10/05/16 17:30 98.1 87 18 125/66 93 10/05/16 17:26 98.0 86 18 127/70 96 10/05/16 17:07 98.0 88 18 127/59 93 10/05/16 17:06 88 10/05/16 16:55 95 16 128/59 99 Nasal Cannula 2 10/05/16 16:45 103 16 136/67 99 Nasal Cannula 2 10/05/16 16:30 104 16 128/55 98 Nasal Cannula 2 10/05/16 16:10 98.5 104 16 128/72 98 Nasal Cannula 2 I/O 10/05/16 10/05/16 10/05/16 10/06/16 10/06/16 10/06/16 07:00 15:00 23:00 07:00 15:00 23:00 Intake Total 654 ml 1190 ml 390 ml Output Total 400 ml 700 ml 675 ml Balance 254 ml 490 ml -285 ml Intake Oral 120 ml 240 ml 240 ml IV Total 534 ml 950 ml 150 ml Other 0 ml Output Urine Total 400 ml 250 ml 600 ml Gastric Drainage Total 450 ml 75 ml # Voids 1 2 Laboratory Laboratory Tests Test 10/06/16 00:51 Random Glucose 95 Date/Time Procedure Status Source Growth 10/03/16 22:10 Gastric Occult Blood - Final Complete Gastric GASTROCCULT POSITIVE Imaging Last Impressions Chest X-Ray 10/04/16 0600 Signed Impressions: Service Date/Time: Tuesday, October 04, 2016 05:17 - CONCLUSION: 1. Interval removal of right-sided chest tube with no pneumothorax. 2. Mild increase in hazy opacity at the right lung base. Abelardo Harman MD Abdomen/Pelvis CT 10/04/16 0000 Signed Impressions: Service Date/Time: Tuesday, October 04, 2016 22:39 - CONCLUSION: 1. Abnormal bowel gas pattern of concern for distal small bowel obstruction. 2. Masslike area of soft tissue in the right lower lobe likely representing the patient's known tumor. There is a loculated right effusion. There is consolidation in both lung bases. 3. Moderate diverticulosis. Abelardo Harman MD Abdomen X-Ray 10/03/16 0000 Signed Impressions: Service Date/Time: Monday, October 03, 2016 19:45 - CONCLUSION: No obstruction. Renan Gutierres MD Physical Exam HEENT: Normocephalic; atraumatic; no jaundice. CHEST: CTA. CARDIAC: RRR. ABDOMEN: Soft, mildly distended, nontender; no hepatosplenomegaly; bowel sounds are present in all four quadrants. NGT with small amount green bilious material EXTREMITIES: Generalized edema. SKIN: Multiple ecchymotic areas ELECTRONIC IMAGING SYSTEM OPERATOR: No focal deficits; Lethargic Assessment and Plan Plan ASSESSMENT: - Intractable nausea/vomiting, hemoccult positive stool. Abdomen/Pelvis CT ()----> 1. Abnormal bowel gas pattern of concern for distal small bowel obstruction. 2. Masslike area of soft tissue in the right lower lobe likely representing the patient's known tumor. There is a loculated right effusion. There is consolidation in both lung bases. 3. Moderate diverticulosis. ? Likely ilues. NGT to LIWS- ~150cc dark bilious gastric secretions. S/P EGD (10/05/16)----> esophagus appeared normal, there was a large amount of bilious liquid. This was aspirated completely, there was also some mild erythema in the gastric antrum , s/p biopsy, the pylorus was widely open and the duodenum was normal without any evidence of ulceration or obstruction. Small amount gastric output. Mildly distended. No BM. + Flatus. Does complain of sore throat with NGT. Protonix, Carafate. PPN. - Lung cancer, advanced. Oncology following, would like to continue treatment until T790m mutation resulted, as if this is present, there is a 60% probability that she will get better per oncology. - UTI. Per primary - Large pleural effusion. S/P CVT evaluation. PLAN: - NPO with NG tube to low intermittent suction - OK to have sips of clear liquids to moisten her throat and esophagus - Await pathology - Chloraseptic spray prn - SBFT to r/o obstruction - PPI - Supportive care - Further recommendaitons to follow based on results of above - Pt seen and examined by Dr. Perdomo and myself and this note is written on his behalf Shayy Brothers October 06, 2016 15:31
[2016-10-06] MEDS ORDERED: PHENOL 1.4% SOLN 180 ML BTL OROPHARYNG PRN (15:45)
--- NOTE | 2016-10-06 15:49 | HHI.PR ---
Subjective Remarks This is a pleasant 86 /o Female who came to ER with Shortness of breath, she follows with her Primary data analytics specialist Doctor Mukul and had a new CT scan showed a Large Pleural Effusion, recommended to come to this facility for drainage and She denies other significant complaints currently. She states she came straight here from Dr. Gilman's office. Discussed with patient in the room and her Sister Mrs. 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 09/30: patient seen in her bedroom in the presence of her Sister Mrs. Willow Ling , status post Chest tube placement, stable No nausea, vomit or diarrhea, somnolent. 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 started on Lovenox 40 mg Subcutaneous daily, Biopsy taken by Cardiothoracic surgeon, asked cells analyzed for T790M mutation. 10/01: Stable in her bedroom gave 70 ml draining from her Chest tube during the night, awaiting for minimal drainage for talc pleurodesis seen in her bedroom in the presence of nurse Miss Rodney, No nausea, vomit but has constipation given Milk of Mag, added Lactulose. 10/02: Seen in her bedroom in the presence of nurse Mr. Stringer and also her Sister Mrs. Willow Ling in the room, Improving condition as per Cardiothoracic Surgery to remove Chest tube in am and discharge Home. No nausea, vomit or diarrhea, but complaint of painful cough added Ipratropium bromide and Budesonide inhaled. 10/03: Patient stable in her bedroom discussed with nurse Mr. Stringer the Chest tube removed by Cardiothoracic surgery, she developed vomit giving her supportive care, now able to drink fluids, continue Zofran and follow but, her abdomen has no rebound tenderness no pain on deep palpation. No diarrhea. 10/04: Stable in her bedroom in the presence of her Sister Mrs. Willow Ling, and discussed with nurse Mr. Stringer no diarrhea but continue with vomit, asked for GI specialist consult. 10/05: In her bedroom seen in the presence of her Sister Mrs. Willow Ling, she had CT showing probable Small Bowel obstruction had NG tube insertion, recommended by Oncology to start TPN, made DNR by data analytics specialist, EGD performed today, stable continue present care. 10/06: Seen in her bedroom, discussed with nurse and with her Mr. Jerzy Ching who is hospitalized in the room 1324 I went to talk to him and her children but they have left the room. she continue with NG tube at slow suction continue multispecialty follow up Objective Vital Signs Date Time Temp Pulse Resp B/P Pulse Ox O2 Delivery O2 Flow Rate FiO2 10/06/16 14:01 84 10/06/16 13:00 88 10/06/16 12:00 88 10/06/16 11:45 97.8 94 18 134/67 96 10/06/16 11:00 96 10/06/16 10:00 86 10/06/16 09:00 80 10/06/16 08:45 97.9 90 18 113/60 94 10/06/16 08:45 97 Nasal Cannula 2.00 10/06/16 08:00 86 10/06/16 07:45 96 Nasal Cannula 1.00 10/06/16 07:01 83 10/06/16 06:44 82 10/06/16 05:00 96 10/06/16 04:16 96 10/06/16 03:20 85 10/06/16 03:20 98.0 92 16 123/63 98 10/06/16 02:08 91 10/06/16 01:00 84 10/06/16 00:00 90 10/05/16 23:30 97.5 85 17 112/55 94 10/05/16 23:00 89 10/05/16 22:00 86 10/05/16 21:00 86 10/05/16 20:19 Nasal Cannula 1.00 10/05/16 20:00 94 Nasal Cannula 2.00 10/05/16 20:00 97.8 88 18 125/61 94 10/05/16 20:00 81 10/05/16 18:51 98.1 80 18 132/74 96 10/05/16 18:39 98.1 77 18 136/74 95 10/05/16 18:23 80 10/05/16 18:20 98.1 78 18 136/66 95 10/05/16 18:00 98.1 80 18 146/71 93 10/05/16 17:45 98.1 97 18 127/70 98 10/05/16 17:30 98.1 87 18 125/66 93 10/05/16 17:26 98.0 86 18 127/70 96 10/05/16 17:07 98.0 88 18 127/59 93 10/05/16 17:06 88 10/05/16 16:55 95 16 128/59 99 Nasal Cannula 2 10/05/16 16:45 103 16 136/67 99 Nasal Cannula 2 10/05/16 16:30 104 16 128/55 98 Nasal Cannula 2 10/05/16 16:10 98.5 104 16 128/72 98 Nasal Cannula 2 I/O 10/05/16 10/05/16 10/05/16 10/06/16 10/06/16 10/06/16 07:00 15:00 23:00 07:00 15:00 23:00 Intake Total 654 ml 1190 ml 390 ml Output Total 400 ml 700 ml 675 ml Balance 254 ml 490 ml -285 ml Intake Oral 120 ml 240 ml 240 ml IV Total 534 ml 950 ml 150 ml Other 0 ml Output Urine Total 400 ml 250 ml 600 ml Gastric Drainage Total 450 ml 75 ml # Voids 1 2 Result Diagram: 10/05/16 0608 10/06/16 0051 Imaging Last Impressions Chest X-Ray 10/04/16 0600 Signed Impressions: Service Date/Time: Tuesday, October 04, 2016 05:17 - CONCLUSION: 1. Interval removal of right-sided chest tube with no pneumothorax. 2. Mild increase in hazy opacity at the right lung base. Abelardo Harman MD Abdomen/Pelvis CT 10/04/16 0000 Signed Impressions: Service Date/Time: Tuesday, October 04, 2016 22:39 - CONCLUSION: 1. Abnormal bowel gas pattern of concern for distal small bowel obstruction. 2. Masslike area of soft tissue in the right lower lobe likely representing the patient's known tumor. There is a loculated right effusion. There is consolidation in both lung bases. 3. Moderate diverticulosis. Abelardo Harman MD Abdomen X-Ray 10/03/16 0000 Signed Impressions: Service Date/Time: Monday, October 03, 2016 19:45 - CONCLUSION: No obstruction. Renan Gutierres MD Procedures Right chest tube placement and Biopsy. Other Results Laboratory Tests Test 09/30/16 10/05/16 10/06/16 08:19 06:08 00:51 Blood Type A POSITIVE Antibody Screen NEGATIVE Crossmatch Leukocyte-Reduced Red Blood Cells Blood Bank Comment White Blood Count 9.5 TH/MM3 Red Blood Count 3.93 MIL/MM3 Hemoglobin 11.8 GM/DL Hematocrit 35.1 % Mean Corpuscular Volume 89.3 FL Mean Corpuscular Hemoglobin 29.9 PG Mean Corpuscular Hemoglobin 33.5 % Concent Red Cell Distribution Width 14.2 % Platelet Count 412 TH/MM3 Mean Platelet Volume 8.2 FL Neutrophils (%) (Auto) 85.8 % Lymphocytes (%) (Auto) 4.8 % Monocytes (%) (Auto) 7.1 % Eosinophils (%) (Auto) 2.0 % Basophils (%) (Auto) 0.3 % Neutrophils # (Auto) 8.2 TH/MM3 Lymphocytes # (Auto) 0.5 TH/MM3 Monocytes # (Auto) 0.7 TH/MM3 Eosinophils # (Auto) 0.2 TH/MM3 Basophils # (Auto) 0.0 TH/MM3 CBC Comment DIFF FINAL Differential Comment Sodium Level 136 MEQ/L Potassium Level 4.5 MEQ/L Chloride Level 99 MEQ/L Carbon Dioxide Level 31.5 MEQ/L Anion Gap 6 MEQ/L Blood Urea Nitrogen 10 MG/DL Creatinine 0.43 MG/DL Estimat Glomerular Filtration 140 ML/MIN Rate Calcium Level 8.5 MG/DL Phosphorus Level 1.7 MG/DL Magnesium Level 2.1 MG/DL Random Glucose 95 MG/DL Objective Remarks GENERAL: No acute distress. SKIN: Ecchymosis on four extremities. HEAD: Normocephalic and atraumatic. EYES: No injection or drainage. ENT: No nasal drainage noted. NG tube in place to slow suction. NECK: Supple CARDIOVASCULAR: Regular rate and rhythm RESPIRATORY: Decreased breath sounds bilateral, no wheezing, No crackles. GASTROINTESTINAL: Abdomen soft, non-tender, nondistended. NEUROLOGICAL: Awake and alert. Motor and sensory grossly within normal limits. Normal speech. Medications and IVs Current Medications Medications (Trade) Dose Ordered Sig/Ariella Route Start Time Stop Time Status Last Admin (Dulcolax Supp) 10 mg DAILY PRN RECTAL 09/29/16 17:15 10/02/16 17:26 (Narcan Inj) 0.4 mg UNSCH PRN IV 09/29/16 17:15 (Ambien) 5 mg HS PRN PO 09/29/16 21:00 10/02/16 20:39 (NS Flush) 2 ml BID IV FLUSH 09/30/16 21:00 10/06/16 09:00 (NS Flush) 2 ml UNSCH PRN IV FLUSH 09/30/16 09:15 (Zofran Inj) 4 mg Q6H PRN IV PUSH 09/30/16 09:15 10/02/16 23:41 (Surfak) 240 mg HS PO 09/30/16 21:00 10/03/16 20:38 (Milk Of Magnesia Liq) 30 ml DAILY PRN PO 09/30/16 09:15 10/01/16 08:07 (Tylenol) 650 mg Q4H PRN PO 09/30/16 09:15 09/30/16 17:58 (NovoLOG SUPPLEMENTAL SCALE) Q6HR SQ 09/30/16 12:00 09/30/16 23:25 (D50w (Vial) Inj) 25 ml UNSCH PRN IV PUSH 09/30/16 09:15 (Glucagon Inj) 1 mg UNSCH PRN IV 09/30/16 09:15 (Lovenox Inj) 40 mg Q24H SQ 09/30/16 11:00 10/06/16 12:33 (Glycerin Adult Supp) 2 gm DAILY PRN RECTAL 10/01/16 09:30 Sodium Biphosphate/ Sodium Phosphate 133 ml 133 ml UNSCH PRN RECTAL 10/01/16 09:30 (Rocephin Inj/NS Inj) 100 ml @ 200 mls/hr Q24H IV 10/01/16 11:00 10/06/16 15:01 Tramadol HCl 50 mg 50 mg Q8H PRN PO 10/03/16 09:45 10/06/16 12:46 (D5-1/2 NS + KCl 20 Meq Inj) 1,000 ml @ 42 mls/hr [id number] IV 10/03/16 09:45 10/05/16 09:23 (Protonix Inj) 40 mg Q24H IV PUSH 10/03/16 15:00 10/05/16 15:00 (Carafate Liq) 1 gm ACHS PO 10/03/16 16:00 10/06/16 12:31 (Romazicon Inj) 0.2 mg Q1M PRN IV 10/05/16 16:15 10/06/16 16:14 (Narcan Inj) 0.1 mg Q2M PRN IV 10/05/16 16:15 10/06/16 16:14 Miscellaneous Information ALL NURSING DEPARTME... UNSCH PRN .XX 10/05/16 16:45 10/06/16 16:44 Multivitamins 10 ml/Folic Acid 1 mg/Amino Acids/ Electrolytes/ Dextrose 2,010.2 ml @ 75 mls/hr Q24H IV 10/05/16 20:00 10/05/16 21:51 (Liposyn Iii 20% Inj) 250 ml @ 10 mls/hr Q24H IV 10/05/16 20:00 10/05/16 21:51 (Chloraseptic [place]) 2 spray Q2H PRN OROPHARYNG 10/06/16 15:45 A/P Assessment and Plan 1. Very large Pleural Effusion with mediastinal shift to the left, on outpatient CT scan, status post right Chest tube placement and Biopsy, chest tube removed. today Cardiothoracic surgery signed off the case. 2. Stage IV Metastatic Adenocarcinoma of the lung to the Cervical spine, Thoracic Spine and Massive Pleural effusion. 3. UTI started on Ceftriaxone. following Urine culture. secondary to E Coli sensitive to most antibiotics. will continue for another 24 hours and discontinue. she is afebrile, no symptomatology. 4. Small Bowel Obstruction after CT performed status post EGD, GI specialist following, has NG tube placed the patient do not want procedures, was made DNR. Oncology following, recommended supportive care and following, Code Status DNR. Discussed Condition With Discussed with patient and her Mr. Jerzy Ching all questions answered to the best of my abilities Discharge Planning Once cleared for discharge by Specialists. Dom Saunders MD October 06, 2016 15:49
[2016-10-06] MEDS: PANTOPRAZOLE SODIUM 40 MG VIAL IV PUSH SCH (18:21)
[2016-10-06] MEDS: DOCUSATE CALCIUM 240 MG CAP PO SCH (21:00)
[2016-10-06] MEDS: FAT EMULSION 20% INJ 250 ML (@10 mls/hr) IV SCH (21:46)
[2016-10-06] MEDS: ZOLPIDEM TARTRATE 5 MG TAB PO PRN (21:46)
[2016-10-06] MEDS: CLINIMIX E 4.25/5 2000 mL- >42 mls/hr IV SCH ×3 (21:46)
[2016-10-06] MEDS: D5-1/2 NS + KCL 20 MEQ INJ 1,000 ML IV SCH (21:51)
[2016-10-07] VITALS (28 sets, daily range): BP systolic 102–136; BP diastolic 60–98; PULSE 80–107; RESP 16–20; TEMP 97.3–98.1; O2SAT 92–98
[2016-10-07 05:29] LABS: AUTOMATED NEUTROPHIL # 7.4 TH/MM3 (1.8-7.7); BASOPHIL % 0.2 % (0.0-2.0); EOSINOPHIL # 0.3 TH/MM3 (0-0.4); EOSINOPHIL % 2.9 % (0.0-4.0); HEMATOCRIT 36.9 % (35.0-46.0); LYMPH % 8.8 % (9.0-44.0); LYMPHOCYTE # 0.8 TH/MM3 (1.0-4.8); MEAN CORPUSCULAR HEMOGLOBIN 30.5 PG (27.0-34.0); MEAN CORPUSCULAR HGB CONC 33.9 % (32.0-36.0); MONO % 9.3 % (0.0-8.0); NEUT % 78.8 % (16.0-70.0); PLATELET COUNT 409 TH/MM3 (150-450); RED CELL DISTRIBUTION WIDTH 14.1 % (11.6-17.2); WHITE BLOOD COUNT 9.4 TH/MM3 (4.0-11.0)
[2016-10-07 05:32] LABS: HEMO FLAGS AUTO DIFF
[2016-10-07 05:40] LABS: BICARBONATE 28.7 MEQ/L (21.0-32.0); MAGNESIUM 2.1 MG/DL (1.5-2.5); POTASSIUM 4.3 MEQ/L (3.5-5.1)
[2016-10-07] MEDS: INSULIN ASPART SUPPLEMENTAL SCALE SQ SCH ×3 (06:00→18:00)
[2016-10-07 07:49] LABS: PLATELET ESTIMATE SMEAR HIGH (NORMAL); PLATELET MORPHOLOGY NORMAL (NORMAL); SCAN/DIFF AUTO DIFF CONFIRMED
[2016-10-07] MEDS: SUCRALFATE 1 GM/10 ML CUP PO SCH ×4 (07:55→21:00)
[2016-10-07] MEDS: RESP: BUDESONIDE 0.5 MG/2 ML NEB NEB SCH ×2 (08:03→19:59)
--- NOTE | 2016-10-07 08:12 | HHI.GIFU ---
Subjective Remarks Resting in bed. Weak. No abdominal pain. Still with sore throat from NGT. No BM yet. Passing flatus. Objective Vitals I&O Vital Signs Date Time Temp Pulse Resp B/P Pulse Ox O2 Delivery O2 Flow Rate FiO2 10/07/16 08:02 96 Nasal Cannula 2.00 10/07/16 07:00 88 10/07/16 06:45 98.1 93 16 136/98 97 10/07/16 06:00 85 10/07/16 05:00 85 10/07/16 04:00 83 10/07/16 03:00 80 10/07/16 02:00 83 10/07/16 01:00 106 10/07/16 00:04 98.0 93 16 136/64 97 10/07/16 00:00 84 10/06/16 23:00 87 10/06/16 22:21 97 Nasal Cannula 1.50 10/06/16 22:00 94 10/06/16 21:00 88 10/06/16 20:00 88 10/06/16 20:00 98.0 92 16 136/98 97 10/06/16 19:54 95 Nasal Cannula 2.00 10/06/16 19:00 89 10/06/16 18:00 92 10/06/16 17:00 88 10/06/16 16:00 88 10/06/16 15:30 97.5 89 16 114/59 93 10/06/16 15:00 88 10/06/16 14:01 84 10/06/16 14:00 18 10/06/16 13:00 88 10/06/16 12:00 88 10/06/16 11:45 97.8 94 18 134/67 96 10/06/16 11:00 96 10/06/16 10:00 86 10/06/16 09:00 80 10/06/16 08:45 97.9 90 18 113/60 94 10/06/16 08:45 97 Nasal Cannula 2.00 I/O 10/06/16 10/06/16 10/06/16 10/07/16 10/07/16 10/07/16 07:00 15:00 23:00 07:00 15:00 23:00 Intake Total 390 ml 1405 ml 240 ml Output Total 675 ml 750 ml 700 ml Balance -285 ml 655 ml -460 ml Intake Oral 240 ml 240 ml IV Total 150 ml 189 ml TPN/PPN 1073 ml Lipid 143 ml Output Urine Total 600 ml 400 ml 500 ml Gastric Drainage Total 75 ml 350 ml 200 ml # Voids 2 2 # Bowel Movements 0 0 Laboratory Laboratory Tests Test 10/07/16 04:51 White Blood Count 9.4 Red Blood Count 4.10 Hemoglobin 12.5 Hematocrit 36.9 Mean Corpuscular Volume 90.0 Mean Corpuscular Hemoglobin 30.5 Mean Corpuscular Hemoglobin 33.9 Concent Red Cell Distribution Width 14.1 Platelet Count 409 Mean Platelet Volume 7.7 Neutrophils (%) (Auto) 78.8 Lymphocytes (%) (Auto) 8.8 Monocytes (%) (Auto) 9.3 Eosinophils (%) (Auto) 2.9 Basophils (%) (Auto) 0.2 Neutrophils # (Auto) 7.4 Lymphocytes # (Auto) 0.8 Monocytes # (Auto) 0.9 Eosinophils # (Auto) 0.3 Basophils # (Auto) 0.0 CBC Comment AUTO DIFF Differential Comment AUTO DIFF CONFIRMED Platelet Estimate HIGH Platelet Morphology Comment NORMAL Sodium Level 137 Potassium Level 4.3 Chloride Level 101 Carbon Dioxide Level 28.7 Anion Gap 7 Blood Urea Nitrogen 16 Creatinine 0.38 Estimat Glomerular Filtration 161 Rate Random Glucose 119 Calcium Level 8.2 Phosphorus Level 2.8 Magnesium Level 2.1 Date/Time Procedure Status Source Growth 10/03/16 22:10 Gastric Occult Blood - Final Complete Gastric GASTROCCULT POSITIVE Imaging Last Impressions Chest X-Ray 10/04/16 0600 Signed Impressions: Service Date/Time: Tuesday, October 04, 2016 05:17 - CONCLUSION: 1. Interval removal of right-sided chest tube with no pneumothorax. 2. Mild increase in hazy opacity at the right lung base. Abelardo Harman MD Abdomen/Pelvis CT 10/04/16 0000 Signed Impressions: Service Date/Time: Tuesday, October 04, 2016 22:39 - CONCLUSION: 1. Abnormal bowel gas pattern of concern for distal small bowel obstruction. 2. Masslike area of soft tissue in the right lower lobe likely representing the patient's known tumor. There is a loculated right effusion. There is consolidation in both lung bases. 3. Moderate diverticulosis. Abelardo Harman MD Abdomen X-Ray 10/03/16 0000 Signed Impressions: Service Date/Time: Monday, October 03, 2016 19:45 - CONCLUSION: No obstruction. Renan Gutierres MD Physical Exam HEENT: Normocephalic; atraumatic; no jaundice. CHEST: CTA. CARDIAC: RRR. ABDOMEN: Soft, mildly distended, nontender; no hepatosplenomegaly; bowel sounds are present in all four quadrants. NGT with small amount green bilious material EXTREMITIES: Generalized edema. SKIN: Multiple ecchymotic areas CRM SOLUTION ARCHITECT: No focal deficits; Lethargic Assessment and Plan Plan ASSESSMENT: - Intractable nausea/vomiting, hemoccult positive stool. Abdomen/Pelvis CT ()----> 1. Abnormal bowel gas pattern of concern for distal small bowel obstruction. 2. Masslike area of soft tissue in the right lower lobe likely representing the patient's known tumor. There is a loculated right effusion. There is consolidation in both lung bases. 3. Moderate diverticulosis. ? Likely ilues. NGT to LIWS- ~150cc dark bilious gastric secretions. S/P EGD (10/05/16)----> esophagus appeared normal, there was a large amount of bilious liquid. This was aspirated completely, there was also some mild erythema in the gastric antrum , s/p biopsy, the pylorus was widely open and the duodenum was normal without any evidence of ulceration or obstruction. Small amount gastric output. Mildly distended. No BM. + Flatus. SBFT pending. Protonix, Carafate. PPN. - Lung cancer, advanced. Oncology following, would like to continue treatment until T790m mutation resulted, as if this is present, there is a 60% probability that she will get better per oncology. - UTI. Per primary - Large pleural effusion. S/P CVT evaluation. PLAN: - NPO with NG tube to low intermittent suction - OK to have sips of clear liquids to moisten her throat and esophagus - Await SBFT to r/o obstruction - PPI - Supportive care - Further recommendations to follow based on results of above - Pt seen and examined by Dr. Perdomo and myself and this note is written on his behalf Shayy Brothers October 07, 2016 08:12
[2016-10-07] MEDS: SODIUM CHLORIDE 0.9% FLUSH 10 ML FLUSH IV FLUSH SCH (08:45)
[2016-10-07] MEDS: D5-1/2 NS + KCL 20 MEQ INJ 1,000 ML IV SCH (08:46)
[2016-10-07] MEDS ORDERED: DIATRIZOATE MEGLUM/DIATRIZOATE SOD 120 ML BTL (for RAD DIAG) NG ONE (10:15)
[2016-10-07] MEDS: cefTRIAXone INJ 1,000 MG in SODIUM CHLORIDE 0.9% INJ 100 ML IV SCH (13:05)
[2016-10-07] MEDS: ENOXAPARIN SODIUM 40 MG/0.4 ML SYRINGE SQ SCH (13:05)
--- NOTE | 2016-10-07 13:05 | HHI.PR ---
Subjective Remarks This is a pleasant 86 /o Female who came to ER with Shortness of breath, she follows with her Primary obgyn specialist Doctor Mukul and had a new CT scan showed a Large Pleural Effusion, recommended to come to this facility for drainage and She denies other significant complaints currently. She states she came straight here from Dr. Gilman's office. Discussed with patient in the room and her Sister Mrs. 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 09/30: patient seen in her bedroom in the presence of her Sister Mrs. Willow Ling , status post Chest tube placement, stable No nausea, vomit or diarrhea, somnolent. 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 started on Lovenox 40 mg Subcutaneous daily, Biopsy taken by Cardiothoracic surgeon, asked cells analyzed for T790M mutation. 10/01: Stable in her bedroom gave 70 ml draining from her Chest tube during the night, awaiting for minimal drainage for talc pleurodesis seen in her bedroom in the presence of nurse Miss Rodney, No nausea, vomit but has constipation given Milk of Mag, added Lactulose. 10/02: Seen in her bedroom in the presence of nurse Mr. Stringer and also her Sister Mrs. Willow Ling in the room, Improving condition as per Cardiothoracic Surgery to remove Chest tube in am and discharge Home. No nausea, vomit or diarrhea, but complaint of painful cough added Ipratropium bromide and Budesonide inhaled. 10/03: Patient stable in her bedroom discussed with nurse Mr. Stringer the Chest tube removed by Cardiothoracic surgery, she developed vomit giving her supportive care, now able to drink fluids, continue Zofran and follow but, her abdomen has no rebound tenderness no pain on deep palpation. No diarrhea. 10/04: Stable in her bedroom in the presence of her Sister Mrs. Willow Ling, and discussed with nurse Mr. Stringer no diarrhea but continue with vomit, asked for GI specialist consult. 10/05: In her bedroom seen in the presence of her Sister Mrs. Willow Ling, she had CT showing probable Small Bowel obstruction had NG tube insertion, recommended by Oncology to start TPN, made DNR by obgyn specialist, EGD performed today, stable continue present care. 10/06: Seen in her bedroom, discussed with nurse and with her Mr. Jerzy Ching who is hospitalized in the room 1324 I went to talk to him and her children but they have left the room. she continue with NG tube at slow suction continue multispecialty follow up 10/07: Patient status post Small Bowel follow through awaiting for results discussed with her in the room, her Son Mr. Fred Ching and nurse Miss Marques, continue with NG tube at slow suction, obgyn specialist and GI specialist following. brief support given due to that her who came with Severe Arterial disease yesterday in the Hospital this morning. Objective Vital Signs Date Time Temp Pulse Resp B/P Pulse Ox O2 Delivery O2 Flow Rate FiO2 10/07/16 08:02 96 Nasal Cannula 2.00 10/07/16 08:00 97.3 91 20 125/69 96 10/07/16 08:00 96 Nasal Cannula 2.00 10/07/16 07:00 88 10/07/16 06:45 98.1 93 16 136/98 97 10/07/16 06:00 85 10/07/16 05:00 85 10/07/16 04:00 83 10/07/16 03:00 80 10/07/16 02:00 83 10/07/16 01:00 106 10/07/16 00:04 98.0 93 16 136/64 97 10/07/16 00:00 84 10/06/16 23:00 87 10/06/16 22:21 97 Nasal Cannula 1.50 10/06/16 22:00 94 10/06/16 21:00 88 10/06/16 20:00 88 10/06/16 20:00 98.0 92 16 136/98 97 10/06/16 19:54 95 Nasal Cannula 2.00 10/06/16 19:00 89 10/06/16 18:00 92 10/06/16 17:00 88 10/06/16 16:00 88 10/06/16 15:30 97.5 89 16 114/59 93 10/06/16 15:00 88 10/06/16 14:01 84 10/06/16 14:00 18 I/O 5/10/06/16 10/06/16 10/07/16 10/07/16 10/07/16 07:00 15:00 23:00 07:00 15:00 23:00 Intake Total 390 ml 1405 ml 240 ml Output Total 675 ml 750 ml 700 ml Balance -285 ml 655 ml -460 ml Intake Oral 240 ml 240 ml IV Total 150 ml 189 ml TPN/PPN 1073 ml Lipid 143 ml Output Urine Total 600 ml 400 ml 500 ml Gastric Drainage Total 75 ml 350 ml 200 ml # Voids 2 2 # Bowel Movements 0 0 Result Diagram: 10/07/16 0451 10/07/16 0451 Imaging Last Impressions Chest X-Ray 10/04/16 0600 Signed Impressions: Service Date/Time: Tuesday, October 04, 2016 05:17 - CONCLUSION: 1. Interval removal of right-sided chest tube with no pneumothorax. 2. Mild increase in hazy opacity at the right lung base. Abelardo Harman MD Abdomen/Pelvis CT 10/04/16 0000 Signed Impressions: Service Date/Time: Tuesday, October 04, 2016 22:39 - CONCLUSION: 1. Abnormal bowel gas pattern of concern for distal small bowel obstruction. 2. Masslike area of soft tissue in the right lower lobe likely representing the patient's known tumor. There is a loculated right effusion. There is consolidation in both lung bases. 3. Moderate diverticulosis. Abelardo Harman MD Abdomen X-Ray 10/03/16 0000 Signed Impressions: Service Date/Time: Monday, October 03, 2016 19:45 - CONCLUSION: No obstruction. Renan Gutierres MD Procedures Right chest tube placement and Biopsy. Other Results Laboratory Tests Test 09/30/16 10/07/16 08:19 04:51 Blood Type A POSITIVE Antibody Screen NEGATIVE Crossmatch Leukocyte-Reduced Red Blood Cells Blood Bank Comment White Blood Count 9.4 TH/MM3 Red Blood Count 4.10 MIL/MM3 Hemoglobin 12.5 GM/DL Hematocrit 36.9 % Mean Corpuscular Volume 90.0 FL Mean Corpuscular Hemoglobin 30.5 PG Mean Corpuscular Hemoglobin 33.9 % Concent Red Cell Distribution Width 14.1 % Platelet Count 409 TH/MM3 Mean Platelet Volume 7.7 FL Neutrophils (%) (Auto) 78.8 % Lymphocytes (%) (Auto) 8.8 % Monocytes (%) (Auto) 9.3 % Eosinophils (%) (Auto) 2.9 % Basophils (%) (Auto) 0.2 % Neutrophils # (Auto) 7.4 TH/MM3 Lymphocytes # (Auto) 0.8 TH/MM3 Monocytes # (Auto) 0.9 TH/MM3 Eosinophils # (Auto) 0.3 TH/MM3 Basophils # (Auto) 0.0 TH/MM3 CBC Comment AUTO DIFF Differential Comment AUTO DIFF CONFIRMED Platelet Estimate HIGH Platelet Morphology Comment NORMAL Sodium Level 137 MEQ/L Potassium Level 4.3 MEQ/L Chloride Level 101 MEQ/L Carbon Dioxide Level 28.7 MEQ/L Anion Gap 7 MEQ/L Blood Urea Nitrogen 16 MG/DL Creatinine 0.38 MG/DL Estimat Glomerular Filtration 161 ML/MIN Rate Random Glucose 119 MG/DL Calcium Level 8.2 MG/DL Phosphorus Level 2.8 MG/DL Magnesium Level 2.1 MG/DL Objective Remarks GENERAL: No acute distress. SKIN: Ecchymosis on four extremities. HEAD: Normocephalic and atraumatic. EYES: No injection or drainage. ENT: No nasal drainage noted. NG tube in place to slow suction. NECK: Supple CARDIOVASCULAR: Regular rate and rhythm RESPIRATORY: Decreased breath sounds bilateral, no wheezing, No crackles. GASTROINTESTINAL: Abdomen soft, non-tender, nondistended. NEUROLOGICAL: Awake and alert. Motor and sensory grossly within normal limits. Normal speech. Medications and IVs Current Medications Medications (Trade) Dose Ordered Sig/Ariella Route Start Time Stop Time Status Last Admin (Dulcolax Supp) 10 mg DAILY PRN RECTAL 09/29/16 17:15 10/02/16 17:26 (Narcan Inj) 0.4 mg UNSCH PRN IV 09/29/16 17:15 (Ambien) 5 mg HS PRN PO 09/29/16 21:00 10/06/16 21:46 (NS Flush) 2 ml BID IV FLUSH 09/30/16 21:00 10/06/16 21:46 (NS Flush) 2 ml UNSCH PRN IV FLUSH 09/30/16 09:15 (Zofran Inj) 4 mg Q6H PRN IV PUSH 09/30/16 09:15 10/02/16 23:41 (Surfak) 240 mg HS PO 09/30/16 21:00 10/03/16 20:38 (Milk Of Magnesia Liq) 30 ml DAILY PRN PO 09/30/16 09:15 10/01/16 08:07 (Tylenol) 650 mg Q4H PRN PO 09/30/16 09:15 09/30/16 17:58 (NovoLOG SUPPLEMENTAL SCALE) Q6HR SQ 09/30/16 12:00 09/30/16 23:25 (D50w (Vial) Inj) 25 ml UNSCH PRN IV PUSH 09/30/16 09:15 (Glucagon Inj) 1 mg UNSCH PRN IV 09/30/16 09:15 (Lovenox Inj) 40 mg Q24H SQ 09/30/16 11:00 10/06/16 12:33 (Glycerin Adult Supp) 2 gm DAILY PRN RECTAL 10/01/16 09:30 Sodium Biphosphate/ Sodium Phosphate 133 ml 133 ml UNSCH PRN RECTAL 10/01/16 09:30 (Rocephin Inj/NS Inj) 100 ml @ 200 mls/hr Q24H IV 10/01/16 11:00 10/06/16 15:01 Tramadol HCl 50 mg 50 mg Q8H PRN PO 10/03/16 09:45 10/06/16 12:46 (D5-1/2 NS + KCl 20 Meq Inj) 1,000 ml @ 42 mls/hr [id number] IV 10/03/16 09:45 10/07/16 08:46 (Protonix Inj) 40 mg Q24H IV PUSH 10/03/16 15:00 10/06/16 18:21 Sucralfate 1 gm 1 gm ACHS PO 10/03/16 16:00 10/07/16 07:55 Multivitamins 10 ml/Folic Acid 1 mg/Amino Acids/ Electrolytes/ Dextrose 2,010.2 ml @ 75 mls/hr Q24H IV 10/05/16 20:00 10/06/16 21:46 (Liposyn Iii 20% Inj) 250 ml @ 10 mls/hr Q24H IV 10/05/16 20:00 10/06/16 21:46 (Chloraseptic [place]) 2 spray Q2H PRN OROPHARYNG 10/06/16 15:45 A/P Assessment and Plan 1. Very large Pleural Effusion with mediastinal shift to the left, on outpatient CT scan, status post right Chest tube placement and Biopsy, chest tube removed. today Cardiothoracic surgery signed off the case. 2. Stage IV Metastatic Adenocarcinoma of the lung to the Cervical spine, Thoracic Spine and Massive Pleural effusion. 3. UTI started on Ceftriaxone. following Urine culture. secondary to E Coli sensitive to most antibiotics. will continue for another 24 hours and discontinue. she is afebrile, no symptomatology. 4. Small Bowel Obstruction after CT performed status post EGD, GI specialist following, has NG tube placed the patient do not want procedures, was made DNR. Oncology following, recommended supportive care and following, status post Small bowel follow through not yet result in EMR. Poor short term prognosis. Code Status DNR. Discussed Condition With Discussed with patient and her Son Mr Fred Ching, they lost Mr. Jerzy Ching who I had the pleasure to meet when he brought her to ER and yesterday when I went to talk with him. brief support given to the family also discussed with Nurse Miss Shelli monte. Discharge Planning Once cleared for discharge by Specialists. Dom Saunders MD October 07, 2016 13:05
--- NOTE | 2016-10-07 14:34 | PD.ONC.PN ---
Subjective Subjective Remarks Afebrile overnight. Patient resting comfortably in room. Her last night so she is melancholy today. Still having some nausea, but no vomiting. She does not like the NG tube. Objective Data Date Time Temp Pulse Resp B/P Pulse Ox O2 Delivery O2 Flow Rate FiO2 10/07/16 14:00 106 10/07/16 13:00 100 10/07/16 12:00 92 10/07/16 12:00 97.6 92 20 130/71 98 10/07/16 11:00 94 10/07/16 10:00 102 10/07/16 09:00 98 10/07/16 08:02 96 Nasal Cannula 2.00 10/07/16 08:00 97.3 91 20 125/69 96 10/07/16 08:00 96 Nasal Cannula 2.00 10/07/16 08:00 90 10/07/16 07:00 88 10/07/16 06:45 98.1 93 16 136/98 97 10/07/16 06:00 85 10/07/16 05:00 85 10/07/16 04:00 83 10/07/16 03:00 80 10/07/16 02:00 83 10/07/16 01:00 106 10/07/16 00:04 98.0 93 16 136/64 97 10/07/16 00:00 84 10/06/16 23:00 87 10/06/16 22:21 97 Nasal Cannula 1.50 10/06/16 22:00 94 10/06/16 21:00 88 10/06/16 20:00 88 10/06/16 20:00 98.0 92 16 136/98 97 10/06/16 19:54 95 Nasal Cannula 2.00 10/06/16 19:00 89 10/06/16 18:00 92 10/06/16 17:00 88 10/06/16 16:00 88 10/06/16 15:30 97.5 89 16 114/59 93 10/06/16 15:00 88 10/07/16 10/07/16 10/07/16 07:00 15:00 23:00 Intake Total 240 ml Output Total 700 ml Balance -460 ml Result Diagram: 10/07/16 0451 10/07/16 0451 Laboratory Results Laboratory Tests Test 10/07/16 04:51 White Blood Count 9.4 TH/MM3 Red Blood Count 4.10 MIL/MM3 Hemoglobin 12.5 GM/DL Hematocrit 36.9 % Mean Corpuscular Volume 90.0 FL Mean Corpuscular Hemoglobin 30.5 PG Mean Corpuscular Hemoglobin 33.9 % Concent Red Cell Distribution Width 14.1 % Platelet Count 409 TH/MM3 Mean Platelet Volume 7.7 FL Neutrophils (%) (Auto) 78.8 % Lymphocytes (%) (Auto) 8.8 % Monocytes (%) (Auto) 9.3 % Eosinophils (%) (Auto) 2.9 % Basophils (%) (Auto) 0.2 % Neutrophils # (Auto) 7.4 TH/MM3 Lymphocytes # (Auto) 0.8 TH/MM3 Monocytes # (Auto) 0.9 TH/MM3 Eosinophils # (Auto) 0.3 TH/MM3 Basophils # (Auto) 0.0 TH/MM3 CBC Comment AUTO DIFF Differential Comment AUTO DIFF CONFIRMED Platelet Estimate HIGH Platelet Morphology Comment NORMAL Sodium Level 137 MEQ/L Potassium Level 4.3 MEQ/L Chloride Level 101 MEQ/L Carbon Dioxide Level 28.7 MEQ/L Anion Gap 7 MEQ/L Blood Urea Nitrogen 16 MG/DL Creatinine 0.38 MG/DL Estimat Glomerular Filtration 161 ML/MIN Rate Random Glucose 119 MG/DL Calcium Level 8.2 MG/DL Phosphorus Level 2.8 MG/DL Magnesium Level 2.1 MG/DL Administered Medications Medications (Trade) Dose Ordered Sig/Ariella Route PRN Reason Start Time Stop Time Status Last Admin Dose Admin Bisacodyl (Dulcolax Supp) 10 mg DAILY PRN RECTAL CONSTIPATION 09/29/16 17:15 10/02/16 17:26 Zolpidem Tartrate (Ambien) 5 mg HS PRN PO INSOMNIA/MAY REPEAT X1 DOSE 09/29/16 21:00 10/06/16 21:46 Sodium Chloride (NS Flush) 2 ml BID IV FLUSH 09/30/16 21:00 10/06/16 21:46 Ondansetron HCl (Zofran Inj) 4 mg Q6H PRN IV PUSH NAUSEA OR VOMITING 09/30/16 09:15 10/02/16 23:41 Docusate Calcium (Surfak) 240 mg HS PO 09/30/16 21:00 10/03/16 20:38 Magnesium Hydroxide (Milk Of Magnesia Liq) 30 ml DAILY PRN PO CONSTIPATION 09/30/16 09:15 10/01/16 08:07 Acetaminophen (Tylenol) 650 mg Q4H PRN PO TEMPERATURE > 101 F 09/30/16 09:15 09/30/16 17:58 Insulin Aspart (NovoLOG SUPPLEMENTAL SCALE) Q6HR SQ 09/30/16 12:00 09/30/16 23:25 Enoxaparin Sodium 40 mg 40 mg Q24H SQ 09/30/16 11:00 10/07/16 13:05 Ceftriaxone Sodium/Sodium Chloride (Rocephin Inj/NS Inj) 100 ml @ 200 mls/hr Q24H IV 10/01/16 11:00 10/07/16 13:05 Tramadol HCl 50 mg 50 mg Q8H PRN PO PAIN SCALE 4 TO 10 10/03/16 09:45 10/06/16 12:46 Potassium Chloride/Dextrose/ Sod Cl (D5-1/2 NS + KCl 20 Meq Inj) 1,000 ml @ 42 mls/hr [id number] IV 10/03/16 09:45 10/07/16 08:46 Pantoprazole Sodium (Protonix Inj) 40 mg Q24H IV PUSH 10/03/16 15:00 10/06/16 18:21 Sucralfate 1 gm 1 gm ACHS PO 10/03/16 16:00 10/07/16 07:55 Multivitamins 10 ml/Folic Acid 1 mg/Amino Acids/ Electrolytes/ Dextrose 2,010.2 ml @ 75 mls/hr Q24H IV 10/05/16 20:00 10/06/16 21:46 Fat Emulsion Intravenous (Liposyn Iii 20% Inj) 250 ml @ 10 mls/hr Q24H IV 10/05/16 20:00 10/06/16 21:46 Objective Remarks GENERAL: Pleasant elderly female, sitting up in bed, on 2L O2 via NC SKIN: Warm and dry. HEAD: Normocephalic. EYES: No injection or drainage. NECK: Supple, trachea midline. CARDIOVASCULAR: Regular rate and rhythm RESPIRATORY: diminished at bases, occasional rhonchi GASTROINTESTINAL: Abdomen soft, non-tender, nondistended. EXTREMITIES: No cyanosis NEUROLOGICAL: awake and alert, normal speech. moving all extremities. Assessment/Plan Assessment 86y/o with NSCLC admitted with pleural effusion, now with intractable n/v Plan 1. await small bowel follow through 2. discussed waiting on T790M mutation analysis 3. continue TPN for supportive care Jaja Felder October 07, 2016 14:33
[2016-10-07] MEDS: PANTOPRAZOLE SODIUM 40 MG VIAL IV PUSH SCH (16:36)
[2016-10-07] MEDS: DOCUSATE CALCIUM 240 MG CAP PO SCH (21:00)
--- NOTE | 2016-10-07 22:03 | RADRPT ---
EXAM DATE/TIME: 10/07/2016 10:09 [facility] COMPARISON: CT ABDOMEN & PELVIS W/O CONTRAST, October 04, 2016, 22:39. INDICATIONS : Small bowel vs. ileus. FLUORO TIME: 0 minutes IMAGE COUNT: 9 CONTRAST: MD Weber IMAGING TIME(S): 15 min, 30 min, 45 min, 1 hr, 2 hr, 4 hrs6 hrs. MEDICAL HISTORY : Carcinoma, lung. SURGICAL HISTORY : Hysterectomy. ENCOUNTER: Subsequent ACUITY: 2 weeks PAIN SCORE: 7/10 LOCATION: entire abdomen. FINDINGS: The initial well service derrick worker radiograph shows small bowel distention and decompressed colon. No free air demonst rated. Stomach is within normal limits. There is moderate small bowel distention that appears to be all the way to the distal ileum in the ri ght lower quadrant. Patient refused spot imaging. Small bowel transit time is prolonged, approximatel y 8 hours. CONCLUSION: Small bowel obstruction at the level of the distal ileum. Patient refused spot images. Markedly prolo nged small bowel transit time. José Miguel Lira MD on October 07, 2016 at 21:59 Board Certified Radiologist. This report was verified electronically.
[2016-10-08] VITALS (26 sets, daily range): BP systolic 111–136; BP diastolic 50–68; PULSE 82–120; RESP 16–20; TEMP 97.3–98.6; O2SAT 97–99
[2016-10-08] MEDS: FAT EMULSION 20% INJ 250 ML (@10 mls/hr) IV SCH ×2 (00:42→20:00)
[2016-10-08] MEDS: CLINIMIX E 4.25/5 2000 mL- >42 mls/hr IV SCH ×6 (00:42→20:00)
[2016-10-08] MEDS: SODIUM CHLORIDE 0.9% FLUSH 10 ML FLUSH IV FLUSH SCH ×3 (00:43→21:00)
[2016-10-08] MEDS ORDERED: diphenhydrAMINE HCL 50 MG/ML VIAL IV PUSH ONE (05:15)
[2016-10-08] MEDS: INSULIN ASPART SUPPLEMENTAL SCALE SQ SCH ×4 (06:00→17:25)
[2016-10-08] MEDS: CARBOXYMETHYLCELL SOD 0.5% OPTH SOLN 15 ML BTL EACH EYE PRN ×2 (06:40→21:06)
[2016-10-08] MEDS: SUCRALFATE 1 GM/10 ML CUP PO SCH ×4 (06:51→21:06)
[2016-10-08] MEDS: RESP: BUDESONIDE 0.5 MG/2 ML NEB NEB SCH ×2 (08:46→19:44)
[2016-10-08] MEDS: D5-1/2 NS + KCL 20 MEQ INJ 1,000 ML IV SCH (08:50)
--- NOTE | 2016-10-08 09:04 | PD.ONC.PN ---
Subjective Subjective Remarks Afebrile overnight. Patient had a bowel movement this morning. She is feeling much better than before. Nausea improved. Objective Data Date Time Temp Pulse Resp B/P Pulse Ox O2 Delivery O2 Flow Rate FiO2 10/08/16 08:48 98 Nasal Cannula 2.00 10/08/16 07:00 103 10/08/16 04:48 98.6 110 18 117/68 97 10/08/16 04:00 84 10/08/16 03:00 82 10/08/16 02:00 82 10/08/16 01:00 84 10/08/16 00:35 98.6 96 16 136/66 98 10/08/16 00:00 88 10/07/16 23:00 89 10/07/16 22:00 88 10/07/16 21:52 96 Nasal Cannula 1.00 10/07/16 21:00 84 10/07/16 20:06 97.6 100 16 124/60 96 10/07/16 20:00 94 10/07/16 19:00 94 10/07/16 18:00 97 10/07/16 17:00 94 10/07/16 16:00 100 10/07/16 15:00 98.0 107 20 109/88 98 10/07/16 15:00 96 10/07/16 14:00 106 10/07/16 13:00 100 10/07/16 12:00 92 10/07/16 12:00 97.6 92 20 130/71 98 10/07/16 11:00 94 10/07/16 10:00 102 10/08/16 10/08/16 10/08/16 07:00 15:00 23:00 Intake Total 1524 ml Output Total 1450 ml Balance 74 ml Result Diagram: 10/07/16 0451 10/07/16 0451 Administered Medications Medications (Trade) Dose Ordered Sig/Ariella Route PRN Reason Start Time Stop Time Status Last Admin Dose Admin Bisacodyl (Dulcolax Supp) 10 mg DAILY PRN RECTAL CONSTIPATION 09/29/16 17:15 10/02/16 17:26 Zolpidem Tartrate (Ambien) 5 mg HS PRN PO INSOMNIA/MAY REPEAT X1 DOSE 09/29/16 21:00 10/06/16 21:46 Sodium Chloride (NS Flush) 2 ml BID IV FLUSH 09/30/16 21:00 10/08/16 00:43 Ondansetron HCl (Zofran Inj) 4 mg Q6H PRN IV PUSH NAUSEA OR VOMITING 09/30/16 09:15 10/02/16 23:41 Docusate Calcium (Surfak) 240 mg HS PO 09/30/16 21:00 10/03/16 20:38 Magnesium Hydroxide (Milk Of Magnesia Liq) 30 ml DAILY PRN PO CONSTIPATION 09/30/16 09:15 10/01/16 08:07 Acetaminophen (Tylenol) 650 mg Q4H PRN PO TEMPERATURE > 101 F 09/30/16 09:15 09/30/16 17:58 Insulin Aspart (NovoLOG SUPPLEMENTAL SCALE) Q6HR SQ 09/30/16 12:00 09/30/16 23:25 Enoxaparin Sodium 40 mg 40 mg Q24H SQ 09/30/16 11:00 10/07/16 13:05 Ceftriaxone Sodium/Sodium Chloride (Rocephin Inj/NS Inj) 100 ml @ 200 mls/hr Q24H IV 10/01/16 11:00 10/07/16 13:05 Tramadol HCl 50 mg 50 mg Q8H PRN PO PAIN SCALE 4 TO 10 10/03/16 09:45 10/06/16 12:46 Potassium Chloride/Dextrose/ Sod Cl (D5-1/2 NS + KCl 20 Meq Inj) 1,000 ml @ 42 mls/hr [id number] IV 10/03/16 09:45 10/07/16 08:46 Pantoprazole Sodium (Protonix Inj) 40 mg Q24H IV PUSH 10/03/16 15:00 10/07/16 16:36 Sucralfate 1 gm 1 gm ACHS PO 10/03/16 16:00 10/07/16 16:35 Multivitamins 10 ml/Folic Acid 1 mg/Amino Acids/ Electrolytes/ Dextrose 2,010.2 ml @ 75 mls/hr Q24H IV 10/05/16 20:00 10/08/16 00:42 Fat Emulsion Intravenous (Liposyn Iii 20% Inj) 250 ml @ 10 mls/hr Q24H IV 10/05/16 20:00 10/08/16 00:42 Carboxymethylcellulose Sodium (Refresh Tears 0.5% Opth Soln) 1 drop Q6H PRN EACH EYE dry eyes 10/08/16 05:15 10/08/16 06:40 Objective Remarks GENERAL: Pleasant elderly female, sitting up in bed, ng tube in place SKIN: Warm and dry. HEAD: Normocephalic. EYES: No injection or drainage. NECK: Supple, trachea midline. CARDIOVASCULAR: Regular rate and rhythm RESPIRATORY: diminished at bases, occasional rhonchi GASTROINTESTINAL: Abdomen soft, non-tender, nondistended. EXTREMITIES: No cyanosis NEUROLOGICAL: aox3. normal speech Assessment/Plan Assessment 86y/o female with NSCLC Plan 1. diet per GI 2. continue TPN until tolerating regular diet 3. await T790M mutation analysis Attending Statement The exam, history, and the medical decision-making described in the above note were completed with the assistance of the mid-level provider. I reviewed and agree with the findings presented. I attest that I had a [id number] encounter with the patient on the same day, and personally performed and documented my assessment and findings in the medical record. c/o discomfort from L nostril NGT, no vomiting. Noted BM. L IV placed by vascular team. Jaja Felder October 08, 2016 09:04 Mamie Garland MD October 08, 2016 16:20
[2016-10-08] MEDS: ENOXAPARIN SODIUM 40 MG/0.4 ML SYRINGE SQ SCH (11:58)
--- NOTE | 2016-10-08 12:58 | HHI.PR ---
Subjective Remarks This is a pleasant 86 /o Female who came to ER with Shortness of breath, she follows with her Primary job placement specialist Doctor Mukul and had a new CT scan showed a Large Pleural Effusion, recommended to come to this facility for drainage and She denies other significant complaints currently. She states she came straight here from Dr. Gilman's office. Discussed with patient in the room and her Sister Mrs. 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 09/30: patient seen in her bedroom in the presence of her Sister Mrs. 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 10/01: for talc pleurodesis 10/02: As per Cardiothoracic Surgery to remove Chest tube. 10/03: Chest tube removed by Cardiothoracic surgery, she developed vomit giving her supportive care, now able to drink fluids, continue Zofran and follow but, her abdomen has no rebound tenderness. 10/04: Asked for GI specialist consult. 10/05: had CT showing probable Small Bowel obstruction had NG tube insertion, recommended by Oncology to start TPN, made DNR by job placement specialist, EGD performed today, stable continue present care. 10/06: Seen in her bedroom, discussed with nurse and with her Mr. Jerzy Ching who is hospitalized in the room 1324 I went to talk to him and her children but they have left the room. she continue with NG tube at slow suction continue multispecialty follow up 10/07: Patient status post Small Bowel follow through awaiting for results discussed with her in the room, her Son Mr. Fred Ching and nurse Continue with NG tube at slow suction, job placement specialist and GI specialist following. brief support given due to that her who came with Severe Arterial disease yesterday in the Hospital this morning. 10/08: Seen in the room in the presence of Nurse and her Sister, she had 7 Bowel movements as loose stools, continue NG tube at slow suction, no abdominal pain, continue supportive care. Objective Vital Signs Date Time Temp Pulse Resp B/P Pulse Ox O2 Delivery O2 Flow Rate FiO2 10/08/16 11:00 119 10/08/16 10:00 120 10/08/16 09:00 96 10/08/16 08:48 98 Nasal Cannula 2.00 10/08/16 08:00 97.8 98 20 123/66 98 10/08/16 08:00 98 Nasal Cannula 1.50 10/08/16 08:00 96 10/08/16 07:00 103 10/08/16 04:48 98.6 110 18 117/68 97 10/08/16 04:00 84 10/08/16 03:00 82 10/08/16 02:00 82 10/08/16 01:00 84 10/08/16 00:35 98.6 96 16 136/66 98 10/08/16 00:00 88 10/07/16 23:00 89 10/07/16 22:00 88 10/07/16 21:52 96 Nasal Cannula 1.00 10/07/16 21:00 84 10/07/16 20:06 97.6 100 16 124/60 96 10/07/16 20:00 94 10/07/16 19:00 94 10/07/16 18:00 97 10/07/16 17:00 94 10/07/16 16:00 100 10/07/16 15:00 98.0 107 20 109/88 98 10/07/16 15:00 96 10/07/16 14:00 106 10/07/16 13:00 100 I/O 10/07/16 10/07/16 10/07/16 10/08/16 10/08/16 10/08/16 06:59 14:59 22:59 06:59 14:59 22:59 Intake Total 240 ml 1714 ml 1524 ml Output Total 700 ml 1550 ml 1450 ml Balance -460 ml 164 ml 74 ml Intake Oral 240 ml 0 ml IV Total 567 ml TPN/PPN 1012 ml 900 ml Lipid 135 ml 120 ml Other 504 ml Output Urine Total 500 ml 800 ml 700 ml Stool Total 200 ml Gastric Drainage Total 200 ml 750 ml 550 ml # Bowel Movements 0 1 Result Diagram: 10/07/16 0451 10/07/16 0451 Imaging Last Impressions Small Bowel X-Ray 10/07/16 0000 Signed Impressions: Service Date/Time: Friday, October 07, 2016 10:09 - CONCLUSION: Small bowel obstruction at the level of the distal ileum. Patient refused spot images. Markedly prolonged small bowel transit time. José Miguel Lira MD Chest X-Ray 10/04/16 0600 Signed Impressions: Service Date/Time: Tuesday, October 04, 2016 05:17 - CONCLUSION: 1. Interval removal of right-sided chest tube with no pneumothorax. 2. Mild increase in hazy opacity at the right lung base. Abelardo Harman MD Abdomen/Pelvis CT 10/04/16 0000 Signed Impressions: Service Date/Time: Tuesday, October 04, 2016 22:39 - CONCLUSION: 1. Abnormal bowel gas pattern of concern for distal small bowel obstruction. 2. Masslike area of soft tissue in the right lower lobe likely representing the patient's known tumor. There is a loculated right effusion. There is consolidation in both lung bases. 3. Moderate diverticulosis. Abelardo Harman MD Abdomen X-Ray 10/03/16 0000 Signed Impressions: Service Date/Time: Monday, October 03, 2016 19:45 - CONCLUSION: No obstruction. Renan Gutierres MD Procedures Right chest tube placement and Biopsy. EGD Other Results Laboratory Tests Test 10/07/16 04:51 White Blood Count 9.4 TH/MM3 Red Blood Count 4.10 MIL/MM3 Hemoglobin 12.5 GM/DL Hematocrit 36.9 % Mean Corpuscular Volume 90.0 FL Mean Corpuscular Hemoglobin 30.5 PG Mean Corpuscular Hemoglobin 33.9 % Concent Red Cell Distribution Width 14.1 % Platelet Count 409 TH/MM3 Mean Platelet Volume 7.7 FL Neutrophils (%) (Auto) 78.8 % Lymphocytes (%) (Auto) 8.8 % Monocytes (%) (Auto) 9.3 % Eosinophils (%) (Auto) 2.9 % Basophils (%) (Auto) 0.2 % Neutrophils # (Auto) 7.4 TH/MM3 Lymphocytes # (Auto) 0.8 TH/MM3 Monocytes # (Auto) 0.9 TH/MM3 Eosinophils # (Auto) 0.3 TH/MM3 Basophils # (Auto) 0.0 TH/MM3 CBC Comment AUTO DIFF Differential Comment AUTO DIFF CONFIRMED Platelet Estimate HIGH Platelet Morphology Comment NORMAL Sodium Level 137 MEQ/L Potassium Level 4.3 MEQ/L Chloride Level 101 MEQ/L Carbon Dioxide Level 28.7 MEQ/L Anion Gap 7 MEQ/L Blood Urea Nitrogen 16 MG/DL Creatinine 0.38 MG/DL Estimat Glomerular Filtration 161 ML/MIN Rate Random Glucose 119 MG/DL Calcium Level 8.2 MG/DL Phosphorus Level 2.8 MG/DL Magnesium Level 2.1 MG/DL Objective Remarks GENERAL: No acute distress. SKIN: Ecchymosis on four extremities. HEAD: Normocephalic and atraumatic. EYES: No injection or drainage. ENT: No nasal drainage noted. NG tube in place to slow suction. NECK: Supple CARDIOVASCULAR: Regular rate and rhythm RESPIRATORY: Decreased breath sounds bilateral, no wheezing, No crackles. GASTROINTESTINAL: Abdomen soft, non-tender, nondistended. NEUROLOGICAL: Awake and alert. Motor and sensory grossly within normal limits. Normal speech. Medications and IVs Current Medications Medications (Trade) Dose Ordered Sig/Ariella Route Start Time Stop Time Status Last Admin (Dulcolax Supp) 10 mg DAILY PRN RECTAL 09/29/16 17:15 10/02/16 17:26 (Narcan Inj) 0.4 mg UNSCH PRN IV 09/29/16 17:15 (Ambien) 5 mg HS PRN PO 09/29/16 21:00 10/06/16 21:46 (NS Flush) 2 ml BID IV FLUSH 09/30/16 21:00 10/08/16 00:43 (NS Flush) 2 ml UNSCH PRN IV FLUSH 09/30/16 09:15 (Zofran Inj) 4 mg Q6H PRN IV PUSH 09/30/16 09:15 10/02/16 23:41 (Surfak) 240 mg HS PO 09/30/16 21:00 10/03/16 20:38 (Milk Of Magnesia Liq) 30 ml DAILY PRN PO 09/30/16 09:15 10/01/16 08:07 (Tylenol) 650 mg Q4H PRN PO 09/30/16 09:15 09/30/16 17:58 (NovoLOG SUPPLEMENTAL SCALE) Q6HR SQ 09/30/16 12:00 09/30/16 23:25 (D50w (Vial) Inj) 25 ml UNSCH PRN IV PUSH 09/30/16 09:15 (Glucagon Inj) 1 mg UNSCH PRN IV 09/30/16 09:15 (Lovenox Inj) 40 mg Q24H SQ 09/30/16 11:00 10/08/16 11:58 (Glycerin Adult Supp) 2 gm DAILY PRN RECTAL 10/01/16 09:30 Sodium Biphosphate/ Sodium Phosphate 133 ml 133 ml UNSCH PRN RECTAL 10/01/16 09:30 (Rocephin Inj/NS Inj) 100 ml @ 200 mls/hr Q24H IV 10/01/16 11:00 10/07/16 13:05 Tramadol HCl 50 mg 50 mg Q8H PRN PO 10/03/16 09:45 10/06/16 12:46 (D5-1/2 NS + KCl 20 Meq Inj) 1,000 ml @ 42 mls/hr [id number] IV 10/03/16 09:45 10/07/16 08:46 (Protonix Inj) 40 mg Q24H IV PUSH 10/03/16 15:00 10/07/16 16:36 Sucralfate 1 gm 1 gm ACHS PO 10/03/16 16:00 10/08/16 11:57 Multivitamins 10 ml/Folic Acid 1 mg/Amino Acids/ Electrolytes/ Dextrose 2,010.2 ml @ 75 mls/hr Q24H IV 10/05/16 20:00 10/08/16 00:42 (Liposyn Iii 20% Inj) 250 ml @ 10 mls/hr Q24H IV 10/05/16 20:00 10/08/16 00:42 (Chloraseptic [place]) 2 spray Q2H PRN OROPHARYNG 10/06/16 15:45 (Refresh Tears 0.5% Opth Soln) 1 drop Q6H PRN EACH EYE 10/08/16 05:15 10/08/16 06:40 A/P Assessment and Plan 1. Very large Pleural Effusion with mediastinal shift to the left, on outpatient CT scan, status post right Chest tube placement and Biopsy, chest tube removed. today Cardiothoracic surgery signed off the case. 2. Stage IV Metastatic Adenocarcinoma of the lung to the Cervical spine, Thoracic Spine and Massive Pleural effusion. awaiting for T790M Mutation. 3. UTI started on Ceftriaxone. following Urine culture. secondary to E Coli sensitive to most antibiotics. will continue for another 24 hours and discontinue. she is afebrile, no symptomatology. Discontinued Ceftriaxone today. 4. Small Bowel Obstruction after CT performed status post EGD, GI specialist following, has NG tube placed the patient do not want procedures, was made DNR. Oncology following, recommended supportive care and following, status post Small bowel follow through Small bowel Obstruction at the level of distal ileum. Poor short term prognosis. Code Status DNR. Discussed Condition With Discussed with patient, Nurse and her Sister Miss Willow Ling, all Questions answered to the best of my abilities. Discharge Planning Once cleared for discharge by Specialists. Dom Saunders MD October 08, 2016 12:58
[2016-10-08] MEDS: PANTOPRAZOLE SODIUM 40 MG VIAL IV PUSH SCH (16:36)
--- NOTE | 2016-10-08 18:37 | HHI.GIFU ---
Subjective Remarks Pt feeling better, having some bowel movements. NG tube suction is producing much less fluid. SBFT showed SBO near distal ileum. May be partial. She is on IV nutrition. She would like to have NG tube clamped tomorrow to see if she can do without tube. Awaiting results of pathology. Objective Vitals I&O Vital Signs Date Time Temp Pulse Resp B/P Pulse Ox O2 Delivery O2 Flow Rate FiO2 10/08/16 15:00 100 10/08/16 14:00 94 10/08/16 13:00 114 10/08/16 12:00 94 10/08/16 11:00 98 Nasal Cannula 1.50 10/08/16 11:00 119 10/08/16 11:00 97.3 93 20 111/63 98 10/08/16 10:00 120 10/08/16 09:00 96 10/08/16 08:48 98 Nasal Cannula 2.00 10/08/16 08:00 97.8 98 20 123/66 98 10/08/16 08:00 98 Nasal Cannula 1.50 10/08/16 08:00 96 10/08/16 07:00 103 10/08/16 04:48 98.6 110 18 117/68 97 10/08/16 04:00 84 10/08/16 03:00 82 10/08/16 02:00 82 10/08/16 01:00 84 10/08/16 00:35 98.6 96 16 136/66 98 10/08/16 00:00 88 10/07/16 23:00 89 10/07/16 22:00 88 10/07/16 21:52 96 Nasal Cannula 1.00 10/07/16 21:00 84 10/07/16 20:06 97.6 100 16 124/60 96 10/07/16 20:00 94 10/07/16 19:00 94 I/O 10/07/16 10/07/16 10/07/16 10/08/16 10/08/16 10/08/16 07:00 15:00 23:00 07:00 15:00 23:00 Intake Total 240 ml 1714 ml 1524 ml Output Total 700 ml 1550 ml 1450 ml Balance -460 ml 164 ml 74 ml Intake Oral 240 ml 0 ml IV Total 567 ml TPN/PPN 1012 ml 900 ml Lipid 135 ml 120 ml Other 504 ml Output Urine Total 500 ml 800 ml 700 ml Stool Total 200 ml Gastric Drainage Total 200 ml 750 ml 550 ml # Bowel Movements 0 1 Laboratory Date/Time Procedure Status Source Growth 10/03/16 22:10 Gastric Occult Blood - Final Complete Gastric GASTROCCULT POSITIVE Physical Exam HEENT: Normocephalic; atraumatic; no jaundice. CHEST: CTA. CARDIAC: RRR. ABDOMEN: Soft, mildly distended, nontender; no hepatosplenomegaly; bowel sounds are present in all four quadrants. NGT with small amount green bilious material EXTREMITIES: Generalized edema. SKIN: Multiple ecchymotic areas AUTO DRIVER: No focal deficits; Lethargic Assessment and Plan Plan ASSESSMENT: - Intractable nausea/vomiting, hemoccult positive stool. Abdomen/Pelvis CT ()----> 1. Abnormal bowel gas pattern of concern for distal small bowel obstruction. 2. Masslike area of soft tissue in the right lower lobe likely representing the patient's known tumor. There is a loculated right effusion. There is consolidation in both lung bases. 3. Moderate diverticulosis. ? Likely ilues. NGT to LIWS- ~150cc dark bilious gastric secretions. S/P EGD (10/05/16)----> esophagus appeared normal, there was a large amount of bilious liquid. This was aspirated completely, there was also some mild erythema in the gastric antrum , s/p biopsy, the pylorus was widely open and the duodenum was normal without any evidence of ulceration or obstruction. Small amount gastric output. Mildly distended. No BM. + Flatus. SBFT pending. Protonix, Carafate. PPN. - Lung cancer, advanced. Oncology following, would like to continue treatment until T790m mutation resulted, as if this is present, there is a 60% probability that she will get better per oncology. - UTI. Per primary - Large pleural effusion. S/P CVT evaluation. -Distal SBO may be partial. May be resolving with NG suction PLAN: - NPO with NG tube to low intermittent suction - OK to have sips of clear liquids to moisten her throat and esophagus - PPI - Supportive care -CT abdomen and pelvis tomorrow morning no contrast -If improved, clamp NG tube for the day. Zhen Perdomo MD October 08, 2016 18:37
[2016-10-08] MEDS: DOCUSATE CALCIUM 240 MG CAP PO SCH (21:06)
[2016-10-09] VITALS (29 sets, daily range): BP systolic 106–139; BP diastolic 47–69; PULSE 82–122; RESP 14–22; TEMP 97.4–98.6; O2SAT 97–99
[2016-10-09] MEDS: INSULIN ASPART SUPPLEMENTAL SCALE SQ SCH ×5 (06:00→23:00)
[2016-10-09] MEDS: SUCRALFATE 1 GM/10 ML CUP PO SCH ×4 (07:00→21:00)
[2016-10-09] MEDS: D5-1/2 NS + KCL 20 MEQ INJ 1,000 ML IV SCH ×2 (08:39→15:32)
[2016-10-09] MEDS: SODIUM CHLORIDE 0.9% FLUSH 10 ML FLUSH IV FLUSH SCH ×2 (09:00→22:25)
--- NOTE | 2016-10-09 10:29 | RADRPT ---
EXAM DATE/TIME: 10/09/2016 10:08 [facility] COMPARISON: CT ABDOMEN & PELVIS W/O CONTRAST, October 04, 2016, 22:39. INDICATIONS : Nausea and vomiting for one week. ORAL CONTRAST: No oral contrast ingested. RADIATION DOSE: 9.64 CTDIvol (mGy) MEDICAL HISTORY : Carcinoma, lung. SURGICAL HISTORY : Hysterectomy. bladder surgery ENCOUNTER: Subsequent ACUITY: 1 day PAIN SCALE: 0/10 LOCATION: Bilateral abdomen TECHNIQUE: Volumetric scanning of the abdomen and pelvis was performed. Using automated exposure control and ad justment of the mA and/or kV according to patient size, radiation dose was kept as low as reasonably achievable to obtain optimal diagnostic quality images. FINDINGS: There is contrast noted within the large bowel on the current study to the level of the rectum. Large bowel is decompressed and there is diverticulosis of the sigmoid colon. Multiple dilated air and flu id-filled loops of small bowel are present, and the findings are suspect for partial small bowel obst ruction. The bowel measures up to 3.3 cm on image 53 in the left midabdomen. Kidneys, spleen, pancrea s, adrenal glands, liver and gallbladder are normal. Atherosclerotic calcifications are noted. There is no lymphadenopathy. Tiny fat containing umbilical hernia. Review of the lung windows demonstrate c onsolidation in the left lower lobe, right basilar airspace disease, end right lower lobe mass with l oculated right effusion. There is high density in the right lung base possibly related to pleurodesis . Coronary artery calcification is present. CONCLUSION: 1. Right lung base mass, loculated effusion and bilateral consolidation again seen. 2. Dilated loops of small intestine are noted, and there is contrast within the large bowel, findings suggest a partial small bowel obstruction, an ileus is a consideration but given a decompressed larg e bowel suspect the former. Onur Espinoza MD on October 09, 2016 at 10:25 Board Certified Radiologist. This report was verified electronically.
[2016-10-09] MEDS: RESP: BUDESONIDE 0.5 MG/2 ML NEB NEB SCH ×2 (11:30→20:01)
--- NOTE | 2016-10-09 11:55 | HHI.GIFU ---
Subjective Remarks Pt OOB to chair, visiting with son. She says she feels better. 250cc drainage from NG in cannister in last 24h. Pt says she had 2 somewhat formed stool yesterday and liquid stool thiws morning. Denies nausea, vomiting, abd pain. Objective Vitals I&O Vital Signs Date Time Temp Pulse Resp B/P Pulse Ox O2 Delivery O2 Flow Rate FiO2 10/09/16 09:16 97.4 93 15 112/47 97 10/09/16 08:30 Nasal Cannula 2.00 10/09/16 06:00 92 10/09/16 05:00 88 10/09/16 04:00 90 10/09/16 03:47 92 14 113/62 97 10/09/16 03:00 88 10/09/16 02:00 108 10/09/16 01:00 108 10/09/16 00:00 98.4 94 18 106/54 97 10/09/16 00:00 99 10/08/16 23:12 98 Nasal Cannula 1.50 10/08/16 23:00 88 10/08/16 22:00 92 10/08/16 21:00 92 10/08/16 20:00 98.1 95 18 121/50 99 10/08/16 20:00 94 10/08/16 20:00 99 Nasal Cannula 1.50 10/08/16 19:45 97 Nasal Cannula 2.00 10/08/16 19:00 96 10/08/16 18:00 90 10/08/16 17:00 94 10/08/16 16:00 84 10/08/16 16:00 97.3 93 20 111/63 98 10/08/16 16:00 98 Nasal Cannula 1.50 10/08/16 15:00 100 10/08/16 14:00 94 10/08/16 13:00 114 10/08/16 12:00 94 I/O 10/08/16 10/08/16 10/08/16 10/09/16 10/09/16 10/09/16 07:00 15:00 23:00 07:00 15:00 23:00 Intake Total 1524 ml 1336 ml 0 ml Output Total 1450 ml 125 ml 400 ml Balance 74 ml 1211 ml -400 ml Intake Oral 0 ml 0 ml IV Total 137 ml 0 ml TPN/PPN 900 ml 1135 ml Lipid 120 ml 64 ml Other 504 ml Output Urine Total 700 ml 400 ml Stool Total 200 ml Gastric Drainage Total 550 ml 125 ml # Voids 3 # Bowel Movements 4 0 Imaging Last Impressions Abdomen/Pelvis CT 10/09/16 0000 Signed Impressions: Service Date/Time: Sunday, October 09, 2016 10:08 - CONCLUSION: 1. Right lung base mass, loculated effusion and bilateral consolidation again seen. 2. Dilated loops of small intestine are noted, and there is contrast within the large bowel, findings suggest a partial small bowel obstruction, an ileus is a consideration but given a decompressed large bowel suspect the former. Onur Espinoza MD Small Bowel X-Ray 10/07/16 0000 Signed Impressions: Service Date/Time: Friday, October 07, 2016 10:09 - CONCLUSION: Small bowel obstruction at the level of the distal ileum. Patient refused spot images. Markedly prolonged small bowel transit time. José Miguel Lira MD Chest X-Ray 10/04/16 0600 Signed Impressions: Service Date/Time: Tuesday, October 04, 2016 05:17 - CONCLUSION: 1. Interval removal of right-sided chest tube with no pneumothorax. 2. Mild increase in hazy opacity at the right lung base. Abelardo Harman MD Abdomen X-Ray 10/03/16 0000 Signed Impressions: Service Date/Time: Monday, October 03, 2016 19:45 - CONCLUSION: No obstruction. Renan Gutierres MD Physical Exam HEENT: Normocephalic; atraumatic; no jaundice. CHEST: CTA. CARDIAC: RRR. ABDOMEN: Soft, mildly distended, nontender; no hepatosplenomegaly; bowel sounds are present in all four quadrants. 250cc drainage from NGT since yesterday EXTREMITIES: Generalized edema. SKIN: Multiple ecchymotic areas DIFFUSER OPERATOR: No focal deficits; AO Assessment and Plan Plan ASSESSMENT: - Intractable nausea/vomiting, hemoccult positive stool. CT abd 10/09/16 --> 2. Dilated loops of small intestine are noted, and there is contrast within the large bowel, findings suggest a partial small bowel obstruction, an ileus is a consideration but given a decompressed large bowel suspect the former. Abdomen/Pelvis CT (10/04/16)----> 1. Abnormal bowel gas pattern of concern for distal small bowel obstruction. 2. Masslike area of soft tissue in the right lower lobe likely representing the patient's known tumor. There is a loculated right effusion. There is consolidation in both lung bases. 3. Moderate diverticulosis. S/P EGD (10/05/16)----> esophagus appeared normal, there was a large amount of bilious liquid. This was aspirated completely, there was also some mild erythema in the gastric antrum , s/p biopsy, the pylorus was widely open and the duodenum was normal without any evidence of ulceration or obstruction. Small amount gastric output. Mildly distended. No BM. + Flatus. SBFT pending. Protonix, Carafate. PPN. Will clamp NG and see how she does, if nausea returns will put back to suction. GS consult. - Lung cancer, advanced. Oncology following, would like to continue treatment until T790m mutation resulted, as if this is present, there is a 60% probability that she will get better per oncology. - UTI. Per primary - Large pleural effusion. S/P CVT evaluation. PLAN: - NPO - GS consult - clamp NG, if nausea return to LIWS - OK to have sips of clear liquids to moisten her throat and esophagus, ice chips - PPI - Supportive care This pt seen by myself and Dr Perdomo and this note is written on his behalf Bridgett Esposito October 09, 2016 11:55
[2016-10-09] MEDS: ENOXAPARIN SODIUM 40 MG/0.4 ML SYRINGE SQ SCH (12:41)
--- NOTE | 2016-10-09 13:05 | RADRPT ---
EXAM DATE/TIME: 10/09/2016 12:33 [place] COMPARISON: CHEST SINGLE AP, October 04, 2016, 5:17. INDICATIONS : Evaluate PICC line placement. MEDICAL HISTORY : Carcinoma, lung. SURGICAL HISTORY : Hysterectomy. ENCOUNTER: Initial ACUITY: 1 day PAIN SCORE: 0/10 LOCATION: Bilateral chest FINDINGS: There is a right-sided pleural effusion with right basilar airspace disease. Some fluid tracks into t he minor fissure. The degree of opacification is decreased from previous. A left-sided PICC line is n oted and the distal tip overlies the expected location of the right atrium. Left lung is clear. CONCLUSION: PICC line placement as above. Onur Espinoza MD on October 09, 2016 at 13:03 Board Certified Radiologist. This report was verified electronically.
[2016-10-09] MEDS: PANTOPRAZOLE SODIUM 40 MG VIAL IV PUSH SCH (15:32)
--- NOTE | 2016-10-09 17:09 | HHI.PR ---
Subjective Remarks Patient feels much better denies nausea, vomiting, abdominal pain denies fevers/chills states has ahd multiple bowel movements of liquid stool Objective Vitals Vital Signs Date Time Temp Pulse Resp B/P Pulse Ox O2 Delivery O2 Flow Rate FiO2 10/09/16 16:00 101 10/09/16 15:49 101 10/09/16 15:49 98.6 114 18 116/67 97 10/09/16 15:49 97 Nasal Cannula 2.00 10/09/16 14:09 96 10/09/16 13:00 88 10/09/16 12:58 98 Nasal Cannula 2.00 10/09/16 12:00 88 10/09/16 11:30 98.6 94 16 139/60 99 10/09/16 11:30 94 10/09/16 11:30 99 Nasal Cannula 2.00 10/09/16 10:00 102 10/09/16 09:16 97.4 93 15 112/47 97 10/09/16 09:00 82 10/09/16 08:30 Nasal Cannula 2.00 10/09/16 08:00 116 10/09/16 06:00 92 10/09/16 05:00 88 10/09/16 04:00 90 10/09/16 03:47 92 14 113/62 97 10/09/16 03:00 88 10/09/16 02:00 108 10/09/16 01:00 108 10/09/16 00:00 98.4 94 18 106/54 97 10/09/16 00:00 99 10/08/16 23:12 98 Nasal Cannula 1.50 10/08/16 23:00 88 10/08/16 22:00 92 10/08/16 21:00 92 10/08/16 20:00 98.1 95 18 121/50 99 10/08/16 20:00 94 10/08/16 20:00 99 Nasal Cannula 1.50 10/08/16 19:45 97 Nasal Cannula 2.00 10/08/16 19:00 96 10/08/16 18:00 90 10/08/16 17:00 94 I/O 10/08/16 10/08/16 10/08/16 10/09/16 10/09/16 10/09/16 07:00 15:00 23:00 07:00 15:00 23:00 Intake Total 1524 ml 1336 ml 0 ml Output Total 1450 ml 125 ml 400 ml Balance 74 ml 1211 ml -400 ml Intake Oral 0 ml 0 ml IV Total 137 ml 0 ml TPN/PPN 900 ml 1135 ml Lipid 120 ml 64 ml Other 504 ml Output Urine Total 700 ml 400 ml Stool Total 200 ml Gastric Drainage Total 550 ml 125 ml # Voids 3 # Bowel Movements 4 0 Result Diagram: 10/07/16 0451 10/07/16 0451 Imaging Last Impressions Chest X-Ray 10/09/16 0000 Signed Impressions: Service Date/Time: Sunday, October 09, 2016 12:33 - CONCLUSION: PICC line placement as above. Onur Espinoza MD Abdomen/Pelvis CT 10/09/16 0000 Signed Impressions: Service Date/Time: Sunday, October 09, 2016 10:08 - CONCLUSION: 1. Right lung base mass, loculated effusion and bilateral consolidation again seen. 2. Dilated loops of small intestine are noted, and there is contrast within the large bowel, findings suggest a partial small bowel obstruction, an ileus is a consideration but given a decompressed large bowel suspect the former. Onur Espinoza MD Small Bowel X-Ray 10/07/16 0000 Signed Impressions: Service Date/Time: Friday, October 07, 2016 10:09 - CONCLUSION: Small bowel obstruction at the level of the distal ileum. Patient refused spot images. Markedly prolonged small bowel transit time. José Miguel Lira MD Abdomen X-Ray 10/03/16 0000 Signed Impressions: Service Date/Time: Monday, October 03, 2016 19:45 - CONCLUSION: No obstruction. Renan Gutierres MD Objective Remarks GENERAL: No acute distress. SKIN: Ecchymosis on four extremities. HEAD: Normocephalic and atraumatic. EYES: No injection or drainage. ENT: No nasal drainage noted. NG tube in place to slow suction. NECK: Supple CARDIOVASCULAR: Regular rate and rhythm RESPIRATORY: Decreased breath sounds bilateral, no wheezing, No crackles. GASTROINTESTINAL: Abdomen soft, non-tender, non distended. Bowel sounds present but sluggish. NEUROLOGICAL: Awake and alert. Motor and sensory grossly within normal limits. Normal speech. Procedures sp VATS, pleurodesis sp EGD Medications and IVs Current Medications Medications (Trade) Dose Ordered Sig/Ariella Route Start Time Stop Time Status Last Admin (Dulcolax Supp) 10 mg DAILY PRN RECTAL 09/29/16 17:15 10/02/16 17:26 (Narcan Inj) 0.4 mg UNSCH PRN IV 09/29/16 17:15 (Ambien) 5 mg HS PRN PO 09/29/16 21:00 10/06/16 21:46 (NS Flush) 2 ml BID IV FLUSH 09/30/16 21:00 10/08/16 00:43 (NS Flush) 2 ml UNSCH PRN IV FLUSH 09/30/16 09:15 (Zofran Inj) 4 mg Q6H PRN IV PUSH 09/30/16 09:15 10/02/16 23:41 (Surfak) 240 mg HS PO 09/30/16 21:00 10/08/16 21:06 (Milk Of Magnesia Liq) 30 ml DAILY PRN PO 09/30/16 09:15 10/01/16 08:07 (Tylenol) 650 mg Q4H PRN PO 09/30/16 09:15 09/30/16 17:58 (NovoLOG SUPPLEMENTAL SCALE) Q6HR SQ 09/30/16 12:00 09/30/16 23:25 (D50w (Vial) Inj) 25 ml UNSCH PRN IV PUSH 09/30/16 09:15 (Glucagon Inj) 1 mg UNSCH PRN IV 09/30/16 09:15 (Lovenox Inj) 40 mg Q24H SQ 09/30/16 11:00 10/09/16 12:41 (Glycerin Adult Supp) 2 gm DAILY PRN RECTAL 10/01/16 09:30 (Fleets Enema (Adult)) 133 ml UNSCH PRN RECTAL 10/01/16 09:30 Tramadol HCl 50 mg 50 mg Q8H PRN PO 10/03/16 09:45 10/06/16 12:46 (D5-1/2 NS + KCl 20 Meq Inj) 1,000 ml @ 42 mls/hr [id number] IV 10/03/16 09:45 10/09/16 15:32 (Protonix Inj) 40 mg Q24H IV PUSH 10/03/16 15:00 10/09/16 15:32 Sucralfate 1 gm 1 gm ACHS PO 10/03/16 16:00 10/08/16 21:06 Multivitamins 10 ml/Folic Acid 1 mg/Amino Acids/ Electrolytes/ Dextrose 2,010.2 ml @ 75 mls/hr Q24H IV 10/05/16 20:00 10/08/16 00:42 (Liposyn Iii 20% Inj) 250 ml @ 10 mls/hr Q24H IV 10/05/16 20:00 10/08/16 00:42 (Chloraseptic [place]) 2 spray Q2H PRN OROPHARYNG 10/06/16 15:45 (Refresh Tears 0.5% Opth Soln) 1 drop Q6H PRN EACH EYE 10/08/16 05:15 10/08/16 21:06 A/P Problem List: (1) Nausea & vomiting ICD Code: R11.2 Status: Acute Plan: Abdomen and pelvis CT obtained on 10/04/16 showed abnormal bowel gas pattern concern for distal small bowel obstruction. Masslike area of soft tissue in the right lower lobe likely representing the patient's known tumor. Loculated right effusion. Consolidation in both lung bases. Her diverticulosis. Possible ileus. Patient status post EGD on 10/05/16 which showed esophagus appeared normal, there was a large amount of previous liquid which was aspirated completely. Mild erythema in the gastric antrum, status post biopsy, the pylorus was widely open the duodenum was normal without any evidence of ulceration or obstruction. Small amount of gastric output. Mildly distended. Continue Protonix, Carafate. PPN. GI consulted. Follow-up GI recommendations. (2) Pleural effusion ICD Code: J90 Status: Acute Plan: sp VATS and pleurodesis. (3) Metastatic lung cancer (metastasis from lung to other site) ICD Code: C34.90 Status: Acute Plan: Oncology following. Would like to continue treatment until T790m mutation resulted, if this is present, there is as 60% probability that this will get better. (4) UTI (urinary tract infection) ICD Code: N39.0 Status: Acute Plan: sp treatment with Rocephin. (5) Partial small bowel obstruction ICD Code: K56.69 Status: Acute Plan: fu GI recommendations. GS consulted. Continue NG tube which has been clamped. Given that patient has had liquid stool and has been treated with antibiotics for UTI will check stool for c diff pcr. (6) Bilateral lower extremity pain ICD Code: M79.604 Status: Acute Plan: check venous Doppler of lower extremities. Assessment and Plan Gi proph: PPI DVT Proph: lovenos SQ Discharge Planning Continue to monitor in the medical floor. Problem Qualifiers (1) Nausea & vomiting: (2) Metastatic lung cancer (metastasis from lung to other site): Qualified Code: C34.91 - Metastatic lung cancer (metastasis from lung to other site), right Freddie Tyson MD October 09, 2016 17:09
--- NOTE | 2016-10-09 18:32 | MB ---
cc: NIKOLAY SHARMA M.D. DATE OF CONSULTATION 10/09/2016 REASON FOR CONSULTATION Small bowel obstruction. HISTORY OF PRESENT ILLNESS The patient is an 86-year-old woman with locally advanced lung cancer for which GI has been following for intractable vomiting. The patient underwent upper endoscopy on 10/06/2016 without any significant findings. The patient has had continued substantial gastric drainage on the order of 550 to 1300 ml per day. Latest CT scan was performed today which demonstrated dilated loops of small intestine with contrast within the large bowel. With decompressed large bowel, small bowel obstruction was considered to be of slightly high likelihood. The patient reports no abdominal pain at this time and did have a bowel movement yesterday. The patient has undergone small bowel series with Gastrografin on 10/07 which demonstrates the question of obstruction at the level of the distal ileum. Small bowel transit time was prolonged to approximately 8 hours. PAST MEDICAL AND SURGICAL HISTORY The patient's past medical history significant for: 1. A ARTURO-BSO. 2. Bladder surgery x4 for incontinence. 3. 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 4. Bilateral cataract extraction. 5. 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 6. The patient had DVT of the right leg in 2011. She underwent a course of anticoagulants and only takes one aspirin a day. 7. The patient had progressive disease with a large right pleural effusion and progression in the thoracic spine. PHYSICAL EXAMINATION GENERAL: Physical exam reveals an extremely thin female in no distress. VITAL SIGNS: BP 116/67, pulse 101, respirations 18, temperature 98.6, 97% saturation on 2 liters nasal cannula. HEENT: Sclerae anicteric. CHEST: Clear to auscultation. CARDIOVASCULAR: Cardiac exam reveals tachycardia without murmurs. ABDOMEN: Soft, minimally distended and essentially nontender except to deep palpation. There is a nasogastric tube in place. EXTREMITIES: Pulses are present. There are multiple bruises and ecchymoses on both arms and legs. NEUROLOGIC: The patient is alert and conversant. LABORATORY DATA Laboratory values demonstrate WBCs of 9.4 on 10/07. Hemoglobin/hematocrit 12.5 and 36.9. BUN, creatinine 16 and 0.38. Potassium is 4.3. Magnesium is 2.1. Partial small-bowel obstruction secondary potentially to adhesions. ASSESSMENT High grade partial small-bowel obstruction. PLAN We will clamp NG tube and check residuals in approximately 4 hours. If the numbers are low, we will reclamp and trial removing the tube tomorrow. If she fails this she will require an exploration. Discussed with the patient and her son who was present at the bedside, that if she continues to have a bowel obstruction, not proceeding with any surgery would necessitate her having a tube in her nose for the remainder of her life. I will follow with you and see whether she will tolerate NG tube clamping. Thank you for allowing me the opportunity to care for this patient. Nikolay Sharma MD MAF/KK /5:34 PM /6:12 PM
[2016-10-09] MEDS: DOCUSATE CALCIUM 240 MG CAP PO SCH (21:00)
[2016-10-09] MEDS: FAT EMULSION 20% INJ 250 ML (@10 mls/hr) IV SCH (22:24)
[2016-10-09] MEDS: CLINIMIX E 4.25/5 2000 mL- >42 mls/hr IV SCH ×3 (22:24)
[2016-10-09] MEDS: ZOLPIDEM TARTRATE 5 MG TAB PO PRN (22:24)
[2016-10-10] VITALS (23 sets, daily range): BP systolic 111–139; BP diastolic 53–66; PULSE 76–108; RESP 16–20; TEMP 97.2–97.9; O2SAT 97–99
[2016-10-10] MEDS: SUCRALFATE 1 GM/10 ML CUP PO SCH ×4 (04:43→21:00)
[2016-10-10] MEDS: INSULIN ASPART SUPPLEMENTAL SCALE SQ SCH ×4 (05:04→22:21)
[2016-10-10 05:20] LABS: AUTOMATED NEUTROPHIL # 6.1 TH/MM3 (1.8-7.7); BASOPHIL % 0.5 % (0.0-2.0); EOSINOPHIL # 0.5 TH/MM3 (0-0.4); EOSINOPHIL % 6.3 % (0.0-4.0); HEMATOCRIT 32.7 % (35.0-46.0); HEMO FLAGS DIFF FINAL; LYMPH % 9.2 % (9.0-44.0); LYMPHOCYTE # 0.8 TH/MM3 (1.0-4.8); MEAN CELL VOLUME 89.3 FL (80.0-100.0); MEAN CORPUSCULAR HEMOGLOBIN 29.1 PG (27.0-34.0); MEAN CORPUSCULAR HGB CONC 32.6 % (32.0-36.0); MONO % 13.2 % (0.0-8.0); NEUT % 70.8 % (16.0-70.0); PLATELET COUNT 362 TH/MM3 (150-450); RED BLOOD COUNT 3.66 MIL/MM3 (4.00-5.30); RED CELL DISTRIBUTION WIDTH 13.7 % (11.6-17.2); WHITE BLOOD COUNT 8.6 TH/MM3 (4.0-11.0)
[2016-10-10 05:40] LABS: ANION GAP 7 MEQ/L (5-15); AST (GOT) 28 U/L (15-37); BICARBONATE 28.3 MEQ/L (21.0-32.0); BLOOD UREA NITROGEN 14 MG/DL (7-18); CHLORIDE 104 MEQ/L (98-107); GLOMERULAR FILTRATION RATE 166 ML/MIN (>89); MAGNESIUM 2.2 MG/DL (1.5-2.5); SODIUM (NA) 139 MEQ/L (136-145)
[2016-10-10 05:47] LABS: ALKALINE PHOSPHATASE 71 U/L (45-117); ALT (GPT) 21 U/L (10-53); TOTAL BILIRUBIN ADULT 0.6 MG/DL (0.2-1.0)
[2016-10-10] MEDS: D5-1/2 NS + KCL 20 MEQ INJ 1,000 ML IV SCH ×2 (08:28→16:38)
[2016-10-10] MEDS: RESP: BUDESONIDE 0.5 MG/2 ML NEB NEB SCH (09:24)
[2016-10-10] MEDS: SODIUM CHLORIDE 0.9% FLUSH 10 ML FLUSH IV FLUSH SCH ×2 (09:43→22:20)
--- NOTE | 2016-10-10 10:05 | HHI.PR ---
Subjective Subjective Notes Resting in bed Wants NGT out if possible Objective Vitals/I&O Vital Signs Date Time Temp Pulse Resp B/P Pulse Ox O2 Delivery O2 Flow Rate FiO2 10/10/16 09:24 99 Nasal Cannula 2.00 10/10/16 06:00 100 10/10/16 04:41 97.9 18 118/57 Labs Laboratory Tests Test 10/10/16 05:10 White Blood Count 8.6 Red Blood Count 3.66 Hemoglobin 10.7 Hematocrit 32.7 Mean Corpuscular Volume 89.3 Mean Corpuscular Hemoglobin 29.1 Mean Corpuscular Hemoglobin 32.6 Concent Red Cell Distribution Width 13.7 Platelet Count 362 Mean Platelet Volume 8.0 Neutrophils (%) (Auto) 70.8 Lymphocytes (%) (Auto) 9.2 Monocytes (%) (Auto) 13.2 Eosinophils (%) (Auto) 6.3 Basophils (%) (Auto) 0.5 Neutrophils # (Auto) 6.1 Lymphocytes # (Auto) 0.8 Monocytes # (Auto) 1.1 Eosinophils # (Auto) 0.5 Basophils # (Auto) 0.0 CBC Comment DIFF FINAL Differential Comment Sodium Level 139 Potassium Level 4.0 Chloride Level 104 Carbon Dioxide Level 28.3 Anion Gap 7 Blood Urea Nitrogen 14 Creatinine 0.37 Estimat Glomerular Filtration 166 Rate Random Glucose 112 Calcium Level 8.2 Phosphorus Level 2.6 Magnesium Level 2.2 Total Bilirubin 0.6 Aspartate Amino Transf 28 (AST/SGOT) Alanine Aminotransferase 21 (ALT/SGPT) Alkaline Phosphatase 71 Total Protein 5.1 Albumin 1.8 Cardiovascular: Regular Lungs: Clear Abdomen: Non-distended, Non-tender Extremities: No edema Narrative Exam PICC in place with TPN A/P Assessment and Plan 86 year old female with high grade small bowel obstruction vs. ileus -Low residuals overnight -DC NGT -Keep NPO for now -Continue TPN -Discussed with bedside RN -Discussed with Dr. Sharma Attending Note - Dr. Sharma Abdomen soft and nontender No BM The exam, history, and the medical decision-making described in the above note were completed with the assistance of the mid-level provider. I reviewed and agree with the findings presented. I attest that I had a [id number] encounter with the patient on the same day, and personally performed and documented my assessment and findings in the medical record. Ca Posada October 10, 2016 10:05 Abelardo Sharma MD October 13, 2016 17:25
[2016-10-10] MEDS: ENOXAPARIN SODIUM 40 MG/0.4 ML SYRINGE SQ SCH (11:31)
[2016-10-10 11:35] LABS: C. DIFF EPI 027 PRESUMPTIVE NEGATIVE (NEGATIVE); C. DIFF TOXIN PCR NEGATIVE (NEGATIVE)
--- NOTE | 2016-10-10 12:11 | HHI.GIFU ---
Subjective Remarks Pt resting in chair. c/o fatigue. Denies n/v, abd pain. Says she had soft BM earlier today. States adamantly that she does not want any more tubes put in her. (Bridgett Esposito) Objective Vitals I&O Vital Signs Date Time Temp Pulse Resp B/P Pulse Ox O2 Delivery O2 Flow Rate FiO2 10/10/16 09:24 99 Nasal Cannula 2.00 10/10/16 08:00 97 Nasal Cannula 2.00 10/10/16 07:30 97.5 92 20 129/66 97 10/10/16 06:00 100 10/10/16 05:00 84 10/10/16 04:41 97.9 87 18 118/57 99 10/10/16 04:00 77 10/10/16 03:00 97 Nasal Cannula 2.00 10/10/16 03:00 76 10/10/16 02:00 82 10/10/16 01:00 80 10/10/16 00:00 99 Nasal Cannula 2.00 10/10/16 00:00 84 10/09/16 23:00 90 10/09/16 22:48 97.9 88 20 116/64 98 10/09/16 22:00 86 10/09/16 21:00 94 10/09/16 20:01 98 Nasal Cannula 2.00 10/09/16 20:00 98 Nasal Cannula 2.00 10/09/16 20:00 97.8 122 22 128/69 97 10/09/16 20:00 96 10/09/16 19:00 97 10/09/16 18:00 100 10/09/16 17:52 102 10/09/16 16:51 99 Nasal Cannula 2.00 10/09/16 16:00 101 10/09/16 15:49 101 10/09/16 15:49 98.6 114 18 116/67 97 10/09/16 15:49 97 Nasal Cannula 2.00 10/09/16 14:09 96 10/09/16 13:00 88 10/09/16 12:58 98 Nasal Cannula 2.00 I/O 10/09/16 10/09/16 10/09/16 10/10/16 10/10/16 10/10/16 07:00 15:00 23:00 07:00 15:00 23:00 Intake Total 0 ml 84 ml 1004 ml Output Total 400 ml 425 ml 750 ml Balance -400 ml -341 ml 254 ml Intake Oral 0 ml 0 ml IV Total 0 ml 84 ml 400 ml Tube Feeding 554 ml Tube Irrigant 50 ml Output Urine Total 400 ml 750 ml Gastric Drainage Total 425 ml # Voids 4 # Bowel Movements 0 3 0 Laboratory Laboratory Tests Test 10/10/16 10/10/16 05:10 08:15 White Blood Count 8.6 Red Blood Count 3.66 Hemoglobin 10.7 Hematocrit 32.7 Mean Corpuscular Volume 89.3 Mean Corpuscular Hemoglobin 29.1 Mean Corpuscular Hemoglobin 32.6 Concent Red Cell Distribution Width 13.7 Platelet Count 362 Mean Platelet Volume 8.0 Neutrophils (%) (Auto) 70.8 Lymphocytes (%) (Auto) 9.2 Monocytes (%) (Auto) 13.2 Eosinophils (%) (Auto) 6.3 Basophils (%) (Auto) 0.5 Neutrophils # (Auto) 6.1 Lymphocytes # (Auto) 0.8 Monocytes # (Auto) 1.1 Eosinophils # (Auto) 0.5 Basophils # (Auto) 0.0 CBC Comment DIFF FINAL Differential Comment Sodium Level 139 Potassium Level 4.0 Chloride Level 104 Carbon Dioxide Level 28.3 Anion Gap 7 Blood Urea Nitrogen 14 Creatinine 0.37 Estimat Glomerular Filtration 166 Rate Random Glucose 112 Calcium Level 8.2 Phosphorus Level 2.6 Magnesium Level 2.2 Total Bilirubin 0.6 Aspartate Amino Transf 28 (AST/SGOT) Alanine Aminotransferase 21 (ALT/SGPT) Alkaline Phosphatase 71 Total Protein 5.1 Albumin 1.8 Stool C. difficile Toxin (PCR) NEGATIVE Stl C. difficile Toxin PRESUMPTIVE Epiderm 027 NEGATIVE Imaging Last Impressions Chest X-Ray 10/09/16 0000 Signed Impressions: Service Date/Time: Sunday, October 09, 2016 12:33 - CONCLUSION: PICC line placement as above. Onur Espinoza MD Abdomen/Pelvis CT 10/09/16 0000 Signed Impressions: Service Date/Time: Sunday, October 09, 2016 10:08 - CONCLUSION: 1. Right lung base mass, loculated effusion and bilateral consolidation again seen. 2. Dilated loops of small intestine are noted, and there is contrast within the large bowel, findings suggest a partial small bowel obstruction, an ileus is a consideration but given a decompressed large bowel suspect the former. Onur Espinoza MD Small Bowel X-Ray 10/07/16 0000 Signed Impressions: Service Date/Time: Friday, October 07, 2016 10:09 - CONCLUSION: Small bowel obstruction at the level of the distal ileum. Patient refused spot images. Markedly prolonged small bowel transit time. José Miguel Lira MD Abdomen X-Ray 10/03/16 0000 Signed Impressions: Service Date/Time: Monday, October 03, 2016 19:45 - CONCLUSION: No obstruction. Renan Gutierres MD Physical Exam HEENT: Normocephalic; atraumatic; no jaundice. CHEST: CTA. CARDIAC: RRR. ABDOMEN: Soft, mildly distended, nontender; no hepatosplenomegaly; bowel sounds are present in all four quadrants EXTREMITIES: Generalized edema. SKIN: Multiple ecchymotic areas FAMILY INDEPENDENCE CASE MANAGER: No focal deficits; AO (Bridgett Esposito) Assessment and Plan Plan ASSESSMENT: - Intractable nausea/vomiting, hemoccult positive stool. High grade SBO per GS. CT abd 10/09/16 --> 2. Dilated loops of small intestine are noted, and there is contrast within the large bowel, findings suggest a partial small bowel obstruction, an ileus is a consideration but given a decompressed large bowel suspect the former. Abdomen/Pelvis CT (10/04/16)----> 1. Abnormal bowel gas pattern of concern for distal small bowel obstruction. 2. Masslike area of soft tissue in the right lower lobe likely representing the patient's known tumor. There is a loculated right effusion. There is consolidation in both lung bases. 3. Moderate diverticulosis. S/P EGD (10/05/16)----> esophagus appeared normal, there was a large amount of bilious liquid. This was aspirated completely, there was also some mild erythema in the gastric antrum , s/p biopsy, the pylorus was widely open and the duodenum was normal without any evidence of ulceration or obstruction. Small amount gastric output. Mildly distended. Soft BM today. + Flatus. Protonix, Carafate. PPN. GS following. - Lung cancer, advanced. Oncology following, would like to continue treatment until T790m mutation resulted, as if this is present, there is a 60% probability that she will get better per oncology. - UTI. Per primary - Large pleural effusion. S/P CVT evaluation. PLAN: - diet per GS - PPI - Supportive care This pt seen by myself and Dr Aguiar and this note is written on his behalf ( Bridgett Esposito) Physician Comments Patient seen and examined Agree with above Continue with current supportive care Monitor labs Not much to add from a GI perspective Diet as per the Gen. surgery service GI will sign off (Case Aguiar MD) Bridgett Esposito October 10, 2016 12:11 Case Aguiar MD October 10, 2016 21:51
[2016-10-10] MEDS ORDERED: BENZOCAINE-MENTHOL (SUGAR FREE) 15 MG-3.6 MG LOZENGE BUCCAL PRN (14:00)
--- NOTE | 2016-10-10 14:07 | PD.ONC.PN ---
Subjective Subjective Remarks Afebrile overnight. Pt resting in bed with visitors present. "I feel better today than I have in a while. I just walked way down the [place] with physical therapy." Denies nausea. Mild diarrhea, endorses 3 BM's yesterday. Objective Data Date Time Temp Pulse Resp B/P Pulse Ox O2 Delivery O2 Flow Rate FiO2 10/10/16 13:02 108 10/10/16 12:00 92 10/10/16 12:00 97 Nasal Cannula 1.50 10/10/16 12:00 97.3 89 18 139/64 97 10/10/16 11:00 90 10/10/16 10:00 90 10/10/16 09:24 99 Nasal Cannula 2.00 10/10/16 09:00 86 10/10/16 08:00 96 10/10/16 08:00 97 Nasal Cannula 2.00 10/10/16 07:30 97.5 92 20 129/66 97 10/10/16 07:00 94 10/10/16 06:00 100 10/10/16 05:00 84 10/10/16 04:41 97.9 87 18 118/57 99 10/10/16 04:00 77 10/10/16 03:00 97 Nasal Cannula 2.00 10/10/16 03:00 76 10/10/16 02:00 82 10/10/16 01:00 80 10/10/16 00:00 99 Nasal Cannula 2.00 10/10/16 00:00 84 10/09/16 23:00 90 10/09/16 22:48 97.9 88 20 116/64 98 10/09/16 22:00 86 10/09/16 21:00 94 10/09/16 20:01 98 Nasal Cannula 2.00 10/09/16 20:00 98 Nasal Cannula 2.00 10/09/16 20:00 97.8 122 22 128/69 97 10/09/16 20:00 96 10/09/16 19:00 97 10/09/16 18:00 100 10/09/16 17:52 102 10/09/16 16:51 99 Nasal Cannula 2.00 10/09/16 16:00 101 10/09/16 15:49 101 10/09/16 15:49 98.6 114 18 116/67 97 10/09/16 15:49 97 Nasal Cannula 2.00 10/09/16 14:09 96 10/10/16 10/10/16 10/10/16 07:00 15:00 23:00 Intake Total 1004 ml Output Total 750 ml Balance 254 ml Result Diagram: 10/10/16 0510 10/10/16 0510 Laboratory Results Laboratory Tests Test 10/10/16 10/10/16 05:10 08:15 White Blood Count 8.6 TH/MM3 Red Blood Count 3.66 MIL/MM3 Hemoglobin 10.7 GM/DL Hematocrit 32.7 % Mean Corpuscular Volume 89.3 FL Mean Corpuscular Hemoglobin 29.1 PG Mean Corpuscular Hemoglobin 32.6 % Concent Red Cell Distribution Width 13.7 % Platelet Count 362 TH/MM3 Mean Platelet Volume 8.0 FL Neutrophils (%) (Auto) 70.8 % Lymphocytes (%) (Auto) 9.2 % Monocytes (%) (Auto) 13.2 % Eosinophils (%) (Auto) 6.3 % Basophils (%) (Auto) 0.5 % Neutrophils # (Auto) 6.1 TH/MM3 Lymphocytes # (Auto) 0.8 TH/MM3 Monocytes # (Auto) 1.1 TH/MM3 Eosinophils # (Auto) 0.5 TH/MM3 Basophils # (Auto) 0.0 TH/MM3 CBC Comment DIFF FINAL Differential Comment Sodium Level 139 MEQ/L Potassium Level 4.0 MEQ/L Chloride Level 104 MEQ/L Carbon Dioxide Level 28.3 MEQ/L Anion Gap 7 MEQ/L Blood Urea Nitrogen 14 MG/DL Creatinine 0.37 MG/DL Estimat Glomerular Filtration 166 ML/MIN Rate Random Glucose 112 MG/DL Calcium Level 8.2 MG/DL Phosphorus Level 2.6 MG/DL Magnesium Level 2.2 MG/DL Total Bilirubin 0.6 MG/DL Aspartate Amino Transf 28 U/L (AST/SGOT) Alanine Aminotransferase 21 U/L (ALT/SGPT) Alkaline Phosphatase 71 U/L Total Protein 5.1 GM/DL Albumin 1.8 GM/DL Stool C. difficile Toxin (PCR) NEGATIVE Stl C. difficile Toxin PRESUMPTIVE Epiderm 027 NEGATIVE Administered Medications Medications (Trade) Dose Ordered Sig/Ariella Route PRN Reason Start Time Stop Time Status Last Admin Dose Admin Bisacodyl (Dulcolax Supp) 10 mg DAILY PRN RECTAL CONSTIPATION 09/29/16 17:15 10/02/16 17:26 Zolpidem Tartrate (Ambien) 5 mg HS PRN PO INSOMNIA/MAY REPEAT X1 DOSE 09/29/16 21:00 10/09/16 22:24 Sodium Chloride (NS Flush) 2 ml BID IV FLUSH 09/30/16 21:00 10/09/16 22:25 Ondansetron HCl (Zofran Inj) 4 mg Q6H PRN IV PUSH NAUSEA OR VOMITING 09/30/16 09:15 10/02/16 23:41 Docusate Calcium (Surfak) 240 mg HS PO 09/30/16 21:00 10/08/16 21:06 Magnesium Hydroxide (Milk Of [place] Liq) 30 ml DAILY PRN PO CONSTIPATION 09/30/16 09:15 10/01/16 08:07 Acetaminophen (Tylenol) 650 mg Q4H PRN PO TEMPERATURE > 101 F 09/30/16 09:15 09/30/16 17:58 Insulin Aspart (NovoLOG SUPPLEMENTAL SCALE) Q6HR SQ 09/30/16 12:00 09/30/16 23:25 Enoxaparin Sodium (Lovenox Inj) 40 mg Q24H SQ 09/30/16 11:00 10/10/16 11:31 Tramadol HCl 50 mg 50 mg Q8H PRN PO PAIN SCALE 4 TO 10 10/03/16 09:45 10/06/16 12:46 Potassium Chloride/Dextrose/ Sod Cl (D5-1/2 NS + KCl 20 Meq Inj) 1,000 ml @ 42 mls/hr [id number] IV 10/03/16 09:45 10/09/16 15:32 Pantoprazole Sodium (Protonix Inj) 40 mg Q24H IV PUSH 10/03/16 15:00 10/09/16 15:32 Sucralfate 1 gm 1 gm ACHS PO 10/03/16 16:00 10/10/16 04:43 Multivitamins 10 ml/Folic Acid 1 mg/Amino Acids/ Electrolytes/ Dextrose 2,010.2 ml @ 75 mls/hr Q24H IV 10/05/16 20:00 10/09/16 22:24 Fat Emulsion Intravenous (Liposyn Iii 20% Inj) 250 ml @ 10 mls/hr Q24H IV 10/05/16 20:00 10/09/16 22:24 Carboxymethylcellulose Sodium (Refresh Tears 0.5% Opth Soln) 1 drop Q6H PRN EACH EYE dry eyes 10/08/16 05:15 10/08/16 21:06 Objective Remarks GENERAL: Frail, cachetic elderly female sitting up in bed in no distress talking with visitors. SKIN: Warm and dry. Multiple bruising to bilateral upper and lower extremities. HEAD: Normocephalic. EYES: No injection or drainage. NECK: Supple, trachea midline. CARDIOVASCULAR: Regular rate and rhythm without murmurs. RESPIRATORY: Breath sounds equal bilaterally. No accessory muscle use. GASTROINTESTINAL: Abdomen slightly protuberant, soft. Non-tender. EXTREMITIES: No cyanosis, or edema. MUSCULOSKELETAL: Generalized weakness. NEUROLOGICAL: No obvious focal deficit. Awake, alert, and oriented x3. Assessment/Plan Assessment 86y/o female with NSCLC Plan 1. Pathology negative for T790M mutation. There may be some benefit for gefitinib or afatinib as she progressed on erlotinib. 2. GI output decreased. NGT removed per GS. Keep NPO for now and continue TPN. 3. She will likely need rehab as she has had a prolonged hospitalization. Huyen Galvin October 10, 2016 14:07 Huyen Galvin October 10, 2016 14:07
[2016-10-10] MEDS: PANTOPRAZOLE SODIUM 40 MG VIAL IV PUSH SCH (16:34)
--- NOTE | 2016-10-10 17:14 | HHI.PR ---
Subjective Remarks fu partial small bowell obstruction, lung cancer, BL lower extremity pain Patient feels much better, denies abdominal pain, nausea or vomiting ng tube has been discontinued stable vital signs son at bedside Objective Vitals Vital Signs Date Time Temp Pulse Resp B/P Pulse Ox O2 Delivery O2 Flow Rate FiO2 10/10/16 16:33 99 Nasal Cannula 1.50 10/10/16 16:32 97.6 96 20 122/65 99 10/10/16 16:00 99 10/10/16 14:35 93 10/10/16 13:02 108 10/10/16 12:00 92 10/10/16 12:00 97 Nasal Cannula 1.50 10/10/16 12:00 97.3 89 18 139/64 97 10/10/16 11:00 90 10/10/16 10:00 90 10/10/16 09:24 99 Nasal Cannula 2.00 10/10/16 09:00 86 10/10/16 08:00 96 10/10/16 08:00 97 Nasal Cannula 2.00 10/10/16 07:30 97.5 92 20 129/66 97 10/10/16 07:00 94 10/10/16 06:00 100 10/10/16 05:00 84 10/10/16 04:41 97.9 87 18 118/57 99 10/10/16 04:00 77 10/10/16 03:00 97 Nasal Cannula 2.00 10/10/16 03:00 76 10/10/16 02:00 82 10/10/16 01:00 80 10/10/16 00:00 99 Nasal Cannula 2.00 10/10/16 00:00 84 10/09/16 23:00 90 10/09/16 22:48 97.9 88 20 116/64 98 10/09/16 22:00 86 10/09/16 21:00 94 10/09/16 20:01 98 Nasal Cannula 2.00 10/09/16 20:00 98 Nasal Cannula 2.00 10/09/16 20:00 97.8 122 22 128/69 97 10/09/16 20:00 96 10/09/16 19:00 97 10/09/16 18:00 100 10/09/16 17:52 102 I/O 10/09/16 10/09/16 10/09/16 10/10/1622/17 5/22/17 06:59 14:59 22:59 06:59 14:59 22:59 Intake Total 0 ml 84 ml 1004 ml Output Total 400 ml 425 ml 750 ml Balance -400 ml -341 ml 254 ml Intake Oral 0 ml 0 ml IV Total 0 ml 84 ml 400 ml Tube Feeding 554 ml Tube Irrigant 50 ml Output Urine Total 400 ml 750 ml Gastric Drainage Total 425 ml # Voids 4 # Bowel Movements 0 3 0 Result Diagram: 10/10/1650910/10/16509 Imaging Current Medications Medications (Trade) Dose Ordered Sig/Ariella Route Start Time Stop Time Status Last Admin (Dulcolax Supp) 10 mg DAILY PRN RECTAL 09/29/16 17:15 10/02/16 17:26 (Narcan Inj) 0.4 mg UNSCH PRN IV 09/29/16 17:15 (Ambien) 5 mg HS PRN PO 09/29/16 21:00 10/09/16 22:24 (NS Flush) 2 ml BID IV FLUSH 09/30/16 21:00 10/09/16 22:25 (NS Flush) 2 ml UNSCH PRN IV FLUSH 09/30/16 09:15 (Zofran Inj) 4 mg Q6H PRN IV PUSH 09/30/16 09:15 10/02/16 23:41 (Surfak) 240 mg HS PO 09/30/16 21:00 10/08/16 21:06 (Milk Of Magnesia Liq) 30 ml DAILY PRN PO 09/30/16 09:15 10/01/16 08:07 (Tylenol) 650 mg Q4H PRN PO 09/30/16 09:15 09/30/16 17:58 (NovoLOG SUPPLEMENTAL SCALE) Q6HR SQ 09/30/16 12:00 09/30/16 23:25 (D50w (Vial) Inj) 25 ml UNSCH PRN IV PUSH 09/30/16 09:15 (Glucagon Inj) 1 mg UNSCH PRN IV 09/30/16 09:15 (Lovenox Inj) 40 mg Q24H SQ 09/30/16 11:00 10/10/16 11:31 (Glycerin Adult Supp) 2 gm DAILY PRN RECTAL 10/01/16 09:30 (Fleets Enema (Adult)) 133 ml UNSCH PRN RECTAL 10/01/16 09:30 Tramadol HCl 50 mg 50 mg Q8H PRN PO 10/03/16 09:45 10/06/16 12:46 (D5-1/2 NS + KCl 20 Meq Inj) 1,000 ml @ 42 mls/hr [id number] IV 10/03/16 09:45 10/10/16 16:38 (Protonix Inj) 40 mg Q24H IV PUSH 10/03/16 15:00 10/10/16 16:34 Sucralfate 1 gm 1 gm ACHS PO 10/03/16 16:00 10/10/16 04:43 Multivitamins 10 ml/Folic Acid 1 mg/Amino Acids/ Electrolytes/ Dextrose 2,010.2 ml @ 75 mls/hr Q24H IV 10/05/16 20:00 10/09/16 22:24 (Liposyn Iii 20% Inj) 250 ml @ 10 mls/hr Q24H IV 10/05/16 20:00 10/09/16 22:24 (Chloraseptic [place]) 2 spray Q2H PRN OROPHARYNG 10/06/16 15:45 (Refresh Tears 0.5% Opth Soln) 1 drop Q6H PRN EACH EYE 10/08/16 05:15 10/08/16 21:06 (Cepacol Extra Sriram (Sugar Free)) 1 lozenge Q2H PRN BUCCAL 10/10/16 14:00 Objective Remarks GENERAL: No acute distress. SKIN: Ecchymosis on four extremities. HEAD: Normocephalic and atraumatic. EYES: No injection or drainage. ENT: No nasal drainage noted. NECK: Supple CARDIOVASCULAR: Regular rate and rhythm RESPIRATORY: Decreased breath sounds bilateral, no wheezing, No crackles. GASTROINTESTINAL: Abdomen soft, non-tender, non distended. Bowel sounds present but sluggish. NEUROLOGICAL: Awake and alert. Motor and sensory grossly within normal limits. Normal speech. Procedures sp VATS, pleurodesis sp EGD Medications and IVs Current Medications Medications (Trade) Dose Ordered Sig/Ariella Route Start Time Stop Time Status Last Admin (Dulcolax Supp) 10 mg DAILY PRN RECTAL 09/29/16 17:15 10/02/16 17:26 (Narcan Inj) 0.4 mg UNSCH PRN IV 09/29/16 17:15 (Ambien) 5 mg HS PRN PO 09/29/16 21:00 10/09/16 22:24 (NS Flush) 2 ml BID IV FLUSH 09/30/16 21:00 10/09/16 22:25 (NS Flush) 2 ml UNSCH PRN IV FLUSH 09/30/16 09:15 (Zofran Inj) 4 mg Q6H PRN IV PUSH 09/30/16 09:15 10/02/16 23:41 (Surfak) 240 mg HS PO 09/30/16 21:00 10/08/16 21:06 (Milk Of Magnesia Liq) 30 ml DAILY PRN PO 09/30/16 09:15 10/01/16 08:07 (Tylenol) 650 mg Q4H PRN PO 09/30/16 09:15 09/30/16 17:58 (NovoLOG SUPPLEMENTAL SCALE) Q6HR SQ 09/30/16 12:00 09/30/16 23:25 (D50w (Vial) Inj) 25 ml UNSCH PRN IV PUSH 09/30/16 09:15 (Glucagon Inj) 1 mg UNSCH PRN IV 09/30/16 09:15 (Lovenox Inj) 40 mg Q24H SQ 09/30/16 11:00 10/10/16 11:31 (Glycerin Adult Supp) 2 gm DAILY PRN RECTAL 10/01/16 09:30 (Fleets Enema (Adult)) 133 ml UNSCH PRN RECTAL 10/01/16 09:30 Tramadol HCl 50 mg 50 mg Q8H PRN PO 10/03/16 09:45 10/06/16 12:46 (D5-1/2 NS + KCl 20 Meq Inj) 1,000 ml @ 42 mls/hr [id number] IV 10/03/16 09:45 10/10/16 16:38 (Protonix Inj) 40 mg Q24H IV PUSH 10/03/16 15:00 10/10/16 16:34 Sucralfate 1 gm 1 gm ACHS PO 10/03/16 16:00 10/10/16 04:43 Multivitamins 10 ml/Folic Acid 1 mg/Amino Acids/ Electrolytes/ Dextrose 2,010.2 ml @ 75 mls/hr Q24H IV 10/05/16 20:00 10/09/16 22:24 (Liposyn Iii 20% Inj) 250 ml @ 10 mls/hr Q24H IV 10/05/16 20:00 10/09/16 22:24 (Chloraseptic [place]) 2 spray Q2H PRN OROPHARYNG 10/06/16 15:45 (Refresh Tears 0.5% Opth Soln) 1 drop Q6H PRN EACH EYE 10/08/16 05:15 10/08/16 21:06 (Cepacol Extra Sriram (Sugar Free)) 1 lozenge Q2H PRN BUCCAL 10/10/16 14:00 Urinary Catheter: No Vascular Central Line Catheter: No A/P Problem List: (1) Nausea & vomiting ICD Code: R11.2 Status: Acute (2) Pleural effusion ICD Code: J90 Status: Acute (3) Metastatic lung cancer (metastasis from lung to other site) ICD Code: C34.90 Status: Acute (4) UTI (urinary tract infection) ICD Code: N39.0 Status: Acute (5) Partial small bowel obstruction ICD Code: K56.69 Status: Acute (6) Bilateral lower extremity pain ICD Code: M79.604 Status: Acute (7) Epigastric pain ICD Code: R10.13 Status: Acute Plan: Likely peptic ulcer disease versus gastritis. Continue PPI and Carafate. GI following. Assessment and Plan (1) Nausea & vomiting Plan: Abdomen and pelvis CT obtained on 10/04/16 showed abnormal bowel gas pattern concern for distal small bowel obstruction. Masslike area of soft tissue in the right lower lobe likely representing the patient's known tumor. Loculated right effusion. Consolidation in both lung bases. Her diverticulosis. Possible ileus. Patient status post EGD on 10/05/16 which showed esophagus appeared normal, there was a large amount of previous liquid which was aspirated completely. Mild erythema in the gastric antrum, status post biopsy, the pylorus was widely open the duodenum was normal without any evidence of ulceration or obstruction. Small amount of gastric output. Mildly distended. Continue Protonix, Carafate. PPN. 10/10 GI consulted - appreciate recommendations. Continue PPI, carafate. Continue Zofran as needed. NG tube removed on 10/09. Gen. surgery consulted, general surgery diagnosed the patient with high-grade partial small bowel obstruction. NG tube discontinued today but patient still nothing by mouth. Advance diet as per general surgery/GI recommendations. (2) Pleural effusion Plan: sp VATS and pleurodesis. (3) Metastatic lung cancer (metastasis from lung to other site) Plan: Oncology following. Would like to continue treatment until T790m mutation resulted, if this is present, there is as 60% probability that this will get better. 10/10 Pathology negative for T790M mutation. She may be some benefit for gefitinib as she progressed on erlotinib as per oncology. (4) UTI (urinary tract infection) Plan: sp treatment with Rocephin IV. (5) Partial small bowel obstruction Plan: fu GI recommendations. GS consulted. Continue NG tube which has been clamped. C diff PCR negative.Ng tube output decreased and NG tube removed on 10/10. (6) Bilateral lower extremity pain Plan: check venous Doppler of lower extremities --> ordered and pending. Gi proph: PPI DVT Proph: lovenos SQ Discharge Planning Continue to monitor in the medical floor. Problem Qualifiers (1) Nausea & vomiting: (2) Metastatic lung cancer (metastasis from lung to other site): Qualified Code: C34.91 - Metastatic lung cancer (metastasis from lung to other site), right Freddie Tyson MD October 10, 2016 17:14
--- NOTE | 2016-10-10 17:28 | PD.CONS ---
Consult Service Palliative Care Consult Requested By Dr. Guzman Primary Care Physician Christiano Gilman MD Reason for Consultation a. To assist with evaluation and management of symptoms including: Shortness of breath, nausea on debility. b. To assist medical decision maker(s) with: better understanding of current medical conditions; weighing benefits/burdens of medical treatment options; making medical treatment decisions. . (Montserrat Cifuentes ROBERTO) HPI History of Present Illness Mrs. 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 Patient was originally diagnosed in December 2013, has been under the care of Dr. Gilman. Patient was treated with radiation therapy to the cervical spine and was given Tarceva. Patient with good response to medical treatment and reporting good quality of life until recently. Patient presented to the emergency room on 09/29 from her oncology consultation. As per patient, approximately a week prior to this, she developed persistent cough and shortness of breath. CT scan and of the chest reveal large right pleural effusion with near-total collapse of right lung. Patient was sent to the ED for pleural effusion management. Cardiothoracic surgery -Dr. Han consulted. On 09/30/16, patient underwent right thoracoscopic exploration to drain pleural effusion, pleural biopsy and talc pleuradesis. Right pleural biopsy positive for poorly differentiated non- small cell carcinoma. Clinical course complicated by intractable vomiting, concerns of small bowel obstruction. GI -Dr. Perdomo consulted on 10/04/16. Abdomen/pelvis CT 10/04/16 revealing abnormal bowel gas pattern, concerns for distal small bowel obstruction. Patient underwent EGD with biopsy on 10/05/16, no complications reported. Subsequent small bowel x-ray on 10/07/16 showing persistent small bowel obstruction at the level of the distal ileum. Follow-up abdomen/pelvis CT 10/09/16 revealing findings suggesting partial small bowel obstruction. It appears that small bowel obstruction is resolving, NG tube was discontinued earlier this morning. Patient denying nausea or vomiting. Remains on TPN, nothing by mouth for now. Diet as per general surgery. Oncology -Dr. Gilman following. Pathology negative for [id number] mutation. As per oncology, patient may have some benefit from additional systemic therapy. Laboratory today showing WBC 8.6, Hgb 10.7, platelet count 362. Sodium 139, potassium 4.0, BUN/ creatinine 14/0.37. Stool negative for C. difficile on 10/10/16. Patient is afebrile, stable hemodynamically. Tolerating O2 via nasal cannula at 1.5 L. Oxygen saturation in the high 90s. Met patient in her room. Sister Willow at bedside. Patient was sitting up in a recliner chair in no acute distress. She is alert times self, place and situation. Verbal unable to communicate needs. Very pleasant and cooperative. Patient denies nausea/vomiting, pain, shortness of breath or discomfort at this time. Reports feeling tired but much better than yesterday. In this first visit, reviewed the role of palliative care in advanced illness in regards to symptom management, communication as well as support surrounding goals of care and advance care planning. Patient receptive to my visit. Reviewed past medical history, social history and events leading to these hospitalization. Patient reports being fully independent with ADLs prior to this acute hospitalization. She was ambulating with no assistance, driving and caring for her ill . last 10/07/16 after acute injury/fall with hip fracture while receiving hemodialysis. Patient has 2 sons, Flakito who resides in [place] and Riki who lives in [place]. Patient tells me that she would like both of her children to be her medical decision makers. She has completed living well but does not recall if she had designated them previously. Patient reports that she is well aware of prognosis, but will like to place limitations of treatment to include NO invasive procedures such as surgical interventions or NG tube. Reviewed likelihood of additional complications such as recurrent small bowel obstructions. Patient tells me that if she were to have another bowel obstruction, she would decline any surgical interventions or NG tube. Patient feels that her quality of life is more important than quantity of life. Discussed the future role of hospice services should her clinical condition continues to worsen or there is additional clinical decline. Patient receptive to this. Patient was encourage to discuss goals of care is and set limitations of treatment with both of her children. . Function/Cognitive Trajectory Patient reports being fully independent with ADLs prior to this acute hospitalization. She was ambulating with no assistance, driving and caring for her ill . last 10/07/16 after acute injury/ fall with hip fracture while receiving hemodialysis. Patient was residing independently with her prior to this hospitalization. . (Montserrat Cifuentes) Review of Systems Constitutional: COMPLAINS OF: Fatigue Eyes: DENIES: Eye pain Ears, nose, mouth, throat: DENIES: Hearing loss Respiratory: COMPLAINS OF: Apneas, Shortness of breath, DENIES: Sputum production Cardiovascular: DENIES: Chest pain, Syncope, Lower Extremity Edema Gastrointestinal: COMPLAINS OF: Abdominal pain, Nausea, Vomiting Genitourinary: COMPLAINS OF: Urinary incontinence Musculoskeletal: DENIES: Neck pain Integumentary: COMPLAINS OF: Abnormal pigmentation Hematologic/Lymphatics: COMPLAINS OF: Bruising Immunologic/Allergic: DENIES: Eczema Neurologic: DENIES: Abnormal gait, Poor Balance Psychiatric: DENIES: Anxiety, Depression (Montserrat Cifuentes) Past Family Social History Coded Allergies: Codeine (Verified Allergy, Intermediate, NAUSEA AND VOMITING, 09/29/16) Past Medical History 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 Past Surgical History ARTURO-BSO Cataract surgery 3 Urinary Bladder surgery Esophageal dilation in 2015 Rib biopsy in 2013 . Reported Medications Aspirin 81 mg by mouth daily Prednisone 2.5 mg by mouth daily Tarceva 75 mg by mouth daily . Current Medications Medications (Trade) Dose Ordered Sig/Ariella Route Start Time Stop Time Status Last Admin (Dulcolax Supp) 10 mg DAILY PRN RECTAL 09/29/16 17:15 10/02/16 17:26 (Narcan Inj) 0.4 mg UNSCH PRN IV 09/29/16 17:15 (Ambien) 5 mg HS PRN PO 09/29/16 21:00 10/09/16 22:24 (NS Flush) 2 ml BID IV FLUSH 09/30/16 21:00 10/09/16 22:25 (NS Flush) 2 ml UNSCH PRN IV FLUSH 09/30/16 09:15 (Zofran Inj) 4 mg Q6H PRN IV PUSH 09/30/16 09:15 10/02/16 23:41 (Surfak) 240 mg HS PO 09/30/16 21:00 10/08/16 21:06 (Milk Of Magnesia Liq) 30 ml DAILY PRN PO 09/30/16 09:15 10/01/16 08:07 (Tylenol) 650 mg Q4H PRN PO 09/30/16 09:15 09/30/16 17:58 (NovoLOG SUPPLEMENTAL SCALE) Q6HR SQ 09/30/16 12:00 09/30/16 23:25 (D50w (Vial) Inj) 25 ml UNSCH PRN IV PUSH 09/30/16 09:15 (Glucagon Inj) 1 mg UNSCH PRN IV 09/30/16 09:15 (Lovenox Inj) 40 mg Q24H SQ 09/30/16 11:00 10/10/16 11:31 (Glycerin Adult Supp) 2 gm DAILY PRN RECTAL 10/01/16 09:30 (Fleets Enema (Adult)) 133 ml UNSCH PRN RECTAL 10/01/16 09:30 Tramadol HCl 50 mg 50 mg Q8H PRN PO 10/03/16 09:45 10/06/16 12:46 (D5-1/2 NS + KCl 20 Meq Inj) 1,000 ml @ 42 mls/hr [id number] IV 10/03/16 09:45 10/09/16 15:32 (Protonix Inj) 40 mg Q24H IV PUSH 10/03/16 15:00 10/09/16 15:32 Sucralfate 1 gm 1 gm ACHS PO 10/03/16 16:00 10/10/16 04:43 Multivitamins 10 ml/Folic Acid 1 mg/Amino Acids/ Electrolytes/ Dextrose 2,010.2 ml @ 75 mls/hr Q24H IV 10/05/16 20:00 10/09/16 22:24 (Liposyn Iii 20% Inj) 250 ml @ 10 mls/hr Q24H IV 10/05/16 20:00 10/09/16 22:24 (Chloraseptic [place]) 2 spray Q2H PRN OROPHARYNG 10/06/16 15:45 (Refresh Tears 0.5% Opth Soln) 1 drop Q6H PRN EACH EYE 10/08/16 05:15 10/08/16 21:06 (Cepacol Extra Sriram (Sugar Free)) 1 lozenge Q2H PRN BUCCAL 10/10/16 14:00 Family History Patient has 2 children who are alive and well. . Substance Use Tobacco: None reported. Alcohol: None reported. Prescription med abuse: None reported. Illicits: Reported. . Psychosocial History Patient originally from [place]. Moved to [place] 28 years ago. Patient patient is recently . 4 days ago secondary to acute injury/ hip fracture. They have 2 children, Flakito who lives in [facility] and who residing [place]. Patient is a former retail salesperson. She is one of 10 siblings. Sister Willow leaves nearby. . Spiritual/Cultural Factors Nazarene rashaun. . (Montserrat Cifuentes) Living Will: Completed, but not made available Health Care Surrogate: Completed, but not made available Durable Power of Director Quality Systems: Completed, but not made available Health Care Surrogate(s): Patient's is 4 days ago. Patient reports completing living well and designation of healthcare surrogate naming both of her children Flakito and Riki as healthcare surrogate's. Pending copy. . Documented care wishes: Pending copy of living will. . Today's verbally stated goals: No code. DNR/DNI. Continue with supportive care, management of small bowel obstruction. Patient accepting oral systemic therapy but NO invasive procedures or interventions such as surgery or reinsertion of NG tube. . Ethical and Legal Issues No ethical legal issues have been identified. Pending copy of living will. . (Montserrat Cifuentes) Physical Exam Vital Signs Date Time Temp Pulse Resp B/P Pulse Ox O2 Delivery O2 Flow Rate FiO2 10/10/16 14:35 93 10/10/16 13:02 108 10/10/16 12:00 92 10/10/16 12:00 97 Nasal Cannula 1.50 10/10/16 12:00 97.3 89 18 139/64 97 10/10/16 11:00 90 10/10/16 10:00 90 10/10/16 09:24 99 Nasal Cannula 2.00 10/10/16 09:00 86 10/10/16 08:00 96 10/10/16 08:00 97 Nasal Cannula 2.00 10/10/16 07:30 97.5 92 20 129/66 97 10/10/16 07:00 94 10/10/16 06:00 100 10/10/16 05:00 84 10/10/16 04:41 97.9 87 18 118/57 99 10/10/16 04:00 77 10/10/16 03:00 97 Nasal Cannula 2.00 10/10/16 03:00 76 10/10/16 02:00 82 10/10/16 01:00 80 10/10/16 00:00 99 Nasal Cannula 2.00 10/10/16 00:00 84 10/09/16 23:00 90 10/09/16 22:48 97.9 88 20 116/64 98 10/09/16 22:00 86 10/09/16 21:00 94 10/09/16 20:01 98 Nasal Cannula 2.00 10/09/16 20:00 98 Nasal Cannula 2.00 10/09/16 20:00 97.8 122 22 128/69 97 10/09/16 20:00 96 10/09/16 19:00 97 10/09/16 18:00 100 10/09/16 17:52 102 10/09/16 16:51 99 Nasal Cannula 2.00 10/09/16 10/10/16 19:00 07:00 Intake Total 84 ml 1004 ml Output Total 425 ml 750 ml Balance -341 ml 254 ml Intake Oral 0 ml IV Total 84 ml 400 ml Tube Feeding 554 ml Tube Irrigant 50 ml Output Urine Total 750 ml Gastric Drainage Total 425 ml # Voids 4 # Bowel Movements 3 0 Exam CONSTITUTIONAL/GENERAL: This is a thin, elderly female sitting up in a chair in no acute distress. TUBES/LINES/DRAINS: PICC line to left upper arm, nasal cannula. SKIN: No jaundice, rashes, or lesions. Large areas of ecchymoses on upper and lower extremities. Skin tear to left outer lower leg. Skin temperature appropriate. Not diaphoretic. HEAD: Atraumatic. Normocephalic. EYES: Pupils equal and round and reactive. Extraocular motions intact. No scleral icterus. No injection or drainage. ENT: Hearing grossly normal. Nose without bleeding or purulent drainage. NECK: Trachea midline. Supple, nontender. CARDIOVASCULAR: Regular rate and rhythm. Peripheral pulses symmetric. RESPIRATORY/CHEST: Symmetric, unlabored respirations. Clear to auscultation, diminished. Breath sounds equal bilaterally. GASTROINTESTINAL: Abdomen soft, non-tender, nondistended. No guarding. Bowel sounds present. GENITOURINARY: Without palpable bladder distension. MUSCULOSKELETAL: Extremities without clubbing, cyanosis, or edema. NEUROLOGICAL: Awake and alert. Motor and sensory grossly within normal limits. Follows commands. Cognitively sharp. Moves all extremities. PSYCHIATRIC: No obvious anxiety/depression. Pleasant and cooperative. . (Montserrat Cifuentes) Diagnostic Tests Laboratory Laboratory Tests Test 10/10/16 10/10/16 05:10 08:15 White Blood Count 8.6 TH/MM3 (4.0-11.0) Red Blood Count 3.66 MIL/MM3 (4.00-5.30) Hemoglobin 10.7 GM/DL (11.6-15.3) Hematocrit 32.7 % (35.0-46.0) Mean Corpuscular Volume 89.3 FL (80.0-100.0) Mean Corpuscular Hemoglobin 29.1 PG (27.0-34.0) Mean Corpuscular Hemoglobin 32.6 % Concent (32.0-36.0) Red Cell Distribution Width 13.7 % (11.6-17.2) Platelet Count 362 TH/MM3 (150-450) Mean Platelet Volume 8.0 FL (7.0-11.0) Neutrophils (%) (Auto) 70.8 % (16.0-70.0) Lymphocytes (%) (Auto) 9.2 % (9.0-44.0) Monocytes (%) (Auto) 13.2 % (0.0-8.0) Eosinophils (%) (Auto) 6.3 % (0.0-4.0) Basophils (%) (Auto) 0.5 % (0.0-2.0) Neutrophils # (Auto) 6.1 TH/MM3 (1.8-7.7) Lymphocytes # (Auto) 0.8 TH/MM3 (1.0-4.8) Monocytes # (Auto) 1.1 TH/MM3 (0-0.9) Eosinophils # (Auto) 0.5 TH/MM3 (0-0.4) Basophils # (Auto) 0.0 TH/MM3 (0-0.2) CBC Comment DIFF FINAL Differential Comment Sodium Level 139 MEQ/L (136-145) Potassium Level 4.0 MEQ/L (3.5-5.1) Chloride Level 104 MEQ/L (98-107) Carbon Dioxide Level 28.3 MEQ/L (21.0-32.0) Anion Gap 7 MEQ/L (5-15) Blood Urea Nitrogen 14 MG/DL (7-18) Creatinine 0.37 MG/DL (0.50-1.00) Estimat Glomerular Filtration 166 ML/MIN Rate (>89) Random Glucose 112 MG/DL (74-106) Calcium Level 8.2 MG/DL (8.5-10.1) Phosphorus Level 2.6 MG/DL (2.5-4.9) Magnesium Level 2.2 MG/DL (1.5-2.5) Total Bilirubin 0.6 MG/DL (0.2-1.0) Aspartate Amino Transf 28 U/L (15-37) (AST/SGOT) Alanine Aminotransferase 21 U/L (10-53) (ALT/SGPT) Alkaline Phosphatase 71 U/L (45-117) Total Protein 5.1 GM/DL (6.4-8.2) Albumin 1.8 GM/DL (3.4-5.0) Stool C. difficile Toxin (PCR) NEGATIVE (NEGATIVE) Stl C. difficile Toxin PRESUMPTIVE Epiderm 027 NEGATIVE (NEGATIVE) (Montserrat Cifuentes) Result Diagram: 10/10/16 0510 10/10/16 0510 Imaging Last Impressions Chest X-Ray 10/09/16 0000 Signed Impressions: Service Date/Time: Sunday, October 09, 2016 12:33 - CONCLUSION: PICC line placement as above. Onur Espinoza MD Abdomen/Pelvis CT 10/09/16 0000 Signed Impressions: Service Date/Time: Sunday, October 09, 2016 10:08 - CONCLUSION: 1. Right lung base mass, loculated effusion and bilateral consolidation again seen. 2. Dilated loops of small intestine are noted, and there is contrast within the large bowel, findings suggest a partial small bowel obstruction, an ileus is a consideration but given a decompressed large bowel suspect the former. Onur Espinoza MD Small Bowel X-Ray 10/07/16 0000 Signed Impressions: Service Date/Time: Friday, October 07, 2016 10:09 - CONCLUSION: Small bowel obstruction at the level of the distal ileum. Patient refused spot images. Markedly prolonged small bowel transit time. José Miguel Lira MD Abdomen X-Ray 10/03/16 0000 Signed Impressions: Service Date/Time: Monday, October 03, 2016 19:45 - CONCLUSION: No obstruction. Renan Gutierres MD Procedures * 09/30/16 -Right thoracoscopic exploration to drain pleural effusion, pleural biopsy, talc pleuradesis * 10/05/16 -EGD with biopsy . (Montserrat Cifuentes) Patient/Family Conference Present at Family Conference: Patient and sister Willow. Family Conference Time (mins): 32 Family Conference Location: Bedside Issues Discussed: * Palliative care role, purpose, approach * Additional medical, psychosocial, and spiritual history * Patients general health, functional status, and cognitive changes in the months leading up to the current hospitalization * Patient/family understanding of the current medical problems * Patient/family understanding of prognosis * Patients goals of care as best understood from advance directives and/or conversations and/or values * Current medical treatment options and benefits/burdens of those options * Questions answered to the best of my ability * Palliative care contact information provided * Hospice philosophy and benefits . (Montserrat Cifuentes) Assessment and Plan Disease Oriented Problem List: (1) Pleural effusion Comment: Status post pleurodesis (2) Partial small bowel obstruction (3) Metastatic lung cancer (metastasis from lung to other site) Symptom Scale: (1) Nausea & vomiting 0-10 Scale: 0 Comment: Secondary to SBO. Appears to be resolving. NG tube discontinued his morning. (2) Shortness of breath 0-10 Scale: 3 Comment: Secondary to burden of disease. Currently tolerating O2 via nasal cannula at 1.5 L. (3) Debility 0-10 Scale: Unable to quantify Comment: Secondary to burden of disease and prolonged hospitalization. Currently participating with PT. Pertinent Non-Medical Issues Psychosocial: Recently . Has 2 children. Spiritual: Nazarene rashaun. Legal: Pending copy of living will. Ethical issues impacting care: Pending copy of living will. . Important Contacts Patient's son Flakito -pending number Patient's son Riki . Prognosis Mrs. 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 Patient has been doing well on systemic therapy until recently when she presented with pleural effusion. Patient underwent right thorascopic exploration to drain pleural effusion and pleurodesis. Patient's clinical course complicated by small bowel obstruction which appears to be resolving at this time. Patient is at high risk for continued decline, additional complications and . Patient receptive to continuation of systemic therapy , however is declining any invasive procedures such as surgical interventions an NG tube at this time. Patient's quality of life most important to her that prolongation of survival, this appears appropriate given her advanced age and progression of illness. . Code Status: No Code Plan * CODE STATUS: No code. DNR/DNI. Confirm CODE STATUS with patient. * MEDICAL DECISION-MAKING: Patient participating in medical decision-making. However, relying on both of her children for support. Patient reports that advance directives have been completed, patient recently . She would like for both of her children to make healthcare decisions in the event she is incapacitated. Patient declined completing healthcare surrogate documentation this visit, as she believes that healthcare designation has been previously completed naming both of her children. Patient to provide copy of living will. As per [place] law, both of her children would serve as HCP. Palliative care recommends shared decision making with her children. * GOALS OF CARE: No code. DNR/DNI. Patient receptive to continue systemic therapy, however is declining any invasive procedures such as surgical interventions/NG tube at this time. Patient verbalize that her quality of life is most important to her than prolongation of survival, this appears appropriate given her advanced age and progression of illness. Discussed with patient that she is at high risk for further complications such as recurrent SBO. Patient verbalize understanding and reiterated NOT wishing for any invasive procedures. Discussed the future role of hospice services should her clinical condition worsen or there is additional functional decline. Patient receptive to this. * SYMPTOMS: = Shortness of breath: Secondary of burden of disease and prolonged hospitalization. Currently tolerating O2 via nasal cannula at 1.5 L. Reports respiratory status has much improved since drainage of pleural effusion and pleurodesis. = Nausea/vomiting: Secondary to burden of disease/SBO. Improving at this time. NG DC'd this morning. = Debility: Secondary to burden of disease and prolonged hospitalization. Patient currently participating with PT. Would likely require rehabilitation versus home health at discharge. * Case discussed with Dr. Guzman. * Palliative care contact information has been provided. * Palliative care will continue to follow-up as needed for further clarifications of goals of care as patient's clinical course evolves. . (Montserrat Cifuentes) Time Spent Total Floor Time (mins): 65 (Total time to include review and summarization of available medical records, physical exam, conversation with patient and sister and case discussion with Dr. Guzman.) >50% Counseling/Coord of Care: Yes (Montserrat Cifuentes) Thank you for the opportunity to participate in the care of Ms. Ching. (Montserrat Cifuentes) Attestation To help prompt me to consider important information that might be impacting today's encounter and assessment, information from prior notes written by myself or my colleagues may have been "brought forward" into today's note. My signature on this note, however, is an attestation that I personally performed the exam, history, and/or decision-making noted today, and, unless otherwise indicated, the interactions with patient, family, and staff as well as the review of records all occurred today. I also attest that the listed assessment and stated plan reflect my best clinical judgment today based on the combination of historical information, prior notes, and today's exam/ interactions. When time spent is documented, it refers only to time spent today by the signer, or if indicated, combined time spent today by collaborating physician/nurse practitioner. (Montserrat Cifuentes) Collaborating MD Comments . Chart reviewed. Case discussed with palliative care DIRECTOR DATA ARCHITECTURE. I have reviewed above DIRECTOR DATA ARCHITECTURE note and I concur. . (Misael Eli MD) Montserrat Cifuentes October 10, 2016 17:28 Misael Eli MD October 18, 2016 12:40
[2016-10-10] MEDS: DOCUSATE CALCIUM 240 MG CAP PO SCH (21:00)
[2016-10-10] MEDS: FAT EMULSION 20% INJ 250 ML (@10 mls/hr) IV SCH (22:05)
[2016-10-10] MEDS: CLINIMIX E 4.25/5 2000 mL- >42 mls/hr IV SCH ×3 (22:06)
--- NOTE | 2016-10-10 23:37 | RADRPT ---
EXAM DATE/TIME: 10/10/2016 22:53 [facility] COMPARISON: No previous studies available for comparison. INDICATIONS : Bilateral leg pain. MEDICAL HISTORY : Lung cancer with mets to bone. Depression. Anxiety. Incontinence. Skin cancer. SURGICAL HISTORY : Hysterectomy. Bilateral cataract removal. Bilateral lens replacement. Bladder surgery. ENCOUNTER: Initial ACUITY: 1 day PAIN SCORE: 6/10 LOCATION: Bilateral legs. TECHNIQUE: Venous ultrasound of the left and right leg was performed from the inguinal ligament to the proximal calf. Real-time, color Doppler and spectral tracing, compression and augmentation techniques were us ed. FINDINGS: RIGHT LEG: There is small nonocclusive organized thrombus in the right superficial femoral vein probably chronic and the rest of the venous system appear patent. LEFT LEG: There is normal compressibility of the deep venous system from the inguinal region to the proximal ca lf. No echogenic clot is seen in the lumen of the common femoral, femoral, popliteal, and posterior tibial veins. There is a normal response of the venous system to proximal and distal augmentation an d respiration. CONCLUSION: Small nonocclusive thrombus within right superficial femoral vein most likely chronic. Annette Bonds MD on October 10, 2016 at 23:34 Board Certified Radiologist. This report was verified electronically.
[2016-10-11] VITALS (9 sets, daily range): BP systolic 115–130; BP diastolic 56–72; PULSE 77–100; RESP 16–20; TEMP 97.4–98.1; O2SAT 96–98
[2016-10-11] MEDS: SUCRALFATE 1 GM/10 ML CUP PO SCH ×4 (04:42→22:32)
[2016-10-11] MEDS: INSULIN ASPART SUPPLEMENTAL SCALE SQ SCH ×3 (04:49→16:16)
[2016-10-11] MEDS: SODIUM CHLORIDE 0.9% FLUSH 10 ML FLUSH IV FLUSH SCH ×2 (08:59→22:32)
[2016-10-11 09:09] LABS: BICARBONATE 25.6 MEQ/L (21.0-32.0); POTASSIUM 4.2 MEQ/L (3.5-5.1)
[2016-10-11] MEDS: RESP: BUDESONIDE 0.5 MG/2 ML NEB NEB SCH ×2 (09:26→19:51)
[2016-10-11 09:47] LABS: HEMATOCRIT 41.8 % (35.0-46.0); MEAN CELL VOLUME 92.7 FL (80.0-100.0); MEAN CORPUSCULAR HEMOGLOBIN 28.9 PG (27.0-34.0); MEAN CORPUSCULAR HGB CONC 31.2 % (32.0-36.0); PLATELET COUNT 226 TH/MM3 (150-450); RED BLOOD COUNT 4.51 MIL/MM3 (4.00-5.30); RED CELL DISTRIBUTION WIDTH 14.4 % (11.6-17.2); REVIEW FLAG FINAL; WHITE BLOOD COUNT 9.1 TH/MM3 (4.0-11.0)
[2016-10-11] MEDS ORDERED: DEXT 5%-NACL 0.9% 1000 ML INJ 1,000 ML IV ONE (11:30)
[2016-10-11] MEDS: ENOXAPARIN SODIUM 40 MG/0.4 ML SYRINGE SQ SCH (12:29)
--- NOTE | 2016-10-11 14:30 | PD.ONC.PN ---
Subjective Subjective Remarks Afebrile overnight. " I feel the best I've felt in days!" She had a bowel movement and was passing gas this morning. She feels very well. She does have pain in her legs, which she states is always there. Objective Data Date Time Temp Pulse Resp B/P Pulse Ox O2 Delivery O2 Flow Rate FiO2 10/11/16 12:00 97.5 85 20 130/57 98 10/11/16 09:29 98 Nasal Cannula 2.00 10/11/16 08:00 97.4 100 16 125/72 96 10/11/16 08:00 Nasal Cannula 2.00 10/11/16 04:00 97.6 77 16 126/59 97 10/11/16 00:00 97.9 79 18 115/56 98 10/10/16 21:00 79 10/10/16 20:00 97.2 85 16 111/53 98 10/10/16 20:00 Nasal Cannula 2.00 10/10/16 18:00 Nasal Cannula 2.00 10/10/16 17:24 97.2 91 18 126/58 98 10/10/16 16:33 99 Nasal Cannula 1.50 10/10/16 16:32 97.6 96 20 122/65 99 10/10/16 16:00 99 10/10/16 14:35 93 Result Diagram: 10/11/1682110/11/1622 Laboratory Results Laboratory Tests Test 10/11/16 08:22 White Blood Count 9.1 TH/MM3 Red Blood Count 4.51 MIL/MM3 Hemoglobin 13.0 GM/DL Hematocrit 41.8 % Mean Corpuscular Volume 92.7 FL Mean Corpuscular Hemoglobin 28.9 PG Mean Corpuscular Hemoglobin 31.2 % Concent Red Cell Distribution Width 14.4 % Platelet Count 226 TH/MM3 Mean Platelet Volume 8.8 FL Hematology Comments Sodium Level 135 MEQ/L Potassium Level 4.2 MEQ/L Chloride Level 103 MEQ/L Carbon Dioxide Level 25.6 MEQ/L Anion Gap 6 MEQ/L Blood Urea Nitrogen 17 MG/DL Creatinine 0.48 MG/DL Estimat Glomerular Filtration 123 ML/MIN Rate Random Glucose 108 MG/DL Calcium Level 8.5 MG/DL Administered Medications Medications (Trade) Dose Ordered Sig/Ariella Route PRN Reason Start Time Stop Time Status Last Admin Dose Admin Bisacodyl (Dulcolax Supp) 10 mg DAILY PRN RECTAL CONSTIPATION 09/29/16 17:15 10/02/16 17:26 Zolpidem Tartrate (Ambien) 5 mg HS PRN PO INSOMNIA/MAY REPEAT X1 DOSE 09/29/16 21:00 10/09/16 22:24 Sodium Chloride (NS Flush) 2 ml BID IV FLUSH 09/30/16 21:00 10/11/16 08:59 Ondansetron HCl (Zofran Inj) 4 mg Q6H PRN IV PUSH NAUSEA OR VOMITING 09/30/16 09:15 10/02/16 23:41 Docusate Calcium (Surfak) 240 mg HS PO 09/30/16 21:00 10/08/16 21:06 Magnesium Hydroxide (Milk Of [place] Liq) 30 ml DAILY PRN PO CONSTIPATION 09/30/16 09:15 10/01/16 08:07 Acetaminophen (Tylenol) 650 mg Q4H PRN PO TEMPERATURE > 101 F 09/30/16 09:15 09/30/16 17:58 Insulin Aspart (NovoLOG SUPPLEMENTAL SCALE) Q6HR SQ 09/30/16 12:00 09/30/16 23:25 Enoxaparin Sodium (Lovenox Inj) 40 mg Q24H SQ 09/30/16 11:00 10/11/16 12:29 Tramadol HCl (Ultram) 50 mg Q8H PRN PO PAIN SCALE 4 TO 10 10/03/16 09:45 10/06/16 12:46 Pantoprazole Sodium (Protonix Inj) 40 mg Q24H IV PUSH 10/03/16 15:00 10/10/16 16:34 Sucralfate 1 gm 1 gm ACHS PO 10/03/16 16:00 10/10/16 04:43 Multivitamins 10 ml/Folic Acid 1 mg/Amino Acids/ Electrolytes/ Dextrose 2,010.2 ml @ 75 mls/hr Q24H IV 10/05/16 20:00 10/10/16 22:06 Fat Emulsion Intravenous (Liposyn Iii 20% Inj) 250 ml @ 10 mls/hr Q24H IV 10/05/16 20:00 10/10/16 22:05 Carboxymethylcellulose Sodium (Refresh Tears 0.5% Opth Soln) 1 drop Q6H PRN EACH EYE dry eyes 10/08/16 05:15 10/08/16 21:06 Objective Remarks GENERAL: Frail elderly female sitting up in chair talking animatedly SKIN: Warm and dry. HEAD: Normocephalic. EYES: No injection or drainage. NECK: Supple, trachea midline. CARDIOVASCULAR: Regular rate and rhythm without murmurs. RESPIRATORY: Breath sounds equal bilaterally. GASTROINTESTINAL: Abdomen soft. non-tender. EXTREMITIES: No cyanosis NEUROLOGICAL: awake and alert, normal speech. moving extremities. Assessment/Plan Assessment 86y/o female with NSCLC Plan 1. patient started on clear liquid diet per surgery today. recommend continuing tpn until tolerating diet. 2. 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 monitor for bleeding. d/w Dr. Georgia Felder,Jaja SIEGEL October 11, 2016 14:30
--- NOTE | 2016-10-11 14:55 | HHI.PR ---
Subjective Subjective Notes Resting in bed Visiting with family friend Objective Vitals/I&O Vital Signs Date Time Temp Pulse Resp B/P Pulse Ox O2 Delivery O2 Flow Rate FiO2 10/11/16 12:00 97.5 85 20 130/57 98 10/11/16 09:29 Nasal Cannula 2.00 Labs Laboratory Tests Test 10/11/16 08:22 White Blood Count 9.1 Red Blood Count 4.51 Hemoglobin 13.0 Hematocrit 41.8 Mean Corpuscular Volume 92.7 Mean Corpuscular Hemoglobin 28.9 Mean Corpuscular Hemoglobin 31.2 Concent Red Cell Distribution Width 14.4 Platelet Count 226 Mean Platelet Volume 8.8 Hematology Comments Sodium Level 135 Potassium Level 4.2 Chloride Level 103 Carbon Dioxide Level 25.6 Anion Gap 6 Blood Urea Nitrogen 17 Creatinine 0.48 Estimat Glomerular Filtration 123 Rate Random Glucose 108 Calcium Level 8.5 Cardiovascular: Regular Lungs: Clear Abdomen: Non-distended, Non-tender Extremities: No edema Narrative Exam PICC in place with TPN A/P Assessment and Plan 86 year old female with high grade small bowel obstruction -NGT removed; no nausea/vomiting -Start sips of clear liquids -Continue TPN -Discussed with Dr. Sharma Attending Note - Dr. Sharma Abdomen benign Likely ileus Advance diet tomorrow if continues to improve Continue to follow The exam, history, and the medical decision-making described in the above note were completed with the assistance of the mid-level provider. I reviewed and agree with the findings presented. I attest that I had a [id number] encounter with the patient on the same day, and personally performed and documented my assessment and findings in the medical record. Ca Posada October 11, 2016 14:55 Abelardo Sharma MD October 11, 2016 17:19
--- NOTE | 2016-10-11 15:13 | HHI.PR ---
Subjective Remarks Patient denies cp/sob denies abdominal pain, nausea or vomiting denies cp/sob denies fevers/chills Objective Vitals Vital Signs Date Time Temp Pulse Resp B/P Pulse Ox O2 Delivery O2 Flow Rate FiO2 10/11/16 12:00 97.5 85 20 130/57 98 10/11/16 09:29 98 Nasal Cannula 2.00 10/11/16 08:00 97.4 100 16 125/72 96 10/11/16 08:00 Nasal Cannula 2.00 10/11/16 04:00 97.6 77 16 126/59 97 10/11/16 00:00 97.9 79 18 115/56 98 10/10/16 21:00 79 10/10/16 20:00 97.2 85 16 111/53 98 10/10/16 20:00 Nasal Cannula 2.00 10/10/16 18:00 Nasal Cannula 2.00 10/10/16 17:24 97.2 91 18 126/58 98 10/10/16 16:33 99 Nasal Cannula 1.50 10/10/16 16:32 97.6 96 20 122/65 99 10/10/16 16:00 99 I/O 10/10/16 10/10/16 10/10/16 10/11/16 10/11/16 10/11/16 06:59 14:59 22:59 06:59 14:59 22:59 Intake Total 1004 ml 1756 ml 1011 ml Output Total 750 ml 300 ml 500 ml Balance 254 ml 1456 ml 511 ml Intake Oral 0 ml IV Total 400 ml 555 ml 344 ml Tube Feeding 554 ml TPN/PPN 1048 ml 588 ml Lipid 153 ml 79 ml Tube Irrigant 50 ml Output Urine Total 750 ml 300 ml 500 ml # Voids 3 # Bowel Movements 0 0 0 Result Diagram: 10/11/1622 10/11/16 0822 Imaging Last Impressions Lower Extremity Ultrasound 10/10/16 0000 Signed Impressions: Service Date/Time: Monday, October 10, 2016 22:53 - CONCLUSION: Small nonocclusive thrombus within right superficial femoral vein most likely chronic. Annette Bonds MD Chest X-Ray 10/09/16 0000 Signed Impressions: Service Date/Time: Sunday, October 09, 2016 12:33 - CONCLUSION: PICC line placement as above. Onur Espinoza MD Abdomen/Pelvis CT 10/09/16 0000 Signed Impressions: Service Date/Time: Sunday, October 09, 2016 10:08 - CONCLUSION: 1. Right lung base mass, loculated effusion and bilateral consolidation again seen. 2. Dilated loops of small intestine are noted, and there is contrast within the large bowel, findings suggest a partial small bowel obstruction, an ileus is a consideration but given a decompressed large bowel suspect the former. Onur Espinoza MD Small Bowel X-Ray 10/07/16 0000 Signed Impressions: Service Date/Time: Friday, October 07, 2016 10:09 - CONCLUSION: Small bowel obstruction at the level of the distal ileum. Patient refused spot images. Markedly prolonged small bowel transit time. José Miguel Lira MD Abdomen X-Ray 10/03/16 0000 Signed Impressions: Service Date/Time: Monday, October 03, 2016 19:45 - CONCLUSION: No obstruction. Renan Gutierres MD Objective Remarks GENERAL: No acute distress. SKIN: Ecchymosis on four extremities. HEAD: Normocephalic and atraumatic. EYES: No injection or drainage. ENT: No nasal drainage noted. NECK: Supple CARDIOVASCULAR: Regular rate and rhythm RESPIRATORY: Decreased breath sounds bilateral, no wheezing, No crackles. GASTROINTESTINAL: Abdomen soft, non-tender, non distended. Bowel sounds present but sluggish. NEUROLOGICAL: Awake and alert. Motor and sensory grossly within normal limits. Normal speech. Procedures sp VATS, pleurodesis sp EGD Medications and IVs Current Medications Medications (Trade) Dose Ordered Sig/Ariella Route Start Time Stop Time Status Last Admin (Dulcolax Supp) 10 mg DAILY PRN RECTAL 09/29/16 17:15 10/02/16 17:26 (Narcan Inj) 0.4 mg UNSCH PRN IV 09/29/16 17:15 (Ambien) 5 mg HS PRN PO 09/29/16 21:00 10/09/16 22:24 (NS Flush) 2 ml BID IV FLUSH 09/30/16 21:00 10/11/16 08:59 (NS Flush) 2 ml UNSCH PRN IV FLUSH 09/30/16 09:15 (Zofran Inj) 4 mg Q6H PRN IV PUSH 09/30/16 09:15 10/02/16 23:41 (Surfak) 240 mg HS PO 09/30/16 21:00 10/08/16 21:06 (Milk Of Magnesia Liq) 30 ml DAILY PRN PO 09/30/16 09:15 10/01/16 08:07 (Tylenol) 650 mg Q4H PRN PO 09/30/16 09:15 09/30/16 17:58 (NovoLOG SUPPLEMENTAL SCALE) Q6HR SQ 09/30/16 12:00 09/30/16 23:25 (D50w (Vial) Inj) 25 ml UNSCH PRN IV PUSH 09/30/16 09:15 (Glucagon Inj) 1 mg UNSCH PRN IV 09/30/16 09:15 (Glycerin Adult Supp) 2 gm DAILY PRN RECTAL 10/01/16 09:30 (Fleets Enema (Adult)) 133 ml UNSCH PRN RECTAL 10/01/16 09:30 (Ultram) 50 mg Q8H PRN PO 10/03/16 09:45 10/06/16 12:46 (Protonix Inj) 40 mg Q24H IV PUSH 10/03/16 15:00 10/10/16 16:34 Sucralfate 1 gm 1 gm ACHS PO 10/03/16 16:00 10/10/16 04:43 Multivitamins 10 ml/Folic Acid 1 mg/Amino Acids/ Electrolytes/ Dextrose 2,010.2 ml @ 75 mls/hr Q24H IV 10/05/16 20:00 10/10/16 22:06 (Liposyn Iii 20% Inj) 250 ml @ 10 mls/hr Q24H IV 10/05/16 20:00 10/10/16 22:05 (Chloraseptic Olmitz) 2 spray Q2H PRN OROPHARYNG 10/06/16 15:45 (Refresh Tears 0.5% Opth Soln) 1 drop Q6H PRN EACH EYE 10/08/16 05:15 10/08/16 21:06 (Cepacol Extra Sriram (Sugar Free)) 1 lozenge Q2H PRN BUCCAL 10/10/16 14:00 (Lovenox Inj) 50 mg Q24H SQ 10/12/16 09:00 Urinary Catheter: No Vascular Central Line Catheter: No A/P Problem List: (1) Nausea & vomiting ICD Code: R11.2 Status: Acute (2) Pleural effusion ICD Code: J90 Status: Resolved (3) Metastatic lung cancer (metastasis from lung to other site) ICD Code: C34.90 Status: Acute (4) UTI (urinary tract infection) ICD Code: N39.0 Status: Resolved (5) Partial small bowel obstruction ICD Code: K56.69 Status: Acute (6) Bilateral lower extremity pain ICD Code: M79.604 Status: Resolved (7) Epigastric pain ICD Code: R10.13 Status: Resolved Plan: Likely peptic ulcer disease versus gastritis. Continue PPI and Carafate. GI following. Assessment and Plan (1) Nausea & vomiting Plan: Abdomen and pelvis CT obtained on 10/04/16 showed abnormal bowel gas pattern concern for distal small bowel obstruction. Masslike area of soft tissue in the right lower lobe likely representing the patient's known tumor. Loculated right effusion. Consolidation in both lung bases. Her diverticulosis. Possible ileus. Patient status post EGD on 10/05/16 which showed esophagus appeared normal, there was a large amount of previous liquid which was aspirated completely. Mild erythema in the gastric antrum, status post biopsy, the pylorus was widely open the duodenum was normal without any evidence of ulceration or obstruction. Small amount of gastric output. Mildly distended. Continue Protonix, Carafate. PPN. 10/10 GI consulted - appreciate recommendations. Continue PPI, carafate. Continue Zofran as needed. NG tube removed on 10/09. Gen. surgery consulted, general surgery diagnosed the patient with high-grade partial small bowel obstruction. NG tube discontinued today but patient still nothing by mouth. Advance diet as per general surgery/GI recommendations. 10/11 Patient started on sips of clear fluid as per GS, continue TPN. (2) Pleural effusion Plan: sp VATS and pleurodesis. (3) Metastatic lung cancer (metastasis from lung to other site) Plan: Oncology following. Would like to continue treatment until T790m mutation resulted, if this is present, there is as 60% probability that this will get better. 10/10 Pathology negative for T790M mutation. She may be some benefit for gefitinib as she progressed on erlotinib as per oncology. (4) UTI (urinary tract infection) Plan: sp treatment with Rocephin IV. (5) Partial small bowel obstruction Plan: fu GI recommendations. GS consulted. Continue NG tube which has been clamped. C diff PCR negative.Ng tube output decreased and NG tube removed on 10/10. (6) Bilateral lower extremity pain Plan: check venous Doppler of lower extremities --> ordered and pending. appreciate palliative care assistance. Patient is DNR. Patient does not wish any invasive procedure. Gi proph: PPI DVT Proph: lovenos SQ Discharge Planning Continue to monitor in the medical floor. Problem Qualifiers (1) Nausea & vomiting: (2) Metastatic lung cancer (metastasis from lung to other site): Qualified Code: C34.91 - Metastatic lung cancer (metastasis from lung to other site), right Freddie Tyson MD October 11, 2016 15:13
[2016-10-11] MEDS: DEXT 5%-NACL 0.9% 1000 ML INJ 1,000 ML IV SCH (15:33)
[2016-10-11] MEDS: PANTOPRAZOLE SODIUM 40 MG VIAL IV PUSH SCH (16:04)
[2016-10-11] MEDS: DOCUSATE CALCIUM 240 MG CAP PO SCH (21:00)
[2016-10-11] MEDS: FAT EMULSION 20% INJ 250 ML (@10 mls/hr) IV SCH (22:30)
[2016-10-11] MEDS: CLINIMIX E 4.25/5 2000 mL- >42 mls/hr IV SCH ×3 (22:31)
[2016-10-12] VITALS (10 sets, daily range): BP systolic 116–151; BP diastolic 58–67; PULSE 79–103; RESP 18–19; TEMP 97.4–97.9; O2SAT 96–100
[2016-10-12] MEDS: INSULIN ASPART SUPPLEMENTAL SCALE SQ SCH ×5 (05:52→23:58)
[2016-10-12] MEDS: SUCRALFATE 1 GM/10 ML CUP PO SCH ×4 (05:52→21:09)
[2016-10-12 08:23] LABS: BICARBONATE 26.8 MEQ/L (21.0-32.0); POTASSIUM 4.3 MEQ/L (3.5-5.1)
[2016-10-12] MEDS: RESP: BUDESONIDE 0.5 MG/2 ML NEB NEB SCH ×2 (08:26→19:08)
[2016-10-12] MEDS: SODIUM CHLORIDE 0.9% FLUSH 10 ML FLUSH IV FLUSH SCH ×2 (09:00→21:12)
[2016-10-12] MEDS: ENOXAPARIN SODIUM 60 MG/0.6 ML SYRINGE SQ SCH (09:44)
--- NOTE | 2016-10-12 10:37 | PD.PN.STU ---
Subjective Remarks no complaints tolerating fluid diet patient denies cp/sob denies abdominal pain, nausea or vomiting denies cp/sob denies fevers/chills Objective Vitals GENERAL: Pleasant, well-developed, frail woman who appears to be in no acute distress. SKIN: Ecchymosis on four extremities. HEAD: Normocephalic and atraumatic. EYES: No injection or drainage. ENT: No nasal drainage noted. NECK: Supple CARDIOVASCULAR: Regular rate and rhythm, no murmurs appreciated. RESPIRATORY: Decreased breath sounds bilateral, no wheezing, No crackles. GASTROINTESTINAL: Abdomen soft, non-tender, non distended. Bowel sounds present but sluggish. MUSCULOSKELETAL: bilateral calf tenderness, no edema Vital Signs Date Time Temp Pulse Resp B/P Pulse Ox O2 Delivery O2 Flow Rate FiO2 10/12/16 08:26 98 Nasal Cannula 2.00 10/12/16 08:02 97.6 80 19 116/58 96 10/12/16 04:00 Nasal Cannula 2.00 10/12/16 04:00 97.8 87 18 124/58 100 10/12/16 00:02 97.9 81 18 118/60 99 10/12/16 00:00 Nasal Cannula 2.00 10/11/16 20:36 98.1 88 18 125/58 98 10/11/16 20:00 Nasal Cannula 2.00 10/11/16 20:00 90 10/11/16 19:51 98 Nasal Cannula 2.00 10/11/16 16:00 97.5 98 16 129/62 98 10/11/16 12:00 97.5 85 20 130/57 98 I/O 10/11/16 10/11/16 10/11/16 10/12/16 10/12/16 10/12/16 07:00 15:00 23:00 07:00 15:00 23:00 Intake Total 1011 ml 1121 ml 793 ml 896 ml Output Total 500 ml 850 ml Balance 511 ml 1121 ml 793 ml 46 ml Intake Oral 120 ml IV Total 344 ml 151 ml 263 ml 302 ml TPN/PPN 588 ml 750 ml 468 ml 524 ml Lipid 79 ml 100 ml 62 ml 70 ml Output Urine Total 500 ml 850 ml # Voids 3 3 1 3 # Bowel Movements 0 1 0 0 Result Diagram: 10/11/16 0822 10/12/16 0712 A/P Assessment and Plan (1) Nausea & vomiting Plan: Abdomen and pelvis CT obtained on 10/04/16 showed abnormal bowel gas pattern concern for distal small bowel obstruction. Masslike area of soft tissue in the right lower lobe likely representing the patient's known tumor. Loculated right effusion. Consolidation in both lung bases. Her diverticulosis. Possible ileus. Patient status post EGD on 10/05/16 which showed esophagus appeared normal, there was a large amount of previous liquid which was aspirated completely. Mild erythema in the gastric antrum, status post biopsy, the pylorus was widely open the duodenum was normal without any evidence of ulceration or obstruction. Small amount of gastric output. Mildly distended. Continue Protonix, Carafate. PPN. 10/10 GI consulted - appreciate recommendations. Continue PPI, carafate. Continue Zofran as needed. NG tube removed on 10/09. Gen. surgery consulted, general surgery diagnosed the patient with high-grade partial small bowel obstruction. NG tube discontinued today but patient still nothing by mouth. Advance diet as per general surgery/GI recommendations. 10/11 Patient started on sips of clear fluid as per GS, continue TPN. 10/12 Tolerating liquid diet well. Mostly normal BM. (2) Pleural effusion Plan: sp VATS and pleurodesis. (3) Metastatic lung cancer (metastasis from lung to other site) Plan: Oncology following. Would like to continue treatment until T790m mutation resulted, if this is present, there is as 60% probability that this will get better. 10/10 Pathology negative for T790M mutation. She may be some benefit for gefitinib as she progressed on erlotinib as per oncology. (4) UTI (urinary tract infection) Plan: sp treatment with Rocephin IV. (5) Partial small bowel obstruction Plan: fu GI recommendations. GS consulted. Continue NG tube which has been clamped. C diff PCR negative.Ng tube output decreased and NG tube removed on 10/10. (6) Bilateral lower extremity pain Plan: check venous Doppler of lower extremities --> ordered and pending. 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 Given Lovenox injection Jourdan Davis October 12, 2016 10:37
--- NOTE | 2016-10-12 11:05 | HHI.HCPN ---
Reason for visit a. To assist with evaluation and management of symptoms including: Shortness of breath, nausea on debility. b. To assist medical decision maker(s) with: better understanding of current medical conditions; weighing benefits/burdens of medical treatment options; making medical treatment decisions. . (Montserrat Cifuentes) Subjective/Interval History Palliative care follow-up for further clarifications of goals of care. Met patient in her room, she was resting in bed in no acute distress. Alert and oriented to self, place and situation. Verbal and communicating needs. No family at bedside. Patient denies nausea, vomiting, pain, shortness of breath or any other discomfort. She reports that she has been tolerating clear liquids without nausea or vomiting. Drinking soda at this morning and eating a popsicle. Reporting small bowel movements, most recent this morning. Passing gas. Patient afebrile, stable hemodynamically. Tolerating O2 via nasal cannula at 2 L. Most recent laboratory 10/11/16 showing WBC 9.1, Hgb 13.0, platelet count 226. Chemistry today showing sodium 140, potassium 4.3, BUN/ creatinine 19/0.41. Albumin 1.8. Lower extremity ultrasound on 10/10/16 revealing a small nonocclusive thrombus within right superficial femoral vein. Patient was placed on Lovenox. Patient tells me that she had a conversation with both of her sons Flakito and Riki regarding her wishes for further medical treatment. She reports telling her sons that in the event of further complications, she is declining additional medical interventions to include rehospitalization, invasive procedures or surgical interventions. Patient is hopeful that her small bowel obstruction will resolve and is looking forward to the starting of systemic treatment under Dr. Gilman care. Patient aware that she is a high risk for further complications, continue decline and . She tells me that she is "ready to " when her time comes but she will like to give this new medication a chance. Discussed the future role of hospice services should her clinical condition worsen or there is additional complications or decline. Community DNR left with patient at bedside, she will like to review with her 2 sons who are currently out of town and will be arriving this Monday. Palliative care contact information provided for further questions. Palliative care will continue to follow-up as needed. . Family/friend interactions See interval note. . (Montserrat Cifuentes) Advance Directives Living Will: Completed, but not made available Health Care Surrogate: Completed, but not made available Durable Power of Check Out Cashier: Completed, but not made available (Montserrat Cifuentes) Advance Directive Specifics Health Care Surrogate(s): Patient's is 4 days ago. Patient reports completing living well and designation of healthcare surrogate naming both of her children Flakito and Riki as healthcare surrogate's. Pending copy. . Documented care wishes: Pending copy of living will. . Significant change in goals: No code. DNR/DNI. Continue with current management short of no code, no surgical interventions, no invasive procedures. . (Montserrat Cifuentes) Objective Vital Signs Date Time Temp Pulse Resp B/P Pulse Ox O2 Delivery O2 Flow Rate FiO2 10/12/16 08:26 98 Nasal Cannula 2.00 10/12/16 08:02 97.6 80 19 116/58 96 10/12/16 04:00 Nasal Cannula 2.00 10/12/16 04:00 97.8 87 18 124/58 100 10/12/16 00:02 97.9 81 18 118/60 99 10/12/16 00:00 Nasal Cannula 2.00 10/11/16 20:36 98.1 88 18 125/58 98 10/11/16 20:00 Nasal Cannula 2.00 10/11/16 20:00 90 10/11/16 19:51 98 Nasal Cannula 2.00 10/11/16 16:00 97.5 98 16 129/62 98 10/11/16 12:00 97.5 85 20 130/57 98 Intake & Output 10/12/16 10/12/16 06:59 18:59 Intake Total 1689 ml Output Total 850 ml Balance 839 ml IV Total 565 ml TPN/PPN 992 ml Lipid 132 ml Output Urine Total 850 ml # Voids 4 # Bowel Movements 0 Physical Exam CONSTITUTIONAL/GENERAL: This is a thin, elderly female resting in bed in no acute distress. TUBES/LINES/DRAINS: PICC line to left upper arm, nasal cannula. SKIN: No jaundice, rashes, or lesions. Large areas of ecchymoses on upper and lower extremities. Skin tear to left outer lower leg. Skin temperature appropriate. Not diaphoretic. HEAD: Atraumatic. Normocephalic. EYES: Pupils equal and round and reactive. Extraocular motions intact. No scleral icterus. No injection or drainage. ENT: Hearing grossly normal. Nose without bleeding or purulent drainage. NECK: Trachea midline. Supple, nontender. CARDIOVASCULAR: Regular rate and rhythm. Peripheral pulses symmetric. RESPIRATORY/CHEST: Symmetric, unlabored respirations. Clear to auscultation, diminished. Breath sounds equal bilaterally. GASTROINTESTINAL: Abdomen soft, non-tender, nondistended. No guarding. Bowel sounds present. GENITOURINARY: Without palpable bladder distension. MUSCULOSKELETAL: Extremities without clubbing, cyanosis, or edema. NEUROLOGICAL: Awake and alert. Motor and sensory grossly within normal limits. Follows commands. Cognitively sharp. Moves all extremities. PSYCHIATRIC: No obvious anxiety/depression. Pleasant and cooperative. . (Montserrat Cifuentes) Diagnostic Tests Laboratory Laboratory Tests Test 10/10/16 10/10/16 10/11/16 10/12/16 05:10 08:15 08:22 07:12 White Blood Count 8.6 TH/MM3 9.1 TH/MM3 (4.0-11.0) (4.0-11.0) Red Blood Count 3.66 MIL/MM3 4.51 MIL/MM3 (4.00-5.30) (4.00-5.30) Hemoglobin 10.7 GM/DL 13.0 GM/DL (11.6-15.3) (11.6-15.3) Hematocrit 32.7 % 41.8 % (35.0-46.0) (35.0-46.0) Mean Corpuscular Volume 89.3 FL 92.7 FL (80.0-100.0) (80.0-100.0) Mean Corpuscular Hemoglobin 29.1 PG 28.9 PG (27.0-34.0) (27.0-34.0) Mean Corpuscular Hemoglobin 32.6 % 31.2 % Concent (32.0-36.0) (32.0-36.0) Red Cell Distribution Width 13.7 % 14.4 % (11.6-17.2) (11.6-17.2) Platelet Count 362 TH/MM3 226 TH/MM3 (150-450) (150-450) Mean Platelet Volume 8.0 FL 8.8 FL (7.0-11.0) (7.0-11.0) Neutrophils (%) (Auto) 70.8 % (16.0-70.0) Lymphocytes (%) (Auto) 9.2 % (9.0-44.0) Monocytes (%) (Auto) 13.2 % (0.0-8.0) Eosinophils (%) (Auto) 6.3 % (0.0-4.0) Basophils (%) (Auto) 0.5 % (0.0-2.0) Neutrophils # (Auto) 6.1 TH/MM3 (1.8-7.7) Lymphocytes # (Auto) 0.8 TH/MM3 (1.0-4.8) Monocytes # (Auto) 1.1 TH/MM3 (0-0.9) Eosinophils # (Auto) 0.5 TH/MM3 (0-0.4) Basophils # (Auto) 0.0 TH/MM3 (0-0.2) CBC Comment DIFF FINAL Differential Comment Sodium Level 139 MEQ/L 135 MEQ/L 140 MEQ/L (136-145) (136-145) (136-145) Potassium Level 4.0 MEQ/L 4.2 MEQ/L 4.3 MEQ/L (3.5-5.1) (3.5-5.1) (3.5-5.1) Chloride Level 104 MEQ/L 103 MEQ/L 105 MEQ/L (98-107) (98-107) (98-107) Carbon Dioxide Level 28.3 MEQ/L 25.6 MEQ/L 26.8 MEQ/L (21.0-32.0) (21.0-32.0) (21.0-32.0) Anion Gap 7 MEQ/L (5-15) 6 MEQ/L (5-15) 8 MEQ/L (5-15) Blood Urea Nitrogen 14 MG/DL (7-18) 17 MG/DL (7-18) 19 MG/DL (7-18) Creatinine 0.37 MG/DL 0.48 MG/DL 0.41 MG/DL (0.50-1.00) (0.50-1.00) (0.50-1.00) Estimat Glomerular Filtration 166 ML/MIN 123 ML/MIN 148 ML/MIN Rate (>89) (>89) (>89) Random Glucose 112 MG/DL 108 MG/DL 119 MG/DL (74-106) (74-106) (74-106) Calcium Level 8.2 MG/DL 8.5 MG/DL 8.6 MG/DL (8.5-10.1) (8.5-10.1) (8.5-10.1) Phosphorus Level 2.6 MG/DL (2.5-4.9) Magnesium Level 2.2 MG/DL (1.5-2.5) Total Bilirubin 0.6 MG/DL (0.2-1.0) Aspartate Amino Transf 28 U/L (15-37) (AST/SGOT) Alanine Aminotransferase 21 U/L (10-53) (ALT/SGPT) Alkaline Phosphatase 71 U/L (45-117) Total Protein 5.1 GM/DL (6.4-8.2) Albumin 1.8 GM/DL (3.4-5.0) Stool C. difficile Toxin (PCR) NEGATIVE (NEGATIVE) Stl C. difficile Toxin PRESUMPTIVE Epiderm 027 NEGATIVE (NEGATIVE) Hematology Comments (Montserrat Cifuentes) Result Diagram: 10/11/16 0822 10/12/16 0712 Imaging Last Impressions Lower Extremity Ultrasound 10/10/16 0000 Signed Impressions: Service Date/Time: Monday, October 10, 2016 22:53 - CONCLUSION: Small nonocclusive thrombus within right superficial femoral vein most likely chronic. Annette Bonds MD Chest X-Ray 10/09/16 0000 Signed Impressions: Service Date/Time: Sunday, October 09, 2016 12:33 - CONCLUSION: PICC line placement as above. Onur Espinoza MD Abdomen/Pelvis CT 10/09/16 0000 Signed Impressions: Service Date/Time: Sunday, October 09, 2016 10:08 - CONCLUSION: 1. Right lung base mass, loculated effusion and bilateral consolidation again seen. 2. Dilated loops of small intestine are noted, and there is contrast within the large bowel, findings suggest a partial small bowel obstruction, an ileus is a consideration but given a decompressed large bowel suspect the former. Onur Espinoza MD Small Bowel X-Ray 10/07/16 0000 Signed Impressions: Service Date/Time: Friday, October 07, 2016 10:09 - CONCLUSION: Small bowel obstruction at the level of the distal ileum. Patient refused spot images. Markedly prolonged small bowel transit time. José Miguel Lira MD Abdomen X-Ray 10/03/16 0000 Signed Impressions: Service Date/Time: Monday, October 03, 2016 19:45 - CONCLUSION: No obstruction. Renan Gutierres MD Procedures * 09/30/16 -Right thoracoscopic exploration to drain pleural effusion, pleural biopsy, talc pleuradesis * 10/05/16 -EGD with biopsy . (Montserrat Cifuentes) Assessment and Plan Disease Oriented Problem List: (1) Pleural effusion Comment: Status post pleurodesis (2) Partial small bowel obstruction (3) Metastatic lung cancer (metastasis from lung to other site) Symptom Scale: (1) Nausea & vomiting 0-10 Scale: 0 Comment: Secondary to SBO. Appears to be resolving. NG tube discontinued, currently tolerating clear liquid diet. (2) Shortness of breath 0-10 Scale: 0 Comment: Secondary to burden of disease. Currently tolerating O2 via nasal cannula at 2L. (3) Debility 0-10 Scale: Unable to quantify Comment: Secondary to burden of disease and prolonged hospitalization. Currently participating with PT. Pertinent Non-Medical Issues Psychosocial: Recently . Has 2 children. Spiritual: [employer] rashaun. Legal: Pending copy of living will. Ethical issues impacting care: Pending copy of living will. . Important Contacts Patient's son Flakito -pending number Patient's son Riki . Prognosis Mrs. 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 Patient has been doing well on systemic therapy until recently when she presented with pleural effusion. Patient underwent right thorascopic exploration to drain pleural effusion and pleurodesis. Patient's clinical course complicated by small bowel obstruction which appears to be resolving at this time. Patient is at high risk for continued decline, additional complications and . Patient receptive to continuation of systemic therapy , however is declining any invasive procedures such as surgical interventions an NG tube at this time. Patient's quality of life most important to her that prolongation of survival, this appears appropriate given her advanced age and progression of illness. . Code Status: No Code Plan * CODE STATUS: No code. DNR/DNI. Confirm CODE STATUS with patient. * MEDICAL DECISION-MAKING: Patient participating in medical decision-making. However, relying on both of her children for support. Patient reports that advance directives have been completed, patient recently . She would like for both of her children to make healthcare decisions in the event she is incapacitated. Patient declined completing healthcare surrogate documentation this visit, as she believes that healthcare designation has been previously completed naming both of her children. Patient to provide copy of living will. As per [place] law, both of her children would serve as HCP. Palliative care recommends shared decision making with her children. * GOALS OF CARE: Patient electing to continue with current management short of NO code, NO surgical interventions, NO invasive procedures and NO rehospitalization. Patient receptive to continue systemic therapy and to participate in rehabilitation or PT at home for physical strengthening. Patient verbalized that her quality of life is most important to her than prolongation of survival, this appears appropriate given her advanced age and progression of illness. Patient tells me that she had a conversation with both of her sons Flakito and Riki regarding her wishes for further medical treatment. Patient aware that she is a high risk for further complications, continue decline and . She tells me that she is "ready to " when her time comes but she will like to give this new medication a chance. Discussed the future role of hospice services should her clinical condition worsen or there is additional complications or decline. Patient receptive to this. * SYMPTOMS: = Shortness of breath: Secondary of burden of disease and prolonged hospitalization. Currently tolerating O2 via nasal cannula at 2 L. Reports respiratory status has much improved since drainage of pleural effusion and pleurodesis. = Nausea/vomiting: Secondary to burden of disease/SBO. COPD appears to be resolving, patient currently tolerating clear liquid diet. = Debility: Secondary to burden of disease and prolonged hospitalization. Patient currently participating with PT. Would likely require rehabilitation versus home health at discharge. * Community DNR left with patient at bedside, she will like to review with her 2 sons who are currently out of town and will be arriving this Monday. * Palliative care contact information has been provided. * Palliative care will continue to follow-up as needed for further clarifications of goals of care as patient's clinical course evolves. . (Montserrat Cifuentes) Time Spent Total Floor Time (mins): 32 (Total time to include review medical records, physical exam, goals of care conversation with patient.) Face to Face Time (mins): 26 >50% Counseling/Coord of Care: Yes (Montserrat Cifuentes) Attestation To help prompt me to consider important information that might be impacting today's encounter and assessment, information from prior notes written by myself or my colleagues may have been "brought forward" into today's note. My signature on this note, however, is an attestation that I personally performed the exam, history, and/or decision-making noted today, and, unless otherwise indicated, the interactions with patient, family, and staff as well as the review of records all occurred today. I also attest that the listed assessment and stated plan reflect my best clinical judgment today based on the combination of historical information, prior notes, and today's exam/ interactions. When time spent is documented, it refers only to time spent today by the signer, or if indicated, combined time spent today by collaborating physician/nurse practitioner. (Montserrat Cifuentes) Collaborating MD Comments . Chart reviewed. Case discussed with palliative care DIGITAL MARKETING INTERN. Above DIGITAL MARKETING INTERN note reviewed and I concur. . (Misael Eli MD) Montserrat Cifuentes October 12, 2016 11:04 Misael Eli MD October 18, 2016 16:25
--- NOTE | 2016-10-12 12:34 | HHI.PR ---
Subjective Subjective Notes Resting in bed Reports she has done well with the clear liquids but do not feel quite ready for anything more Objective Vitals/I&O Vital Signs Date Time Temp Pulse Resp B/P Pulse Ox O2 Delivery O2 Flow Rate FiO2 10/12/16 11:00 Nasal Cannula 3.00 10/12/16 08:26 98 10/12/16 08:15 79 10/12/16 08:02 97.6 19 116/58 Labs Laboratory Tests Test 10/12/16 07:12 Sodium Level 140 Potassium Level 4.3 Chloride Level 105 Carbon Dioxide Level 26.8 Anion Gap 8 Blood Urea Nitrogen 19 Creatinine 0.41 Estimat Glomerular Filtration 148 Rate Random Glucose 119 Calcium Level 8.6 Cardiovascular: Regular Lungs: Clear Abdomen: Non-distended, Non-tender Extremities: No edema Narrative Exam PICC in place with TPN A/P Assessment and Plan 86 year old female with ileus -Start sips of clear liquids ---tolerating; advance diet as tolerated -Once tolerating adequate calories ---wean TPN -May require calorie count in the next few days -Continue TPN -Discussed with Dr. Sharma Attending Note - Dr. Sharma Abdomen flat and benign The exam, history, and the medical decision-making described in the above note were completed with the assistance of the mid-level provider. I reviewed and agree with the findings presented. I attest that I had a [id number] encounter with the patient on the same day, and personally performed and documented my assessment and findings in the medical record. Ca Posada October 12, 2016 12:34 Abelardo Sharma MD October 13, 2016 17:24
[2016-10-12] MEDS: traMADol HCL 50 MG TAB PO PRN (13:06)
[2016-10-12] MEDS: DEXT 5%-NACL 0.9% 1000 ML INJ 1,000 ML IV SCH (13:11)
--- NOTE | 2016-10-12 16:40 | PD.ONC.PN ---
Subjective Subjective Remarks Pt seen and examined at 8:30 this morning Afebrile overnight. Somewhat tearful over her 's recent passing. Upset that she won't be able to attend his in [place]. Physically feeling much better, tolerating clear liquids. Objective Data Date Time Temp Pulse Resp B/P Pulse Ox O2 Delivery O2 Flow Rate FiO2 10/12/16 12:02 97.7 90 18 151/67 98 10/12/16 11:00 Nasal Cannula 3.00 10/12/16 09:45 Nasal Cannula 3.00 10/12/16 08:26 98 Nasal Cannula 2.00 10/12/16 08:15 Nasal Cannula 2.00 10/12/16 08:15 79 10/12/16 08:02 97.6 80 19 116/58 96 10/12/16 04:00 Nasal Cannula 2.00 10/12/16 04:00 97.8 87 18 124/58 100 10/12/16 00:02 97.9 81 18 118/60 99 10/12/16 00:00 Nasal Cannula 2.00 10/11/16 20:36 98.1 88 18 125/58 98 10/11/16 20:00 Nasal Cannula 2.00 10/11/16 20:00 90 10/11/16 19:51 98 Nasal Cannula 2.00 10/12/16 10/12/16 10/12/16 07:00 15:00 23:00 Intake Total 896 ml Output Total 850 ml Balance 46 ml Result Diagram: 10/11/16 0822 10/12/16 0712 Laboratory Results Laboratory Tests Test 10/12/16 07:12 Sodium Level 140 MEQ/L Potassium Level 4.3 MEQ/L Chloride Level 105 MEQ/L Carbon Dioxide Level 26.8 MEQ/L Anion Gap 8 MEQ/L Blood Urea Nitrogen 19 MG/DL Creatinine 0.41 MG/DL Estimat Glomerular Filtration 148 ML/MIN Rate Random Glucose 119 MG/DL Calcium Level 8.6 MG/DL Administered Medications Medications (Trade) Dose Ordered Sig/Ariella Route PRN Reason Start Time Stop Time Status Last Admin Dose Admin Bisacodyl (Dulcolax Supp) 10 mg DAILY PRN RECTAL CONSTIPATION 09/29/16 17:15 10/02/16 17:26 Zolpidem Tartrate (Ambien) 5 mg HS PRN PO INSOMNIA/MAY REPEAT X1 DOSE 09/29/16 21:00 10/09/16 22:24 Sodium Chloride (NS Flush) 2 ml BID IV FLUSH 09/30/16 21:00 10/11/16 22:32 Ondansetron HCl (Zofran Inj) 4 mg Q6H PRN IV PUSH NAUSEA OR VOMITING 09/30/16 09:15 10/02/16 23:41 Docusate Calcium (Surfak) 240 mg HS PO 09/30/16 21:00 10/08/16 21:06 Magnesium Hydroxide (Milk Of [place] Liq) 30 ml DAILY PRN PO CONSTIPATION 09/30/16 09:15 10/01/16 08:07 Acetaminophen (Tylenol) 650 mg Q4H PRN PO TEMPERATURE > 101 F 09/30/16 09:15 09/30/16 17:58 Insulin Aspart (NovoLOG SUPPLEMENTAL SCALE) Q6HR SQ 09/30/16 12:00 09/30/16 23:25 Tramadol HCl (Ultram) 50 mg Q8H PRN PO PAIN SCALE 4 TO 10 10/03/16 09:45 10/12/16 13:06 Pantoprazole Sodium (Protonix Inj) 40 mg Q24H IV PUSH 10/03/16 15:00 10/11/16 16:04 Sucralfate 1 gm 1 gm ACHS PO 10/03/16 16:00 10/12/16 09:43 Multivitamins 10 ml/Folic Acid 1 mg/Amino Acids/ Electrolytes/ Dextrose 2,010.2 ml @ 75 mls/hr Q24H IV 10/05/16 20:00 10/11/16 22:31 Fat Emulsion Intravenous (Liposyn Iii 20% Inj) 250 ml @ 10 mls/hr Q24H IV 10/05/16 20:00 10/11/16 22:30 Carboxymethylcellulose Sodium (Refresh Tears 0.5% Opth Soln) 1 drop Q6H PRN EACH EYE dry eyes 10/08/16 05:15 10/08/16 21:06 Enoxaparin Sodium 50 mg 50 mg Q24H SQ 10/12/16 09:00 10/12/16 09:44 Dextrose/Sodium Chloride (D5W-NS 1000 ml Inj) 1,000 ml @ 42 mls/hr [id number] IV 5/23/17 15:15 10/12/16 13:11 Objective Remarks GENERAL: Frail elderly female resting in bed in no distress. SKIN: Warm and dry. HEAD: Normocephalic. EYES: No injection or drainage. NECK: Supple, trachea midline. CARDIOVASCULAR: +S1/S2. RESPIRATORY: Breath sounds equal bilaterally. GASTROINTESTINAL: Abdomen soft. non-tender. EXTREMITIES: No cyanosis NEUROLOGICAL: Awake and alert, normal speech. Moving extremities. Assessment/Plan Assessment 86y/o female with NSCLC Plan 1. 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 2. Continue to advance diet per general surgery. 3. Pt given emotional support ( recently ). 4. Periodic CBC to monitor for bleeding. Huyen Galvin October 12, 2016 16:40
[2016-10-12] MEDS: PANTOPRAZOLE SODIUM 40 MG VIAL IV PUSH SCH (17:16)
--- NOTE | 2016-10-12 17:27 | HHI.PR ---
Subjective Remarks no major overnight events tolerating diet denies nausea or abdominal pain denies cp/sob passing gas Objective Vitals Vital Signs Date Time Temp Pulse Resp B/P Pulse Ox O2 Delivery O2 Flow Rate FiO2 10/12/16 15:00 Nasal Cannula 3.00 10/12/16 12:02 97.7 90 18 151/67 98 10/12/16 11:00 Nasal Cannula 3.00 10/12/16 09:45 Nasal Cannula 3.00 10/12/16 08:26 98 Nasal Cannula 2.00 10/12/16 08:15 Nasal Cannula 2.00 10/12/16 08:15 79 10/12/16 08:02 97.6 80 19 116/58 96 10/12/16 04:00 Nasal Cannula 2.00 10/12/16 04:00 97.8 87 18 124/58 100 10/12/16 00:02 97.9 81 18 118/60 99 10/12/16 00:00 Nasal Cannula 2.00 10/11/16 20:36 98.1 88 18 125/58 98 10/11/16 20:00 Nasal Cannula 2.00 10/11/16 20:00 90 10/11/16 19:51 98 Nasal Cannula 2.00 I/O 10/11/16 10/11/16 10/11/16 10/12/16 10/12/16 10/12/16 07:00 15:00 23:00 07:00 15:00 23:00 Intake Total 1011 ml 1121 ml 793 ml 896 ml 1126 ml 1126 ml Output Total 500 ml 850 ml Balance 511 ml 1121 ml 793 ml 46 ml 1126 ml 1126 ml Intake Oral 120 ml IV Total 344 ml 151 ml 263 ml 302 ml 1126 ml 1126 ml TPN/PPN 588 ml 750 ml 468 ml 524 ml Lipid 79 ml 100 ml 62 ml 70 ml Output Urine Total 500 ml 850 ml # Voids 3 3 1 3 # Bowel Movements 0 1 0 0 Result Diagram: 10/11/16 0822 10/12/16 0712 Imaging Last Impressions Lower Extremity Ultrasound 10/10/16 0000 Signed Impressions: Service Date/Time: Monday, October 10, 2016 22:53 - CONCLUSION: Small nonocclusive thrombus within right superficial femoral vein most likely chronic. KLen Bonds MD Chest X-Ray 10/09/16 0000 Signed Impressions: Service Date/Time: Sunday, October 09, 2016 12:33 - CONCLUSION: PICC line placement as above. Onur Espinoza MD Abdomen/Pelvis CT 10/09/16 0000 Signed Impressions: Service Date/Time: Sunday, October 09, 2016 10:08 - CONCLUSION: 1. Right lung base mass, loculated effusion and bilateral consolidation again seen. 2. Dilated loops of small intestine are noted, and there is contrast within the large bowel, findings suggest a partial small bowel obstruction, an ileus is a consideration but given a decompressed large bowel suspect the former. Onur Espinoza MD Small Bowel X-Ray 10/07/16 0000 Signed Impressions: Service Date/Time: Friday, October 07, 2016 10:09 - CONCLUSION: Small bowel obstruction at the level of the distal ileum. Patient refused spot images. Markedly prolonged small bowel transit time. José Miguel Lira MD Abdomen X-Ray 10/03/16 0000 Signed Impressions: Service Date/Time: Monday, October 03, 2016 19:45 - CONCLUSION: No obstruction. Renan Gutierres MD Objective Remarks GENERAL: No acute distress. SKIN: Ecchymosis on four extremities. HEAD: Normocephalic and atraumatic. EYES: No injection or drainage. ENT: No nasal drainage noted. NECK: Supple CARDIOVASCULAR: Regular rate and rhythm RESPIRATORY: Decreased breath sounds bilateral, no wheezing, No crackles. GASTROINTESTINAL: Abdomen soft, non-tender, non distended. Bowel sounds present but sluggish. NEUROLOGICAL: Awake and alert. Motor and sensory grossly within normal limits. Normal speech. Procedures sp VATS, pleurodesis sp EGD Medications and IVs Current Medications Medications (Trade) Dose Ordered Sig/Ariella Route Start Time Stop Time Status Last Admin (Dulcolax Supp) 10 mg DAILY PRN RECTAL 09/29/16 17:15 10/02/16 17:26 (Narcan Inj) 0.4 mg UNSCH PRN IV 09/29/16 17:15 (Ambien) 5 mg HS PRN PO 09/29/16 21:00 10/09/16 22:24 (NS Flush) 2 ml BID IV FLUSH 09/30/16 21:00 10/11/16 22:32 (NS Flush) 2 ml UNSCH PRN IV FLUSH 09/30/16 09:15 (Zofran Inj) 4 mg Q6H PRN IV PUSH 09/30/16 09:15 10/02/16 23:41 (Surfak) 240 mg HS PO 09/30/16 21:00 10/08/16 21:06 (Milk Of Magnesia Liq) 30 ml DAILY PRN PO 09/30/16 09:15 10/01/16 08:07 (Tylenol) 650 mg Q4H PRN PO 09/30/16 09:15 09/30/16 17:58 (NovoLOG SUPPLEMENTAL SCALE) Q6HR SQ 09/30/16 12:00 09/30/16 23:25 (D50w (Vial) Inj) 25 ml UNSCH PRN IV PUSH 09/30/16 09:15 (Glucagon Inj) 1 mg UNSCH PRN IV 09/30/16 09:15 (Glycerin Adult Supp) 2 gm DAILY PRN RECTAL 10/01/16 09:30 (Fleets Enema (Adult)) 133 ml UNSCH PRN RECTAL 10/01/16 09:30 (Ultram) 50 mg Q8H PRN PO 10/03/16 09:45 10/12/16 13:06 (Protonix Inj) 40 mg Q24H IV PUSH 10/03/16 15:00 10/12/16 17:16 Sucralfate 1 gm 1 gm ACHS PO 10/03/16 16:00 10/12/16 17:14 Multivitamins 10 ml/Folic Acid 1 mg/Amino Acids/ Electrolytes/ Dextrose 2,010.2 ml @ 75 mls/hr Q24H IV 10/05/16 20:00 10/11/16 22:31 (Liposyn Iii 20% Inj) 250 ml @ 10 mls/hr Q24H IV 10/05/16 20:00 10/11/16 22:30 (Chloraseptic Morgan) 2 spray Q2H PRN OROPHARYNG 10/06/16 15:45 (Refresh Tears 0.5% Opth Soln) 1 drop Q6H PRN EACH EYE 10/08/16 05:15 10/08/16 21:06 (Cepacol Extra Sriram (Sugar Free)) 1 lozenge Q2H PRN BUCCAL 10/10/16 14:00 Enoxaparin Sodium 50 mg 50 mg Q24H SQ 10/12/16 09:00 10/12/16 09:44 (D5W-NS 1000 ml Inj) 1,000 ml @ 42 mls/hr [id number] IV 10/11/16 15:15 10/12/16 13:11 Urinary Catheter: No Vascular Central Line Catheter: No A/P Problem List: (1) Nausea & vomiting ICD Code: R11.2 Status: Acute (2) Pleural effusion ICD Code: J90 Status: Resolved (3) Metastatic lung cancer (metastasis from lung to other site) ICD Code: C34.90 Status: Acute (4) UTI (urinary tract infection) ICD Code: N39.0 Status: Resolved (5) Partial small bowel obstruction ICD Code: K56.69 Status: Acute (6) Bilateral lower extremity pain ICD Code: M79.604 Status: Resolved (7) Epigastric pain ICD Code: R10.13 Status: Resolved Plan: Likely peptic ulcer disease versus gastritis. Continue PPI and Carafate. GI following. Epigastric pain resolved. Assessment and Plan (1) Nausea & vomiting Plan: Abdomen and pelvis CT obtained on 10/04/16 showed abnormal bowel gas pattern concern for distal small bowel obstruction. Masslike area of soft tissue in the right lower lobe likely representing the patient's known tumor. Loculated right effusion. Consolidation in both lung bases. Her diverticulosis. Possible ileus. Patient status post EGD on 10/05/16 which showed esophagus appeared normal, there was a large amount of previous liquid which was aspirated completely. Mild erythema in the gastric antrum, status post biopsy, the pylorus was widely open the duodenum was normal without any evidence of ulceration or obstruction. Small amount of gastric output. Mildly distended. Continue Protonix, Carafate. PPN. 10/10 GI consulted - appreciate recommendations. Continue PPI, carafate. Continue Zofran as needed. NG tube removed on 10/09. Gen. surgery consulted, general surgery diagnosed the patient with high-grade partial small bowel obstruction. NG tube discontinued today but patient still nothing by mouth. Advance diet as per general surgery/GI recommendations. 10/12 Continue on clear liquid diet as per GS, continue TPN. Advance diet as per GS recommendations. Taper TPN as per GS. (2) Pleural effusion Plan: sp VATS and pleurodesis. (3) Metastatic lung cancer (metastasis from lung to other site) Plan: Oncology following. Would like to continue treatment until T790m mutation resulted, if this is present, there is as 60% probability that this will get better. 10/10 Pathology negative for T790M mutation. She may be some benefit for gefitinib as she progressed on erlotinib as per oncology. (4) UTI (urinary tract infection) Plan: sp treatment with Rocephin IV. (5) Partial small bowel obstruction Plan: fu GI recommendations. GS consulted. Continue NG tube which has been clamped. C diff PCR negative.Ng tube output decreased and NG tube removed on 10/10. (6) Bilateral lower extremity pain Plan: Shows small nonocclusive thrombus within the right superficial femoral vein. This is a right chronic DVT. Patient started on intermediate subcutaneous Lovenox dose at 1 mg/kg/day as per hematology. Monitor for bleeding. Appreciate palliative care assistance. Patient is DNR. Patient does not wish any invasive procedure. Gi proph: PPI DVT Proph: lovenos SQ Discharge Planning Continue to monitor in the medical floor. Problem Qualifiers (1) Nausea & vomiting: (2) Metastatic lung cancer (metastasis from lung to other site): Qualified Code: C34.91 - Metastatic lung cancer (metastasis from lung to other site), right Freddie Tyson MD October 12, 2016 17:27
[2016-10-12] MEDS ORDERED: KETOROLAC TROMETHAMINE 30 MG/ML (IVP) VIAL IV PUSH ONE (21:00)
[2016-10-12] MEDS: DOCUSATE CALCIUM 240 MG CAP PO SCH (21:10)
[2016-10-12] MEDS: CLINIMIX E 4.25/5 2000 mL- >42 mls/hr IV SCH ×3 (21:17)
[2016-10-12] MEDS: FAT EMULSION 20% INJ 250 ML (@10 mls/hr) IV SCH (21:17)
[2016-10-13] VITALS (9 sets, daily range): BP systolic 102–167; BP diastolic 50–73; PULSE 85–112; RESP 20; TEMP 97.4–98.7; O2SAT 92–99
[2016-10-13] MEDS: ZOLPIDEM TARTRATE 5 MG TAB PO PRN (00:19)
[2016-10-13] MEDS: traMADol HCL 50 MG TAB PO PRN (00:19)
[2016-10-13] MEDS: INSULIN ASPART SUPPLEMENTAL SCALE SQ SCH ×3 (05:35→18:00)
[2016-10-13] MEDS: SUCRALFATE 1 GM/10 ML CUP PO SCH ×4 (05:35→21:18)
[2016-10-13] MEDS: RESP: BUDESONIDE 0.5 MG/2 ML NEB NEB SCH ×2 (08:00→21:09)
[2016-10-13] MEDS: ONDANSETRON HCL 4 MG/2 ML VIAL IV PUSH PRN (08:21)
[2016-10-13] MEDS: SODIUM CHLORIDE 0.9% FLUSH 10 ML FLUSH IV FLUSH SCH ×2 (09:00→21:18)
[2016-10-13] MEDS: ENOXAPARIN SODIUM 60 MG/0.6 ML SYRINGE SQ SCH (09:37)
--- NOTE | 2016-10-13 10:42 | PD.PN.STU ---
Subjective Remarks no major overnight events drank some pepsi this morning and vomited minimally denies nausea or abdominal pain denies cp/sob passing gas, BMs are loose Objective Vitals GENERAL: Elderly lady who appears stated age, frail, no acute distress, resting in bed. SKIN: Ecchymosis on four extremities. HEAD: Normocephalic and atraumatic. EYES: No injection or drainage. ENT: No nasal drainage noted. NECK: Supple CARDIOVASCULAR: Regular rate and rhythm RESPIRATORY: Decreased breath sounds bilateral, no wheezing, No crackles. GASTROINTESTINAL: Abdomen soft, non-tender, non distended. Bowel sounds present. NEUROLOGICAL: Awake and alert. Motor and sensory grossly within normal limits. Normal speech. Vital Signs Date Time Temp Pulse Resp B/P Pulse Ox O2 Delivery O2 Flow Rate FiO2 10/13/16 08:00 97.4 107 20 167/73 93 10/13/16 04:00 Nasal Cannula 3.00 10/13/16 04:00 97.6 85 20 110/53 99 10/13/16 00:00 Nasal Cannula 3.00 10/13/16 00:00 98.0 87 20 102/60 96 10/12/16 20:02 97.5 94 18 122/59 98 10/12/16 20:00 103 10/12/16 20:00 Nasal Cannula 3.00 10/12/16 19:09 98 Nasal Cannula 2.00 10/12/16 16:02 97.4 99 18 123/58 98 10/12/16 15:00 Nasal Cannula 3.00 10/12/16 12:02 97.7 90 18 151/67 98 10/12/16 11:00 Nasal Cannula 3.00 I/O 10/12/16 10/12/16 10/12/16 10/13/16 10/13/16 10/13/16 07:00 15:00 23:00 07:00 15:00 23:00 Intake Total 896 ml 1406 ml 2210 ml 1237 ml Output Total 850 ml 820 ml 300 ml 400 ml Balance 46 ml 586 ml 1910 ml 837 ml Intake Oral 280 ml 240 ml 220 ml IV Total 302 ml 1126 ml 1407 ml 343 ml TPN/PPN 524 ml 66 ml 593 ml Lipid 70 ml 497 ml 81 ml Output Urine Total 850 ml 820 ml 300 ml 400 ml # Voids 3 # Bowel Movements 0 3 1 0 Result Diagram: 10/11/16 0822 10/12/16 0712 A/P Assessment and Plan (1) Nausea & vomiting Plan: Abdomen and pelvis CT obtained on 10/04/16 showed abnormal bowel gas pattern concern for distal small bowel obstruction. Masslike area of soft tissue in the right lower lobe likely representing the patient's known tumor. Loculated right effusion. Consolidation in both lung bases. Her diverticulosis. Possible ileus. Patient status post EGD on 10/05/16 which showed esophagus appeared normal, there was a large amount of previous liquid which was aspirated completely. Mild erythema in the gastric antrum, status post biopsy, the pylorus was widely open the duodenum was normal without any evidence of ulceration or obstruction. Small amount of gastric output. Mildly distended. Continue Protonix, Carafate. PPN. 10/10 GI consulted - appreciate recommendations. Continue PPI, carafate. Continue Zofran as needed. NG tube removed on 10/09. Gen. surgery consulted, general surgery diagnosed the patient with high-grade partial small bowel obstruction. NG tube discontinued today but patient still nothing by mouth. Advance diet as per general surgery/GI recommendations. 10/11 Patient started on sips of clear fluid as per GS, continue TPN. 10/12 Tolerating liquid diet well. Mostly normal BM. 10/13 Continue liquid diet (2) Pleural effusion Plan: sp VATS and pleurodesis. (3) Metastatic lung cancer (metastasis from lung to other site) Plan: Oncology following. Would like to continue treatment until T790m mutation resulted, if this is present, there is as 60% probability that this will get better. 10/10 Pathology negative for T790M mutation. She may be some benefit for gefitinib as she progressed on erlotinib as per oncology. (4) UTI (urinary tract infection) Plan: sp treatment with Rocephin IV. (5) Partial small bowel obstruction Plan: fu GI recommendations. GS consulted. Continue NG tube which has been clamped. C diff PCR negative.Ng tube output decreased and NG tube removed on 10/10. (6) Bilateral lower extremity pain Plan: check venous Doppler of lower extremities --> ordered and pending. 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 Given Lovenox injection Jourdan Davis October 13, 2016 10:42
[2016-10-13 12:36] LABS: AUTOMATED NEUTROPHIL # 19.8 TH/MM3 (1.8-7.7); BASOPHIL % 0.1 % (0.0-2.0); EOSINOPHIL # 0.2 TH/MM3 (0-0.4); EOSINOPHIL % 0.8 % (0.0-4.0); HEMATOCRIT 36.8 % (35.0-46.0); HEMO FLAGS AUTO DIFF; LYMPH % 1.7 % (9.0-44.0); LYMPHOCYTE # 0.3 TH/MM3 (1.0-4.8); MEAN CELL VOLUME 89.7 FL (80.0-100.0); MEAN CORPUSCULAR HEMOGLOBIN 28.9 PG (27.0-34.0); MEAN CORPUSCULAR HGB CONC 32.2 % (32.0-36.0); MONO % 2.7 % (0.0-8.0); NEUT % 94.7 % (16.0-70.0); PLATELET COUNT 325 TH/MM3 (150-450); WHITE BLOOD COUNT 20.9 TH/MM3 (4.0-11.0)
--- NOTE | 2016-10-13 12:48 | RADRPT ---
EXAM DATE/TIME: 10/13/2016 12:11 [facility] COMPARISON: CHEST SINGLE AP, October 09, 2016, 12:33. INDICATIONS : Cough and congestion. MEDICAL HISTORY : Carcinoma, lung. SURGICAL HISTORY : Hysterectomy. ENCOUNTER: Subsequent ACUITY: 1 day PAIN SCORE: 0/10 LOCATION: Bilateral chest FINDINGS: Portable AP view of the chest demonstrates a normal-sized cardiac silhouette. Left upper extremity PI CC remains present. Nasogastric tube has been removed. There is stable right basilar pleural-parenchy mal opacity. Left hemidiaphragm is mildly elevated with mild opacity at the left lung base. No pneumo thorax is visualized. CONCLUSION: Stable chest x-ray with right pleural effusion with associated consolidation and atelectasis at the r ight lung base. There is mild atelectasis versus consolidation at the left lung base. José Miguel Mcgovern MD on October 13, 2016 at 12:44 Board Certified Radiologist. This report was verified electronically.
--- NOTE | 2016-10-13 12:48 | HHI.HCPN ---
Reason for visit a. To assist with evaluation and management of symptoms including: Shortness of breath, nausea on debility. b. To assist medical decision maker(s) with: better understanding of current medical conditions; weighing benefits/burdens of medical treatment options; making medical treatment decisions. . (Montserrat Cifuentes) Subjective/Interval History Palliative care was called at bedside by patient to follow-up on goals of care and assistance in completion of advance directives. Patient seen in her room, she was sitting up in bed in no acute distress. She reports some nausea, episode of vomiting this morning. She continues on liquid diet. Denies shortness of breath, abdominal pain, or nausea at this time. She reports that she had a rough time last night secondary to intermittent abdominal pain. Pain somewhat improved this morning, is reported as gas-like pain, dull, exacerbated with physical exertion. Most recent laboratory 10/12/16 showing sodium 140, potassium 4.3, BUN/creatinine 19/0.41. Pending laboratory today. No new imaging. Patient remains afebrile, tachycardic with heart rate in the low 110s. Stable hemodynamically. Continues tolerating O2 via nasal cannula at 3 L. Oxygen saturation in the mid to high 90s. Endorsing some exertional dyspnea. Patient's sister at bedside. Patient tells me that she had a rough day yesterday. She reports having a conversation with both of her children, they both would like for her to complete community DNR today. Patient also inquiring regarding hospice, verbalized feeling "ready" secondary to prolonged hospitalization, acute complications and profound debility. Patient would like to have a hospice informative meeting, referral was made. Both of her children are currently in [place] attending their father's (patient's ). They are scheduled to travel back to [place] via automobile. Likely to arrive sometime this Monday. Palliative care will continue to follow-up for further clarifications of goals of care. Case discussed with Dr. Guzman and environmental air specialist Rhonda. . Family/friend interactions See interval note. . (Montserrat Cifuentes) Advance Directives Living Will: Completed, but not made available Health Care Surrogate: Completed, but not made available Durable Power of Car Tester: Completed, but not made available (Montserrat Cifuentes) Advance Directive Specifics Health Care Surrogate(s): Patient's is 4 days ago. Patient reports completing living well and designation of healthcare surrogate naming both of her children Flakito and Riki as healthcare surrogate's. Pending copy. . Documented care wishes: Pending copy of living will. . Significant change in goals: No code. DNR/DNI. Continue conservative management short of no code, no invasive procedures or surgical interventions. Patient considering comfort care with hospice. (Montserrat Cifuentes) Objective Vital Signs Date Time Temp Pulse Resp B/P Pulse Ox O2 Delivery O2 Flow Rate FiO2 10/13/16 08:00 97.4 107 20 167/73 93 10/13/16 04:00 Nasal Cannula 3.00 10/13/16 04:00 97.6 85 20 110/53 99 10/13/16 00:00 Nasal Cannula 3.00 10/13/16 00:00 98.0 87 20 102/60 96 10/12/16 20:02 97.5 94 18 122/59 98 10/12/16 20:00 103 10/12/16 20:00 Nasal Cannula 3.00 10/12/16 19:09 98 Nasal Cannula 2.00 10/12/16 16:02 97.4 99 18 123/58 98 10/12/16 15:00 Nasal Cannula 3.00 Intake & Output 10/13/16 10/13/16 07:00 19:00 Intake Total 2321 ml Output Total 700 ml Balance 1621 ml Intake Oral 460 ml IV Total 624 ml TPN/PPN 659 ml Lipid 578 ml Output Urine Total 700 ml # Bowel Movements 1 Physical Exam CONSTITUTIONAL/GENERAL: This is a thin, elderly female resting in bed in no acute distress. TUBES/LINES/DRAINS: PICC line to left upper arm, nasal cannula. SKIN: No jaundice, rashes, or lesions. Large areas of ecchymoses on upper and lower extremities. Skin tear to left outer lower leg. Skin temperature appropriate. Not diaphoretic. HEAD: Atraumatic. Normocephalic. EYES: Pupils equal and round and reactive. Extraocular motions intact. No scleral icterus. No injection or drainage. ENT: Hearing grossly normal. Nose without bleeding or purulent drainage. NECK: Trachea midline. Supple, nontender. CARDIOVASCULAR: Regular rate and rhythm. Peripheral pulses symmetric. RESPIRATORY/CHEST: Symmetric, unlabored respirations. Clear to auscultation, diminished. Breath sounds equal bilaterally. GASTROINTESTINAL: Abdomen soft, non-tender, nondistended. No guarding. Bowel sounds present. GENITOURINARY: Without palpable bladder distension. MUSCULOSKELETAL: Extremities without clubbing, cyanosis, or edema. NEUROLOGICAL: Awake and alert. Motor and sensory grossly within normal limits. Follows commands. Cognitively sharp. Moves all extremities. PSYCHIATRIC: No obvious anxiety/depression. Pleasant and cooperative. . (Montserrat Cifuentes) Diagnostic Tests Laboratory Laboratory Tests Test 10/11/16 10/12/16 08:22 07:12 White Blood Count 9.1 TH/MM3 (4.0-11.0) Red Blood Count 4.51 MIL/MM3 (4.00-5.30) Hemoglobin 13.0 GM/DL (11.6-15.3) Hematocrit 41.8 % (35.0-46.0) Mean Corpuscular Volume 92.7 FL (80.0-100.0) Mean Corpuscular Hemoglobin 28.9 PG (27.0-34.0) Mean Corpuscular Hemoglobin 31.2 % Concent (32.0-36.0) Red Cell Distribution Width 14.4 % (11.6-17.2) Platelet Count 226 TH/MM3 (150-450) Mean Platelet Volume 8.8 FL (7.0-11.0) Hematology Comments Sodium Level 135 MEQ/L 140 MEQ/L (136-145) (136-145) Potassium Level 4.2 MEQ/L 4.3 MEQ/L (3.5-5.1) (3.5-5.1) Chloride Level 103 MEQ/L 105 MEQ/L (98-107) (98-107) Carbon Dioxide Level 25.6 MEQ/L 26.8 MEQ/L (21.0-32.0) (21.0-32.0) Anion Gap 6 MEQ/L (5-15) 8 MEQ/L (5-15) Blood Urea Nitrogen 17 MG/DL (7-18) 19 MG/DL (7-18) Creatinine 0.48 MG/DL 0.41 MG/DL (0.50-1.00) (0.50-1.00) Estimat Glomerular Filtration 123 ML/MIN 148 ML/MIN Rate (>89) (>89) Random Glucose 108 MG/DL 119 MG/DL (74-106) (74-106) Calcium Level 8.5 MG/DL 8.6 MG/DL (8.5-10.1) (8.5-10.1) (Montserrat Cifuentes) Result Diagram: 10/11/16 0822 10/12/16 0712 Procedures * 09/30/16 -Right thoracoscopic exploration to drain pleural effusion, pleural biopsy, talc pleuradesis * 10/05/16 -EGD with biopsy . (Montserrat Cifuentes) Assessment and Plan Disease Oriented Problem List: (1) Pleural effusion Comment: Status post pleurodesis (2) Partial small bowel obstruction (3) Metastatic lung cancer (metastasis from lung to other site) Symptom Scale: (1) Nausea & vomiting 0-10 Scale: 0 Comment: Secondary to SBO. Appears to be resolving. NG tube discontinued, currently tolerating clear liquid diet. (2) Shortness of breath 0-10 Scale: 0 Comment: Secondary to burden of disease. Currently tolerating O2 via nasal cannula at 2L. (3) Debility 0-10 Scale: Unable to quantify Comment: Secondary to burden of disease and prolonged hospitalization. Currently participating with PT. Pertinent Non-Medical Issues Psychosocial: Recently . Has 2 children. Spiritual: [employer]e rashaun. Legal: Pending copy of living will. Ethical issues impacting care: Pending copy of living will. . Important Contacts Patient's son Flakito -pending number Patient's son Riki . Prognosis Mrs. 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 Patient has been doing well on systemic therapy until recently when she presented with pleural effusion. Patient underwent right thorascopic exploration to drain pleural effusion and pleurodesis. Patient's clinical course complicated by small bowel obstruction which appears to be resolving at this time. Patient is at high risk for continued decline, additional complications and . Patient receptive to continuation of systemic therapy , however is declining any invasive procedures such as surgical interventions an NG tube at this time. Patient's quality of life most important to her that prolongation of survival, this appears appropriate given her advanced age and progression of illness. . Code Status: No Code Plan * CODE STATUS: No code. DNR/DNI. * Palliative care assisted in completion of community DNR. Copy sent to HIM for scanning, original placed in chart. * MEDICAL DECISION-MAKING: Patient participating in medical decision-making. However, relying on both of her children for support. Patient reports that advance directives have been completed, patient recently . She would like for both of her children to make healthcare decisions in the event she is incapacitated. Patient declined completing healthcare surrogate documentation this visit, as she believes that healthcare designation has been previously completed naming both of her children. Patient to provide copy of living will. As per [place] law, both of her children would serve as HCP. Palliative care recommends shared decision making with her children. * GOALS OF CARE: Patient electing to continue conservative management short of NO code, NO surgical interventions, NO invasive procedures and NO rehospitalization. Patient currently considering comfort-care with hospice. Met with patient today, she verbalized being "ready" for comfort-care with hospice secondary to prolonged hospitalization, acute complications and profound debility. Patient would like to have informative meeting with hospice. Referral has been made. * SYMPTOMS: = Shortness of breath: Secondary of burden of disease and prolonged hospitalization. Currently tolerating O2 via nasal cannula at 2 L. Reports respiratory status has much improved since drainage of pleural effusion and pleurodesis. = Nausea/vomiting: Secondary to burden of disease/SBO. COPD appears to be resolving, patient currently tolerating clear liquid diet. = Debility: Secondary to burden of disease and prolonged hospitalization. Patient currently participating with PT. * Case discussed with Dr. Guzman and environmental air specialist Rhonda. * Palliative care contact information has been provided. * Palliative care will continue to follow-up as needed for further clarifications of goals of care as patient's clinical course evolves. . (Montserrat Cifuentes) Time Spent Total Floor Time (mins): 39 (Total time to include review of medical records, physical exam, goals of care conversation with patient, assistance with completion of community DNR, and case discussion with environmental air specialist.) >50% Counseling/Coord of Care: Yes (Montserrat Cifuentes) Collaborating MD Comments To help prompt me to consider important information that might be impacting today's encounter and assessment, information from prior notes written by myself or my colleagues may have been "brought forward" into today's note. My signature on this note, however, is an attestation that I personally performed the exam, history, and/or decision-making noted today, and, unless otherwise indicated, the interactions with patient, family, and staff as well as the review of records all occurred today. I also attest that the listed assessment and stated plan reflect my best clinical judgment today based on the combination of historical information, prior notes, and today's exam/ interactions. When time spent is documented, it refers only to time spent today by the signer, or if indicated, combined time spent today by collaborating physician/nurse practitioner. (Montserrat Cifuentes) Collaborating MD Comments . Chart reviewed. Case discussed with palliative care COMMODITIES REQUIREMENTS ANALYST. Above COMMODITIES REQUIREMENTS ANALYST note reviewed and I concur. . (Misael Eli MD) Montserrat Cifuentes October 13, 2016 12:48 Misael Eli MD October 18, 2016 16:37
--- NOTE | 2016-10-13 12:50 | HHI.PR ---
Subjective Subjective Notes Resting in bed Drink too much Pepsi this morning and had a small bout of vomiting Emotional about her 's which is today in [place] ---her sister and dance entertainer are coming to be with her today at 2PM for prayer Objective Vitals/I&O Vital Signs Date Time Temp Pulse Resp B/P Pulse Ox O2 Delivery O2 Flow Rate FiO2 10/13/16 08:00 97.4 107 20 167/73 93 10/13/16 04:00 Nasal Cannula 3.00 Labs Laboratory Tests Test 10/13/16 12:25 White Blood Count 20.9 Red Blood Count 4.10 Hemoglobin 11.9 Hematocrit 36.8 Mean Corpuscular Volume 89.7 Mean Corpuscular Hemoglobin 28.9 Mean Corpuscular Hemoglobin 32.2 Concent Red Cell Distribution Width 14.0 Platelet Count 325 Mean Platelet Volume 8.5 Neutrophils (%) (Auto) 94.7 Lymphocytes (%) (Auto) 1.7 Monocytes (%) (Auto) 2.7 Eosinophils (%) (Auto) 0.8 Basophils (%) (Auto) 0.1 Neutrophils # (Auto) 19.8 Lymphocytes # (Auto) 0.3 Monocytes # (Auto) 0.6 Eosinophils # (Auto) 0.2 Basophils # (Auto) 0.0 CBC Comment AUTO DIFF Differential Comment Hematology Comments Cardiovascular: Regular Lungs: Clear Abdomen: Non-distended, Non-tender Extremities: No edema Narrative Exam PICC in place with TPN A/P Assessment and Plan 86 year old female with high grade small bowel obstruction -Tolerated sips of clear liquids ---instructed to avoid drinking large amount of liquids at this time; will need to advance diet slowly -Once tolerating adequate calories ---wean TPN -May require calorie count in the next few days -Continue TPN -Discussed with Dr. Sharma -Per orders ---it appears that she an inquired about Hospice Care Attending Note - Dr. Sharma Tolerating liquids Abdomen soft The exam, history, and the medical decision-making described in the above note were completed with the assistance of the mid-level provider. I reviewed and agree with the findings presented. I attest that I had a [id number] encounter with the patient on the same day, and personally performed and documented my assessment and findings in the medical record. Ca Posada October 13, 2016 12:50 Abelardo Sharma MD October 13, 2016 17:23
[2016-10-13 12:55] LABS: BICARBONATE 24.4 MEQ/L (21.0-32.0); POTASSIUM 4.5 MEQ/L (3.5-5.1)
[2016-10-13] MEDS: DEXT 5%-NACL 0.9% 1000 ML INJ 1,000 ML IV SCH (13:42)
--- NOTE | 2016-10-13 14:28 | HHI.PR ---
Subjective Remarks Patient had a small bout of vomiting this am but denies abdominal pain denies fevers or chills wbc elevated at 20k c/o cough Objective Vitals Vital Signs Date Time Temp Pulse Resp B/P Pulse Ox O2 Delivery O2 Flow Rate FiO2 10/13/16 08:00 97.4 107 20 167/73 93 10/13/16 07:15 Nasal Cannula 3.00 10/13/16 04:00 Nasal Cannula 3.00 10/13/16 04:00 97.6 85 20 110/53 99 10/13/16 00:00 Nasal Cannula 3.00 10/13/16 00:00 98.0 87 20 102/60 96 10/12/16 20:02 97.5 94 18 122/59 98 10/12/16 20:00 103 10/12/16 20:00 Nasal Cannula 3.00 10/12/16 19:09 98 Nasal Cannula 2.00 10/12/16 16:02 97.4 99 18 123/58 98 10/12/16 15:00 Nasal Cannula 3.00 I/O 10/12/16 10/12/16 10/12/16 10/13/16 10/13/16 10/13/16 07:00 15:00 23:00 07:00 15:00 23:00 Intake Total 896 ml 1406 ml 2210 ml 1237 ml Output Total 850 ml 820 ml 300 ml 400 ml Balance 46 ml 586 ml 1910 ml 837 ml Intake Oral 280 ml 240 ml 220 ml IV Total 302 ml 1126 ml 1407 ml 343 ml TPN/PPN 524 ml 66 ml 593 ml Lipid 70 ml 497 ml 81 ml Output Urine Total 850 ml 820 ml 300 ml 400 ml # Voids 3 # Bowel Movements 0 3 1 0 Result Diagram: 10/13/16 1225 10/13/16 1225 Imaging Last Impressions Chest X-Ray 10/13/16 0000 Signed Impressions: Service Date/Time: September 12:11 - CONCLUSION: Stable chest x-ray with right pleural effusion with associated consolidation and atelectasis at the right lung base. There is mild atelectasis versus consolidation at the left lung base. José Miguel Mcgovern MD Lower Extremity Ultrasound 10/10/16 0000 Signed Impressions: Service Date/Time: Monday, October 10, 2016 22:53 - CONCLUSION: Small nonocclusive thrombus within right superficial femoral vein most likely chronic. Annette Bonds MD Abdomen/Pelvis CT 10/09/16 0000 Signed Impressions: Service Date/Time: Sunday, October 09, 2016 10:08 - CONCLUSION: 1. Right lung base mass, loculated effusion and bilateral consolidation again seen. 2. Dilated loops of small intestine are noted, and there is contrast within the large bowel, findings suggest a partial small bowel obstruction, an ileus is a consideration but given a decompressed large bowel suspect the former. Onur Espinoza MD Small Bowel X-Ray 10/07/16 0000 Signed Impressions: Service Date/Time: Friday, October 07, 2016 10:09 - CONCLUSION: Small bowel obstruction at the level of the distal ileum. Patient refused spot images. Markedly prolonged small bowel transit time. José Miguel Lira MD Abdomen X-Ray 10/03/16 0000 Signed Impressions: Service Date/Time: Monday, October 03, 2016 19:45 - CONCLUSION: No obstruction. Renan Gutierres MD Objective Remarks GENERAL: No acute distress. coughing frequently. SKIN: Ecchymosis on four extremities. HEAD: Normocephalic and atraumatic. EYES: No injection or drainage. ENT: No nasal drainage noted. NECK: Supple CARDIOVASCULAR: Regular rate and rhythm RESPIRATORY: rhonchi on right lower lung field. The rest is clear to auscultation. GASTROINTESTINAL: Abdomen soft, non-tender, non distended. Bowel sounds present but sluggish. NEUROLOGICAL: Awake and alert. Motor and sensory grossly within normal limits. Normal speech. Procedures sp VATS, pleurodesis sp EGD Medications and IVs Current Medications Medications (Trade) Dose Ordered Sig/Ariella Route Start Time Stop Time Status Last Admin (Dulcolax Supp) 10 mg DAILY PRN RECTAL 09/29/16 17:15 10/02/16 17:26 (Narcan Inj) 0.4 mg UNSCH PRN IV 09/29/16 17:15 (Ambien) 5 mg HS PRN PO 09/29/16 21:00 10/13/16 00:19 (NS Flush) 2 ml BID IV FLUSH 09/30/16 21:00 10/12/16 21:12 (NS Flush) 2 ml UNSCH PRN IV FLUSH 09/30/16 09:15 (Zofran Inj) 4 mg Q6H PRN IV PUSH 09/30/16 09:15 10/13/16 08:21 (Surfak) 240 mg HS PO 09/30/16 21:00 10/12/16 21:10 (Milk Of Magnesia Liq) 30 ml DAILY PRN PO 09/30/16 09:15 10/01/16 08:07 (Tylenol) 650 mg Q4H PRN PO 09/30/16 09:15 09/30/16 17:58 (NovoLOG SUPPLEMENTAL SCALE) Q6HR SQ 09/30/16 12:00 09/30/16 23:25 (D50w (Vial) Inj) 25 ml UNSCH PRN IV PUSH 09/30/16 09:15 (Glucagon Inj) 1 mg UNSCH PRN IV 09/30/16 09:15 (Glycerin Adult Supp) 2 gm DAILY PRN RECTAL 10/01/16 09:30 (Fleets Enema (Adult)) 133 ml UNSCH PRN RECTAL 10/01/16 09:30 (Ultram) 50 mg Q8H PRN PO 10/03/16 09:45 10/13/16 00:19 (Protonix Inj) 40 mg Q24H IV PUSH 10/03/16 15:00 10/12/16 17:16 Sucralfate 1 gm 1 gm ACHS PO 10/03/16 16:00 10/13/16 11:00 Multivitamins 10 ml/Folic Acid 1 mg/Amino Acids/ Electrolytes/ Dextrose 2,010.2 ml @ 75 mls/hr Q24H IV 10/05/16 20:00 10/12/16 21:17 (Liposyn Iii 20% Inj) 250 ml @ 10 mls/hr Q24H IV 10/05/16 20:00 10/12/16 21:17 (Chloraseptic [place]) 2 spray Q2H PRN OROPHARYNG 10/06/16 15:45 (Refresh Tears 0.5% Opth Soln) 1 drop Q6H PRN EACH EYE 10/08/16 05:15 10/08/16 21:06 (Cepacol Extra Sriram (Sugar Free)) 1 lozenge Q2H PRN BUCCAL 10/10/16 14:00 10/13/16 05:36 Enoxaparin Sodium 50 mg 50 mg Q24H SQ 10/12/16 09:00 10/13/16 09:37 Dextrose/Sodium Chloride 1,000 ml @ 42 mls/hr [id number] IV 10/11/16 15:15 10/13/16 13:42 Piperacillin Sod/ Tazobactam Sod 100 ml @ 200 mls/hr Q8H IV 10/13/16 15:00 Vancomycin HCl 1000 mg/Sodium Chloride 250 ml @ 250 mls/hr ONCE ONCE IV 10/13/16 14:30 10/13/16 15:29 UNV (Vancomycin Consult Pharmacy) 0 ml @ 0 mls/hr UNSCH OTHER 10/13/16 14:30 Urinary Catheter: No Vascular Central Line Catheter: No A/P Problem List: (1) Sepsis ICD Code: A41.9 Status: Acute Plan: Patient with new persistent cough. CXR ordered and reviewed by me and it shows a worsening infiltrate in the right lower lung field. WBC increased to 20 K, patient tachycardic. Will start the patient on IV Vancomycin and IV Zosyn to cover for Aspiration pna and HCAP, check blood and sputum cultures. (2) PNA (pneumonia) ICD Code: J18.9 Status: Acute Plan: suspect aspiration pna due to recent bouts of nausea and vomiting. HCAP also possible. Will place patient on IV antibiotics as above. We'll give supplemental oxygen to keep oxygen saturation more than 92%. Check sputum culture. (3) Leukocytosis ICD Code: D72.829 Status: Acute Plan: Likely due to sepsis, secondary to pneumonia. Continue to monitor CBC with differential. (4) Nausea & vomiting ICD Code: R11.2 Status: Acute (5) Pleural effusion ICD Code: J90 Status: Resolved (6) Metastatic lung cancer (metastasis from lung to other site) ICD Code: C34.90 Status: Acute (7) UTI (urinary tract infection) ICD Code: N39.0 Status: Resolved (8) Partial small bowel obstruction ICD Code: K56.69 Status: Acute (9) Bilateral lower extremity pain ICD Code: M79.604 Status: Resolved (10) Epigastric pain ICD Code: R10.13 Status: Resolved Assessment and Plan (1) Nausea & vomiting Plan: Abdomen and pelvis CT obtained on 10/04/16 showed abnormal bowel gas pattern concern for distal small bowel obstruction. Masslike area of soft tissue in the right lower lobe likely representing the patient's known tumor. Loculated right effusion. Consolidation in both lung bases. Her diverticulosis. Possible ileus. Patient status post EGD on 10/05/16 which showed esophagus appeared normal, there was a large amount of previous liquid which was aspirated completely. Mild erythema in the gastric antrum, status post biopsy, the pylorus was widely open the duodenum was normal without any evidence of ulceration or obstruction. Small amount of gastric output. Mildly distended. Continue Protonix, Carafate. PPN. 10/10 GI consulted - appreciate recommendations. Continue PPI, carafate. Continue Zofran as needed. NG tube removed on 10/09. Gen. surgery consulted, general surgery diagnosed the patient with high-grade partial small bowel obstruction. NG tube discontinued today but patient still nothing by mouth. Advance diet as per general surgery/GI recommendations. 10/12 Continue on clear liquid diet as per GS, continue TPN. Advance diet as per GS recommendations. Taper TPN as per GS. 10/13 Patient had episode of vomiting today. Continue zofran. (2) Pleural effusion Plan: sp VATS and pleurodesis. (3) Metastatic lung cancer (metastasis from lung to other site) Plan: Oncology following. Would like to continue treatment until T790m mutation resulted, if this is present, there is as 60% probability that this will get better. 10/10 Pathology negative for T790M mutation. She may be some benefit for gefitinib as she progressed on erlotinib as per oncology. (4) UTI (urinary tract infection) Plan: sp treatment with Rocephin IV. (5) Partial small bowel obstruction Plan: fu GI recommendations. GS consulted. Continue NG tube which has been clamped. C diff PCR negative.Ng tube output decreased and NG tube removed on 10/10. (6) Bilateral lower extremity pain Plan: Shows small nonocclusive thrombus within the right superficial femoral vein. This is a right chronic DVT. Patient started on intermediate subcutaneous Lovenox dose at 1 mg/kg/day as per hematology. Monitor for bleeding. (7) Epigastric pain Likely peptic ulcer disease versus gastritis. Continue PPI and Carafate. GI following. Epigastric pain resolved. Appreciate palliative care assistance. Patient is DNR. Discussed the case with pallitive care, patient leaning towards comfort measures - hospice has been consulted. Family meeting awaiting. Gi proph: PPI DVT Proph: lovenos SQ Discharge Planning Continue to monitor in the medical floor. Problem Qualifiers (1) PNA (pneumonia): Qualified Code: J69.0 - Aspiration pneumonia of right lower lobe due to gastric secretions (2) Nausea & vomiting: (3) Metastatic lung cancer (metastasis from lung to other site): Qualified Code: C34.91 - Metastatic lung cancer (metastasis from lung to other site), right Freddie Tyson MD October 13, 2016 14:28
[2016-10-13] MEDS ORDERED: Vancomycin Consult Pharmacy 1 EA OTHER SCH (14:30)
[2016-10-13] MEDS ORDERED: VANCOMYCIN INJ 1,000 MG in SODIUM CHLOR 0.9% 250 ML INJ 250 ML IV SCH (15:00)
[2016-10-13] MEDS: PIPERACIL-TAZO 4.5 GM PREMIX 100 ML IV SCH ×2 (15:29→21:42)
[2016-10-13] MEDS: PANTOPRAZOLE SODIUM 40 MG VIAL IV PUSH SCH (15:29)
[2016-10-13] MEDS: VANCOMYCIN INJ 1,000 MG in SODIUM CHLOR 0.9% 250 ML INJ 250 ML IV SCH (16:23)
[2016-10-13] MEDS: FAT EMULSION 20% INJ 250 ML (@10 mls/hr) IV SCH (21:17)
[2016-10-13] MEDS: CLINIMIX E 4.25/5 2000 mL- >42 mls/hr IV SCH ×3 (21:17)
[2016-10-13] MEDS: DOCUSATE CALCIUM 240 MG CAP PO SCH (21:18)
[2016-10-14] VITALS (8 sets, daily range): BP systolic 102–125; BP diastolic 52–58; PULSE 84–95; RESP 18–20; TEMP 97.4–98.2; O2SAT 94–98
[2016-10-14] MEDS: INSULIN ASPART SUPPLEMENTAL SCALE SQ SCH ×5 (06:00→22:38)
[2016-10-14] MEDS: PIPERACIL-TAZO 4.5 GM PREMIX 100 ML IV SCH ×3 (06:16→22:39)
[2016-10-14] MEDS: SUCRALFATE 1 GM/10 ML CUP PO SCH ×4 (06:16→22:36)
[2016-10-14 06:54] LABS: AUTOMATED NEUTROPHIL # 13.5 TH/MM3 (1.8-7.7); BASOPHIL % 0.3 % (0.0-2.0); EOSINOPHIL # 0.4 TH/MM3 (0-0.4); EOSINOPHIL % 2.6 % (0.0-4.0); HEMATOCRIT 28.6 % (35.0-46.0); HEMO FLAGS DIFF FINAL; LYMPH % 5.2 % (9.0-44.0); LYMPHOCYTE # 0.8 TH/MM3 (1.0-4.8); MEAN CORPUSCULAR HEMOGLOBIN 29.2 PG (27.0-34.0); MEAN CORPUSCULAR HGB CONC 32.4 % (32.0-36.0); MONO % 6.3 % (0.0-8.0); NEUT % 85.6 % (16.0-70.0); PLATELET COUNT 305 TH/MM3 (150-450); RED BLOOD COUNT 3.18 MIL/MM3 (4.00-5.30); RED CELL DISTRIBUTION WIDTH 13.7 % (11.6-17.2); WHITE BLOOD COUNT 15.8 TH/MM3 (4.0-11.0)
[2016-10-14 07:02] LABS: ALT (GPT) 12 U/L (10-53); ANION GAP 5 MEQ/L (5-15); AST (GOT) 13 U/L (15-37); BICARBONATE 27.3 MEQ/L (21.0-32.0); BLOOD UREA NITROGEN 20 MG/DL (7-18); CHLORIDE 108 MEQ/L (98-107); GLOMERULAR FILTRATION RATE 129 ML/MIN (>89); SODIUM (NA) 140 MEQ/L (136-145)
[2016-10-14 07:05] LABS: ALKALINE PHOSPHATASE 62 U/L (45-117); TOTAL BILIRUBIN ADULT 0.5 MG/DL (0.2-1.0)
[2016-10-14] MEDS: RESP: BUDESONIDE 0.5 MG/2 ML NEB NEB SCH ×2 (08:53→20:00)
--- NOTE | 2016-10-14 08:54 | PD.PN.STU ---
Subjective Remarks cough improved today denies n/v able to swallow antonio payton without issue, has not had breakfast yet denies SOB, CP would like to walk more Objective Vitals GENERAL: Elderly lady who appears stated age, frail, no acute distress, resting in bed. Alert/awake/oriented x3 SKIN: Ecchymosis on four extremities. HEAD: Normocephalic and atraumatic. EYES: No injection or drainage. ENT: No nasal drainage noted. NECK: Trachea midline. CARDIOVASCULAR: Regular rate and rhythm RESPIRATORY: No accessory muscle use. Decreased breath sounds bilaterally. Rhonchi in right lower lung. GASTROINTESTINAL: Abdomen soft, non-tender, non distended. Bowel sounds present. NEUROLOGICAL: Motor and sensory grossly within normal limits. Normal speech. Vital Signs Date Time Temp Pulse Resp B/P Pulse Ox O2 Delivery O2 Flow Rate FiO2 10/14/16 04:00 98.1 87 18 119/57 97 10/14/16 00:00 98.2 92 102/52 97 10/13/16 21:09 96 Nasal Cannula 3.00 10/13/16 21:00 Nasal Cannula 3.00 10/13/16 20:14 86 10/13/16 20:00 98.7 98 20 106/50 95 10/13/16 16:00 97.9 102 20 109/54 92 10/13/16 15:37 Nasal Cannula 3.00 10/13/16 12:00 98.7 112 20 113/56 94 10/13/16 11:00 Nasal Cannula 3.00 I/O 10/13/16 10/13/16 10/13/16 10/14/16 10/14/16 10/14/16 07:00 15:00 23:00 07:00 15:00 23:00 Intake Total 1237 ml 240 ml 1688 ml 1527 ml Output Total 400 ml 450 ml 425 ml 400 ml Balance 837 ml -210 ml 1263 ml 1127 ml Intake Oral 220 ml 240 ml 0 ml 400 ml IV Total 343 ml 1067 ml 446 ml TPN/PPN 593 ml 550 ml 606 ml Lipid 81 ml 71 ml 75 ml Output Urine Total 400 ml 450 ml 425 ml 400 ml # Bowel Movements 0 0 0 1 Result Diagram: 10/14/1620 10/14/16 0620 A/P Assessment and Plan (1) Sepsis ICD Code: A41.9 Status: Acute Plan: Patient with new persistent cough. CXR ordered and reviewed by me and it shows a worsening infiltrate in the right lower lung field. WBC increased to 20 K, patient tachycardic. Will start the patient on IV Vancomycin and IV Zosyn to cover for Aspiration pna and HCAP, check blood and sputum cultures. 10/14 Cough improving. WBC improved from 20.9 to 15.8. Cultures pending. Vitals stable. (2) PNA (pneumonia) ICD Code: J18.9 Status: Acute Plan: suspect aspiration pna due to recent bouts of nausea and vomiting. HCAP also possible. Will place patient on IV antibiotics as above. We'll give supplemental oxygen to keep oxygen saturation more than 92%. Check sputum culture. 10/14 See above. Vitals stable. (3) Leukocytosis ICD Code: D72.829 Status: Acute Plan: Likely due to sepsis, secondary to pneumonia. Continue to monitor CBC with differential. Improved from 20.9 to 15.8 (1) Nausea & vomiting Plan: Abdomen and pelvis CT obtained on 10/04/16 showed abnormal bowel gas pattern concern for distal small bowel obstruction. Masslike area of soft tissue in the right lower lobe likely representing the patient's known tumor. Loculated right effusion. Consolidation in both lung bases. Her diverticulosis. Possible ileus. Patient status post EGD on 10/05/16 which showed esophagus appeared normal, there was a large amount of previous liquid which was aspirated completely. Mild erythema in the gastric antrum, status post biopsy, the pylorus was widely open the duodenum was normal without any evidence of ulceration or obstruction. Small amount of gastric output. Mildly distended. Continue Protonix, Carafate. PPN. 10/10 GI consulted - appreciate recommendations. Continue PPI, carafate. Continue Zofran as needed. NG tube removed on 10/09. Gen. surgery consulted, general surgery diagnosed the patient with high-grade partial small bowel obstruction. NG tube discontinued today but patient still nothing by mouth. Advance diet as per general surgery/GI recommendations. 10/11 Patient started on sips of clear fluid as per GS, continue TPN. 10/12 Tolerating liquid diet well. Mostly normal BM. 10/13 Continue liquid diet (2) Pleural effusion Plan: sp VATS and pleurodesis. (3) Metastatic lung cancer (metastasis from lung to other site) Plan: Oncology following. Would like to continue treatment until T790m mutation resulted, if this is present, there is as 60% probability that this will get better. 10/10 Pathology negative for T790M mutation. She may be some benefit for gefitinib as she progressed on erlotinib as per oncology. (4) UTI (urinary tract infection) Plan: sp treatment with Rocephin IV. (5) Partial small bowel obstruction Plan: fu GI recommendations. GS consulted. Continue NG tube which has been clamped. C diff PCR negative.Ng tube output decreased and NG tube removed on 10/10. (6) Bilateral lower extremity pain Plan: check venous Doppler of lower extremities --> ordered and pending. 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 Given Lovenox injection Jourdan Davis October 14, 2016 08:54
[2016-10-14] MEDS: ENOXAPARIN SODIUM 60 MG/0.6 ML SYRINGE SQ SCH (10:02)
[2016-10-14] MEDS: SODIUM CHLORIDE 0.9% FLUSH 10 ML FLUSH IV FLUSH SCH ×2 (10:02→22:37)
--- NOTE | 2016-10-14 10:43 | PD.ONC.PN ---
Subjective Subjective Remarks Afebrile overnight. Patient frustrated with being int [facility], having to wait for help to go to the bathroom. Husbands was yesterday. She watched over the internet. + cough. No bleeding. Objective Data Date Time Temp Pulse Resp B/P Pulse Ox O2 Delivery O2 Flow Rate FiO2 10/14/16 08:55 94 Nasal Cannula 3.00 10/14/16 08:00 97.7 86 20 103/54 98 10/14/16 04:00 98.1 87 18 119/57 97 10/14/16 00:00 98.2 92 102/52 97 10/13/16 21:09 96 Nasal Cannula 3.00 10/13/16 21:00 Nasal Cannula 3.00 10/13/16 20:14 86 10/13/16 20:00 98.7 98 20 106/50 95 10/13/16 16:00 97.9 102 20 109/54 92 10/13/16 15:37 Nasal Cannula 3.00 10/13/16 12:00 98.7 112 20 113/56 94 10/13/16 11:00 Nasal Cannula 3.00 10/14/16 10/14/16 10/14/16 07:00 15:00 23:00 Intake Total 1527 ml Output Total 400 ml Balance 1127 ml Result Diagram: 10/14/1661910/14/16619 Laboratory Results Laboratory Tests Test 10/13/16 10/14/16 12:25 06:20 White Blood Count 20.9 TH/MM3 15.8 TH/MM3 Red Blood Count 4.10 MIL/MM3 3.18 MIL/MM3 Hemoglobin 11.9 GM/DL 9.3 GM/DL Hematocrit 36.8 % 28.6 % Mean Corpuscular Volume 89.7 FL 90.0 FL Mean Corpuscular Hemoglobin 28.9 PG 29.2 PG Mean Corpuscular Hemoglobin 32.2 % 32.4 % Concent Red Cell Distribution Width 14.0 % 13.7 % Platelet Count 325 TH/MM3 305 TH/MM3 Mean Platelet Volume 8.5 FL 8.8 FL Neutrophils (%) (Auto) 94.7 % 85.6 % Lymphocytes (%) (Auto) 1.7 % 5.2 % Monocytes (%) (Auto) 2.7 % 6.3 % Eosinophils (%) (Auto) 0.8 % 2.6 % Basophils (%) (Auto) 0.1 % 0.3 % Neutrophils # (Auto) 19.8 TH/MM3 13.5 TH/MM3 Lymphocytes # (Auto) 0.3 TH/MM3 0.8 TH/MM3 Monocytes # (Auto) 0.6 TH/MM3 1.0 TH/MM3 Eosinophils # (Auto) 0.2 TH/MM3 0.4 TH/MM3 Basophils # (Auto) 0.0 TH/MM3 0.0 TH/MM3 CBC Comment AUTO DIFF DIFF FINAL Differential Comment Hematology Comments Sodium Level 134 MEQ/L 140 MEQ/L Potassium Level 4.5 MEQ/L 4.0 MEQ/L Chloride Level 103 MEQ/L 108 MEQ/L Carbon Dioxide Level 24.4 MEQ/L 27.3 MEQ/L Anion Gap 7 MEQ/L 5 MEQ/L Blood Urea Nitrogen 25 MG/DL 20 MG/DL Creatinine 0.42 MG/DL 0.46 MG/DL Estimat Glomerular Filtration 144 ML/MIN 129 ML/MIN Rate Random Glucose 107 MG/DL 112 MG/DL Calcium Level 8.2 MG/DL 8.1 MG/DL Total Bilirubin 0.5 MG/DL Aspartate Amino Transf 13 U/L (AST/SGOT) Alanine Aminotransferase 12 U/L (ALT/SGPT) Alkaline Phosphatase 62 U/L Total Protein 4.6 GM/DL Albumin 1.5 GM/DL Culture Results Microbiology Date/Time Procedure Status Source Growth 10/13/16 16:50 Aerobic Blood Culture Received Blood Peripheral Pending 10/13/16 16:50 Anaerobic Blood Culture Received Blood Peripheral Pending 10/13/16 16:52 Aerobic Blood Culture Received Blood Peripheral Pending 10/13/16 16:52 Anaerobic Blood Culture Received Blood Peripheral Pending Administered Medications Medications (Trade) Dose Ordered Sig/Ariella Route PRN Reason Start Time Stop Time Status Last Admin Dose Admin Bisacodyl (Dulcolax Supp) 10 mg DAILY PRN RECTAL CONSTIPATION 09/29/16 17:15 10/02/16 17:26 Zolpidem Tartrate (Ambien) 5 mg HS PRN PO INSOMNIA/MAY REPEAT X1 DOSE 09/29/16 21:00 10/13/16 00:19 Sodium Chloride (NS Flush) 2 ml BID IV FLUSH 09/30/16 21:00 10/14/16 10:02 Ondansetron HCl (Zofran Inj) 4 mg Q6H PRN IV PUSH NAUSEA OR VOMITING 09/30/16 09:15 10/13/16 08:21 Docusate Calcium (Surfak) 240 mg HS PO 09/30/16 21:00 10/13/16 21:18 Magnesium Hydroxide (Milk Of Magnesia Liq) 30 ml DAILY PRN PO CONSTIPATION 09/30/16 09:15 10/01/16 08:07 Acetaminophen (Tylenol) 650 mg Q4H PRN PO TEMPERATURE > 101 F 09/30/16 09:15 09/30/16 17:58 Insulin Aspart (NovoLOG SUPPLEMENTAL SCALE) Q6HR SQ 09/30/16 12:00 09/30/16 23:25 Tramadol HCl (Ultram) 50 mg Q8H PRN PO PAIN SCALE 4 TO 10 10/03/16 09:45 10/13/16 00:19 Pantoprazole Sodium (Protonix Inj) 40 mg Q24H IV PUSH 10/03/16 15:00 10/13/16 15:29 Sucralfate 1 gm 1 gm ACHS PO 10/03/16 16:00 10/14/16 06:16 Multivitamins 10 ml/Folic Acid 1 mg/Amino Acids/ Electrolytes/ Dextrose 2,010.2 ml @ 75 mls/hr Q24H IV 10/05/16 20:00 10/13/16 21:17 Fat Emulsion Intravenous (Liposyn Iii 20% Inj) 250 ml @ 10 mls/hr Q24H IV 10/05/16 20:00 10/13/16 21:17 Carboxymethylcellulose Sodium (Refresh Tears 0.5% Opth Soln) 1 drop Q6H PRN EACH EYE dry eyes 10/08/16 05:15 10/08/16 21:06 Benzocaine/Menthol (Cepacol Extra Sriram (Sugar Free)) 1 lozenge Q2H PRN BUCCAL SORE THROAT 10/10/16 14:00 10/13/16 05:36 Enoxaparin Sodium 50 mg 50 mg Q24H SQ 10/12/16 09:00 10/14/16 10:02 Dextrose/Sodium Chloride 1,000 ml @ 42 mls/hr [id number] IV 10/11/16 15:15 10/13/16 13:42 Piperacillin Sod/ Tazobactam Sod 100 ml @ 200 mls/hr Q8H IV 10/13/16 15:00 10/14/16 06:16 Vancomycin HCl/ Sodium Chloride (Vancomycin Inj/ NS 250 ml Inj) 250 ml @ 250 mls/hr Q24H IV 10/13/16 16:00 10/13/16 16:23 Objective Remarks GENERAL: Pleasant elderly female, sitting up in chair in nad. SKIN: Warm and dry. HEAD: Normocephalic. EYES: No injection or drainage. NECK: Supple, trachea midline. CARDIOVASCULAR: Regular rate and rhythm RESPIRATORY: Breath sounds equal bilaterally. GASTROINTESTINAL: Abdomen soft. non-tender. EXTREMITIES: No cyanosis NEUROLOGICAL: aox3. normal speech. moving all extremities. 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 Plan 1. monitor CBC 2. continue Lovenox at current dosing 3. supportive care Jaja Felder October 14, 2016 10:43
--- NOTE | 2016-10-14 12:01 | HHI.HCPN ---
Reason for visit a. To assist with evaluation and management of symptoms including: Shortness of breath, nausea on debility. b. To assist medical decision maker(s) with: better understanding of current medical conditions; weighing benefits/burdens of medical treatment options; making medical treatment decisions. . (Montserrat Cifuentes) Subjective/Interval History Palliative care follow-up for emotional support and assist with communication. Patient seen in her room, she was sitting upright recliner chair in no acute distress. Patient reports feeling better than yesterday, continues endorsing productive cough, improving since yesterday. Bringing up yellow phlegm. Reviewed chest x-ray results from 10/13/16 indicating right pleural effusion with associated consolidation and atelectasis. Patient was placed on antibiotics for likely aspiration pneumonia versus hospital-acquired pneumonia. Patient denying nausea, vomiting, or abdominal discomfort at this time. Endorsing exertional dyspnea, currently on O2 via nasal cannula. Reporting tenderness to bilateral lower extremities. Laboratory work Today indicating leukocytosis, trending down WBC 15.8 from 20.9 yesterday. Hgb 9.3, platelet count 305. Sodium 140, potassium 4.0, BUN/creatinine 20/0 point 0.6. Albumin 1.5. Blood culture 10/13/16 no growth in one day thus far. Patient remains afebrile, stable hemodynamically. No family at bedside. Patient tells me that her sons are in route from [place]. Likely to arrive to [place] today. Patient considering comfort care with hospice versus continuation of systemic therapy once acute complications resolved. Patient has requested an informative visit with hospice, hospice to schedule visit once sons are in town. Case discussed with hospice administrator Rhonda. . Family/friend interactions See interval note. . (Montserrat Cifuentes) Advance Directives Living Will: Completed, but not made available Health Care Surrogate: Completed, but not made available Durable Power of Garbage Person: Completed, but not made available (Montserrat Cifuentes) Advance Directive Specifics Health Care Surrogate(s): Patient's is 4 days ago. Patient reports completing living well and designation of healthcare surrogate naming both of her children Flakito and Riki as healthcare surrogate's. Pending copy. . Documented care wishes: Pending copy of living will. . Significant change in goals: No code. DNR/DNI. Continue conservative management short of no code, no invasive procedures, no surgical interventions. . (Montserrat Cifuentes) Objective Vital Signs Date Time Temp Pulse Resp B/P Pulse Ox O2 Delivery O2 Flow Rate FiO2 10/14/16 08:55 94 Nasal Cannula 3.00 10/14/16 08:00 97.7 86 20 103/54 98 10/14/16 04:00 98.1 87 18 119/57 97 10/14/16 00:00 98.2 92 102/52 97 10/13/16 21:09 96 Nasal Cannula 3.00 10/13/16 21:00 Nasal Cannula 3.00 10/13/16 20:14 86 10/13/16 20:00 98.7 98 20 106/50 95 10/13/16 16:00 97.9 102 20 109/54 92 10/13/16 15:37 Nasal Cannula 3.00 10/13/16 12:00 98.7 112 20 113/56 94 Intake & Output 10/14/16 10/14/16 07:00 19:00 Intake Total 2754 ml Output Total 825 ml Balance 1929 ml Intake Oral 400 ml IV Total 1052 ml TPN/PPN 1156 ml Lipid 146 ml Output Urine Total 825 ml # Bowel Movements 1 Physical Exam CONSTITUTIONAL/GENERAL: This is a thin, elderly female sitting up in a recliner chair in no acute distress. TUBES/LINES/DRAINS: PICC line to left upper arm, nasal cannula. SKIN: No jaundice, rashes, or lesions. Large areas of ecchymoses on upper and lower extremities. Skin tear to left outer lower leg. Skin temperature appropriate. Not diaphoretic. HEAD: Atraumatic. Normocephalic. EYES: Pupils equal and round and reactive. Extraocular motions intact. No scleral icterus. No injection or drainage. ENT: Hearing grossly normal. Nose without bleeding or purulent drainage. NECK: Trachea midline. Supple, nontender. CARDIOVASCULAR: Regular rate and rhythm. Peripheral pulses symmetric. RESPIRATORY/CHEST: Symmetric, unlabored respirations. Clear to auscultation, diminished. Breath sounds equal bilaterally. GASTROINTESTINAL: Abdomen soft, non-tender, nondistended. No guarding. Bowel sounds present. GENITOURINARY: Without palpable bladder distension. MUSCULOSKELETAL: Extremities without clubbing, cyanosis. Trace edema to bilateral lower extremities. NEUROLOGICAL: Awake and alert. Motor and sensory grossly within normal limits. Follows commands. Cognitively sharp. Moves all extremities. PSYCHIATRIC: No obvious anxiety/depression. Pleasant and cooperative. . (Montserrat Cifuentes) Diagnostic Tests Laboratory Laboratory Tests Test 10/12/16 10/13/16 10/14/16 07:12 12:25 06:20 Sodium Level 140 MEQ/L 134 MEQ/L 140 MEQ/L (136-145) (136-145) (136-145) Potassium Level 4.3 MEQ/L 4.5 MEQ/L 4.0 MEQ/L (3.5-5.1) (3.5-5.1) (3.5-5.1) Chloride Level 105 MEQ/L 103 MEQ/L 108 MEQ/L (98-107) (98-107) (98-107) Carbon Dioxide Level 26.8 MEQ/L 24.4 MEQ/L 27.3 MEQ/L (21.0-32.0) (21.0-32.0) (21.0-32.0) Anion Gap 8 MEQ/L (5-15) 7 MEQ/L (5-15) 5 MEQ/L (5-15) Blood Urea Nitrogen 19 MG/DL (7-18) 25 MG/DL (7-18) 20 MG/DL (7-18) Creatinine 0.41 MG/DL 0.42 MG/DL 0.46 MG/DL (0.50-1.00) (0.50-1.00) (0.50-1.00) Estimat Glomerular Filtration 148 ML/MIN 144 ML/MIN 129 ML/MIN Rate (>89) (>89) (>89) Random Glucose 119 MG/DL 107 MG/DL 112 MG/DL (74-106) (74-106) (74-106) Calcium Level 8.6 MG/DL 8.2 MG/DL 8.1 MG/DL (8.5-10.1) (8.5-10.1) (8.5-10.1) White Blood Count 20.9 TH/MM3 15.8 TH/MM3 (4.0-11.0) (4.0-11.0) Red Blood Count 4.10 MIL/MM3 3.18 MIL/MM3 (4.00-5.30) (4.00-5.30) Hemoglobin 11.9 GM/DL 9.3 GM/DL (11.6-15.3) (11.6-15.3) Hematocrit 36.8 % 28.6 % (35.0-46.0) (35.0-46.0) Mean Corpuscular Volume 89.7 FL 90.0 FL (80.0-100.0) (80.0-100.0) Mean Corpuscular Hemoglobin 28.9 PG 29.2 PG (27.0-34.0) (27.0-34.0) Mean Corpuscular Hemoglobin 32.2 % 32.4 % Concent (32.0-36.0) (32.0-36.0) Red Cell Distribution Width 14.0 % 13.7 % (11.6-17.2) (11.6-17.2) Platelet Count 325 TH/MM3 305 TH/MM3 (150-450) (150-450) Mean Platelet Volume 8.5 FL 8.8 FL (7.0-11.0) (7.0-11.0) Neutrophils (%) (Auto) 94.7 % 85.6 % (16.0-70.0) (16.0-70.0) Lymphocytes (%) (Auto) 1.7 % 5.2 % (9.0-44.0) (9.0-44.0) Monocytes (%) (Auto) 2.7 % (0.0-8.0) 6.3 % (0.0-8.0) Eosinophils (%) (Auto) 0.8 % (0.0-4.0) 2.6 % (0.0-4.0) Basophils (%) (Auto) 0.1 % (0.0-2.0) 0.3 % (0.0-2.0) Neutrophils # (Auto) 19.8 TH/MM3 13.5 TH/MM3 (1.8-7.7) (1.8-7.7) Lymphocytes # (Auto) 0.3 TH/MM3 0.8 TH/MM3 (1.0-4.8) (1.0-4.8) Monocytes # (Auto) 0.6 TH/MM3 1.0 TH/MM3 (0-0.9) (0-0.9) Eosinophils # (Auto) 0.2 TH/MM3 0.4 TH/MM3 (0-0.4) (0-0.4) Basophils # (Auto) 0.0 TH/MM3 0.0 TH/MM3 (0-0.2) (0-0.2) CBC Comment AUTO DIFF DIFF FINAL Differential Comment Hematology Comments Total Bilirubin 0.5 MG/DL (0.2-1.0) Aspartate Amino Transf 13 U/L (15-37) (AST/SGOT) Alanine Aminotransferase 12 U/L (10-53) (ALT/SGPT) Alkaline Phosphatase 62 U/L (45-117) Total Protein 4.6 GM/DL (6.4-8.2) Albumin 1.5 GM/DL (3.4-5.0) (Montserrat Cifuentes) Result Diagram: 10/14/16 0620 10/14/16 0620 Microbiology Microbiology Date/Time Procedure Status Source Growth 10/13/16 16:50 Aerobic Blood Culture - Preliminary Resulted Blood Peripheral NO GROWTH IN 1 DAY 10/13/16 16:50 Anaerobic Blood Culture - Preliminary Resulted Blood Peripheral NO GROWTH IN 1 DAY 10/13/16 16:52 Aerobic Blood Culture - Preliminary Resulted Blood Peripheral NO GROWTH IN 1 DAY 10/13/16 16:52 Anaerobic Blood Culture - Preliminary Resulted Blood Peripheral NO GROWTH IN 1 DAY Imaging Last 48 hours Impressions Chest X-Ray 10/13/16 0000 Signed Impressions: Service Date/Time: September 12:11 - CONCLUSION: Stable chest x-ray with right pleural effusion with associated consolidation and atelectasis at the right lung base. There is mild atelectasis versus consolidation at the left lung base. José Miguel Mcgovern MD Procedures * 09/30/16 -Right thoracoscopic exploration to drain pleural effusion, pleural biopsy, talc pleuradesis * 10/05/16 -EGD with biopsy . (Montserrat Cifuentes) Assessment and Plan Disease Oriented Problem List: (1) Pleural effusion Comment: Status post pleurodesis (2) Partial small bowel obstruction (3) Metastatic lung cancer (metastasis from lung to other site) (4) PNA (pneumonia) Symptom Scale: (1) Nausea & vomiting 0-10 Scale: 0 Comment: Secondary to SBO. Appears to be resolving. NG tube discontinued, currently tolerating clear liquid diet. (2) Shortness of breath 0-10 Scale: 0 Comment: Secondary to burden of disease/pneumonia. Currently tolerating O2 via nasal cannula at 3L. (3) Debility 0-10 Scale: Unable to quantify Comment: Secondary to burden of disease and prolonged hospitalization. Currently participating with PT. Pertinent Non-Medical Issues Psychosocial: Recently . Has 2 children. Spiritual: [employer] r[employer]un. Legal: Pending copy of living will. Ethical issues impacting care: Pending copy of living will. . Important Contacts Patient's son Flakito -pending number Patient's son Riki . Prognosis Mrs. 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 Patient has been doing well on systemic therapy until recently when she presented with pleural effusion. Patient underwent right thorascopic exploration to drain pleural effusion and pleurodesis. Patient's clinical course complicated by small bowel obstruction which appears to be resolving at this time. Patient is at high risk for continued decline, additional complications and . Patient receptive to continuation of systemic therapy , however is declining any invasive procedures such as surgical interventions an NG tube at this time. Patient's quality of life most important to her that prolongation of survival, this appears appropriate given her advanced age and progression of illness. . Code Status: No Code Plan * CODE STATUS: No code. DNR/DNI. * Community DNR completed. * MEDICAL DECISION-MAKING: Patient participating in medical decision-making. However, relying on both of her children for support. Patient reports that advance directives have been completed, patient recently . She would like for both of her children to make healthcare decisions in the event she is incapacitated. Patient declined completing healthcare surrogate documentation this visit, as she believes that healthcare designation has been previously completed naming both of her children. Patient to provide copy of living will. As per [place] law, both of her children would serve as HCP. Palliative care recommends shared decision making with her children. * GOALS OF CARE: Patient electing to continue conservative management short of NO code, NO surgical interventions, NO invasive procedures and NO rehospitalization. Patient currently considering comfort-care with hospice vs continuation of systemic therapy once acute complications resolved. Patient requesting informative meeting with hospice. Hospice to follow-up with scheduling of meeting once both sons are in town. * SYMPTOMS: = Shortness of breath: Secondary of burden of disease and pneumonia. Being treated with antibiotics. Currently tolerating O2 via nasal cannula at 3 L. =Nausea/vomiting: Secondary to burden of disease/SBO. appears to be resolving, patient currently tolerating clear liquid diet, no nausea or vomiting reported since yesterday. = Debility: Secondary to burden of disease and prolonged hospitalization. Patient currently participating with PT. * Case discussed with hospice administrator Rhonda. * Palliative care contact information has been provided. * Palliative care will continue to follow-up as needed for further clarifications of goals of care as patient's clinical course evolves. . (Montserrat Cifuentes) Time Spent Total Floor Time (mins): 26 (Total time to include review and summarization of medical records, physical exam, goals of care conversation with patient and case discussion with hospice administrator Rhonda.) Face to Face Time (mins): 20 >50% Counseling/Coord of Care: Yes (Montserrat Cifuentes) Attestation To help prompt me to consider important information that might be impacting today's encounter and assessment, information from prior notes written by myself or my colleagues may have been "brought forward" into today's note. My signature on this note, however, is an attestation that I personally performed the exam, history, and/or decision-making noted today, and, unless otherwise indicated, the interactions with patient, family, and staff as well as the review of records all occurred today. I also attest that the listed assessment and stated plan reflect my best clinical judgment today based on the combination of historical information, prior notes, and today's exam/ interactions. When time spent is documented, it refers only to time spent today by the signer, or if indicated, combined time spent today by collaborating physician/nurse practitioner. (Montserrat Cifuentes) Collaborating MD Comments . Chart reviewed. Case discussed with palliative care ASSEMBLER [employer]. Above ASSEMBLER [employer] note reviewed and I concur. . (Misael Eli MD) Montserrat Cifuentes October 14, 2016 12:01 Misael Eli MD October 18, 2016 16:42
--- NOTE | 2016-10-14 15:08 | HHI.PR ---
Subjective Subjective Notes Patient up to chair TERESA Saldana at bedside Request something more than clear liquids Objective Vitals/I&O Vital Signs Date Time Temp Pulse Resp B/P Pulse Ox O2 Delivery O2 Flow Rate FiO2 10/14/16 10:10 89 10/14/16 10:10 Nasal Cannula 3.00 10/14/16 08:55 94 10/14/16 08:00 97.7 20 103/54 Labs Laboratory Tests Test 10/14/16 06:20 White Blood Count 15.8 Red Blood Count 3.18 Hemoglobin 9.3 Hematocrit 28.6 Mean Corpuscular Volume 90.0 Mean Corpuscular Hemoglobin 29.2 Mean Corpuscular Hemoglobin 32.4 Concent Red Cell Distribution Width 13.7 Platelet Count 305 Mean Platelet Volume 8.8 Neutrophils (%) (Auto) 85.6 Lymphocytes (%) (Auto) 5.2 Monocytes (%) (Auto) 6.3 Eosinophils (%) (Auto) 2.6 Basophils (%) (Auto) 0.3 Neutrophils # (Auto) 13.5 Lymphocytes # (Auto) 0.8 Monocytes # (Auto) 1.0 Eosinophils # (Auto) 0.4 Basophils # (Auto) 0.0 CBC Comment DIFF FINAL Differential Comment Sodium Level 140 Potassium Level 4.0 Chloride Level 108 Carbon Dioxide Level 27.3 Anion Gap 5 Blood Urea Nitrogen 20 Creatinine 0.46 Estimat Glomerular Filtration 129 Rate Random Glucose 112 Calcium Level 8.1 Total Bilirubin 0.5 Aspartate Amino Transf 13 (AST/SGOT) Alanine Aminotransferase 12 (ALT/SGPT) Alkaline Phosphatase 62 Total Protein 4.6 Albumin 1.5 Date/Time Procedure Status Source Growth 10/13/16 16:52 Aerobic Blood Culture - Preliminary Resulted Blood Peripheral NO GROWTH IN 1 DAY 10/13/16 16:52 Anaerobic Blood Culture - Preliminary Resulted Blood Peripheral NO GROWTH IN 1 DAY Cardiovascular: Regular Lungs: Clear Abdomen: Non-distended, Non-tender Extremities: No edema Narrative Exam PICC in place with TPN A/P Assessment and Plan 86 year old female with high grade small bowel obstruction -Advance to full liquids ----- can advance diet as tolerated -Once tolerating adequate calories ---wean TPN -May require calorie count in the next few days -Continue TPN -Discussed with Dr. Sharma -Per orders ---it appears that she had inquired about Hospice Care ---she is planning a family meeting for Monday when her two sons are here -Again patient reiterated that she would not want to have any surgical operation -GS will follow peripherally--- please call with questions Attending Note - Dr. Sharma Abdomen soft, mildly tender, nondistended. The exam, history, and the medical decision-making described in the above note were completed with the assistance of the mid-level provider. I reviewed and agree with the findings presented. I attest that I had a [id number] encounter with the patient on the same day, and personally performed and documented my assessment and findings in the medical record. Ca Posada October 14, 2016 15:07 Abelardo Sharma MD Oct 29, 2016 14:39
[2016-10-14] MEDS: DEXT 5%-NACL 0.9% 1000 ML INJ 1,000 ML IV SCH (16:10)
[2016-10-14] MEDS: PANTOPRAZOLE SODIUM 40 MG VIAL IV PUSH SCH (16:11)
[2016-10-14] MEDS: VANCOMYCIN INJ 1,000 MG in SODIUM CHLOR 0.9% 250 ML INJ 250 ML IV SCH (16:12)
--- NOTE | 2016-10-14 21:05 | HHI.PR ---
Subjective Remarks Deferred entry - patient seen earlier at 10:20 am. Patient states that she feels better states that cough is improving denies fevers and chills denies abdominal pain, nausea and vomiting Objective Vitals Vital Signs Date Time Temp Pulse Resp B/P Pulse Ox O2 Delivery O2 Flow Rate FiO2 10/14/16 16:00 97.7 95 20 110/53 96 10/14/16 12:00 97.4 84 20 125/58 98 10/14/16 10:10 89 10/14/16 10:10 Nasal Cannula 3.00 10/14/16 08:55 94 Nasal Cannula 3.00 10/14/16 08:00 97.7 86 20 103/54 98 10/14/16 04:00 98.1 87 18 119/57 97 10/14/16 00:00 98.2 92 102/52 97 10/13/16 21:09 96 Nasal Cannula 3.00 I/O 10/13/16 10/13/16 10/13/16 10/14/16 10/14/16 10/14/16 07:00 15:00 23:00 07:00 15:00 23:00 Intake Total 1237 ml 240 ml 1688 ml 1527 ml 120 ml 700 ml Output Total 400 ml 450 ml 425 ml 400 ml Balance 837 ml -210 ml 1263 ml 1127 ml 120 ml 700 ml Intake Oral 220 ml 240 ml 0 ml 400 ml 120 ml IV Total 343 ml 1067 ml 446 ml 700 ml TPN/PPN 593 ml 550 ml 606 ml Lipid 81 ml 71 ml 75 ml Output Urine Total 400 ml 450 ml 425 ml 400 ml # Voids 3 # Bowel Movements 0 0 0 1 3 Result Diagram: 10/14/16 0620 10/14/16 0620 Imaging Last Impressions Chest X-Ray 10/13/16 0000 Signed Impressions: Service Date/Time: September 12:11 - CONCLUSION: Stable chest x-ray with right pleural effusion with associated consolidation and atelectasis at the right lung base. There is mild atelectasis versus consolidation at the left lung base. José Miguel Mcgovern MD Lower Extremity Ultrasound 10/10/16 0000 Signed Impressions: Service Date/Time: Monday, October 10, 2016 22:53 - CONCLUSION: Small nonocclusive thrombus within right superficial femoral vein most likely chronic. K. Panfilo Shamlou, MD Abdomen/Pelvis CT 10/09/16 0000 Signed Impressions: Service Date/Time: Sunday, October 09, 2016 10:08 - CONCLUSION: 1. Right lung base mass, loculated effusion and bilateral consolidation again seen. 2. Dilated loops of small intestine are noted, and there is contrast within the large bowel, findings suggest a partial small bowel obstruction, an ileus is a consideration but given a decompressed large bowel suspect the former. Onur Espinoza MD Small Bowel X-Ray 10/07/16 0000 Signed Impressions: Service Date/Time: Friday, October 07, 2016 10:09 - CONCLUSION: Small bowel obstruction at the level of the distal ileum. Patient refused spot images. Markedly prolonged small bowel transit time. José Miguel Lira MD Abdomen X-Ray 10/03/16 0000 Signed Impressions: Service Date/Time: Monday, October 03, 2016 19:45 - CONCLUSION: No obstruction. Renan Gutierres MD Objective Remarks GENERAL: No acute distress. coughing frequently. SKIN: Ecchymosis on four extremities. HEAD: Normocephalic and atraumatic. EYES: No injection or drainage. ENT: No nasal drainage noted. NECK: Supple CARDIOVASCULAR: Regular rate and rhythm RESPIRATORY: rhonchi on right lower lung field. The rest is clear to auscultation. GASTROINTESTINAL: Abdomen soft, non-tender, non distended. Bowel sounds present but sluggish. NEUROLOGICAL: Awake and alert. Motor and sensory grossly within normal limits. Normal speech. Procedures sp VATS, pleurodesis sp EGD Medications and IVs Current Medications Medications (Trade) Dose Ordered Sig/Ariella Route Start Time Stop Time Status Last Admin (Dulcolax Supp) 10 mg DAILY PRN RECTAL 09/29/16 17:15 10/02/16 17:26 (Narcan Inj) 0.4 mg UNSCH PRN IV 09/29/16 17:15 (Ambien) 5 mg HS PRN PO 09/29/16 21:00 10/13/16 00:19 (NS Flush) 2 ml BID IV FLUSH 09/30/16 21:00 10/14/16 10:02 (NS Flush) 2 ml UNSCH PRN IV FLUSH 09/30/16 09:15 (Zofran Inj) 4 mg Q6H PRN IV PUSH 09/30/16 09:15 10/13/16 08:21 (Surfak) 240 mg HS PO 09/30/16 21:00 10/13/16 21:18 (Milk Of Magnesia Liq) 30 ml DAILY PRN PO 09/30/16 09:15 10/01/16 08:07 (Tylenol) 650 mg Q4H PRN PO 09/30/16 09:15 09/30/16 17:58 (NovoLOG SUPPLEMENTAL SCALE) Q6HR SQ 09/30/16 12:00 09/30/16 23:25 (D50w (Vial) Inj) 25 ml UNSCH PRN IV PUSH 09/30/16 09:15 (Glucagon Inj) 1 mg UNSCH PRN IV 09/30/16 09:15 (Glycerin Adult Supp) 2 gm DAILY PRN RECTAL 10/01/16 09:30 (Fleets Enema (Adult)) 133 ml UNSCH PRN RECTAL 10/01/16 09:30 (Ultram) 50 mg Q8H PRN PO 10/03/16 09:45 10/13/16 00:19 (Protonix Inj) 40 mg Q24H IV PUSH 10/03/16 15:00 10/14/16 16:11 Sucralfate 1 gm 1 gm ACHS PO 10/03/16 16:00 10/14/16 16:11 Multivitamins 10 ml/Folic Acid 1 mg/Amino Acids/ Electrolytes/ Dextrose 2,010.2 ml @ 75 mls/hr Q24H IV 10/05/16 20:00 10/13/16 21:17 (Liposyn Iii 20% Inj) 250 ml @ 10 mls/hr Q24H IV 10/05/16 20:00 10/13/16 21:17 (Chloraseptic [place]) 2 spray Q2H PRN OROPHARYNG 10/06/16 15:45 (Refresh Tears 0.5% Opth Soln) 1 drop Q6H PRN EACH EYE 10/08/16 05:15 10/08/16 21:06 (Cepacol Extra Sriram (Sugar Free)) 1 lozenge Q2H PRN BUCCAL 10/10/16 14:00 10/13/16 05:36 Enoxaparin Sodium 50 mg 50 mg Q24H SQ 10/12/16 09:00 10/14/16 10:02 Dextrose/Sodium Chloride 1,000 ml @ 42 mls/hr [id number] IV 10/11/16 15:15 10/14/16 16:10 Piperacillin Sod/ Tazobactam Sod 100 ml @ 200 mls/hr Q8H IV 10/13/16 15:00 10/14/16 16:11 (Vancomycin Consult Pharmacy) 0 ml @ 0 mls/hr UNSCH OTHER 10/13/16 14:30 Miscellaneous Information SPECIFIC LAB TO BE DRAWN:VANCOMYCIN TROUGH DATE TO... ONCE ONCE .XX 10/16/16 15:45 10/16/16 15:46 (Vancomycin Inj/ NS 250 ml Inj) 250 ml @ 250 mls/hr Q24H IV 10/13/16 16:00 10/14/16 16:12 A/P Problem List: (1) Sepsis ICD Code: A41.9 Status: Acute Plan: Patient with new persistent cough. CXR ordered and reviewed by me and it shows a worsening infiltrate in the right lower lung field. WBC increased to 20 K, patient tachycardic. Patient started on broad-spectrum IV antibiotics to cover for possible aspiration pneumonia. 10/14 sepsis improving. WBC trending down to 15 K. Cough improving. Continue IV antibiotics, blood cultures negative 1. (2) PNA (pneumonia) ICD Code: J18.9 Status: Acute Plan: suspect aspiration pna due to recent bouts of nausea and vomiting. HCAP also possible. Will place patient on IV antibiotics as above. We'll give supplemental oxygen to keep oxygen saturation more than 92%. Sputum culture pending. (3) Leukocytosis ICD Code: D72.829 Status: Acute Plan: Likely due to sepsis, secondary to pneumonia. Leukocytosis trending down. Continue to monitor CBC with differential. (4) Nausea & vomiting ICD Code: R11.2 Status: Acute (5) Pleural effusion ICD Code: J90 Status: Resolved (6) Metastatic lung cancer (metastasis from lung to other site) ICD Code: C34.90 Status: Acute (7) UTI (urinary tract infection) ICD Code: N39.0 Status: Resolved (8) Partial small bowel obstruction ICD Code: K56.69 Status: Acute (9) Bilateral lower extremity pain ICD Code: M79.604 Status: Resolved (10) Epigastric pain ICD Code: R10.13 Status: Resolved Assessment and Plan (1) Nausea & vomiting Plan: Abdomen and pelvis CT obtained on 10/04/16 showed abnormal bowel gas pattern concern for distal small bowel obstruction. Masslike area of soft tissue in the right lower lobe likely representing the patient's known tumor. Loculated right effusion. Consolidation in both lung bases. Her diverticulosis. Possible ileus. Patient status post EGD on 10/05/16 which showed esophagus appeared normal, there was a large amount of previous liquid which was aspirated completely. Mild erythema in the gastric antrum, status post biopsy, the pylorus was widely open the duodenum was normal without any evidence of ulceration or obstruction. Small amount of gastric output. Mildly distended. Continue Protonix, Carafate. PPN. 10/10 GI consulted - appreciate recommendations. Continue PPI, carafate. Continue Zofran as needed. NG tube removed on 10/09. Gen. surgery consulted, general surgery diagnosed the patient with high-grade partial small bowel obstruction. NG tube discontinued today but patient still nothing by mouth. Advance diet as per general surgery/GI recommendations. 10/12 Continue on clear liquid diet as per GS, continue TPN. Advance diet as per GS recommendations. Taper TPN as per GS. 10/13 Patient had episode of vomiting today. Continue zofran. 526 no episodes of vomiting, patient tolerating clear liquid diet, diet advanced to full liquid diet. Continue TPN (2) Pleural effusion Plan: sp VATS and pleurodesis. (3) Metastatic lung cancer (metastasis from lung to other site) Plan: Oncology following. Would like to continue treatment until T790m mutation resulted, if this is present, there is as 60% probability that this will get better. 10/10 Pathology negative for T790M mutation. She may be some benefit for gefitinib as she progressed on erlotinib as per oncology. (4) UTI (urinary tract infection) Plan: sp treatment with Rocephin IV. (5) Partial small bowel obstruction Plan: fu GI recommendations. GS consulted. Continue NG tube which has been clamped. C diff PCR negative.Ng tube output decreased and NG tube removed on 10/10. (6) Bilateral lower extremity pain Plan: Shows small nonocclusive thrombus within the right superficial femoral vein. This is a right chronic DVT. Patient started on intermediate subcutaneous Lovenox dose at 1 mg/kg/day as per hematology. Monitor for bleeding. (7) Epigastric pain Likely peptic ulcer disease versus gastritis. Continue PPI and Carafate. GI following. Epigastric pain resolved. Appreciate palliative care assistance. Patient is DNR. Discussed the case with pallitive care, patient leaning towards comfort measures - hospice has been consulted. Family meeting awaiting. Gi proph: PPI DVT Proph: lovenos SQ Discharge Planning Continue to monitor in the medical floor. Hospice consult pending. Problem Qualifiers (1) PNA (pneumonia): Qualified Code: J69.0 - Aspiration pneumonia of right lower lobe due to gastric secretions (2) Nausea & vomiting: (3) Metastatic lung cancer (metastasis from lung to other site): Qualified Code: C34.91 - Metastatic lung cancer (metastasis from lung to other site), right Freddie Tyson MD October 14, 2016 21:05
[2016-10-14] MEDS: DOCUSATE CALCIUM 240 MG CAP PO SCH (22:35)
[2016-10-14] MEDS: ZOLPIDEM TARTRATE 5 MG TAB PO PRN (22:35)
[2016-10-14] MEDS: CLINIMIX E 4.25/5 2000 mL- >42 mls/hr IV SCH ×3 (22:43)
[2016-10-14] MEDS: FAT EMULSION 20% INJ 250 ML (@10 mls/hr) IV SCH (22:46)
[2016-10-15] VITALS (7 sets, daily range): BP systolic 100–134; BP diastolic 50–60; PULSE 79–89; RESP 16–20; TEMP 97–97.6; O2SAT 95–99
[2016-10-15] MEDS: PIPERACIL-TAZO 4.5 GM PREMIX 100 ML IV SCH ×3 (05:59→21:40)
[2016-10-15] MEDS: SUCRALFATE 1 GM/10 ML CUP PO SCH ×4 (06:00→21:32)
[2016-10-15] MEDS: INSULIN ASPART SUPPLEMENTAL SCALE SQ SCH ×3 (06:00→18:00)
[2016-10-15] MEDS: RESP: BUDESONIDE 0.5 MG/2 ML NEB NEB SCH ×2 (07:48→20:58)
[2016-10-15 08:47] LABS: AUTOMATED NEUTROPHIL # 8.1 TH/MM3 (1.8-7.7); BASOPHIL % 0.4 % (0.0-2.0); EOSINOPHIL # 0.5 TH/MM3 (0-0.4); EOSINOPHIL % 4.8 % (0.0-4.0); HEMATOCRIT 27.7 % (35.0-46.0); HEMO FLAGS DIFF FINAL; LYMPH % 5.1 % (9.0-44.0); LYMPHOCYTE # 0.5 TH/MM3 (1.0-4.8); MEAN CELL VOLUME 89.2 FL (80.0-100.0); MEAN CORPUSCULAR HGB CONC 33.6 % (32.0-36.0); MONO % 10.5 % (0.0-8.0); NEUT % 79.2 % (16.0-70.0); PLATELET COUNT 338 TH/MM3 (150-450); RED BLOOD COUNT 3.11 MIL/MM3 (4.00-5.30); RED CELL DISTRIBUTION WIDTH 13.8 % (11.6-17.2); WHITE BLOOD COUNT 10.3 TH/MM3 (4.0-11.0)
[2016-10-15 09:14] LABS: ALKALINE PHOSPHATASE 62 U/L (45-117); ALT (GPT) 11 U/L (10-53); ANION GAP 8 MEQ/L (5-15); AST (GOT) 11 U/L (15-37); BICARBONATE 26.6 MEQ/L (21.0-32.0); BLOOD UREA NITROGEN 17 MG/DL (7-18); CHLORIDE 105 MEQ/L (98-107); GLOMERULAR FILTRATION RATE 140 ML/MIN (>89); POTASSIUM 3.8 MEQ/L (3.5-5.1); SODIUM (NA) 140 MEQ/L (136-145); TOTAL BILIRUBIN ADULT 0.4 MG/DL (0.2-1.0)
[2016-10-15] MEDS: SODIUM CHLORIDE 0.9% FLUSH 10 ML FLUSH IV FLUSH SCH ×2 (09:46→21:32)
[2016-10-15] MEDS: ENOXAPARIN SODIUM 60 MG/0.6 ML SYRINGE SQ SCH (09:46)
--- NOTE | 2016-10-15 14:27 | HHI.PR ---
Subjective Remarks Patient states that she is still coughing. states that had 3 bowel movements which looked normal and was able to get up and walk with assistance in the hallway. Vital signs seems to be stable. Patient is satting 96% on 3 L nasal cannula Objective Vitals Vital Signs Date Time Temp Pulse Resp B/P Pulse Ox O2 Delivery O2 Flow Rate FiO2 10/15/16 12:00 97.2 85 16 134/60 96 10/15/16 08:00 97.1 79 16 117/58 97 10/15/16 07:49 95 Nasal Cannula 3.00 10/15/16 04:00 97.0 84 20 110/57 99 10/15/16 00:00 97.6 89 18 100/50 97 10/14/16 20:00 97.7 85 18 107/52 97 10/14/16 20:00 84 10/14/16 20:00 Nasal Cannula 3.00 10/14/16 16:00 97.7 95 20 110/53 96 I/O 10/14/16 10/14/16 10/14/16 10/15/16 10/15/16 10/15/16 07:00 15:00 23:00 07:00 15:00 23:00 Intake Total 1527 ml 120 ml 1479 ml 1013 ml Output Total 400 ml 650 ml 700 ml Balance 1127 ml 120 ml 829 ml 313 ml Intake Oral 400 ml 120 ml IV Total 446 ml 1096 ml 398 ml TPN/PPN 606 ml 338 ml 543 ml Lipid 75 ml 45 ml 72 ml Output Urine Total 400 ml 650 ml 700 ml # Voids 3 # Bowel Movements 1 3 1 Result Diagram: 10/15/16 0824 10/15/1624 Imaging Last Impressions Chest X-Ray 10/13/16 0000 Signed Impressions: Service Date/Time: September 12:11 - CONCLUSION: Stable chest x-ray with right pleural effusion with associated consolidation and atelectasis at the right lung base. There is mild atelectasis versus consolidation at the left lung base. José Miguel Mcgovern MD Lower Extremity Ultrasound 10/10/16 0000 Signed Impressions: Service Date/Time: Monday, October 10, 2016 22:53 - CONCLUSION: Small nonocclusive thrombus within right superficial femoral vein most likely chronic. Annette Bonds MD Abdomen/Pelvis CT 10/09/16 0000 Signed Impressions: Service Date/Time: Sunday, October 09, 2016 10:08 - CONCLUSION: 1. Right lung base mass, loculated effusion and bilateral consolidation again seen. 2. Dilated loops of small intestine are noted, and there is contrast within the large bowel, findings suggest a partial small bowel obstruction, an ileus is a consideration but given a decompressed large bowel suspect the former. Onur Espinoza MD Small Bowel X-Ray 10/07/16 0000 Signed Impressions: Service Date/Time: Friday, October 07, 2016 10:09 - CONCLUSION: Small bowel obstruction at the level of the distal ileum. Patient refused spot images. Markedly prolonged small bowel transit time. José Miguel Lira MD Abdomen X-Ray 10/03/16 0000 Signed Impressions: Service Date/Time: Monday, October 03, 2016 19:45 - CONCLUSION: No obstruction. Renan Gutierres MD Objective Remarks GENERAL: No acute distress. coughing frequently. SKIN: Ecchymosis on four extremities. HEAD: Normocephalic and atraumatic. EYES: No injection or drainage. ENT: No nasal drainage noted. NECK: Supple CARDIOVASCULAR: Regular rate and rhythm RESPIRATORY: rhonchi on right lower lung field. The rest is clear to auscultation. GASTROINTESTINAL: Abdomen soft, non-tender, non distended. Bowel sounds present but sluggish. NEUROLOGICAL: Awake and alert. Motor and sensory grossly within normal limits. Normal speech. Procedures sp VATS, pleurodesis sp EGD Medications and IVs Current Medications Medications (Trade) Dose Ordered Sig/Ariella Route Start Time Stop Time Status Last Admin (Dulcolax Supp) 10 mg DAILY PRN RECTAL 09/29/16 17:15 10/02/16 17:26 (Narcan Inj) 0.4 mg UNSCH PRN IV 09/29/16 17:15 (Ambien) 5 mg HS PRN PO 09/29/16 21:00 10/14/16 22:35 (NS Flush) 2 ml BID IV FLUSH 09/30/16 21:00 10/15/16 09:46 (NS Flush) 2 ml UNSCH PRN IV FLUSH 09/30/16 09:15 (Zofran Inj) 4 mg Q6H PRN IV PUSH 09/30/16 09:15 10/13/16 08:21 (Surfak) 240 mg HS PO 09/30/16 21:00 10/14/16 22:35 (Milk Of Magnesia Liq) 30 ml DAILY PRN PO 09/30/16 09:15 10/01/16 08:07 (Tylenol) 650 mg Q4H PRN PO 09/30/16 09:15 09/30/16 17:58 (NovoLOG SUPPLEMENTAL SCALE) Q6HR SQ 09/30/16 12:00 09/30/16 23:25 (D50w (Vial) Inj) 25 ml UNSCH PRN IV PUSH 09/30/16 09:15 (Glucagon Inj) 1 mg UNSCH PRN IV 09/30/16 09:15 (Glycerin Adult Supp) 2 gm DAILY PRN RECTAL 10/01/16 09:30 (Fleets Enema (Adult)) 133 ml UNSCH PRN RECTAL 10/01/16 09:30 (Ultram) 50 mg Q8H PRN PO 10/03/16 09:45 10/13/16 00:19 (Protonix Inj) 40 mg Q24H IV PUSH 10/03/16 15:00 10/14/16 16:11 Sucralfate 1 gm 1 gm ACHS PO 10/03/16 16:00 10/15/16 09:50 Multivitamins 10 ml/Folic Acid 1 mg/Amino Acids/ Electrolytes/ Dextrose 2,010.2 ml @ 75 mls/hr Q24H IV 10/05/16 20:00 10/14/16 22:43 (Liposyn Iii 20% Inj) 250 ml @ 10 mls/hr Q24H IV 10/05/16 20:00 10/14/16 22:46 (Chloraseptic [place]) 2 spray Q2H PRN OROPHARYNG 10/06/16 15:45 (Refresh Tears 0.5% Opth Soln) 1 drop Q6H PRN EACH EYE 10/08/16 05:15 10/08/16 21:06 (Cepacol Extra Sriram (Sugar Free)) 1 lozenge Q2H PRN BUCCAL 10/10/16 14:00 10/13/16 05:36 Enoxaparin Sodium 50 mg 50 mg Q24H SQ 5/24/17 09:00 10/15/16 09:46 Dextrose/Sodium Chloride 1,000 ml @ 42 mls/hr [id number] IV 10/11/16 15:15 10/14/16 16:10 Piperacillin Sod/ Tazobactam Sod 100 ml @ 200 mls/hr Q8H IV 10/13/16 15:00 10/15/16 05:59 (Vancomycin Consult Pharmacy) 0 ml @ 0 mls/hr UNSCH OTHER 10/13/16 14:30 Miscellaneous Information SPECIFIC LAB TO BE DRAWN:VANCOMYCIN TROUGH DATE TO... ONCE ONCE .XX 10/16/16 15:45 10/16/16 15:46 (Vancomycin Inj/ NS 250 ml Inj) 250 ml @ 250 mls/hr Q24H IV 10/13/16 16:00 10/14/16 16:12 Urinary Catheter: No Vascular Central Line Catheter: No A/P Problem List: (1) Sepsis ICD Code: A41.9 Status: Acute Plan: Patient with new cough on 10/13. Chest x-ray showed an infiltrate in the right lower lung field. WBC increased to 20,000 on patient tachycardic. The patient was started both spectrum IV antibiotics including vancomycin and IV Zosyn to cover for suspected aspiration pneumonia and possible HCAP Blood cultures obtained 10/15 blood cultures negative to date, WBC continues to trend down from 20K --> 15K --> 10.3K Due to follow-up of cultures, continue IV Zosyn and IV vancomycin for now and continue to monitor CBC with differential. (2) PNA (pneumonia) ICD Code: J18.9 Status: Acute Plan: suspect aspiration pna due to recent bouts of nausea and vomiting. HCAP also possible. Continue supplemental O2 to keep oxygen saturation more than 92%. Bronchodilators Sputum culture pending. (3) Leukocytosis ICD Code: D72.829 Status: Resolved Plan: Likely due to sepsis, secondary to pneumonia. Leukocytosis trending down. Continue to monitor CBC with differential. (4) Nausea & vomiting ICD Code: R11.2 Status: Acute (5) Pleural effusion ICD Code: J90 Status: Resolved (6) Metastatic lung cancer (metastasis from lung to other site) ICD Code: C34.90 Status: Acute (7) UTI (urinary tract infection) ICD Code: N39.0 Status: Resolved (8) Partial small bowel obstruction ICD Code: K56.69 Status: Acute (9) Bilateral lower extremity pain ICD Code: M79.604 Status: Resolved (10) Epigastric pain ICD Code: R10.13 Status: Resolved Assessment and Plan (1) Nausea & vomiting Plan: Abdomen and pelvis CT obtained on 10/04/16 showed abnormal bowel gas pattern concern for distal small bowel obstruction. Masslike area of soft tissue in the right lower lobe likely representing the patient's known tumor. Loculated right effusion. Consolidation in both lung bases. Her diverticulosis. Possible ileus. Patient status post EGD on 10/05/16 which showed esophagus appeared normal, there was a large amount of previous liquid which was aspirated completely. Mild erythema in the gastric antrum, status post biopsy, the pylorus was widely open the duodenum was normal without any evidence of ulceration or obstruction. Small amount of gastric output. Mildly distended. Continue Protonix, Carafate. PPN. 10/10 GI consulted - appreciate recommendations. Continue PPI, carafate. Continue Zofran as needed. NG tube removed on 10/09. Gen. surgery consulted, general surgery diagnosed the patient with high-grade partial small bowel obstruction. NG tube discontinued today but patient still nothing by mouth. Advance diet as per general surgery/GI recommendations. 10/12 Continue on clear liquid diet as per GS, continue TPN. Advance diet as per GS recommendations. Taper TPN as per GS. 10/13 Patient had episode of vomiting today. Continue zofran. 526 no episodes of vomiting, patient tolerating clear liquid diet, diet advanced to full liquid diet. Continue TPN (2) Pleural effusion Plan: sp VATS and pleurodesis. (3) Metastatic lung cancer (metastasis from lung to other site) Plan: Oncology following. Would like to continue treatment until T790m mutation resulted, if this is present, there is as 60% probability that this will get better. 10/10 Pathology negative for T790M mutation. She may be some benefit for gefitinib as she progressed on erlotinib as per oncology. (4) UTI (urinary tract infection) Plan: sp treatment with Rocephin IV. (5) Partial small bowel obstruction Plan: fu GI recommendations. GS consulted. Continue NG tube which has been clamped. C diff PCR negative.Ng tube output decreased and NG tube removed on 10/10. (6) Bilateral lower extremity pain Plan: Shows small nonocclusive thrombus within the right superficial femoral vein. This is a right chronic DVT. Patient started on intermediate subcutaneous Lovenox dose at 1 mg/kg/day as per hematology. Monitor for bleeding. (7) Epigastric pain Likely peptic ulcer disease versus gastritis. Continue PPI and Carafate. GI following. Epigastric pain resolved. Appreciate palliative care assistance. Patient is DNR. Discussed the case with pallitive care, patient leaning towards comfort measures - hospice has been consulted. Family meeting awaiting. As per my conversation today with the patient, she states that the both her sons are not willing to discuss anything with hospice at this moment. She states that she would like to continue with treatment at this point and be discharged home if possible. Gi proph: PPI DVT Proph: lovenos SQ Discharge Planning Continue to monitor in the medical floor. Hospice consult pending. Problem Qualifiers (1) PNA (pneumonia): Qualified Code: J69.0 - Aspiration pneumonia of right lower lobe due to gastric secretions (2) Leukocytosis: Qualified Code: D72.829 - Leukocytosis, unspecified type (3) Nausea & vomiting: (4) Metastatic lung cancer (metastasis from lung to other site): Qualified Code: C34.91 - Metastatic lung cancer (metastasis from lung to other site), right Freddie Tyson MD October 15, 2016 14:27
[2016-10-15] MEDS: PANTOPRAZOLE SODIUM 40 MG VIAL IV PUSH SCH (15:12)
[2016-10-15] MEDS: DEXT 5%-NACL 0.9% 1000 ML INJ 1,000 ML IV SCH (15:13)
[2016-10-15] MEDS: VANCOMYCIN INJ 1,000 MG in SODIUM CHLOR 0.9% 250 ML INJ 250 ML IV SCH (15:15)
[2016-10-15] MEDS: DOCUSATE CALCIUM 240 MG CAP PO SCH (21:32)
[2016-10-15] MEDS: ZOLPIDEM TARTRATE 5 MG TAB PO PRN (21:39)
[2016-10-15] MEDS: FAT EMULSION 20% INJ 250 ML (@10 mls/hr) IV SCH (21:40)
[2016-10-15] MEDS: CLINIMIX E 4.25/5 2000 mL- >42 mls/hr IV SCH ×3 (22:00)
[2016-10-16] VITALS (9 sets, daily range): BP systolic 118–140; BP diastolic 58–67; PULSE 87–101; RESP 18–22; TEMP 97.3–98.9; O2SAT 92–99
[2016-10-16] MEDS: INSULIN ASPART SUPPLEMENTAL SCALE SQ SCH ×4 (05:24→17:30)
[2016-10-16] MEDS: SUCRALFATE 1 GM/10 ML CUP PO SCH ×4 (06:10→20:18)
[2016-10-16] MEDS: PIPERACIL-TAZO 4.5 GM PREMIX 100 ML IV SCH ×3 (06:10→22:08)
[2016-10-16 07:13] LABS: AUTOMATED NEUTROPHIL # 6.1 TH/MM3 (1.8-7.7); BASOPHIL # 0.1 TH/MM3 (0-0.2); BASOPHIL % 1.1 % (0.0-2.0); EOSINOPHIL # 0.5 TH/MM3 (0-0.4); EOSINOPHIL % 5.7 % (0.0-4.0); HEMO FLAGS DIFF FINAL; LYMPH % 7.8 % (9.0-44.0); LYMPHOCYTE # 0.6 TH/MM3 (1.0-4.8); MEAN CELL VOLUME 91.9 FL (80.0-100.0); MEAN CORPUSCULAR HEMOGLOBIN 32.4 PG (27.0-34.0); MEAN CORPUSCULAR HGB CONC 35.2 % (32.0-36.0); MONO % 10.6 % (0.0-8.0); NEUT % 74.8 % (16.0-70.0); PLATELET COUNT 327 TH/MM3 (150-450); RED BLOOD COUNT 2.83 MIL/MM3 (4.00-5.30); RED CELL DISTRIBUTION WIDTH 14.4 % (11.6-17.2); WHITE BLOOD COUNT 8.2 TH/MM3 (4.0-11.0)
[2016-10-16 08:04] LABS: ANION GAP 9 MEQ/L (5-15)
[2016-10-16 08:05] LABS: ALKALINE PHOSPHATASE 51 U/L (45-117); ALT (GPT) 16 U/L (10-53); AST (GOT) 23 U/L (15-37); BICARBONATE 25.4 MEQ/L (21.0-32.0); BLOOD UREA NITROGEN 14 MG/DL (7-18); CHLORIDE 99 MEQ/L (98-107); GLOMERULAR FILTRATION RATE 126 ML/MIN (>89); MAGNESIUM 2.4 MG/DL (1.5-2.5); POTASSIUM 5.9 MEQ/L (3.5-5.1); SODIUM (NA) 133 MEQ/L (136-145); TOTAL BILIRUBIN ADULT 0.5 MG/DL (0.2-1.0)
[2016-10-16] MEDS: RESP: BUDESONIDE 0.5 MG/2 ML NEB NEB SCH ×2 (08:58→20:56)
[2016-10-16] MEDS: SODIUM CHLORIDE 0.9% FLUSH 10 ML FLUSH IV FLUSH SCH ×2 (09:00→20:18)
[2016-10-16] MEDS: ENOXAPARIN SODIUM 60 MG/0.6 ML SYRINGE SQ SCH (09:06)
[2016-10-16] MEDS ORDERED: DEXTROSE 50% IN WATER 50 ML VIAL(D50) IV ONE (09:30)
[2016-10-16] MEDS ORDERED: SODIUM POLYSTYRENE SULFONATE SUSP 15 GM/60 ML CUP PO ONE (09:30)
[2016-10-16] MEDS ORDERED: INSULIN HUMAN REGULAR 1,000 UNITS/10 ML VIAL IV PUSH ONE (09:30)
[2016-10-16] MEDS: traMADol HCL 50 MG TAB PO PRN (10:03)
--- NOTE | 2016-10-16 10:09 | HHI.PR ---
Subjective Remarks denies cp/sob tolerating diet no fevers still has cough Objective Vitals Vital Signs Date Time Temp Pulse Resp B/P Pulse Ox O2 Delivery O2 Flow Rate FiO2 10/16/16 09:37 Nasal Cannula 3.00 10/16/16 09:00 97 Nasal Cannula 3.00 10/16/16 07:20 97.5 89 20 131/64 96 10/16/16 04:00 Nasal Cannula 3.00 10/16/16 04:00 98.9 88 20 124/61 96 10/16/16 01:47 97.8 92 20 132/60 98 10/16/16 00:00 97.3 101 22 140/67 96 10/16/16 00:00 Nasal Cannula 3.00 10/15/16 21:30 Nasal Cannula 3.00 10/15/16 20:00 86 10/15/16 20:00 Nasal Cannula 3.00 10/15/16 20:00 97.5 83 20 118/58 95 10/15/16 16:00 97.3 86 18 127/60 97 10/15/16 12:00 97.2 85 16 134/60 96 I/O 10/15/16 10/15/16 10/15/16 10/16/16 10/16/16 10/16/16 07:00 15:00 23:00 07:00 15:00 23:00 Intake Total 1013 ml 1315 ml 1744 ml 1096 ml Output Total 700 ml Balance 313 ml 1315 ml 1744 ml 1096 ml Intake Oral 120 ml IV Total 398 ml 463 ml 1744 ml 1096 ml TPN/PPN 543 ml 651 ml Lipid 72 ml 81 ml Output Urine Total 700 ml # Voids 4 4 # Bowel Movements 3 Result Diagram: 10/16/16 0635 10/16/16 0635 Objective Remarks GENERAL: No acute distress. coughing frequently. SKIN: Ecchymosis on four extremities. HEAD: Normocephalic and atraumatic. EYES: No injection or drainage. ENT: No nasal drainage noted. NECK: Supple CARDIOVASCULAR: Regular rate and rhythm RESPIRATORY: rhonchi on right lower lung field. The rest is clear to auscultation. GASTROINTESTINAL: Abdomen soft, non-tender, non distended. Bowel sounds present but sluggish. NEUROLOGICAL: Awake and alert. Motor and sensory grossly within normal limits. Normal speech. Procedures sp VATS, pleurodesis sp EGD A/P Problem List: (1) Sepsis ICD Code: A41.9 Status: Acute (2) PNA (pneumonia) ICD Code: J18.9 Status: Acute (3) Leukocytosis ICD Code: D72.829 Status: Resolved (4) Nausea & vomiting ICD Code: R11.2 Status: Acute (5) Pleural effusion ICD Code: J90 Status: Resolved (6) Metastatic lung cancer (metastasis from lung to other site) ICD Code: C34.90 Status: Acute (7) UTI (urinary tract infection) ICD Code: N39.0 Status: Resolved (8) Partial small bowel obstruction ICD Code: K56.69 Status: Acute (9) Bilateral lower extremity pain ICD Code: M79.604 Status: Resolved (10) Epigastric pain ICD Code: R10.13 Status: Resolved Assessment and Plan (1) Nausea & vomiting Plan: Abdomen and pelvis CT obtained on 10/04/16 showed abnormal bowel gas pattern concern for distal small bowel obstruction. Masslike area of soft tissue in the right lower lobe likely representing the patient's known tumor. Loculated right effusion. Consolidation in both lung bases. Her diverticulosis. Possible ileus. Patient status post EGD on 10/05/16 which showed esophagus appeared normal, there was a large amount of previous liquid which was aspirated completely. Mild erythema in the gastric antrum, status post biopsy, the pylorus was widely open the duodenum was normal without any evidence of ulceration or obstruction. Small amount of gastric output. Mildly distended. Continue Protonix, Carafate. PPN. 10/10 GI consulted - appreciate recommendations. Continue PPI, carafate. Continue Zofran as needed. NG tube removed on 10/09. Gen. surgery consulted, general surgery diagnosed the patient with high-grade partial small bowel obstruction. NG tube discontinued today but patient still nothing by mouth. Advance diet as per general surgery/GI recommendations. 10/12 Continue on clear liquid diet as per GS, continue TPN. Advance diet as per GS recommendations. Taper TPN as per GS. 10/13 Patient had episode of vomiting today. Continue zofran. 526 no episodes of vomiting, patient tolerating clear liquid diet, diet advanced to full liquid diet. Continue TPN (2) Pleural effusion Plan: sp VATS and pleurodesis. (3) Metastatic lung cancer (metastasis from lung to other site) Plan: Oncology following. Would like to continue treatment until T790m mutation resulted, if this is present, there is as 60% probability that this will get better. 10/10 Pathology negative for T790M mutation. She may be some benefit for gefitinib as she progressed on erlotinib as per oncology. (4) UTI (urinary tract infection) Plan: sp treatment with Rocephin IV. (5) Partial small bowel obstruction Plan: fu GI recommendations. GS consulted. Continue NG tube which has been clamped. C diff PCR negative.Ng tube output decreased and NG tube removed on 10/10. (6) Bilateral lower extremity pain Plan: Shows small nonocclusive thrombus within the right superficial femoral vein. This is a right chronic DVT. Patient started on intermediate subcutaneous Lovenox dose at 1 mg/kg/day as per hematology. Monitor for bleeding. (7) Epigastric pain Likely peptic ulcer disease versus gastritis. Continue PPI and Carafate. GI following. Epigastric pain resolved. Appreciate palliative care assistance. Patient is DNR. Discussed the case with pallitive care, patient leaning towards comfort measures - hospice has been consulted. Family meeting awaiting. As per my conversation today with the patient, she states that the both her sons are not willing to discuss anything with hospice at this moment. She states that she would like to continue with treatment at this point and be discharged home if possible. Gi proph: PPI DVT Proph: lovenos SQ Discharge Planning Continue to monitor in the medical floor. Hospice consult pending. Problem Qualifiers (1) PNA (pneumonia): Qualified Code: J69.0 - Aspiration pneumonia of right lower lobe due to gastric secretions (2) Leukocytosis: Qualified Code: D72.829 - Leukocytosis, unspecified type (3) Nausea & vomiting: (4) Metastatic lung cancer (metastasis from lung to other site): Qualified Code: C34.91 - Metastatic lung cancer (metastasis from lung to other site), right Freddie Tyson MD October 16, 2016 10:09
--- NOTE | 2016-10-16 10:49 | HHI.PR ---
Subjective Remarks Patient c/o chest pain which is bandlike across chest denies sob denies nausea and vomiting has had 2 BM's this am - she thinks that they might be looser denies fevers or chills still coughing but less often than previous days Blood sugars are very elevated K 5.9 Objective Vitals Vital Signs Date Time Temp Pulse Resp B/P Pulse Ox O2 Delivery O2 Flow Rate FiO2 10/16/16 09:37 Nasal Cannula 3.00 10/16/16 09:00 97 Nasal Cannula 3.00 10/16/16 07:20 97.5 89 20 131/64 96 10/16/16 04:00 Nasal Cannula 3.00 10/16/16 04:00 98.9 88 20 124/61 96 10/16/16 01:47 97.8 92 20 132/60 98 10/16/16 00:00 97.3 101 22 140/67 96 10/16/16 00:00 Nasal Cannula 3.00 10/15/16 21:30 Nasal Cannula 3.00 10/15/16 20:00 86 10/15/16 20:00 Nasal Cannula 3.00 10/15/16 20:00 97.5 83 20 118/58 95 10/15/16 16:00 97.3 86 18 127/60 97 10/15/16 12:00 97.2 85 16 134/60 96 I/O 10/15/16 10/15/16 10/15/16 10/16/16 10/16/16 10/16/16 07:00 15:00 23:00 07:00 15:00 23:00 Intake Total 1013 ml 1315 ml 1744 ml 1096 ml Output Total 700 ml Balance 313 ml 1315 ml 1744 ml 1096 ml Intake Oral 120 ml IV Total 398 ml 463 ml 1744 ml 1096 ml TPN/PPN 543 ml 651 ml Lipid 72 ml 81 ml Output Urine Total 700 ml # Voids 4 4 # Bowel Movements 3 Result Diagram: 10/16/16 0635 10/16/16 0635 Imaging Last Impressions Chest X-Ray 10/13/16 0000 Signed Impressions: Service Date/Time: September 12:11 - CONCLUSION: Stable chest x-ray with right pleural effusion with associated consolidation and atelectasis at the right lung base. There is mild atelectasis versus consolidation at the left lung base. José Miguel Mcgovern MD Lower Extremity Ultrasound 10/10/16 0000 Signed Impressions: Service Date/Time: Monday, October 10, 2016 22:53 - CONCLUSION: Small nonocclusive thrombus within right superficial femoral vein most likely chronic. Annette Bonds MD Abdomen/Pelvis CT 10/09/16 0000 Signed Impressions: Service Date/Time: Sunday, October 09, 2016 10:08 - CONCLUSION: 1. Right lung base mass, loculated effusion and bilateral consolidation again seen. 2. Dilated loops of small intestine are noted, and there is contrast within the large bowel, findings suggest a partial small bowel obstruction, an ileus is a consideration but given a decompressed large bowel suspect the former. Onur Espinoza MD Small Bowel X-Ray 10/07/16 0000 Signed Impressions: Service Date/Time: Friday, October 07, 2016 10:09 - CONCLUSION: Small bowel obstruction at the level of the distal ileum. Patient refused spot images. Markedly prolonged small bowel transit time. José Miguel Lira MD Abdomen X-Ray 10/03/16 0000 Signed Impressions: Service Date/Time: Monday, October 03, 2016 19:45 - CONCLUSION: No obstruction. Renan Gutierres MD Objective Remarks GENERAL: No acute distress. coughing frequently. SKIN: Ecchymosis on four extremities. HEAD: Normocephalic and atraumatic. EYES: No injection or drainage. ENT: No nasal drainage noted. NECK: Supple CARDIOVASCULAR: Regular rate and rhythm RESPIRATORY: fine crackles on right lower lung field. rest of lung valle is CTA. GASTROINTESTINAL: Abdomen soft, non-tender, non distended. Bowel sounds present but sluggish. NEUROLOGICAL: Awake and alert. Motor and sensory grossly within normal limits. Normal speech. Procedures sp VATS, pleurodesis sp EGD Medications and IVs Current Medications Medications (Trade) Dose Ordered Sig/Ariella Route Start Time Stop Time Status Last Admin (Dulcolax Supp) 10 mg DAILY PRN RECTAL 09/29/16 17:15 10/02/16 17:26 (Narcan Inj) 0.4 mg UNSCH PRN IV 09/29/16 17:15 (Ambien) 5 mg HS PRN PO 09/29/16 21:00 10/15/16 21:39 (NS Flush) 2 ml BID IV FLUSH 09/30/16 21:00 10/16/16 09:00 (NS Flush) 2 ml UNSCH PRN IV FLUSH 09/30/16 09:15 (Zofran Inj) 4 mg Q6H PRN IV PUSH 09/30/16 09:15 10/13/16 08:21 (Surfak) 240 mg HS PO 09/30/16 21:00 10/15/16 21:32 (Milk Of Magnesia Liq) 30 ml DAILY PRN PO 09/30/16 09:15 10/01/16 08:07 (Tylenol) 650 mg Q4H PRN PO 09/30/16 09:15 09/30/16 17:58 (NovoLOG SUPPLEMENTAL SCALE) Q6HR SQ 09/30/16 12:00 09/30/16 23:25 (D50w (Vial) Inj) 25 ml UNSCH PRN IV PUSH 09/30/16 09:15 (Glucagon Inj) 1 mg UNSCH PRN IV 09/30/16 09:15 (Glycerin Adult Supp) 2 gm DAILY PRN RECTAL 10/01/16 09:30 (Fleets Enema (Adult)) 133 ml UNSCH PRN RECTAL 10/01/16 09:30 (Ultram) 50 mg Q8H PRN PO 10/03/16 09:45 10/16/16 10:03 (Protonix Inj) 40 mg Q24H IV PUSH 10/03/16 15:00 10/15/16 15:12 Sucralfate 1 gm 1 gm ACHS PO 10/03/16 16:00 10/16/16 10:04 Multivitamins 10 ml/Folic Acid 1 mg/Amino Acids/ Electrolytes/ Dextrose 2,010.2 ml @ 75 mls/hr Q24H IV 10/05/16 20:00 10/15/16 22:00 (Liposyn Iii 20% Inj) 250 ml @ 10 mls/hr Q24H IV 10/05/16 20:00 10/15/16 21:40 (Chloraseptic Corona) 2 spray Q2H PRN OROPHARYNG 10/06/16 15:45 (Refresh Tears 0.5% Opth Soln) 1 drop Q6H PRN EACH EYE 10/08/16 05:15 10/08/16 21:06 (Cepacol Extra Sriram (Sugar Free)) 1 lozenge Q2H PRN BUCCAL 10/10/16 14:00 10/13/16 05:36 Enoxaparin Sodium 50 mg 50 mg Q24H SQ 10/12/16 09:00 10/16/16 09:06 Piperacillin Sod/ Tazobactam Sod 100 ml @ 200 mls/hr Q8H IV 10/13/16 15:00 10/16/16 06:10 (Vancomycin Consult Pharmacy) 0 ml @ 0 mls/hr UNSCH OTHER 10/13/16 14:30 Miscellaneous Information SPECIFIC LAB TO BE DRAWN:VANCOMYCIN TROUGH DATE TO... ONCE ONCE .XX 10/16/16 15:45 10/16/16 15:46 (Vancomycin Inj/ NS 250 ml Inj) 250 ml @ 250 mls/hr Q24H IV 10/13/16 16:00 10/15/16 15:15 Urinary Catheter: No Vascular Central Line Catheter: No A/P Problem List: (1) Sepsis ICD Code: A41.9 Status: Acute (2) PNA (pneumonia) ICD Code: J18.9 Status: Acute (3) Leukocytosis ICD Code: D72.829 Status: Resolved (4) Nausea & vomiting ICD Code: R11.2 Status: Acute (5) Pleural effusion ICD Code: J90 Status: Resolved (6) Metastatic lung cancer (metastasis from lung to other site) ICD Code: C34.90 Status: Acute (7) UTI (urinary tract infection) ICD Code: N39.0 Status: Resolved (8) Partial small bowel obstruction ICD Code: K56.69 Status: Acute (9) Bilateral lower extremity pain ICD Code: M79.604 Status: Resolved (10) Epigastric pain ICD Code: R10.13 Status: Resolved (11) Hyperkalemia ICD Code: E87.5 Status: Acute Plan: Due to osmotic drag due to hyperglycemia. Ordered 10 units of IV insulin and po kayexalate. Will monitor BMP. (12) Chest pain ICD Code: R07.9 Status: Acute Plan: check EKG, repeat CXR. Continue pain control with tramadol. (13) Hyponatremia ICD Code: E87.1 Status: Acute Plan: pseudohyponatremia due to elevated blood sugars. Monitor BMP. Should stabilize as blood sugars are controlled. Assessment and Plan (1) Nausea & vomiting Plan: Abdomen and pelvis CT obtained on 10/04/16 showed abnormal bowel gas pattern concern for distal small bowel obstruction. Masslike area of soft tissue in the right lower lobe likely representing the patient's known tumor. Loculated right effusion. Consolidation in both lung bases. Her diverticulosis. Possible ileus. Patient status post EGD on 10/05/16 which showed esophagus appeared normal, there was a large amount of previous liquid which was aspirated completely. Mild erythema in the gastric antrum, status post biopsy, the pylorus was widely open the duodenum was normal without any evidence of ulceration or obstruction. Small amount of gastric output. Mildly distended. Continue Protonix, Carafate. PPN. 10/10 GI consulted - appreciate recommendations. Continue PPI, carafate. Continue Zofran as needed. NG tube removed on 10/09. Gen. surgery consulted, general surgery diagnosed the patient with high-grade partial small bowel obstruction. NG tube discontinued today but patient still nothing by mouth. Advance diet as per general surgery/GI recommendations. 10/12 Continue on clear liquid diet as per GS, continue TPN. Advance diet as per GS recommendations. Taper TPN as per GS. 10/13 Patient had episode of vomiting today. Continue zofran. 526 no episodes of vomiting, patient tolerating clear liquid diet, diet advanced to full liquid diet. Continue TPN 10/16 No vomiting or abdominal pain - Will advance diet to soft. (2) Pleural effusion Plan: sp VATS and pleurodesis. (3) Metastatic lung cancer (metastasis from lung to other site) Plan: Oncology following. Would like to continue treatment until T790m mutation resulted, if this is present, there is as 60% probability that this will get better. 10/10 Pathology negative for T790M mutation. She may be some benefit for gefitinib as she progressed on erlotinib as per oncology. (4) UTI (urinary tract infection) Plan: sp treatment with Rocephin IV. (5) Partial small bowel obstruction Plan: fu GI recommendations. GS consulted. Continue NG tube which has been clamped. C diff PCR negative.Ng tube output decreased and NG tube removed on 10/10. (6) Bilateral lower extremity pain Plan: Shows small nonocclusive thrombus within the right superficial femoral vein. This is a right chronic DVT. Patient started on intermediate subcutaneous Lovenox dose at 1 mg/kg/day as per hematology. Monitor for bleeding. (7) Epigastric pain Likely peptic ulcer disease versus gastritis. Continue PPI and Carafate. GI following. Epigastric pain resolved. (8) Sepsis Plan: Patient with new cough on 10/13. Chest x-ray showed an infiltrate in the right lower lung field. WBC increased to 20,000 on patient tachycardic. The patient was started broad spectrum IV antibiotics including vancomycin and IV Zosyn to cover for suspected aspiration pneumonia and possible HCAP Blood cultures obtained 10/16 sepsis resolved with resolved leukocytosis and resolved tachycardia. Blood cultures negative to date. Continue IV Zosyn and IV Vancomycin. Continue to monitor cbc w diff. (2) PNA (pneumonia) Plan: suspect aspiration pna due to recent bouts of nausea and vomiting. HCAP also possible. Continue supplemental O2 to keep oxygen saturation more than 92%. Bronchodilators Sputum culture pending. (3) Leukocytosis Plan: Likely due to sepsis, secondary to pneumonia. Leukocytosis resolved. Continue to monitor CBC with differential. Appreciate palliative care assistance. Patient is DNR. Discussed the case with pallitive care, patient leaning towards comfort measures - hospice has been consulted. Family meeting awaiting. As per my conversation today with the patient, she states that the both her sons are not willing to discuss anything with hospice at this moment. She states that she would like to continue with treatment at this point and be discharged home if possible. Gi proph: PPI DVT Proph: lovenos SQ Discharge Planning Continue to monitor in the medical floor. Hospice consult pending. Problem Qualifiers (1) PNA (pneumonia): Qualified Code: J69.0 - Aspiration pneumonia of right lower lobe due to gastric secretions (2) Leukocytosis: Qualified Code: D72.829 - Leukocytosis, unspecified type (3) Nausea & vomiting: (4) Metastatic lung cancer (metastasis from lung to other site): Qualified Code: C34.91 - Metastatic lung cancer (metastasis from lung to other site), right Freddie Tyson MD October 16, 2016 10:48
[2016-10-16] MEDS: LACTOBACILLUS ACIDOPHILUS TAB PO SCH ×2 (11:55→20:19)
[2016-10-16 14:11] LABS: BICARBONATE 25.9 MEQ/L (21.0-32.0)
[2016-10-16] MEDS: PANTOPRAZOLE SODIUM 40 MG VIAL IV PUSH SCH (14:58)
[2016-10-16] MEDS: VANCOMYCIN INJ 1,000 MG in SODIUM CHLOR 0.9% 250 ML INJ 250 ML IV SCH (15:41)
[2016-10-16] MEDS ORDERED: PHARMACY ORDERED LAB ONE (15:45)
[2016-10-16] MEDS: FAT EMULSION 20% INJ 250 ML (@10 mls/hr) IV SCH (20:18)
[2016-10-16] MEDS: CLINIMIX E 4.25/5 2000 mL- >42 mls/hr IV SCH ×3 (20:18)
[2016-10-16 21:49] LABS: BICARBONATE 24.5 MEQ/L (21.0-32.0)
[2016-10-16] MEDS: DOCUSATE CALCIUM 240 MG CAP PO SCH (22:08)
[2016-10-16] MEDS: ZOLPIDEM TARTRATE 5 MG TAB PO PRN (22:08)
[2016-10-17] VITALS (8 sets, daily range): BP systolic 109–131; BP diastolic 54–60; PULSE 80–94; RESP 20; TEMP 96–98.2; O2SAT 92–99
[2016-10-17 01:52] LABS: HEMATOCRIT 29.7 % (35.0-46.0); MEAN CELL VOLUME 87.9 FL (80.0-100.0); MEAN CORPUSCULAR HEMOGLOBIN 29.8 PG (27.0-34.0); MEAN CORPUSCULAR HGB CONC 33.9 % (32.0-36.0); PLATELET COUNT 412 TH/MM3 (150-450); RED BLOOD COUNT 3.38 MIL/MM3 (4.00-5.30); RED CELL DISTRIBUTION WIDTH 14.2 % (11.6-17.2); REVIEW FLAG FINAL; WHITE BLOOD COUNT 8.5 TH/MM3 (4.0-11.0)
[2016-10-17 02:33] LABS: BICARBONATE 28.8 MEQ/L (21.0-32.0)
[2016-10-17] MEDS: INSULIN ASPART SUPPLEMENTAL SCALE SQ SCH ×4 (06:00→17:42)
[2016-10-17] MEDS: PIPERACIL-TAZO 4.5 GM PREMIX 100 ML IV SCH ×3 (06:23→23:22)
[2016-10-17] MEDS: SUCRALFATE 1 GM/10 ML CUP PO SCH ×4 (06:23→21:07)
[2016-10-17] MEDS: RESP: BUDESONIDE 0.5 MG/2 ML NEB NEB SCH ×2 (08:08→19:29)
[2016-10-17] MEDS: LACTOBACILLUS ACIDOPHILUS TAB PO SCH ×2 (09:04→21:07)
[2016-10-17] MEDS: ENOXAPARIN SODIUM 60 MG/0.6 ML SYRINGE SQ SCH (09:04)
[2016-10-17] MEDS: SODIUM CHLORIDE 0.9% FLUSH 10 ML FLUSH IV FLUSH SCH ×2 (09:05→21:07)
[2016-10-17] MEDS ORDERED: VANCOMYCIN INJ 1,000 MG in SODIUM CHLOR 0.9% 250 ML INJ 250 ML IV SCH (10:00)
--- NOTE | 2016-10-17 11:09 | HHI.PR ---
Subjective Remarks Patient is tolerating regular diet still c/o cough but improving denies cp/sob denies fevers/chills denies abdominal pain, nausea, vomiting Objective Vitals Vital Signs Date Time Temp Pulse Resp B/P Pulse Ox O2 Delivery O2 Flow Rate FiO2 10/17/16 08:10 99 Nasal Cannula 3.00 10/17/16 08:00 96.0 94 20 128/60 95 10/17/16 05:33 97.7 93 20 109/54 95 10/17/16 00:37 98.2 89 20 123/58 99 10/16/16 21:00 97.8 87 20 118/58 99 10/16/16 20:58 98 Nasal Cannula 3.00 10/16/16 20:00 Nasal Cannula 3.00 10/16/16 17:21 97.6 88 18 125/61 96 10/16/16 11:30 97.3 92 18 135/64 92 I/O 10/16/16 10/16/16 10/16/16 10/17/16 10/17/16 10/17/16 06:59 14:59 22:59 06:59 14:59 22:59 Intake Total 1096 ml 2075 ml 840 ml Output Total 900 ml Balance 1096 ml 1175 ml 840 ml Intake Oral 660 ml IV Total 1096 ml 1415 ml 840 ml Output Urine Total 900 ml # Voids 11 1 # Bowel Movements 3 1 Result Diagram: 10/17/16 0140 10/17/16 0140 Imaging Last Impressions Chest X-Ray 10/13/16 0000 Signed Impressions: Service Date/Time: September 12:11 - CONCLUSION: Stable chest x-ray with right pleural effusion with associated consolidation and atelectasis at the right lung base. There is mild atelectasis versus consolidation at the left lung base. José Miguel Mcgovern MD Lower Extremity Ultrasound 10/10/16 0000 Signed Impressions: Service Date/Time: Monday, October 10, 2016 22:53 - CONCLUSION: Small nonocclusive thrombus within right superficial femoral vein most likely chronic. Annette Bonds MD Abdomen/Pelvis CT 10/09/16 0000 Signed Impressions: Service Date/Time: Sunday, October 09, 2016 10:08 - CONCLUSION: 1. Right lung base mass, loculated effusion and bilateral consolidation again seen. 2. Dilated loops of small intestine are noted, and there is contrast within the large bowel, findings suggest a partial small bowel obstruction, an ileus is a consideration but given a decompressed large bowel suspect the former. Onur Espinoza MD Small Bowel X-Ray 10/07/16 0000 Signed Impressions: Service Date/Time: Friday, October 07, 2016 10:09 - CONCLUSION: Small bowel obstruction at the level of the distal ileum. Patient refused spot images. Markedly prolonged small bowel transit time. José Miguel Lira MD Abdomen X-Ray 10/03/16 0000 Signed Impressions: Service Date/Time: Monday, October 03, 2016 19:45 - CONCLUSION: No obstruction. Renan Gutierres MD Objective Remarks GENERAL: No acute distress. Sitting in chair. SKIN: Ecchymosis on four extremities. HEAD: Normocephalic and atraumatic. EYES: No injection or drainage. ENT: No nasal drainage noted. NECK: Supple CARDIOVASCULAR: Regular rate and rhythm RESPIRATORY: fine crackles on right lower lung field. rest of lung valle is CTA. GASTROINTESTINAL: Abdomen soft, non-tender, non distended. Bowel sounds present but sluggish. NEUROLOGICAL: Awake and alert. Motor and sensory grossly within normal limits. Normal speech. Procedures sp VATS, pleurodesis sp EGD Medications and IVs Current Medications Medications (Trade) Dose Ordered Sig/Ariella Route Start Time Stop Time Status Last Admin (Dulcolax Supp) 10 mg DAILY PRN RECTAL 09/29/16 17:15 10/02/16 17:26 (Narcan Inj) 0.4 mg UNSCH PRN IV 09/29/16 17:15 (Ambien) 5 mg HS PRN PO 09/29/16 21:00 10/16/16 22:08 (NS Flush) 2 ml BID IV FLUSH 09/30/16 21:00 10/17/16 09:05 (NS Flush) 2 ml UNSCH PRN IV FLUSH 09/30/16 09:15 10/16/16 22:08 (Zofran Inj) 4 mg Q6H PRN IV PUSH 09/30/16 09:15 10/13/16 08:21 (Surfak) 240 mg HS PO 09/30/16 21:00 10/16/16 22:08 (Milk Of [place] Liq) 30 ml DAILY PRN PO 09/30/16 09:15 10/01/16 08:07 (Tylenol) 650 mg Q4H PRN PO 09/30/16 09:15 09/30/16 17:58 (NovoLOG SUPPLEMENTAL SCALE) Q6HR SQ 09/30/16 12:00 09/30/16 23:25 (D50w (Vial) Inj) 25 ml UNSCH PRN IV PUSH 09/30/16 09:15 (Glucagon Inj) 1 mg UNSCH PRN IV 09/30/16 09:15 (Glycerin Adult Supp) 2 gm DAILY PRN RECTAL 10/01/16 09:30 (Fleets Enema (Adult)) 133 ml UNSCH PRN RECTAL 10/01/16 09:30 (Ultram) 50 mg Q8H PRN PO 10/03/16 09:45 10/16/16 10:03 (Protonix Inj) 40 mg Q24H IV PUSH 10/03/16 15:00 10/16/16 14:58 Sucralfate 1 gm 1 gm ACHS PO 10/03/16 16:00 10/17/16 06:23 Multivitamins 10 ml/Folic Acid 1 mg/Amino Acids/ Electrolytes/ Dextrose 2,010.2 ml @ 75 mls/hr Q24H IV 10/05/16 20:00 10/16/16 20:18 (Liposyn Iii 20% Inj) 250 ml @ 10 mls/hr Q24H IV 10/05/16 20:00 10/16/16 20:18 (Chloraseptic [place]) 2 spray Q2H PRN OROPHARYNG 10/06/16 15:45 (Refresh Tears 0.5% Opth Soln) 1 drop Q6H PRN EACH EYE 10/08/16 05:15 10/08/16 21:06 (Cepacol Extra Sriram (Sugar Free)) 1 lozenge Q2H PRN BUCCAL 10/10/16 14:00 10/13/16 05:36 Enoxaparin Sodium 50 mg 50 mg Q24H SQ 10/12/16 09:00 10/17/16 09:04 Piperacillin Sod/ Tazobactam Sod 100 ml @ 200 mls/hr Q8H IV 10/13/16 15:00 10/17/16 06:23 (Vancomycin Consult Pharmacy) 0 ml @ 0 mls/hr UNSCH OTHER 10/13/16 14:30 (Lactinex) 1 tab Q12HR PO 10/16/16 11:00 10/17/16 09:04 Miscellaneous Information SPECIFIC LAB TO BE JOHN... ONCE ONCE .XX 10/19/16 15:45 10/19/16 15:46 Urinary Catheter: No Vascular Central Line Catheter: No A/P Problem List: (1) Sepsis ICD Code: A41.9 Status: Acute (2) PNA (pneumonia) ICD Code: J18.9 Status: Acute (3) Leukocytosis ICD Code: D72.829 Status: Resolved (4) Nausea & vomiting ICD Code: R11.2 Status: Acute (5) Pleural effusion ICD Code: J90 Status: Resolved (6) Metastatic lung cancer (metastasis from lung to other site) ICD Code: C34.90 Status: Acute (7) UTI (urinary tract infection) ICD Code: N39.0 Status: Resolved (8) Partial small bowel obstruction ICD Code: K56.69 Status: Acute (9) Bilateral lower extremity pain ICD Code: M79.604 Status: Resolved (10) Epigastric pain ICD Code: R10.13 Status: Resolved (11) Hyperkalemia ICD Code: E87.5 Status: Resolved Plan: Due to osmotic drag due to hyperglycemia. Treated with IV Insulin and oral Kayexalate. Potassium normal at 4.0 on 10/17. Continue to monitor BMP. (12) Chest pain ICD Code: R07.9 Status: Acute Plan: check EKG, repeat CXR. Continue pain control with tramadol. (13) Hyponatremia ICD Code: E87.1 Status: Acute Plan: pseudohyponatremia due to elevated blood sugars. Monitor BMP. Sodium normal at 141. Assessment and Plan (1) Nausea & vomiting Plan: Abdomen and pelvis CT obtained on 10/04/16 showed abnormal bowel gas pattern concern for distal small bowel obstruction. Masslike area of soft tissue in the right lower lobe likely representing the patient's known tumor. Loculated right effusion. Consolidation in both lung bases. Her diverticulosis. Possible ileus. Patient status post EGD on 10/05/16 which showed esophagus appeared normal, there was a large amount of previous liquid which was aspirated completely. Mild erythema in the gastric antrum, status post biopsy, the pylorus was widely open the duodenum was normal without any evidence of ulceration or obstruction. Small amount of gastric output. Mildly distended. Continue Protonix, Carafate. PPN. 10/10 GI consulted - appreciate recommendations. Continue PPI, carafate. Continue Zofran as needed. NG tube removed on 10/09. Gen. surgery consulted, general surgery diagnosed the patient with high-grade partial small bowel obstruction. NG tube discontinued today but patient still nothing by mouth. Advance diet as per general surgery/GI recommendations. 10/12 Continue on clear liquid diet as per GS, continue TPN. Advance diet as per GS recommendations. Taper TPN as per GS. 10/13 Patient had episode of vomiting today. Continue zofran. 526 no episodes of vomiting, patient tolerating clear liquid diet, diet advanced to full liquid diet. Continue TPN 10/16 No vomiting or abdominal pain - Will advance diet to soft. 10/17 Patient is tolerating soft diet. Patient not eating much with poor appetite. Will start Megace and order a calorie count. (2) Pleural effusion Plan: sp VATS and pleurodesis. (3) Metastatic lung cancer (metastasis from lung to other site) Plan: Oncology following. Would like to continue treatment until T790m mutation resulted, if this is present, there is as 60% probability that this will get better. 10/10 Pathology negative for T790M mutation. She may be some benefit for gefitinib as she progressed on erlotinib as per oncology. (4) UTI (urinary tract infection) Plan: sp treatment with Rocephin IV. (5) Partial small bowel obstruction Plan: fu GI recommendations. GS consulted. Continue NG tube which has been clamped. C diff PCR negative.Ng tube output decreased and NG tube removed on 10/10. (6) Bilateral lower extremity pain Plan: Shows small nonocclusive thrombus within the right superficial femoral vein. This is a right chronic DVT. Patient started on intermediate subcutaneous Lovenox dose at 1 mg/kg/day as per hematology. Monitor for bleeding. (7) Epigastric pain Likely peptic ulcer disease versus gastritis. Continue PPI and Carafate. GI following. Epigastric pain resolved. (8) Sepsis Plan: Patient with new cough on 10/13. Chest x-ray showed an infiltrate in the right lower lung field. WBC increased to 20,000 on patient tachycardic. The patient was started broad spectrum IV antibiotics including vancomycin and IV Zosyn to cover for suspected aspiration pneumonia and possible HCAP Blood cultures obtained 10/16 sepsis resolved with resolved leukocytosis and resolved tachycardia. Blood cultures negative to date. Continue IV Zosyn and IV Vancomycin. Continue to monitor cbc w diff. (2) PNA (pneumonia) Plan: suspect aspiration pna due to recent bouts of nausea and vomiting. HCAP also possible. Continue supplemental O2 to keep oxygen saturation more than 92%. Bronchodilators Sputum culture pending. 10/17 Dc Vancomycin (3) Leukocytosis Plan: Likely due to sepsis, secondary to pneumonia. Leukocytosis resolved. Continue to monitor CBC with differential. Patient states that she does not want to go to hospice, she wants to get better. Gi proph: PPI DVT Proph: lovenos SQ Discharge Planning Continue to monitor in the medical floor. Hospice consult pending. Problem Qualifiers (1) PNA (pneumonia): Qualified Code: J69.0 - Aspiration pneumonia of right lower lobe due to gastric secretions (2) Leukocytosis: Qualified Code: D72.829 - Leukocytosis, unspecified type (3) Nausea & vomiting: (4) Metastatic lung cancer (metastasis from lung to other site): Qualified Code: C34.91 - Metastatic lung cancer (metastasis from lung to other site), right Freddie Tyson MD October 17, 2016 11:09
[2016-10-17 12:24] LABS: BICARBONATE 28.7 MEQ/L (21.0-32.0)
[2016-10-17] MEDS: traMADol HCL 50 MG TAB PO PRN (13:17)
[2016-10-17] MEDS: PANTOPRAZOLE SODIUM 40 MG VIAL IV PUSH SCH (13:31)
[2016-10-17] MEDS: MEGESTROL ACETATE SUSP 400 MG/10 ML CUP PO SCH (13:31)
[2016-10-17] MEDS: DOCUSATE CALCIUM 240 MG CAP PO SCH (21:00)
[2016-10-17] MEDS: FAT EMULSION 20% INJ 250 ML (@10 mls/hr) IV SCH (21:08)
[2016-10-17] MEDS: CLINIMIX E 4.25/5 2000 mL- >42 mls/hr IV SCH ×3 (21:08)
[2016-10-17] MEDS: ZOLPIDEM TARTRATE 5 MG TAB PO PRN (21:13)
[2016-10-18] VITALS (10 sets, daily range): BP systolic 102–132; BP diastolic 59–69; PULSE 91–108; RESP 18–20; TEMP 97–98.5; O2SAT 93–99
[2016-10-18] MEDS: SUCRALFATE 1 GM/10 ML CUP PO SCH ×4 (05:53→20:50)
[2016-10-18] MEDS: PIPERACIL-TAZO 4.5 GM PREMIX 100 ML IV SCH ×2 (05:53→18:19)
[2016-10-18] MEDS: INSULIN ASPART SUPPLEMENTAL SCALE SQ SCH ×4 (06:00→18:00)
[2016-10-18 07:56] LABS: AUTOMATED NEUTROPHIL # 5.5 TH/MM3 (1.8-7.7); BASOPHIL # 0.1 TH/MM3 (0-0.2); BASOPHIL % 1.1 % (0.0-2.0); EOSINOPHIL # 0.6 TH/MM3 (0-0.4); EOSINOPHIL % 6.9 % (0.0-4.0); HEMATOCRIT 27.3 % (35.0-46.0); HEMO FLAGS DIFF FINAL; LYMPH % 11.8 % (9.0-44.0); LYMPHOCYTE # 0.9 TH/MM3 (1.0-4.8); MEAN CELL VOLUME 90.4 FL (80.0-100.0); MEAN CORPUSCULAR HEMOGLOBIN 30.1 PG (27.0-34.0); MEAN CORPUSCULAR HGB CONC 33.3 % (32.0-36.0); MONO % 11.1 % (0.0-8.0); NEUT % 69.1 % (16.0-70.0); PLATELET COUNT 348 TH/MM3 (150-450); RED BLOOD COUNT 3.02 MIL/MM3 (4.00-5.30); RED CELL DISTRIBUTION WIDTH 14.1 % (11.6-17.2)
[2016-10-18] MEDS: ENOXAPARIN SODIUM 60 MG/0.6 ML SYRINGE SQ SCH (08:02)
[2016-10-18] MEDS: MEGESTROL ACETATE SUSP 400 MG/10 ML CUP PO SCH (08:02)
[2016-10-18] MEDS: LACTOBACILLUS ACIDOPHILUS TAB PO SCH ×2 (08:02→20:47)
[2016-10-18 08:09] LABS: ANION GAP 7 MEQ/L (5-15); AST (GOT) 16 U/L (15-37); BICARBONATE 26.1 MEQ/L (21.0-32.0); BLOOD UREA NITROGEN 17 MG/DL (7-18); CHLORIDE 106 MEQ/L (98-107); GLOMERULAR FILTRATION RATE 123 ML/MIN (>89); POTASSIUM 4.1 MEQ/L (3.5-5.1); SODIUM (NA) 139 MEQ/L (136-145)
[2016-10-18 08:13] LABS: ALKALINE PHOSPHATASE 53 U/L (45-117); ALT (GPT) 11 U/L (10-53); TOTAL BILIRUBIN ADULT 0.3 MG/DL (0.2-1.0)
[2016-10-18] MEDS: SODIUM CHLORIDE 0.9% FLUSH 10 ML FLUSH IV FLUSH SCH ×2 (08:44→20:47)
[2016-10-18] MEDS: RESP: BUDESONIDE 0.5 MG/2 ML NEB NEB SCH ×2 (08:57→19:56)
--- NOTE | 2016-10-18 10:59 | PD.ONC.PN ---
Subjective Subjective Remarks Afebrile overnight. patient sitting up on side of bed adjusting gown. She says she feels very strong. She feels like she would be able to walk by herself with the walker, "if they would let me." She has been eating well, she states. She had roast beef and mashed potatoes yesterday, and cornflakes this morning. Objective Data Date Time Temp Pulse Resp B/P Pulse Ox O2 Delivery O2 Flow Rate FiO2 10/18/16 08:55 99 Nasal Cannula 3.00 10/18/16 08:00 97.5 100 20 132/63 93 10/18/16 04:00 97.5 91 18 122/59 10/18/16 00:00 97.4 91 20 131/62 99 10/17/16 20:00 80 10/17/16 20:00 Nasal Cannula 3.00 10/17/16 20:00 97.7 91 20 114/54 95 10/17/16 19:29 99 Nasal Cannula 3.00 10/17/16 16:00 97.7 90 20 122/56 97 10/17/16 12:00 97.0 93 20 131/60 92 10/18/16 10/18/16 10/18/16 07:00 15:00 23:00 Intake Total 955 ml Output Total 500 ml Balance 455 ml Result Diagram: 10/18/16 0611 10/18/16 0611 Laboratory Results Laboratory Tests Test 10/17/16 10/18/16 11:28 06:11 Sodium Level 141 MEQ/L 139 MEQ/L Potassium Level 4.0 MEQ/L 4.1 MEQ/L Chloride Level 104 MEQ/L 106 MEQ/L Carbon Dioxide Level 28.7 MEQ/L 26.1 MEQ/L Anion Gap 8 MEQ/L 7 MEQ/L Blood Urea Nitrogen 16 MG/DL 17 MG/DL Creatinine 0.52 MG/DL 0.48 MG/DL Estimat Glomerular Filtration 112 ML/MIN 123 ML/MIN Rate Random Glucose 120 MG/DL 101 MG/DL Calcium Level 8.2 MG/DL 8.3 MG/DL White Blood Count 8.0 TH/MM3 Red Blood Count 3.02 MIL/MM3 Hemoglobin 9.1 GM/DL Hematocrit 27.3 % Mean Corpuscular Volume 90.4 FL Mean Corpuscular Hemoglobin 30.1 PG Mean Corpuscular Hemoglobin 33.3 % Concent Red Cell Distribution Width 14.1 % Platelet Count 348 TH/MM3 Mean Platelet Volume 9.3 FL Neutrophils (%) (Auto) 69.1 % Lymphocytes (%) (Auto) 11.8 % Monocytes (%) (Auto) 11.1 % Eosinophils (%) (Auto) 6.9 % Basophils (%) (Auto) 1.1 % Neutrophils # (Auto) 5.5 TH/MM3 Lymphocytes # (Auto) 0.9 TH/MM3 Monocytes # (Auto) 0.9 TH/MM3 Eosinophils # (Auto) 0.6 TH/MM3 Basophils # (Auto) 0.1 TH/MM3 CBC Comment DIFF FINAL Differential Comment Total Bilirubin 0.3 MG/DL Aspartate Amino Transf 16 U/L (AST/SGOT) Alanine Aminotransferase 11 U/L (ALT/SGPT) Alkaline Phosphatase 53 U/L Total Protein 5.2 GM/DL Albumin 1.7 GM/DL Administered Medications Medications (Trade) Dose Ordered Sig/Ariella Route PRN Reason Start Time Stop Time Status Last Admin Dose Admin Bisacodyl (Dulcolax Supp) 10 mg DAILY PRN RECTAL CONSTIPATION 09/29/16 17:15 10/02/16 17:26 Zolpidem Tartrate (Ambien) 5 mg HS PRN PO INSOMNIA/MAY REPEAT X1 DOSE 09/29/16 21:00 10/17/16 21:13 Sodium Chloride (NS Flush) 2 ml BID IV FLUSH 09/30/16 21:00 10/18/16 08:44 Sodium Chloride (NS Flush) 2 ml UNSCH PRN IV FLUSH FLUSH AFTER USING IV ACCESS 09/30/16 09:15 10/16/16 22:08 Ondansetron HCl (Zofran Inj) 4 mg Q6H PRN IV PUSH NAUSEA OR VOMITING 09/30/16 09:15 10/13/16 08:21 Docusate Calcium (Surfak) 240 mg HS PO 09/30/16 21:00 10/16/16 22:08 Magnesium Hydroxide (Milk Of [place] Liq) 30 ml DAILY PRN PO CONSTIPATION 09/30/16 09:15 10/01/16 08:07 Acetaminophen (Tylenol) 650 mg Q4H PRN PO TEMPERATURE > 101 F 09/30/16 09:15 09/30/16 17:58 Insulin Aspart (NovoLOG SUPPLEMENTAL SCALE) Q6HR SQ 09/30/16 12:00 09/30/16 23:25 Tramadol HCl (Ultram) 50 mg Q8H PRN PO PAIN SCALE 4 TO 10 10/03/16 09:45 10/17/16 13:17 Pantoprazole Sodium (Protonix Inj) 40 mg Q24H IV PUSH 10/03/16 15:00 10/17/16 13:31 Sucralfate 1 gm 1 gm ACHS PO 10/03/16 16:00 10/18/16 05:53 Multivitamins 10 ml/Folic Acid 1 mg/Amino Acids/ Electrolytes/ Dextrose 2,010.2 ml @ 75 mls/hr Q24H IV 10/05/16 20:00 10/17/16 21:08 Fat Emulsion Intravenous (Liposyn Iii 20% Inj) 250 ml @ 10 mls/hr Q24H IV 10/05/16 20:00 10/17/16 21:08 Carboxymethylcellulose Sodium (Refresh Tears 0.5% Opth Soln) 1 drop Q6H PRN EACH EYE dry eyes 10/08/16 05:15 10/08/16 21:06 Benzocaine/Menthol (Cepacol Extra Sriram (Sugar Free)) 1 lozenge Q2H PRN BUCCAL SORE THROAT 10/10/16 14:00 10/13/16 05:36 Enoxaparin Sodium 50 mg 50 mg Q24H SQ 10/12/16 09:00 10/18/16 08:02 Piperacillin Sod/ Tazobactam Sod (Zosyn 4.5 Gm Premix) 100 ml @ 200 mls/hr Q8H IV 10/13/16 15:00 10/18/16 05:53 Lactobacillus Acidophilus (Lactinex) 1 tab Q12HR PO 10/16/16 11:00 10/18/16 08:02 Megestrol Acetate (Megace Liq) 400 mg DAILY PO 10/17/16 11:00 10/18/16 08:02 Objective Remarks GENERAL: Pleasant elderly female, sitting up on side of bed, adjusting gown. On 3L O2 via NC SKIN: Warm and dry. HEAD: Normocephalic. EYES: No injection or drainage. NECK: Supple, trachea midline. CARDIOVASCULAR: +S1/S2 RESPIRATORY: diminished at bases, occasional rhonchi. GASTROINTESTINAL: Abdomen soft. non-tender. EXTREMITIES: No cyanosis NEUROLOGICAL: awake and alert, normal speech. moving all extremities. 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 Plan 1. continue supportive care. 2. continue Lovenox at current dosing of 50mg SQ daily 3. await calorie count, wood processing worker recommendations. will stop TPN after results of calorie count. 3. d/w patient and son via phone, Dr. Gilman will be here this evening to talk with patient about next steps in treatment of her lung cancer. Attending Statement The exam, history, and the medical decision-making described in the above note were completed with the assistance of the mid-level provider. I reviewed and agree with the findings presented. I attest that I had a [id number] encounter with the patient on the same day, and personally performed and documented my assessment and findings in the medical record. met with son and patient. reviewed recent films and mutation testing with son. patient improving and I can envision her going home in several days with hospice recommend: -change to po Protonix -discontinue IV antibiotic and switch to po Levaquin. I doubt that she has pneumonia and suspect that the findings at the right base are due to effusion, cancer, talc, and not on going infection. -patient and son agree with hospice - would discontinue iv TPN as oral intake improving - home in several days with hospice. When she is at home she will resume Tarceva as although she has progressive disease it may be partially effective preventing progression in areas where there is no new mutation. If she makes a significant recovery would consider immune therapy with nivolumab or pembrolizumab but at present she is too ill. She is not a candidate for chemotherapy. -At this point the patient and family are in agreement with this plan. on discharge will stop lovenex and resume aspirin. The small clot she has on Doppler is OLD. Jaja Felder October 18, 2016 10:59 Christiano Gilman MD October 18, 2016 20:29
[2016-10-18] MEDS: traMADol HCL 50 MG TAB PO PRN ×2 (12:07→20:48)
[2016-10-18] MEDS: PANTOPRAZOLE SODIUM 40 MG VIAL IV PUSH SCH (18:20)
--- NOTE | 2016-10-18 18:55 | HHI.PR ---
Subjective Remarks Deferred entry - patient seen earlier at 11:08 Patient denies cp/sob states that she still has poor appetite denies fevers and chills States got up and walked in the hallway denies abdominal pain, nausea or vomiting tolerating diet. Objective Vitals Vital Signs Date Time Temp Pulse Resp B/P Pulse Ox O2 Delivery O2 Flow Rate FiO2 10/18/16 16:00 98.0 107 18 131/63 94 10/18/16 12:30 Nasal Cannula 3.00 10/18/16 12:00 97.0 93 18 129/59 94 10/18/16 08:55 99 Nasal Cannula 3.00 10/18/16 08:30 Nasal Cannula 3.00 10/18/16 08:11 105 10/18/16 08:00 97.5 100 20 132/63 93 10/18/16 04:00 97.5 91 18 122/59 10/18/16 00:00 97.4 91 20 131/62 99 10/17/16 20:00 80 10/17/16 20:00 Nasal Cannula 3.00 10/17/16 20:00 97.7 91 20 114/54 95 10/17/16 19:29 99 Nasal Cannula 3.00 I/O 10/17/16 10/17/16 10/17/16 10/18/16 10/18/16 10/18/16 07:00 15:00 23:00 07:00 15:00 23:00 Intake Total 840 ml 360 ml 1259 ml 955 ml 860 ml Output Total 900 ml 600 ml 500 ml 800 ml Balance -60 ml -240 ml 1259 ml 455 ml 60 ml Intake Oral 360 ml 240 ml 860 ml IV Total 840 ml 1259 ml 715 ml Output Urine Total 900 ml 600 ml 500 ml 800 ml # Voids 1 # Bowel Movements 1 6 1 Result Diagram: 10/18/16 0611 10/18/16 0611 Imaging Last Impressions Chest X-Ray 10/13/16 0000 Signed Impressions: Service Date/Time: September 12:11 - CONCLUSION: Stable chest x-ray with right pleural effusion with associated consolidation and atelectasis at the right lung base. There is mild atelectasis versus consolidation at the left lung base. José Miguel Mcgovern MD Lower Extremity Ultrasound 10/10/16 0000 Signed Impressions: Service Date/Time: Monday, October 10, 2016 22:53 - CONCLUSION: Small nonocclusive thrombus within right superficial femoral vein most likely chronic. Annette Bonds MD Abdomen/Pelvis CT 10/09/16 0000 Signed Impressions: Service Date/Time: Sunday, October 09, 2016 10:08 - CONCLUSION: 1. Right lung base mass, loculated effusion and bilateral consolidation again seen. 2. Dilated loops of small intestine are noted, and there is contrast within the large bowel, findings suggest a partial small bowel obstruction, an ileus is a consideration but given a decompressed large bowel suspect the former. Onur Espinoza MD Small Bowel X-Ray 10/07/16 0000 Signed Impressions: Service Date/Time: Friday, October 07, 2016 10:09 - CONCLUSION: Small bowel obstruction at the level of the distal ileum. Patient refused spot images. Markedly prolonged small bowel transit time. José Miguel Lira MD Abdomen X-Ray 10/03/16 0000 Signed Impressions: Service Date/Time: Monday, October 03, 2016 19:45 - CONCLUSION: No obstruction. Renan Gutierres MD Objective Remarks GENERAL: No acute distress. Sitting in chair. SKIN: Ecchymosis on four extremities. HEAD: Normocephalic and atraumatic. EYES: No injection or drainage. ENT: No nasal drainage noted. NECK: Supple CARDIOVASCULAR: Regular rate and rhythm RESPIRATORY: fine crackles on right lower lung field. rest of lung valle is CTA. GASTROINTESTINAL: Abdomen soft, non-tender, non distended. Bowel sounds present but sluggish. NEUROLOGICAL: Awake and alert. Motor and sensory grossly within normal limits. Normal speech. Procedures sp VATS, pleurodesis sp EGD Medications and IVs Current Medications Medications (Trade) Dose Ordered Sig/Ariella Route Start Time Stop Time Status Last Admin (Dulcolax Supp) 10 mg DAILY PRN RECTAL 09/29/16 17:15 10/02/16 17:26 (Narcan Inj) 0.4 mg UNSCH PRN IV 09/29/16 17:15 (Ambien) 5 mg HS PRN PO 09/29/16 21:00 10/17/16 21:13 (NS Flush) 2 ml BID IV FLUSH 09/30/16 21:00 10/18/16 08:44 (NS Flush) 2 ml UNSCH PRN IV FLUSH 09/30/16 09:15 10/16/16 22:08 (Zofran Inj) 4 mg Q6H PRN IV PUSH 09/30/16 09:15 10/13/16 08:21 (Surfak) 240 mg HS PO 09/30/16 21:00 10/16/16 22:08 (Milk Of Magnesia Liq) 30 ml DAILY PRN PO 09/30/16 09:15 10/01/16 08:07 (Tylenol) 650 mg Q4H PRN PO 09/30/16 09:15 09/30/16 17:58 (NovoLOG SUPPLEMENTAL SCALE) Q6HR SQ 09/30/16 12:00 09/30/16 23:25 (D50w (Vial) Inj) 25 ml UNSCH PRN IV PUSH 09/30/16 09:15 (Glucagon Inj) 1 mg UNSCH PRN IV 09/30/16 09:15 (Glycerin Adult Supp) 2 gm DAILY PRN RECTAL 10/01/16 09:30 (Fleets Enema (Adult)) 133 ml UNSCH PRN RECTAL 10/01/16 09:30 (Ultram) 50 mg Q8H PRN PO 10/03/16 09:45 10/18/16 12:07 (Protonix Inj) 40 mg Q24H IV PUSH 10/03/16 15:00 10/18/16 18:20 Sucralfate 1 gm 1 gm ACHS PO 10/03/16 16:00 10/18/16 18:12 Multivitamins 10 ml/Folic Acid 1 mg/Amino Acids/ Electrolytes/ Dextrose 2,010.2 ml @ 75 mls/hr Q24H IV 10/05/16 20:00 10/17/16 21:08 (Liposyn Iii 20% Inj) 250 ml @ 10 mls/hr Q24H IV 10/05/16 20:00 10/17/16 21:08 (Chloraseptic Manson) 2 spray Q2H PRN OROPHARYNG 10/06/16 15:45 (Refresh Tears 0.5% Opth Soln) 1 drop Q6H PRN EACH EYE 10/08/16 05:15 10/08/16 21:06 (Cepacol Extra Sriram (Sugar Free)) 1 lozenge Q2H PRN BUCCAL 10/10/16 14:00 10/13/16 05:36 Enoxaparin Sodium 50 mg 50 mg Q24H SQ 10/12/16 09:00 10/18/16 08:02 (Zosyn 4.5 Gm Premix) 100 ml @ 200 mls/hr Q8H IV 10/13/16 15:00 10/18/16 18:19 (Lactinex) 1 tab Q12HR PO 10/16/16 11:00 10/18/16 08:02 (Megace Liq) 400 mg DAILY PO 10/17/16 11:00 10/18/16 08:02 Urinary Catheter: No Vascular Central Line Catheter: No A/P Problem List: (1) Sepsis ICD Code: A41.9 Status: Acute (2) PNA (pneumonia) ICD Code: J18.9 Status: Acute (3) Leukocytosis ICD Code: D72.829 Status: Resolved (4) Nausea & vomiting ICD Code: R11.2 Status: Acute (5) Pleural effusion ICD Code: J90 Status: Resolved (6) Metastatic lung cancer (metastasis from lung to other site) ICD Code: C34.90 Status: Acute (7) UTI (urinary tract infection) ICD Code: N39.0 Status: Resolved (8) Partial small bowel obstruction ICD Code: K56.69 Status: Acute (9) Bilateral lower extremity pain ICD Code: M79.604 Status: Resolved (10) Epigastric pain ICD Code: R10.13 Status: Resolved (11) Hyperkalemia ICD Code: E87.5 Status: Resolved Plan: Due to osmotic drag due to hyperglycemia. Treated with IV Insulin and oral Kayexalate. Potassium at normal level. continue to monitor. (12) Chest pain ICD Code: R07.9 Status: Acute Plan: Repeat chest x-ray on 10/13 showed stable chest x-ray with right pleural effusion with associated consolidation and atelectasis at the right lung base. Chest pain has resolved. (13) Hyponatremia ICD Code: E87.1 Status: Acute Plan: pseudohyponatremia due to elevated blood sugars. Monitor BMP. Sodium continues to be normal. Assessment and Plan (1) Nausea & vomiting Plan: Abdomen and pelvis CT obtained on 10/04/16 showed abnormal bowel gas pattern concern for distal small bowel obstruction. Masslike area of soft tissue in the right lower lobe likely representing the patient's known tumor. Loculated right effusion. Consolidation in both lung bases. Her diverticulosis. Possible ileus. Patient status post EGD on 10/05/16 which showed esophagus appeared normal, there was a large amount of previous liquid which was aspirated completely. Mild erythema in the gastric antrum, status post biopsy, the pylorus was widely open the duodenum was normal without any evidence of ulceration or obstruction. Small amount of gastric output. Mildly distended. Continue Protonix, Carafate. PPN. 10/10 GI consulted - appreciate recommendations. Continue PPI, carafate. Continue Zofran as needed. NG tube removed on 10/09. Gen. surgery consulted, general surgery diagnosed the patient with high-grade partial small bowel obstruction. NG tube discontinued today but patient still nothing by mouth. Advance diet as per general surgery/GI recommendations. 10/12 Continue on clear liquid diet as per GS, continue TPN. Advance diet as per GS recommendations. Taper TPN as per GS. 10/13 Patient had episode of vomiting today. Continue zofran. 526 no episodes of vomiting, patient tolerating clear liquid diet, diet advanced to full liquid diet. Continue TPN 10/16 No vomiting or abdominal pain - Will advance diet to soft. 10/17 Patient is tolerating soft diet. Patient not eating much with poor appetite. Will start Megace and order a calorie count. (2) Pleural effusion Plan: sp VATS and pleurodesis. (3) Metastatic lung cancer (metastasis from lung to other site) Plan: Oncology following. Would like to continue treatment until T790m mutation resulted, if this is present, there is as 60% probability that this will get better. 10/10 Pathology negative for T790M mutation. She may be some benefit for gefitinib as she progressed on erlotinib as per oncology. (4) UTI (urinary tract infection) Plan: sp treatment with Rocephin IV. (5) Partial small bowel obstruction Plan: fu GI recommendations. GS consulted. Continue NG tube which has been clamped. C diff PCR negative.Ng tube output decreased and NG tube removed on 10/10. (6) Bilateral lower extremity pain Plan: Shows small nonocclusive thrombus within the right superficial femoral vein. This is a right chronic DVT. Patient started on intermediate subcutaneous Lovenox dose at 1 mg/kg/day as per hematology. Monitor for bleeding. (7) Epigastric pain Likely peptic ulcer disease versus gastritis. Continue PPI and Carafate. GI following. Epigastric pain resolved. (8) Sepsis Plan: Patient with new cough on 10/13. Chest x-ray showed an infiltrate in the right lower lung field. WBC increased to 20,000 on patient tachycardic. The patient was started broad spectrum IV antibiotics including vancomycin and IV Zosyn to cover for suspected aspiration pneumonia and possible HCAP Blood cultures obtained 10/16 sepsis resolved with resolved leukocytosis and resolved tachycardia. Blood cultures negative to date. Continue IV Zosyn and IV Vancomycin. Continue to monitor cbc w diff. (2) PNA (pneumonia) Plan: suspect aspiration pna due to recent bouts of nausea and vomiting. HCAP also possible. Continue supplemental O2 to keep oxygen saturation more than 92%. Bronchodilators Sputum culture pending. 10/17 Dc Vancomycin (3) Leukocytosis Plan: Likely due to sepsis, secondary to pneumonia. Leukocytosis resolved. Continue to monitor CBC with differential. Patient states that she does not want to go to hospice, she wants to get better. Gi proph: PPI DVT Proph: lovenos SQ Discharge Planning Continue to monitor in the medical floor. Hospice consult pending. Problem Qualifiers (1) PNA (pneumonia): Qualified Code: J69.0 - Aspiration pneumonia of right lower lobe due to gastric secretions (2) Leukocytosis: Qualified Code: D72.829 - Leukocytosis, unspecified type (3) Nausea & vomiting: (4) Metastatic lung cancer (metastasis from lung to other site): Qualified Code: C34.91 - Metastatic lung cancer (metastasis from lung to other site), right Freddie Tyson MD October 18, 2016 18:55
[2016-10-18] MEDS: FAT EMULSION 20% INJ 250 ML (@10 mls/hr) IV SCH (20:45)
[2016-10-18] MEDS: CLINIMIX E 4.25/5 2000 mL- >42 mls/hr IV SCH ×3 (20:46)
[2016-10-18] MEDS: DOCUSATE CALCIUM 240 MG CAP PO SCH (20:47)
[2016-10-18] MEDS: ZOLPIDEM TARTRATE 5 MG TAB PO PRN (20:48)
[2016-10-19] VITALS (8 sets, daily range): BP systolic 110–135; BP diastolic 32–64; PULSE 93–107; RESP 18–19; TEMP 97–98.3; O2SAT 94–99
[2016-10-19] MEDS: INSULIN ASPART SUPPLEMENTAL SCALE SQ SCH ×4 (06:00→17:22)
[2016-10-19] MEDS: SUCRALFATE 1 GM/10 ML CUP PO SCH ×4 (06:10→20:54)
[2016-10-19] MEDS: traMADol HCL 50 MG TAB PO PRN (06:16)
[2016-10-19] MEDS: RESP: BUDESONIDE 0.5 MG/2 ML NEB NEB SCH ×2 (08:18→20:18)
[2016-10-19] MEDS: LEVOFLOXACIN 500 MG TAB PO SCH (08:24)
[2016-10-19] MEDS: MEGESTROL ACETATE SUSP 400 MG/10 ML CUP PO SCH (08:24)
[2016-10-19] MEDS: SODIUM CHLORIDE 0.9% FLUSH 10 ML FLUSH IV FLUSH SCH ×2 (08:24→20:56)
[2016-10-19] MEDS: PANTOPRAZOLE SOD 40 MG DELAYED RELEASE TAB PO SCH (08:24)
[2016-10-19] MEDS: ENOXAPARIN SODIUM 60 MG/0.6 ML SYRINGE SQ SCH (08:24)
[2016-10-19] MEDS: LACTOBACILLUS ACIDOPHILUS TAB PO SCH ×2 (08:24→20:54)
--- NOTE | 2016-10-19 09:33 | PD.ONC.PN ---
Subjective Subjective Remarks Afebrile overnight. Patient resting in bed in nad. She states she is tolerating a regular diet. Objective Data Date Time Temp Pulse Resp B/P Pulse Ox O2 Delivery O2 Flow Rate FiO2 10/19/16 08:19 94 Nasal Cannula 3.00 10/19/16 06:03 97.9 93 18 123/57 98 10/19/16 00:00 98.1 105 18 110/32 95 10/18/16 20:16 108 10/18/16 20:00 98.5 106 18 102/69 97 10/18/16 19:56 98 Nasal Cannula 3.00 10/18/16 19:30 Nasal Cannula 3.00 10/18/16 16:30 Nasal Cannula 3.00 10/18/16 16:00 98.0 107 18 131/63 94 10/18/16 12:30 Nasal Cannula 3.00 10/18/16 12:00 97.0 93 18 129/59 94 10/19/16 10/19/16 10/19/16 07:00 15:00 23:00 Intake Total 680 ml Output Total 300 ml Balance 380 ml Result Diagram: 10/18/16 0611 10/18/16 0611 Administered Medications Medications (Trade) Dose Ordered Sig/Ariella Route PRN Reason Start Time Stop Time Status Last Admin Dose Admin Bisacodyl (Dulcolax Supp) 10 mg DAILY PRN RECTAL CONSTIPATION 09/29/16 17:15 10/02/16 17:26 Zolpidem Tartrate (Ambien) 5 mg HS PRN PO INSOMNIA/MAY REPEAT X1 DOSE 09/29/16 21:00 10/18/16 20:48 Sodium Chloride (NS Flush) 2 ml BID IV FLUSH 09/30/16 21:00 10/19/16 08:24 Sodium Chloride (NS Flush) 2 ml UNSCH PRN IV FLUSH FLUSH AFTER USING IV ACCESS 09/30/16 09:15 10/16/16 22:08 Ondansetron HCl (Zofran Inj) 4 mg Q6H PRN IV PUSH NAUSEA OR VOMITING 09/30/16 09:15 10/13/16 08:21 Docusate Calcium (Surfak) 240 mg HS PO 09/30/16 21:00 10/18/16 20:47 Magnesium Hydroxide (Milk Of Magnesia Liq) 30 ml DAILY PRN PO CONSTIPATION 09/30/16 09:15 10/01/16 08:07 Acetaminophen (Tylenol) 650 mg Q4H PRN PO TEMPERATURE > 101 F 09/30/16 09:15 09/30/16 17:58 Insulin Aspart (NovoLOG SUPPLEMENTAL SCALE) Q6HR SQ 09/30/16 12:00 09/30/16 23:25 Tramadol HCl (Ultram) 50 mg Q8H PRN PO PAIN SCALE 4 TO 10 10/03/16 09:45 10/19/16 06:16 Sucralfate (Carafate Liq) 1 gm ACHS PO 10/03/16 16:00 10/19/16 06:10 Carboxymethylcellulose Sodium (Refresh Tears 0.5% Opth Soln) 1 drop Q6H PRN EACH EYE dry eyes 10/08/16 05:15 10/08/16 21:06 Benzocaine/Menthol (Cepacol Extra Sriram (Sugar Free)) 1 lozenge Q2H PRN BUCCAL SORE THROAT 10/10/16 14:00 10/13/16 05:36 Enoxaparin Sodium (Lovenox Inj) 50 mg Q24H SQ 10/12/16 09:00 10/19/16 08:24 Lactobacillus Acidophilus (Lactinex) 1 tab Q12HR PO 10/16/16 11:00 10/19/16 08:24 Megestrol Acetate (Megace Liq) 400 mg DAILY PO 10/17/16 11:00 10/19/16 08:24 Levofloxacin (Levaquin) 500 mg DAILY PO 10/19/16 09:00 10/19/16 08:24 Pantoprazole Sodium (Protonix) 40 mg DAILY PO 10/19/16 09:00 10/19/16 08:24 Objective Remarks GENERAL: Pleasant elderly female, lying in bed in nad. SKIN: Warm and dry. HEAD: Normocephalic. EYES: No injection or drainage. NECK: Supple, trachea midline. CARDIOVASCULAR: +S1/S2 RESPIRATORY: diminished at right base with crackles, occasional rhonchi. GASTROINTESTINAL: Abdomen soft. non-tender. EXTREMITIES: No cyanosis NEUROLOGICAL: aox3. normal speech. moving all extremities. 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 Plan 1. taper TPN 2. await hospice consult 3. resume Tarceva at home. 4. On discharge stop Lovenox and resume Aspirin 5. continue Po Levaquin 6. send cytology for PDL-1 testing. Attending Statement The exam, history, and the medical decision-making described in the above note were completed with the assistance of the mid-level provider. I reviewed and agree with the findings presented. I attest that I had a [id number] encounter with the patient on the same day, and personally performed and documented my assessment and findings in the medical record. she is doing better and stronger. At this point can taper the TPN and send home in next 1-2 days. Her son Rashi is arranging for help at home. Will check PDL1 to see if candidate for pembrolizumab which would be a reasonable option if she regains strength. she is excited about getting home. Jaja Felder October 19, 2016 09:33 Christiano Gilman MD October 19, 2016 14:33
--- NOTE | 2016-10-19 12:08 | HHI.PR ---
Subjective Remarks Patient feels very good tolerated diet denies nausea, abdominal pain denies fevers or chills is tolerating Pt Objective Vitals Vital Signs Date Time Temp Pulse Resp B/P Pulse Ox O2 Delivery O2 Flow Rate FiO2 10/19/16 08:19 94 Nasal Cannula 3.00 10/19/16 06:03 97.9 93 18 123/57 98 10/19/16 00:00 98.1 105 18 110/32 95 10/18/16 20:16 108 10/18/16 20:00 98.5 106 18 102/69 97 10/18/16 19:56 98 Nasal Cannula 3.00 10/18/16 19:30 Nasal Cannula 3.00 10/18/16 16:30 Nasal Cannula 3.00 10/18/16 16:00 98.0 107 18 131/63 94 10/18/16 12:30 Nasal Cannula 3.00 I/O 10/18/16 10/18/16 10/18/16 10/19/16 10/19/16 10/19/16 07:00 15:00 23:00 07:00 15:00 23:00 Intake Total 955 ml 860 ml 680 ml 680 ml Output Total 500 ml 800 ml 100 ml 300 ml Balance 455 ml 60 ml 580 ml 380 ml Intake Oral 240 ml 860 ml IV Total 715 ml 600 ml TPN/PPN 600 ml Lipid 80 ml 80 ml Output Urine Total 500 ml 800 ml 100 ml 300 ml # Bowel Movements 1 0 Result Diagram: 10/18/16 0611 10/18/16 0611 Imaging Last Impressions Chest X-Ray 10/13/16 0000 Signed Impressions: Service Date/Time: September 12:11 - CONCLUSION: Stable chest x-ray with right pleural effusion with associated consolidation and atelectasis at the right lung base. There is mild atelectasis versus consolidation at the left lung base. José Miguel Mcgovern MD Lower Extremity Ultrasound 10/10/16 0000 Signed Impressions: Service Date/Time: Monday, October 10, 2016 22:53 - CONCLUSION: Small nonocclusive thrombus within right superficial femoral vein most likely chronic. Annette Bonds MD Abdomen/Pelvis CT 10/09/16 0000 Signed Impressions: Service Date/Time: Sunday, October 09, 2016 10:08 - CONCLUSION: 1. Right lung base mass, loculated effusion and bilateral consolidation again seen. 2. Dilated loops of small intestine are noted, and there is contrast within the large bowel, findings suggest a partial small bowel obstruction, an ileus is a consideration but given a decompressed large bowel suspect the former. Onur Espinoza MD Small Bowel X-Ray 10/07/16 0000 Signed Impressions: Service Date/Time: Friday, October 07, 2016 10:09 - CONCLUSION: Small bowel obstruction at the level of the distal ileum. Patient refused spot images. Markedly prolonged small bowel transit time. José Miguel Lira MD Abdomen X-Ray 10/03/16 0000 Signed Impressions: Service Date/Time: Monday, October 03, 2016 19:45 - CONCLUSION: No obstruction. Renan Gutierres MD Objective Remarks GENERAL: No acute distress. Sitting in chair. SKIN: Ecchymosis on four extremities. HEAD: Normocephalic and atraumatic. EYES: No injection or drainage. ENT: No nasal drainage noted. NECK: Supple CARDIOVASCULAR: Regular rate and rhythm RESPIRATORY: fine crackles on right lower lung field. rest of lung valle is CTA. GASTROINTESTINAL: Abdomen soft, non-tender, non distended. Bowel sounds present but sluggish. NEUROLOGICAL: Awake and alert. Motor and sensory grossly within normal limits. Normal speech. Procedures sp VATS, pleurodesis sp EGD Medications and IVs Current Medications Medications (Trade) Dose Ordered Sig/Ariella Route Start Time Stop Time Status Last Admin (Dulcolax Supp) 10 mg DAILY PRN RECTAL 09/29/16 17:15 10/02/16 17:26 (Narcan Inj) 0.4 mg UNSCH PRN IV 09/29/16 17:15 (Ambien) 5 mg HS PRN PO 09/29/16 21:00 10/18/16 20:48 (NS Flush) 2 ml BID IV FLUSH 09/30/16 21:00 10/19/16 08:24 (NS Flush) 2 ml UNSCH PRN IV FLUSH 09/30/16 09:15 10/16/16 22:08 (Zofran Inj) 4 mg Q6H PRN IV PUSH 09/30/16 09:15 10/13/16 08:21 (Surfak) 240 mg HS PO 09/30/16 21:00 10/18/16 20:47 (Milk Of Magnesia Liq) 30 ml DAILY PRN PO 09/30/16 09:15 10/01/16 08:07 (Tylenol) 650 mg Q4H PRN PO 09/30/16 09:15 09/30/16 17:58 (NovoLOG SUPPLEMENTAL SCALE) Q6HR SQ 09/30/16 12:00 09/30/16 23:25 (D50w (Vial) Inj) 25 ml UNSCH PRN IV PUSH 09/30/16 09:15 (Glucagon Inj) 1 mg UNSCH PRN IV 09/30/16 09:15 (Glycerin Adult Supp) 2 gm DAILY PRN RECTAL 10/01/16 09:30 (Fleets Enema (Adult)) 133 ml UNSCH PRN RECTAL 10/01/16 09:30 (Ultram) 50 mg Q8H PRN PO 10/03/16 09:45 10/19/16 06:16 (Carafate Liq) 1 gm ACHS PO 10/03/16 16:00 10/19/16 16:09 (Chloraseptic [place]) 2 spray Q2H PRN OROPHARYNG 10/06/16 15:45 (Refresh Tears 0.5% Opth Soln) 1 drop Q6H PRN EACH EYE 10/08/16 05:15 10/08/16 21:06 (Cepacol Extra Sriram (Sugar Free)) 1 lozenge Q2H PRN BUCCAL 10/10/16 14:00 10/13/16 05:36 (Lovenox Inj) 50 mg Q24H SQ 10/12/16 09:00 10/19/16 08:24 (Lactinex) 1 tab Q12HR PO 10/16/16 11:00 10/19/16 08:24 (Megace Liq) 400 mg DAILY PO 10/17/16 11:00 10/19/16 08:24 (Levaquin) 500 mg DAILY PO 10/19/16 09:00 10/19/16 08:24 (Protonix) 40 mg DAILY PO 10/19/16 09:00 10/19/16 08:24 Urinary Catheter: No Vascular Central Line Catheter: No A/P Problem List: (1) Sepsis ICD Code: A41.9 Status: Acute (2) PNA (pneumonia) ICD Code: J18.9 Status: Acute (3) Leukocytosis ICD Code: D72.829 Status: Resolved (4) Nausea & vomiting ICD Code: R11.2 Status: Acute (5) Pleural effusion ICD Code: J90 Status: Resolved (6) Metastatic lung cancer (metastasis from lung to other site) ICD Code: C34.90 Status: Acute (7) UTI (urinary tract infection) ICD Code: N39.0 Status: Resolved (8) Partial small bowel obstruction ICD Code: K56.69 Status: Acute (9) Bilateral lower extremity pain ICD Code: M79.604 Status: Resolved (10) Epigastric pain ICD Code: R10.13 Status: Resolved (11) Hyperkalemia ICD Code: E87.5 Status: Resolved (12) Chest pain ICD Code: R07.9 Status: Acute (13) Hyponatremia ICD Code: E87.1 Status: Acute Assessment and Plan (1) Nausea & vomiting Plan: Abdomen and pelvis CT obtained on 10/04/16 showed abnormal bowel gas pattern concern for distal small bowel obstruction. Masslike area of soft tissue in the right lower lobe likely representing the patient's known tumor. Loculated right effusion. Consolidation in both lung bases. Her diverticulosis. Possible ileus. Patient status post EGD on 10/05/16 which showed esophagus appeared normal, there was a large amount of previous liquid which was aspirated completely. Mild erythema in the gastric antrum, status post biopsy, the pylorus was widely open the duodenum was normal without any evidence of ulceration or obstruction. Small amount of gastric output. Mildly distended. Continue Protonix, Carafate. PPN. 10/10 GI consulted - appreciate recommendations. Continue PPI, carafate. Continue Zofran as needed. NG tube removed on 10/09. Gen. surgery consulted, general surgery diagnosed the patient with high-grade partial small bowel obstruction. NG tube discontinued today but patient still nothing by mouth. Advance diet as per general surgery/GI recommendations. 10/12 Continue on clear liquid diet as per GS, continue TPN. Advance diet as per GS recommendations. Taper TPN as per GS. 10/13 Patient had episode of vomiting today. Continue zofran. 526 no episodes of vomiting, patient tolerating clear liquid diet, diet advanced to full liquid diet. Continue TPN 10/16 No vomiting or abdominal pain - Will advance diet to soft. 10/17 Patient is tolerating soft diet. Patient not eating much with poor appetite. Will start Megace and order a calorie count. 10/19 appetite is improving and patient seems to be eating really well. Continue Megace. (2) Pleural effusion Plan: sp VATS and pleurodesis. (3) Metastatic lung cancer (metastasis from lung to other site) Plan: Oncology following. Would like to continue treatment until T790m mutation resulted, if this is present, there is as 60% probability that this will get better. 10/10 Pathology negative for T790M mutation. She may be some benefit for gefitinib as she progressed on erlotinib as per oncology. 10/19 As per Oncology continue Tarceva upon DC. (4) UTI (urinary tract infection) Plan: sp treatment with Rocephin IV. (5) Partial small bowel obstruction Plan: fu GI recommendations. GS consulted. Continue NG tube which has been clamped. C diff PCR negative.Ng tube output decreased and NG tube removed on 10/10. (6) Bilateral lower extremity pain Plan: Shows small nonocclusive thrombus within the right superficial femoral vein. This is a right chronic DVT. Patient started on intermediate subcutaneous Lovenox dose at 1 mg/kg/day as per hematology. Monitor for bleeding. (7) Epigastric pain Likely peptic ulcer disease versus gastritis. Continue PPI and Carafate. GI following. Epigastric pain resolved. (8) Sepsis Plan: Patient with new cough on 10/13. Chest x-ray showed an infiltrate in the right lower lung field. WBC increased to 20,000 on patient tachycardic. The patient was started broad spectrum IV antibiotics including vancomycin and IV Zosyn to cover for suspected aspiration pneumonia and possible HCAP Blood cultures obtained 10/16 sepsis resolved with resolved leukocytosis and resolved tachycardia. Blood cultures negative to date. Continue IV Zosyn and IV Vancomycin. Continue to monitor cbc w diff. (2) PNA (pneumonia) Plan: suspect aspiration pna due to recent bouts of nausea and vomiting. HCAP also possible. Continue supplemental O2 to keep oxygen saturation more than 92%. Bronchodilators Sputum culture pending. 10/17 Dc Vancomycin (3) Leukocytosis Plan: Likely due to sepsis, secondary to pneumonia. Leukocytosis resolved. Continue to monitor CBC with differential. Patient states that she does not want to go to hospice, she wants to get better. Gi proph: PPI DVT Proph: lovenox SQ Discharge Planning Discharge home in am after TPN is tapered to off. Problem Qualifiers (1) PNA (pneumonia): Qualified Code: J69.0 - Aspiration pneumonia of right lower lobe due to gastric secretions (2) Leukocytosis: Qualified Code: D72.829 - Leukocytosis, unspecified type (3) Nausea & vomiting: (4) Metastatic lung cancer (metastasis from lung to other site): Qualified Code: C34.91 - Metastatic lung cancer (metastasis from lung to other site), right Freddie Tyson MD October 19, 2016 12:08
[2016-10-19] MEDS ORDERED: PHARMACY ORDERED LAB-VANCO TROUGH ONE (15:45)
[2016-10-19 17:44] LABS: HEMOGLOBIN A1b 1.5 %; HEMOGLOBIN Ao 85.8 %; HEMOGLOBIN P3 5.2 %
--- NOTE | 2016-10-19 17:52 | HHI.HCPN ---
Reason for visit a. To assist with evaluation and management of symptoms including: Shortness of breath, nausea on debility. b. To assist medical decision maker(s) with: better understanding of current medical conditions; weighing benefits/burdens of medical treatment options; making medical treatment decisions. . Subjective/Interval History Palliative care follow-up for emotional support and assist with communication. Patient seen in her room, she was resting in bed in no acute distress. Patient found in good spirits. Reporting feeling much better than the past few days. Tolerating regular diet without nausea or vomiting. Participating in physical therapy. Denies any pain, shortness of breath, nausea/vomiting or abdominal discomfort. Patient remains afebrile, mildly tachycardic with heart rate in the low 110s. Hemodynamically stable. Tolerating O2 via nasal cannula 3 L. Most recent laboratory 10/18/16 showing WBC 8.0, Hgb 9.1, platelet count 348. Sodium 139, potassium 4.1, BUN/creatinine 17/0.48. albumin 1.7. Spoke with patient, and sister at bedside. Patient reports that now that her clinical condition seems to be much improved, she is electing to continue systemic cancer therapy with Dr. Gilman. Her goal is to be discharge home with home health. She reports that her son will be available at home to assist with ADL as she recuperates. . Family/friend interactions See interval note. . Advance Directives Living Will: Completed, but not made available Health Care Surrogate: Completed, but not made available Durable Power of Professor Sculpture: Completed, but not made available Advance Directive Specifics Health Care Surrogate(s): Patient's is 4 days ago. Patient reports completing living well and designation of healthcare surrogate naming both of her children Flakito and Riki as healthcare surrogate's. Pending copy. . Documented care wishes: Pending copy of living will. . Significant change in goals: No code. DNR/DNI. Patient electing to continue with systemic therapy for her cancer treatment. . Objective Vital Signs Date Time Temp Pulse Resp B/P Pulse Ox O2 Delivery O2 Flow Rate FiO2 10/19/16 12:00 97.4 107 18 126/64 97 10/19/16 08:19 94 Nasal Cannula 3.00 10/19/16 08:00 98.3 97 18 123/62 97 10/19/16 06:03 97.9 93 18 123/57 98 10/19/16 00:00 98.1 105 18 110/32 95 10/18/16 20:16 108 10/18/16 20:00 98.5 106 18 102/69 97 10/18/16 19:56 98 Nasal Cannula 3.00 10/18/16 19:30 Nasal Cannula 3.00 Intake & Output 10/19/16 10/19/16 07:00 19:00 Intake Total 1360 ml Output Total 400 ml Balance 960 ml IV Total 600 ml TPN/PPN 600 ml Lipid 160 ml Output Urine Total 400 ml # Bowel Movements 0 Physical Exam CONSTITUTIONAL/GENERAL: This is a thin, elderly female sitting up in a recliner chair in no acute distress. TUBES/LINES/DRAINS: PICC line to left upper arm, nasal cannula. SKIN: No jaundice, rashes, or lesions. Large areas of ecchymoses on upper and lower extremities. Skin tear to left outer lower leg. Skin temperature appropriate. Not diaphoretic. HEAD: Atraumatic. Normocephalic. EYES: Pupils equal and round and reactive. Extraocular motions intact. No scleral icterus. No injection or drainage. ENT: Hearing grossly normal. Nose without bleeding or purulent drainage. NECK: Trachea midline. Supple, nontender. CARDIOVASCULAR: Regular rate and rhythm. Peripheral pulses symmetric. RESPIRATORY/CHEST: Symmetric, unlabored respirations. Clear to auscultation, diminished. Breath sounds equal bilaterally. GASTROINTESTINAL: Abdomen soft, non-tender, nondistended. No guarding. Bowel sounds present. GENITOURINARY: Without palpable bladder distension. MUSCULOSKELETAL: Extremities without clubbing, cyanosis. Trace edema to bilateral lower extremities. NEUROLOGICAL: Awake and alert. Motor and sensory grossly within normal limits. Follows commands. Cognitively sharp. Moves all extremities. PSYCHIATRIC: No obvious anxiety/depression. Pleasant and cooperative. . Diagnostic Tests Laboratory Laboratory Tests Test 10/16/16 10/17/16 10/17/16 10/18/16 20:25 01:40 11:28 06:11 Sodium Level 129 MEQ/L 141 MEQ/L 141 MEQ/L 139 MEQ/L (136-145) (136-145) (136-145) (136-145) Potassium Level 6.0 MEQ/L 4.0 MEQ/L 4.0 MEQ/L 4.1 MEQ/L (3.5-5.1) (3.5-5.1) (3.5-5.1) (3.5-5.1) Chloride Level 96 MEQ/L 104 MEQ/L 104 MEQ/L 106 MEQ/L (98-107) (98-107) (98-107) (98-107) Carbon Dioxide Level 24.5 MEQ/L 28.8 MEQ/L 28.7 MEQ/L 26.1 MEQ/L (21.0-32.0) (21.0-32.0) (21.0-32.0) (21.0-32.0) Anion Gap 9 MEQ/L (5-15) 8 MEQ/L (5-15) 8 MEQ/L (5-15) 7 MEQ/L (5-15) Blood Urea Nitrogen 16 MG/DL (7-18) 16 MG/DL (7-18) 16 MG/DL (7-18) 17 MG/DL (7- 18) Creatinine 0.54 MG/DL 0.50 MG/DL 0.52 MG/DL 0.48 MG/DL (0.50-1.00) (0.50-1.00) (0.50-1.00) (0.50-1.00) Estimat Glomerular Filtration 108 ML/MIN 118 ML/MIN 112 ML/MIN 123 ML/MIN Rate (>89) (>89) (>89) (>89) Random Glucose 375 MG/DL 105 MG/DL 120 MG/DL 101 MG/DL (74-106) (74-106) (74-106) (74-106) Calcium Level 7.8 MG/DL 8.1 MG/DL 8.2 MG/DL 8.3 MG/DL (8.5-10.1) (8.5-10.1) (8.5-10.1) (8.5-10.1) White Blood Count 8.5 TH/MM3 8.0 TH/MM3 (4.0-11.0) (4.0-11.0) Red Blood Count 3.38 MIL/MM3 3.02 MIL/MM3 (4.00-5.30) (4.00-5.30) Hemoglobin 10.1 GM/DL 9.1 GM/DL (11.6-15.3) (11.6-15.3) Hematocrit 29.7 % 27.3 % (35.0-46.0) (35.0-46.0) Mean Corpuscular Volume 87.9 FL 90.4 FL (80.0-100.0) (80.0-100.0) Mean Corpuscular Hemoglobin 29.8 PG 30.1 PG (27.0-34.0) (27.0-34.0) Mean Corpuscular Hemoglobin 33.9 % 33.3 % Concent (32.0-36.0) (32.0-36.0) Red Cell Distribution Width 14.2 % 14.1 % (11.6-17.2) (11.6-17.2) Platelet Count 412 TH/MM3 348 TH/MM3 (150-450) (150-450) Mean Platelet Volume 8.7 FL 9.3 FL (7.0-11.0) (7.0-11.0) Neutrophils (%) (Auto) 69.1 % (16.0-70.0) Lymphocytes (%) (Auto) 11.8 % (9.0-44.0) Monocytes (%) (Auto) 11.1 % (0.0-8.0) Eosinophils (%) (Auto) 6.9 % (0.0-4.0) Basophils (%) (Auto) 1.1 % (0.0-2.0) Neutrophils # (Auto) 5.5 TH/MM3 (1.8-7.7) Lymphocytes # (Auto) 0.9 TH/MM3 (1.0-4.8) Monocytes # (Auto) 0.9 TH/MM3 (0-0.9) Eosinophils # (Auto) 0.6 TH/MM3 (0-0.4) Basophils # (Auto) 0.1 TH/MM3 (0-0.2) CBC Comment DIFF FINAL Differential Comment Total Bilirubin 0.3 MG/DL (0.2-1.0) Aspartate Amino Transf 16 U/L (15-37) (AST/SGOT) Alanine Aminotransferase 11 U/L (10-53) (ALT/SGPT) Alkaline Phosphatase 53 U/L (45-117) Total Protein 5.2 GM/DL (6.4-8.2) Albumin 1.7 GM/DL (3.4-5.0) Result Diagram: 10/18/16 0611 10/18/16 0611 Procedures * 09/30/16 -Right thoracoscopic exploration to drain pleural effusion, pleural biopsy, talc pleuradesis * 10/05/16 -EGD with biopsy . Assessment and Plan Disease Oriented Problem List: (1) Pleural effusion Comment: Status post pleurodesis (2) Partial small bowel obstruction (3) Metastatic lung cancer (metastasis from lung to other site) (4) PNA (pneumonia) Symptom Scale: (1) Shortness of breath 0-10 Scale: 0 Comment: Secondary to burden of disease/pneumonia. Currently tolerating O2 via nasal cannula at 3L. (2) Debility 0-10 Scale: Unable to quantify Comment: Secondary to burden of disease and prolonged hospitalization. Currently participating with PT. (3) Nausea & vomiting 0-10 Scale: 0 Comment: Secondary to SBO. Appears to be resolving. NG tube discontinued, currently tolerating clear liquid diet. Pertinent Non-Medical Issues Psychosocial: Recently . Has 2 children. Spiritual: [employer]e rashaun. Legal: Pending copy of living will. Ethical issues impacting care: Pending copy of living will. . Important Contacts Patient's son Flakito -pending number Patient's son Riki . Prognosis Mrs. 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 Patient has been doing well on systemic therapy until recently when she presented with pleural effusion. Patient underwent right thorascopic exploration to drain pleural effusion and pleurodesis. Patient's clinical course complicated by small bowel obstruction which appears to be resolving at this time. Patient is at high risk for continued decline, additional complications and . Patient receptive to continuation of systemic therapy , however is declining any invasive procedures such as surgical interventions an NG tube at this time. Patient's quality of life most important to her that prolongation of survival, this appears appropriate given her advanced age and progression of illness. . Code Status: No Code Plan * CODE STATUS: No code. DNR/DNI. * Community DNR completed. * MEDICAL DECISION-MAKING: Patient participating in medical decision-making. However, relying on both of her children for support. Patient reports that advance directives have been completed, patient recently . She would like for both of her children to make healthcare decisions in the event she is incapacitated. Patient declined completing healthcare surrogate documentation this visit, as she believes that healthcare designation has been previously completed naming both of her children. Patient to provide copy of living will. As per [place] law, both of her children would serve as HCP. Palliative care recommends shared decision making with her children. * GOALS OF CARE: Patient electing to continue conservative management short of NO code, NO surgical interventions, NO invasive procedures. Now that her clinical condition has improved, patient electing to continue with systemic therapy. Patient electing to be discharge home with home health. Son to assist with ADLs as her clinical condition continues to improve. Discussed the future role of hospice should her clinical condition worsen or there is additional functional decline. Patient receptive to this. She reports she has hospice contact information. * SYMPTOMS: = Shortness of breath: Secondary of burden of disease and pneumonia. Being treated with antibiotics. Currently tolerating O2 via nasal cannula at 3 L. =Nausea/vomiting: Secondary to burden of disease/SBO. Resolved now., patient currently tolerating regular diet with no nausea or vomiting reported. = Debility: Secondary to burden of disease and prolonged hospitalization. Patient currently participating with PT. electing to discharge home with home health/PT. * Palliative care contact information has been provided. * Palliative care will continue to follow-up as needed for further clarifications of goals of care as patient's clinical course evolves. . Time Spent Total Floor Time (mins): 32 (Total time to include review of medical records, physical exam, goals of care discussion with patient and case discussion with take away worker.) >50% Counseling/Coord of Care: Yes Attestation To help prompt me to consider important information that might be impacting today's encounter and assessment, information from prior notes written by myself or my colleagues may have been "brought forward" into today's note. My signature on this note, however, is an attestation that I personally performed the exam, history, and/or decision-making noted today, and, unless otherwise indicated, the interactions with patient, family, and staff as well as the review of records all occurred today. I also attest that the listed assessment and stated plan reflect my best clinical judgment today based on the combination of historical information, prior notes, and today's exam/ interactions. When time spent is documented, it refers only to time spent today by the signer, or if indicated, combined time spent today by collaborating physician/nurse practitioner. Montserrat Cifuentes October 19, 2016 17:52
[2016-10-19] MEDS ORDERED: LEVO500T8 PO (18:07)
[2016-10-19] MEDS ORDERED: LACT PO (18:07)
[2016-10-19] MEDS ORDERED: MEGE40SU PO (18:07)
[2016-10-19] MEDS ORDERED: SUCR1S PO (18:07)
[2016-10-19] MEDS ORDERED: PROT40TA PO (18:07)
--- NOTE | 2016-10-19 18:08 | HHI.DCPOC ---
Discharge Care Plan Diagnosis: (1) Partial small bowel obstruction (2) Nausea & vomiting (3) Debility (4) Pleural effusion (5) Epigastric pain (6) UTI (urinary tract infection) (7) Bilateral lower extremity pain (8) Sepsis (9) PNA (pneumonia) (10) Leukocytosis (11) Hyponatremia (12) Hyperkalemia (13) Metastatic lung cancer (metastasis from lung to other site) Goals to Promote Your Health * To prevent worsening of your condition and complications * To maintain your health at the optimal level Directions to Meet Your Goals Take your medications as prescribed Follow your dietary instruction Follow activity as directed Keep your appointments as scheduled Take your immunizations and boosters as scheduled If your symptoms worsen call your PCP, if no PCP go to Urgent Care Center or Emergency Room Smoking is Dangerous to Your Health. Avoid second hand smoke Call the 24-hour hour crisis hotline for domestic abuse at Freddie Tyson MD October 19, 2016 18:08
--- NOTE | 2016-10-19 18:20 | HHI.FF ---
Face to Face Verification Diagnosis: (1) Metastatic lung cancer (metastasis from lung to other site) (2) UTI (urinary tract infection) (3) Sepsis (4) PNA (pneumonia) (5) Gastritis (6) Debility Physical Therapy Order: Improve ambulation, Strength and gait training Home Health Nursing Order: Nursing assessment with vital signs I have seen patient Misti Ching on 10/19/16. My clinical findings support the need for the requested home health care services because: Ltd mobility - disease progression Deconditioned w/ increased weakness Need for psychosocial assistance Infection w/ risk of complications I certify that my clinical findings support that this patient is homebound because: Unsteady gait/balance Unsafe to leave home unassisted Need for psychosocial assistance Unable to use public transportation Freddie Tyson MD October 19, 2016 18:20
[2016-10-19] MEDS: DOCUSATE CALCIUM 240 MG CAP PO SCH (20:54)
[2016-10-19] MEDS: ZOLPIDEM TARTRATE 5 MG TAB PO PRN (20:54)
[2016-10-20] VITALS (8 sets, daily range): BP systolic 116–126; BP diastolic 53–62; PULSE 85–108; RESP 18–20; TEMP 97.4–98.1; O2SAT 93–99
[2016-10-20] MEDS: SUCRALFATE 1 GM/10 ML CUP PO SCH ×4 (05:36→20:51)
[2016-10-20] MEDS: INSULIN ASPART SUPPLEMENTAL SCALE SQ SCH ×4 (05:36→18:00)
[2016-10-20] MEDS: RESP: BUDESONIDE 0.5 MG/2 ML NEB NEB SCH ×2 (07:56→20:43)
[2016-10-20] MEDS: LACTOBACILLUS ACIDOPHILUS TAB PO SCH ×2 (08:01→20:51)
[2016-10-20] MEDS: LEVOFLOXACIN 500 MG TAB PO SCH (08:01)
[2016-10-20] MEDS: MEGESTROL ACETATE SUSP 400 MG/10 ML CUP PO SCH (08:02)
[2016-10-20] MEDS: PANTOPRAZOLE SOD 40 MG DELAYED RELEASE TAB PO SCH (08:02)
[2016-10-20] MEDS: ENOXAPARIN SODIUM 60 MG/0.6 ML SYRINGE SQ SCH (08:03)
[2016-10-20] MEDS: SODIUM CHLORIDE 0.9% FLUSH 10 ML FLUSH IV FLUSH SCH ×2 (08:03→20:59)
--- NOTE | 2016-10-20 11:46 | HHI.HCPN ---
Reason for visit a. To assist with evaluation and management of symptoms including: Shortness of breath, nausea on debility. b. To assist medical decision maker(s) with: better understanding of current medical conditions; weighing benefits/burdens of medical treatment options; making medical treatment decisions. . Subjective/Interval History Palliative care follow-up for medications of goals of care. Patient seen in her room, she was resting in a recliner chair in no acute distress. Patient alert and oriented 3. Denies pain or discomfort at this time. Continue tolerating regular diet, no nausea/vomiting. Ongoing calorie count. Patient remains afebrile, mildly tachycardic with heart rate in the low 110s. Hemodynamically stable. Tolerating O2 via nasal cannula 3 L. no new imaging or laboratory. Palliative care was contacted regarding questions about hospice. Patient is asking me to please contact her son Riki for further clarification. Telephone conversation with patient's son Riki, he tells me that they are interested in discharge home with hospice as per Dr. Gilman recommendations given patient's poor prognosis. Son is asking for a meeting with hospice. Spoke with gas line installer supervisor Rhonda, she will follow up today. . Family/friend interactions See interval note. . Advance Directives Living Will: Completed, but not made available Health Care Surrogate: Completed, but not made available Durable Power of Audit Clerk: Completed, but not made available Advance Directive Specifics Health Care Surrogate(s): Patient's is 4 days ago. Patient reports completing living well and designation of healthcare surrogate naming both of her children Flakito and Riki as healthcare surrogate's. Pending copy. . Documented care wishes: Pending copy of living will. . Significant change in goals: No code. DNR/DNI. Patient and family considering discharge home with hospice. Pending hospice consult. Objective Vital Signs Date Time Temp Pulse Resp B/P Pulse Ox O2 Delivery O2 Flow Rate FiO2 10/20/16 08:00 97.5 108 20 123/62 97 10/20/16 07:57 93 Nasal Cannula 3.00 10/20/16 04:00 97.9 92 19 126/60 96 10/20/16 00:00 97.4 96 18 116/53 96 10/19/16 20:18 98 Nasal Cannula 3.00 10/19/16 20:00 96 10/19/16 20:00 97.4 105 19 131/60 99 10/19/16 19:30 Nasal Cannula 3.00 10/19/16 16:00 97.0 100 18 135/62 97 10/19/16 12:00 97.4 107 18 126/64 97 Intake & Output 10/20/16 10/20/16 07:00 19:00 Intake Total 480 ml Output Total 600 ml Balance -120 ml Intake Oral 480 ml Output Urine Total 600 ml Physical Exam CONSTITUTIONAL/GENERAL: This is a thin, elderly female sitting up in a recliner chair in no acute distress. TUBES/LINES/DRAINS: PICC line to left upper arm, nasal cannula. SKIN: No jaundice, rashes, or lesions. Large areas of ecchymoses on upper and lower extremities. Skin tear to left outer lower leg. Skin temperature appropriate. Not diaphoretic. HEAD: Atraumatic. Normocephalic. EYES: Pupils equal and round and reactive. Extraocular motions intact. No scleral icterus. No injection or drainage. ENT: Hearing grossly normal. Nose without bleeding or purulent drainage. NECK: Trachea midline. Supple, nontender. CARDIOVASCULAR: Regular rate and rhythm. Peripheral pulses symmetric. RESPIRATORY/CHEST: Symmetric, unlabored respirations. Clear to auscultation, diminished. Breath sounds equal bilaterally. GASTROINTESTINAL: Abdomen soft, non-tender, nondistended. No guarding. Bowel sounds present. GENITOURINARY: Without palpable bladder distension. MUSCULOSKELETAL: Extremities without clubbing, cyanosis. Trace edema to bilateral lower extremities. NEUROLOGICAL: Awake and alert. Motor and sensory grossly within normal limits. Follows commands. Cognitively sharp. Moves all extremities. PSYCHIATRIC: No obvious anxiety/depression. Pleasant and cooperative. . Diagnostic Tests Laboratory Laboratory Tests Test 10/18/16 10/19/16 06:11 13:00 White Blood Count 8.0 TH/MM3 (4.0-11.0) Red Blood Count 3.02 MIL/MM3 (4.00-5.30) Hemoglobin 9.1 GM/DL (11.6-15.3) Hematocrit 27.3 % (35.0-46.0) Mean Corpuscular Volume 90.4 FL (80.0-100.0) Mean Corpuscular Hemoglobin 30.1 PG (27.0-34.0) Mean Corpuscular Hemoglobin 33.3 % Concent (32.0-36.0) Red Cell Distribution Width 14.1 % (11.6-17.2) Platelet Count 348 TH/MM3 (150-450) Mean Platelet Volume 9.3 FL (7.0-11.0) Neutrophils (%) (Auto) 69.1 % (16.0-70.0) Lymphocytes (%) (Auto) 11.8 % (9.0-44.0) Monocytes (%) (Auto) 11.1 % (0.0-8.0) Eosinophils (%) (Auto) 6.9 % (0.0-4.0) Basophils (%) (Auto) 1.1 % (0.0-2.0) Neutrophils # (Auto) 5.5 TH/MM3 (1.8-7.7) Lymphocytes # (Auto) 0.9 TH/MM3 (1.0-4.8) Monocytes # (Auto) 0.9 TH/MM3 (0-0.9) Eosinophils # (Auto) 0.6 TH/MM3 (0-0.4) Basophils # (Auto) 0.1 TH/MM3 (0-0.2) CBC Comment DIFF FINAL Differential Comment Sodium Level 139 MEQ/L (136-145) Potassium Level 4.1 MEQ/L (3.5-5.1) Chloride Level 106 MEQ/L (98-107) Carbon Dioxide Level 26.1 MEQ/L (21.0-32.0) Anion Gap 7 MEQ/L (5-15) Blood Urea Nitrogen 17 MG/DL (7-18) Creatinine 0.48 MG/DL (0.50-1.00) Estimat Glomerular Filtration 123 ML/MIN Rate (>89) Random Glucose 101 MG/DL (74-106) Calcium Level 8.3 MG/DL (8.5-10.1) Total Bilirubin 0.3 MG/DL (0.2-1.0) Aspartate Amino Transf 16 U/L (15-37) (AST/SGOT) Alanine Aminotransferase 11 U/L (10-53) (ALT/SGPT) Alkaline Phosphatase 53 U/L (45-117) Total Protein 5.2 GM/DL (6.4-8.2) Albumin 1.7 GM/DL (3.4-5.0) Hemoglobin A1c 5.3 % (4.3-6.0) Result Diagram: 10/18/16 0611 10/18/16 0611 Procedures * 09/30/16 -Right thoracoscopic exploration to drain pleural effusion, pleural biopsy, talc pleuradesis * 10/05/16 -EGD with biopsy . Assessment and Plan Disease Oriented Problem List: (1) Pleural effusion Comment: Status post pleurodesis (2) Partial small bowel obstruction (3) Metastatic lung cancer (metastasis from lung to other site) (4) PNA (pneumonia) Symptom Scale: (1) Shortness of breath 0-10 Scale: 0 Comment: Secondary to burden of disease/pneumonia. Currently tolerating O2 via nasal cannula at 3L. (2) Debility 0-10 Scale: Unable to quantify Comment: Secondary to burden of disease and prolonged hospitalization. Currently participating with PT. (3) Nausea & vomiting 0-10 Scale: 0 Comment: Appears resolved. Tolerating regular diet. Pertinent Non-Medical Issues Psychosocial: Recently . Has 2 children. Spiritual: [employer] rashaun. Legal: Pending copy of living will. Ethical issues impacting care: Pending copy of living will. . Important Contacts Patient's son Flakito -pending number Patient's son Riki . Prognosis Mrs. 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 Patient has been doing well on systemic therapy until recently when she presented with pleural effusion. Patient underwent right thorascopic exploration to drain pleural effusion and pleurodesis. Patient's clinical course complicated by small bowel obstruction which appears to be resolving at this time. Patient is at high risk for continued decline, additional complications and . Patient receptive to continuation of systemic therapy , however is declining any invasive procedures such as surgical interventions an NG tube at this time. Patient's quality of life most important to her that prolongation of survival, this appears appropriate given her advanced age and progression of illness. . Code Status: No Code Plan * CODE STATUS: No code. DNR/DNI. * Community DNR completed. * MEDICAL DECISION-MAKING: Patient participating in medical decision-making. However, relying on both of her children for support. Patient reports that advance directives have been completed, patient recently . She would like for both of her children to make healthcare decisions in the event she is incapacitated. Patient declined completing healthcare surrogate documentation this visit, as she believes that healthcare designation has been previously completed naming both of her children. Patient to provide copy of living will. As per [place] law, both of her children would serve as HCP. Palliative care recommends shared decision making with her children. * GOALS OF CARE: Maximize conservative medical management short of NO code, NO surgical interventions, NO invasive procedures. Patient and sons considering discharge home with hospice. Pending hospice consultation. * SYMPTOMS: = Shortness of breath: Secondary of burden of disease and pneumonia. Being treated with antibiotics. Currently tolerating O2 via nasal cannula at 3 L. =Nausea/vomiting: Secondary to burden of disease/SBO. Resolved now., patient currently tolerating regular diet with no nausea or vomiting reported. = Debility: Secondary to burden of disease and prolonged hospitalization. Patient currently participating with PT. * Case discussed with gas line installer supervisor, Rhonda. * Palliative care contact information has been provided. * Palliative care will continue to follow-up as needed for further clarifications of goals of care as patient's clinical course evolves. . Time Spent Total Floor Time (mins): 31 (Total time to include review of medical records, physical exam, goals of care conversation with patient and telephone call to patient's son. Case discussed with gas line installer supervisor.) Face to Face Time (mins): 25 >50% Counseling/Coord of Care: Yes Attestation To help prompt me to consider important information that might be impacting today's encounter and assessment, information from prior notes written by myself or my colleagues may have been "brought forward" into today's note. My signature on this note, however, is an attestation that I personally performed the exam, history, and/or decision-making noted today, and, unless otherwise indicated, the interactions with patient, family, and staff as well as the review of records all occurred today. I also attest that the listed assessment and stated plan reflect my best clinical judgment today based on the combination of historical information, prior notes, and today's exam/ interactions. When time spent is documented, it refers only to time spent today by the signer, or if indicated, combined time spent today by collaborating physician/nurse practitioner. Montserrat Cifuentes Oct 20, 2016 11:46
--- NOTE | 2016-10-20 16:23 | HHI.PR ---
Subjective Remarks Pt being followed for metastatic lung cancer. Patient is tolerating regular diet, stated she is eating "much better." reporting having a cough but improving denies fever, shortness of breath, pain, nausea, vomiting. Abdominal pain was endorsed with palpation. Son Bert present at bedside identified himself as "her healthcare surrogate" It was reported pt is to go home under Hospice care, oxygen is to be delivered this evening in advance of pt's expected discharge, as reported by Bert. No other issues noted or reported. Objective Vitals Vital Signs Date Time Temp Pulse Resp B/P Pulse Ox O2 Delivery O2 Flow Rate FiO2 10/20/16 15:32 3.00 10/20/16 15:00 Nasal Cannula 2.00 10/20/16 12:00 97.8 99 20 119/56 96 10/20/16 08:00 85 10/20/16 08:00 Nasal Cannula 3.00 10/20/16 08:00 97.5 108 20 123/62 97 10/20/16 07:57 93 Nasal Cannula 3.00 10/20/16 04:00 97.9 92 19 126/60 96 10/20/16 00:00 97.4 96 18 116/53 96 10/19/16 20:18 98 Nasal Cannula 3.00 10/19/16 20:00 96 10/19/16 20:00 97.4 105 19 131/60 99 10/19/16 19:30 Nasal Cannula 3.00 I/O 10/19/16 10/19/16 10/19/16 10/20/16 10/20/16 10/20/16 07:00 15:00 23:00 07:00 15:00 23:00 Intake Total 680 ml 240 ml 240 ml 240 ml Output Total 300 ml 900 ml 200 ml 400 ml Balance 380 ml -660 ml 40 ml -160 ml Intake Oral 240 ml 240 ml 240 ml IV Total 600 ml Lipid 80 ml Output Urine Total 300 ml 900 ml 200 ml 400 ml # Bowel Movements 1 Result Diagram: 10/18/16 0611 10/18/16 0611 Imaging Last Impressions Chest X-Ray 10/13/16 0000 Signed Impressions: Service Date/Time: September 12:11 - CONCLUSION: Stable chest x-ray with right pleural effusion with associated consolidation and atelectasis at the right lung base. There is mild atelectasis versus consolidation at the left lung base. José Miguel Mcgovern MD Lower Extremity Ultrasound 10/10/16 0000 Signed Impressions: Service Date/Time: Monday, October 10, 2016 22:53 - CONCLUSION: Small nonocclusive thrombus within right superficial femoral vein most likely chronic. Annette Bonds MD Abdomen/Pelvis CT 10/09/16 0000 Signed Impressions: Service Date/Time: Sunday, October 09, 2016 10:08 - CONCLUSION: 1. Right lung base mass, loculated effusion and bilateral consolidation again seen. 2. Dilated loops of small intestine are noted, and there is contrast within the large bowel, findings suggest a partial small bowel obstruction, an ileus is a consideration but given a decompressed large bowel suspect the former. Onur Espinoza MD Small Bowel X-Ray 10/07/16 0000 Signed Impressions: Service Date/Time: Friday, October 07, 2016 10:09 - CONCLUSION: Small bowel obstruction at the level of the distal ileum. Patient refused spot images. Markedly prolonged small bowel transit time. José Miguel Lira MD Abdomen X-Ray 10/03/16 0000 Signed Impressions: Service Date/Time: Monday, October 03, 2016 19:45 - CONCLUSION: No obstruction. Renan Gutierres MD Objective Remarks GENERAL: Pt encountered sitting upright in bedside chair, nasal cannula in place , not in acute distress. SKIN: Warm and dry. Ecchymoses noted on both arms and lower legs. HEAD: Normocephalic. EYES: No scleral icterus. No injection or drainage. NECK: Supple, trachea midline. No lymphadenopathy. CARDIOVASCULAR: Regular rate and rhythm without murmurs, gallops, or rubs. RESPIRATORY: Breath sounds equal bilaterally. No accessory muscle use. GASTROINTESTINAL: Abdomen soft and nondistended. Tenderness elicited left upper quadrant. MUSCULOSKELETAL: No cyanosis, or edema. PSYCHIATRIC: Pt alert and oriented x3, pleasant and cooperative, without overt signs of anxiety/depression. Procedures sp VATS, pleurodesis sp EGD Medications and IVs Current Medications Medications (Trade) Dose Ordered Sig/Ariella Route Start Time Stop Time Status Last Admin (Dulcolax Supp) 10 mg DAILY PRN RECTAL 09/29/16 17:15 10/02/16 17:26 (Narcan Inj) 0.4 mg UNSCH PRN IV 09/29/16 17:15 (Ambien) 5 mg HS PRN PO 09/29/16 21:00 10/19/16 20:54 (NS Flush) 2 ml BID IV FLUSH 09/30/16 21:00 10/20/16 08:03 (NS Flush) 2 ml UNSCH PRN IV FLUSH 09/30/16 09:15 10/16/16 22:08 (Zofran Inj) 4 mg Q6H PRN IV PUSH 09/30/16 09:15 10/13/16 08:21 (Surfak) 240 mg HS PO 09/30/16 21:00 10/19/16 20:54 (Milk Of Magnesia Liq) 30 ml DAILY PRN PO 09/30/16 09:15 10/01/16 08:07 (Tylenol) 650 mg Q4H PRN PO 09/30/16 09:15 09/30/16 17:58 (NovoLOG SUPPLEMENTAL SCALE) Q6HR SQ 09/30/16 12:00 10/20/16 16:07 (D50w (Vial) Inj) 25 ml UNSCH PRN IV PUSH 09/30/16 09:15 (Glucagon Inj) 1 mg UNSCH PRN IV 09/30/16 09:15 (Glycerin Adult Supp) 2 gm DAILY PRN RECTAL 10/01/16 09:30 (Fleets Enema (Adult)) 133 ml UNSCH PRN RECTAL 10/01/16 09:30 (Ultram) 50 mg Q8H PRN PO 10/03/16 09:45 10/19/16 06:16 (Carafate Liq) 1 gm ACHS PO 10/03/16 16:00 10/20/16 15:58 (Chloraseptic [place]) 2 spray Q2H PRN OROPHARYNG 10/06/16 15:45 (Refresh Tears 0.5% Opth Soln) 1 drop Q6H PRN EACH EYE 10/08/16 05:15 10/08/16 21:06 (Cepacol Extra Sriram (Sugar Free)) 1 lozenge Q2H PRN BUCCAL 10/10/16 14:00 10/13/16 05:36 (Lovenox Inj) 50 mg Q24H SQ 10/12/16 09:00 10/20/16 08:03 (Lactinex) 1 tab Q12HR PO 10/16/16 11:00 10/20/16 08:01 (Megace Liq) 400 mg DAILY PO 10/17/16 11:00 10/20/16 08:02 (Levaquin) 500 mg DAILY PO 10/19/16 09:00 10/20/16 08:01 (Protonix) 40 mg DAILY PO 10/19/16 09:00 10/20/16 08:02 Urinary Catheter: No Vascular Central Line Catheter: No A/P Problem List: (1) Sepsis ICD Code: A41.9 Status: Acute (2) PNA (pneumonia) ICD Code: J18.9 Status: Acute (3) Leukocytosis ICD Code: D72.829 Status: Resolved (4) Nausea & vomiting ICD Code: R11.2 Status: Acute (5) Pleural effusion ICD Code: J90 Status: Resolved (6) Metastatic lung cancer (metastasis from lung to other site) ICD Code: C34.90 Status: Acute (7) UTI (urinary tract infection) ICD Code: N39.0 Status: Resolved (8) Partial small bowel obstruction ICD Code: K56.69 Status: Acute (9) Bilateral lower extremity pain ICD Code: M79.604 Status: Resolved (10) Epigastric pain ICD Code: R10.13 Status: Resolved (11) Hyperkalemia ICD Code: E87.5 Status: Resolved (12) Chest pain ICD Code: R07.9 Status: Acute (13) Hyponatremia ICD Code: E87.1 Status: Acute Assessment and Plan (1) Nausea & vomiting Plan: Abdomen and pelvis CT obtained on 10/04/16 showed abnormal bowel gas pattern concern for distal small bowel obstruction. Masslike area of soft tissue in the right lower lobe likely representing the patient's known tumor. Loculated right effusion. Consolidation in both lung bases. Her diverticulosis. Possible ileus. Patient status post EGD on 10/05/16 which showed esophagus appeared normal, there was a large amount of previous liquid which was aspirated completely. Mild erythema in the gastric antrum, status post biopsy, the pylorus was widely open the duodenum was normal without any evidence of ulceration or obstruction. Small amount of gastric output. Mildly distended. Continue Protonix, Carafate. PPN. 10/10 GI consulted - appreciate recommendations. Continue PPI, carafate. Continue Zofran as needed. NG tube removed on 10/09. Gen. surgery consulted, general surgery diagnosed the patient with high-grade partial small bowel obstruction. NG tube discontinued today but patient still nothing by mouth. Advance diet as per general surgery/GI recommendations. 10/12 Continue on clear liquid diet as per GS, continue TPN. Advance diet as per GS recommendations. Taper TPN as per GS. 10/13 Patient had episode of vomiting today. Continue zofran. 526 no episodes of vomiting, patient tolerating clear liquid diet, diet advanced to full liquid diet. Continue TPN 10/16 No vomiting or abdominal pain - Will advance diet to soft. 10/17 Patient is tolerating soft diet. Patient not eating much with poor appetite. Will start Megace and order a calorie count. 10/19 appetite is improving and patient seems to be eating really well. Continue Megace. 10/20: Pt reprots good appetite and eating well. denied nausea and vomiting. Continue Megace. (2) Pleural effusion Plan: sp VATS and pleurodesis. (3) Metastatic lung cancer (metastasis from lung to other site) Plan: Oncology following. Would like to continue treatment until T790m mutation resulted, if this is present, there is as 60% probability that this will get better. 10/10 Pathology negative for T790M mutation. She may be some benefit for gefitinib as she progressed on erlotinib as per oncology. 10/19 As per Oncology continue Tarceva upon DC. (4) UTI (urinary tract infection) Plan: sp treatment with Rocephin IV. (5) Partial small bowel obstruction Plan: fu GI recommendations. GS consulted. Continue NG tube which has been clamped. C diff PCR negative.Ng tube output decreased and NG tube removed on 10/10. (6) Bilateral lower extremity pain Plan: Shows small nonocclusive thrombus within the right superficial femoral vein. This is a right chronic DVT. Patient started on intermediate subcutaneous Lovenox dose at 1 mg/kg/day as per hematology. Monitor for bleeding. (7) Epigastric pain Likely peptic ulcer disease versus gastritis. Continue PPI and Carafate. GI following. Epigastric pain resolved. (8) Sepsis Plan: Patient with new cough on 10/13. Chest x-ray showed an infiltrate in the right lower lung field. WBC increased to 20,000 on patient tachycardic. The patient was started broad spectrum IV antibiotics including vancomycin and IV Zosyn to cover for suspected aspiration pneumonia and possible HCAP Blood cultures obtained 10/16 sepsis resolved with resolved leukocytosis and resolved tachycardia. Blood cultures negative to date. Continue IV Zosyn and IV Vancomycin. Continue to monitor cbc w diff. (2) PNA (pneumonia) Plan: suspect aspiration pna due to recent bouts of nausea and vomiting. HCAP also possible. Continue supplemental O2 to keep oxygen saturation more than 92%. Bronchodilators Sputum culture pending. 10/17 Dc Vancomycin (3) Leukocytosis Plan: Likely due to sepsis, secondary to pneumonia. Leukocytosis resolved. Continue to monitor CBC with differential. Gi proph: PPI DVT Proph: lovenox SQ Discussed case with pt, her son Bert, RN, and Dr. Briseno. Discharge Planning Pt has accepted Hospice care and will be discharge home on 10/21/16. Hospice arranging home care needs. Family reports Hospice nurse to call in morning and arrange first visit. Home oxygen is to be delivered this evening in advance of pt's discharge. Problem Qualifiers (1) PNA (pneumonia): Qualified Code: J69.0 - Aspiration pneumonia of right lower lobe due to gastric secretions (2) Leukocytosis: Qualified Code: D72.829 - Leukocytosis, unspecified type (3) Nausea & vomiting: (4) Metastatic lung cancer (metastasis from lung to other site): Qualified Code: C34.91 - Metastatic lung cancer (metastasis from lung to other site), right Javier Manzano Jr. Oct 20, 2016 16:23
[2016-10-20] MEDS: DOCUSATE CALCIUM 240 MG CAP PO SCH (20:51)
[2016-10-20] MEDS: ZOLPIDEM TARTRATE 5 MG TAB PO PRN (21:02)
--- NOTE | 2016-10-20 21:08 | PD.ONC.PN ---
Subjective Subjective Remarks feeling better. had 2 episodes where she fell asleep in a chair and awoke sweaty. Objective Data Date Time Temp Pulse Resp B/P Pulse Ox O2 Delivery O2 Flow Rate FiO2 10/20/16 20:44 98 Nasal Cannula 3.00 10/20/16 16:00 97.7 103 18 120/55 97 10/20/16 15:32 3.00 10/20/16 15:00 Nasal Cannula 2.00 10/20/16 12:00 97.8 99 20 119/56 96 10/20/16 08:00 85 10/20/16 08:00 Nasal Cannula 3.00 10/20/16 08:00 97.5 108 20 123/62 97 10/20/16 07:57 93 Nasal Cannula 3.00 10/20/16 04:00 97.9 92 19 126/60 96 10/20/16 00:00 97.4 96 18 116/53 96 10/20/16 10/20/16 10/20/16 07:00 15:00 23:00 Intake Total 240 ml 360 ml Output Total 400 ml 500 ml Balance -160 ml -140 ml Result Diagram: 10/18/1661010/18/16610 Administered Medications Medications (Trade) Dose Ordered Sig/Ariella Route PRN Reason Start Time Stop Time Status Last Admin Dose Admin Bisacodyl (Dulcolax Supp) 10 mg DAILY PRN RECTAL CONSTIPATION 09/29/16 17:15 10/02/16 17:26 Zolpidem Tartrate (Ambien) 5 mg HS PRN PO INSOMNIA/MAY REPEAT X1 DOSE 09/29/16 21:00 10/19/16 20:54 Sodium Chloride (NS Flush) 2 ml BID IV FLUSH 09/30/16 21:00 10/20/16 20:59 Sodium Chloride (NS Flush) 2 ml UNSCH PRN IV FLUSH FLUSH AFTER USING IV ACCESS 09/30/16 09:15 10/16/16 22:08 Ondansetron HCl (Zofran Inj) 4 mg Q6H PRN IV PUSH NAUSEA OR VOMITING 09/30/16 09:15 10/13/16 08:21 Docusate Calcium (Surfak) 240 mg HS PO 09/30/16 21:00 10/20/16 20:51 Magnesium Hydroxide (Milk Of Magnesia Liq) 30 ml DAILY PRN PO CONSTIPATION 09/30/16 09:15 10/01/16 08:07 Acetaminophen (Tylenol) 650 mg Q4H PRN PO TEMPERATURE > 101 F 09/30/16 09:15 09/30/16 17:58 Insulin Aspart (NovoLOG SUPPLEMENTAL SCALE) Q6HR SQ 09/30/16 12:00 10/20/16 16:07 Tramadol HCl (Ultram) 50 mg Q8H PRN PO PAIN SCALE 4 TO 10 10/03/16 09:45 10/19/16 06:16 Sucralfate (Carafate Liq) 1 gm ACHS PO 10/03/16 16:00 10/20/16 20:51 Carboxymethylcellulose Sodium (Refresh Tears 0.5% Opth Soln) 1 drop Q6H PRN EACH EYE dry eyes 10/08/16 05:15 10/08/16 21:06 Benzocaine/Menthol (Cepacol Extra Sriram (Sugar Free)) 1 lozenge Q2H PRN BUCCAL SORE THROAT 10/10/16 14:00 10/13/16 05:36 Enoxaparin Sodium (Lovenox Inj) 50 mg Q24H SQ 10/12/16 09:00 10/20/16 08:03 Lactobacillus Acidophilus (Lactinex) 1 tab Q12HR PO 10/16/16 11:00 10/20/16 20:51 Megestrol Acetate (Megace Liq) 400 mg DAILY PO 10/17/16 11:00 10/20/16 08:02 Levofloxacin (Levaquin) 500 mg DAILY PO 10/19/16 09:00 10/20/16 08:01 Pantoprazole Sodium (Protonix) 40 mg DAILY PO 10/19/16 09:00 10/20/16 08:02 Objective Remarks GENERAL: slender SKIN: Warm and dry. HEAD: Normocephalic. EYES: No scleral icterus. No injection or drainage. NECK: Supple, trachea midline. No JVD or lymphadenopathy. LYMPHATIC: No adenopathy. CARDIOVASCULAR: Regular rate and rhythm without murmurs. RESPIRATORY: decreased sounds right lung GASTROINTESTINAL: Abdomen soft, non-tender, nondistended. EXTREMITIES: No cyanosis, or edema. MUSCULOSKELETAL: poor muscle tone. NEUROLOGICAL: No obvious focal deficit. Awake, alert, and oriented x3. PSYCHIATRIC: forgetful Assessment/Plan Assessment 86y/o female with metastatic EGFR+ lung cancer. nurse showed me rhythm strip with what looks like sustained V tachycardia at rate of 120. now in sinus rhythm. I am not sure if this requires tx given her poor prognosis Plan 1. taper TPN 2. home with hospice 3. resume Tarceva at home. 4. On discharge stop Lovenox and resume Aspirin 5. continue PO Levaquin 6. send cytology for PDL-1 testing. 7: will ask cardiology to see due to episode of ? V Tachycardia. Christiano Gilman MD Oct 20, 2016 21:08
[2016-10-21] VITALS: BP 116/53; PULSE 93; RESP 18; TEMP 98; O2SAT 100
[2016-10-21 01:54] LABS: BICARBONATE 28.9 MEQ/L (21.0-32.0); MAGNESIUM 1.9 MG/DL (1.5-2.5); POTASSIUM 3.8 MEQ/L (3.5-5.1)
[2016-10-21 04:00] VITALS: BP 115/54; PULSE 102; RESP 20; TEMP 97.9; O2SAT 95
[2016-10-21] MEDS: INSULIN ASPART SUPPLEMENTAL SCALE SQ SCH ×2 (05:23)
[2016-10-21] MEDS: SUCRALFATE 1 GM/10 ML CUP PO SCH (05:23)
[2016-10-21 07:50] VITALS: O2SAT 94
[2016-10-21] MEDS: RESP: BUDESONIDE 0.5 MG/2 ML NEB NEB SCH (07:55)
[2016-10-21 08:00] VITALS: BP 127/62; PULSE 101; RESP 18; TEMP 97.7; O2SAT 96
--- NOTE | 2016-10-21 08:03 | PD.CONS ---
HPI Service CV Consult Requested By Reason for Consult NSVT Primary Care Physician Devora Ochoa History of Present Illness Here with metastatic lung cancer with pleural effusion. Yesterday while sitting in a chair she had NSVT. She was asymptomatic. She denies any chest pain or palpitations. Her breathing is stable on nasal O2 Review of Systems Consitutional: DENIES: Fatigue, Fever, Chills, Weight gain, Weight loss Eyes: DENIES: Amaurosis Fugax, Change in vision HEENT: DENIES: Lightheadedness, Change in hearing Respiratory: DENIES: See HPI, Cough, Snoring, Shortness of breath, Wheezing, Sputum production Cardiovascular: COMPLAINS OF: See HPI Gastrointestinal: DENIES: Nausea, Vomiting, Change in bowel habits, Reflux, Bloody stools, Melena Genitourinary: DENIES: Urinary incontinence, Difficulty voiding Integumentary: DENIES: Rash Neurologic: DENIES: Tingling or numbness, Memory problems, Poor Balance, Stroke symptoms Musculoskeletal: DENIES: Joint pain, Muscle pain, Limited range of motion, Back pain Psychiatric: DENIES: Anxiety, Depression, Sleep disturbances Hematologic: DENIES: Bruising tendencies, Bleeding tendencies Endocrine: DENIES: Weight gain, Weight loss, Thyroid disease Past Family Social History Allergies: Coded Allergies: Codeine (Verified Allergy, Intermediate, NAUSEA AND VOMITING, 09/29/16) Past Medical History 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 Incontinence status post urinary Bladder surgery x 3 Past Surgical History ARTURO Cataract surgery 3 Urinary Bladder surgery Reported Medications Reported Meds & Active Scripts Active Acidophilus/l-Sporogenes (Lactobacillus Acidophilus) 1 Tab Tab 1 Tab PO Q12HR Sucralfate Liq (Sucralfate) 1 Gm/10 Ml Laura 1 Gm PO ACHS Protonix (Pantoprazole Sodium) 40 Mg Tab 40 Mg PO DAILY Megestrol Liq (Megestrol Acetate) 40 Mg/Ml Susp 400 Mg PO DAILY Levofloxacin 500 Mg Tablet 500 Mg PO DAILY Reported Aspirin 81 Mg Chew 81 Mg CHEW DAILY Active Ordered Medications Current Medications Medications (Trade) Dose Ordered Sig/Ariella Route Start Time Stop Time Status Last Admin (Dulcolax Supp) 10 mg DAILY PRN RECTAL 09/29/16 17:15 10/02/16 17:26 (Narcan Inj) 0.4 mg UNSCH PRN IV 09/29/16 17:15 (Ambien) 5 mg HS PRN PO 09/29/16 21:00 10/20/16 21:02 (NS Flush) 2 ml BID IV FLUSH 09/30/16 21:00 10/20/16 20:59 (NS Flush) 2 ml UNSCH PRN IV FLUSH 09/30/16 09:15 10/16/16 22:08 (Zofran Inj) 4 mg Q6H PRN IV PUSH 09/30/16 09:15 10/13/16 08:21 (Surfak) 240 mg HS PO 09/30/16 21:00 10/20/16 20:51 (Milk Of Magnesia Liq) 30 ml DAILY PRN PO 09/30/16 09:15 10/01/16 08:07 (Tylenol) 650 mg Q4H PRN PO 09/30/16 09:15 09/30/16 17:58 (NovoLOG SUPPLEMENTAL SCALE) Q6HR SQ 09/30/16 12:00 10/20/16 16:07 (D50w (Vial) Inj) 25 ml UNSCH PRN IV PUSH 09/30/16 09:15 (Glucagon Inj) 1 mg UNSCH PRN IV 09/30/16 09:15 (Glycerin Adult Supp) 2 gm DAILY PRN RECTAL 10/01/16 09:30 (Fleets Enema (Adult)) 133 ml UNSCH PRN RECTAL 10/01/16 09:30 (Ultram) 50 mg Q8H PRN PO 10/03/16 09:45 10/19/16 06:16 (Carafate Liq) 1 gm ACHS PO 10/03/16 16:00 10/21/16 05:23 (Chloraseptic Dorothy) 2 spray Q2H PRN OROPHARYNG 10/06/16 15:45 (Refresh Tears 0.5% Opth Soln) 1 drop Q6H PRN EACH EYE 10/08/16 05:15 10/08/16 21:06 (Cepacol Extra Sriram (Sugar Free)) 1 lozenge Q2H PRN BUCCAL 10/10/16 14:00 10/13/16 05:36 (Lovenox Inj) 50 mg Q24H SQ 10/12/16 09:00 10/20/16 08:03 (Lactinex) 1 tab Q12HR PO 10/16/16 11:00 10/20/16 20:51 (Megace Liq) 400 mg DAILY PO 10/17/16 11:00 10/20/16 08:02 (Levaquin) 500 mg DAILY PO 10/19/16 09:00 10/20/16 08:01 (Protonix) 40 mg DAILY PO 10/19/16 09:00 10/20/16 08:02 Family History noncontributory Social History denies smoking,alcohol or substance abuse Physical Exam Vital Signs Vital Signs Date Time Temp Pulse Resp B/P Pulse Ox O2 Delivery O2 Flow Rate FiO2 10/21/16 04:00 97.9 102 20 115/54 95 10/21/16 03:00 Nasal Cannula 3.00 10/21/16 00:00 Nasal Cannula 3.00 10/21/16 00:00 98.0 93 18 116/53 100 10/20/16 20:44 98 Nasal Cannula 3.00 10/20/16 20:00 Nasal Cannula 3.00 10/20/16 20:00 98.1 94 18 125/60 99 10/20/16 20:00 96 10/20/16 16:00 97.7 103 18 120/55 97 10/20/16 15:32 3.00 10/20/16 15:00 Nasal Cannula 2.00 10/20/16 12:00 97.8 99 20 119/56 96 10/20/16 08:00 85 10/20/16 08:00 Nasal Cannula 3.00 10/20/16 08:00 97.5 108 20 123/62 97 10/20/16 07:57 93 Nasal Cannula 3.00 Physical Exam GENERAL: Well-nourished, well-developed patient in no apparent distress. NECK: No JVD. No carotid bruit. CARDIOVASCULAR: Regular rate and rhythm. S1/S2 no murmur, rub, or gallop. RESPIRATORY: No accessory muscle use. mild rhonchi to auscultation. Breath sounds equal bilaterally. GASTROINTESTINAL: Abdomen soft, non-tender, nondistended. MUSCULOSKELETAL: Extremities without clubbing, cyanosis, or edema. Laboratory Laboratory Tests Test 10/21/16 00:40 Sodium Level 142 Potassium Level 3.8 Chloride Level 105 Carbon Dioxide Level 28.9 Anion Gap 8 Blood Urea Nitrogen 15 Creatinine 0.59 Estimat Glomerular Filtration 97 Rate Random Glucose 96 Calcium Level 8.5 Phosphorus Level 2.7 Magnesium Level 1.9 Result Diagram: 10/18/16 0611 10/21/16 0040 Assessment and Plan Problem List: (1) Metastatic lung cancer (metastasis from lung to other site) (2) Pleural effusion (3) Right thoracoscopic exploration to drain pleural effusion, pleural biopsy, talc pleuradesis Assessment and Plan NSVT - with her NSVT and nonoperable metastatic lung cancer, we recommend metoprolol 25 mg BID as tolerated. Sign off Problem Qualifiers (1) Metastatic lung cancer (metastasis from lung to other site): Qualified Code: C34.91 - Metastatic lung cancer (metastasis from lung to other site), right Elpidio Marmolejo Oct 21, 2016 08:03
[2016-10-21] MEDS: MEGESTROL ACETATE SUSP 400 MG/10 ML CUP PO SCH (08:46)
[2016-10-21] MEDS: LACTOBACILLUS ACIDOPHILUS TAB PO SCH (08:46)
[2016-10-21] MEDS: PANTOPRAZOLE SOD 40 MG DELAYED RELEASE TAB PO SCH (08:46)
[2016-10-21] MEDS: LEVOFLOXACIN 500 MG TAB PO SCH (08:46)
[2016-10-21] MEDS: SODIUM CHLORIDE 0.9% FLUSH 10 ML FLUSH IV FLUSH SCH (08:47)
[2016-10-21] MEDS ORDERED: METOPROLOL TARTRATE 25 MG TAB PO SCH (09:00)
[2016-10-21] MEDS ORDERED: METO25TA3 PO (09:31)
--- NOTE | 2016-10-21 09:32 | HHI.DS ---
Discharge Summary Admission Date September 29, 2016 at 17:02 Discharge Date: Oct 21, 2016 Admitting Diagnosis (1) Sepsis ICD Code: A41.9 Diagnosis: Principal (2) PNA (pneumonia) ICD Code: J18.9 Diagnosis: Principal (3) Leukocytosis ICD Code: D72.829 Diagnosis: Secondary (4) Nausea & vomiting ICD Code: R11.2 Diagnosis: Secondary (5) Pleural effusion ICD Code: J90 Diagnosis: Secondary (6) Metastatic lung cancer (metastasis from lung to other site) ICD Code: C34.90 Diagnosis: Secondary (7) UTI (urinary tract infection) ICD Code: N39.0 Diagnosis: Secondary (8) Partial small bowel obstruction ICD Code: K56.69 Diagnosis: Secondary (9) Bilateral lower extremity pain ICD Code: M79.604 Diagnosis: Secondary (10) Epigastric pain ICD Code: R10.13 Diagnosis: Secondary (11) Hyperkalemia ICD Code: E87.5 Diagnosis: Secondary (12) Chest pain ICD Code: R07.9 Diagnosis: Secondary (13) Hyponatremia ICD Code: E87.1 Diagnosis: Secondary Procedures sp VATS, pleurodesis sp EGD Brief History - From Admission This is a pleasant 86 /o Female who came to ER with Shortness of breath, she follows with her Primary specialist wound care Doctor Mukul and had a new CT scan showed a Large Pleural Effusion, recommended to come to this facility for drainage and She denies other significant complaints currently. She states she came straight here from Dr. Gilman's office. Discussed with patient in the room and her Sister Mrs. 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 CBC/BMP: 10/18/16 0611 10/21/16 0040 PE at Discharge GENERAL: Pt encountered sitting upright in bedside chair, nasal cannula in place , not in acute distress. SKIN: Warm and dry. Ecchymoses noted on both arms and lower legs. HEAD: Normocephalic. EYES: No scleral icterus. No injection or drainage. NECK: Supple, trachea midline. No lymphadenopathy. CARDIOVASCULAR: Regular rate and rhythm without murmurs, gallops, or rubs. RESPIRATORY: Breath sounds equal bilaterally. No accessory muscle use. GASTROINTESTINAL: Abdomen soft and nondistended. Tenderness elicited left upper quadrant. MUSCULOSKELETAL: No cyanosis, or edema. PSYCHIATRIC: Pt alert and oriented x3, pleasant and cooperative, without overt signs of anxiety/depression. Pt update on day of discharge No overnight events, not short of breath. Wants to go home. 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 Patient was found to have pleural effusion and sepsis secondary to pneumonia. Chest x-ray showed an infiltrate in the right lower lung valle. Patient was started on broad-spectrum antibiotics vancomycin and Zosyn for possible hospital-acquired versus aspiration pneumonia. For her pleural effusion, patient status post VATS and pleurodesis. Patient started having abdominal pain and vomiting. Abdomen and pelvis CT obtained on 10/04/16 showed abnormal bowel gas pattern concern for distal small bowel obstruction. Masslike area of soft tissue in the right lower lobe likely representing the patient's known tumor. Possible ileus. Patient status post EGD on 10/05/16 which showed esophagus appeared normal, there was a large amount of previous liquid which was aspirated completely. Mild erythema in the gastric antrum, status post biopsy, the pylorus was widely open the duodenum was normal without any evidence of ulceration or obstruction. She will continue Protonix and Carafate. Gen. surgery was consulted, likely high-grade partial small bowel obstruction per surgery. NG tube was inserted was discontinued after several days. Patient received TPN for several days but was discontinued when there was return of bowel function. For her metastatic lung cancer, oncology was consulted. Recommendation is to continue Tarceva on discharge. She also completed treatment for UTI. Patient also had a nonocclusive thrombus within the right superficial femoral vein, initially started on Lovenox, fire recommendations from oncology is to switch to aspirin. After discussion with the family, son and patient, patient will be discharged home with hospice. Pt Condition on Discharge: Stable Discharge Disposition: Hospice/ Home Discharge Time: > 30 minutes Discharge Instructions DIET: Follow Instructions for: As Tolerated, No Restrictions Speech Therapy-Diet Recommends: Soft Activities you can perform: Regular-No Restrictions Activities to Avoid: Prolonged Standing, Strenuous Activity Follow up Referrals: Oncology - 2-3 Days with Christiano Gilman MD PCP Follow-up - 1 Week Surgical New Medications: Lactobacillus Acidophilus (Acidophilus/l-Sporogenes) 1 Tab Tab 1 TAB PO Q12HR Infection #30 TAB Levofloxacin (Levofloxacin) 500 Mg Tablet 500 MG PO DAILY Infection #7 TAB Megestrol Liq (Megestrol Liq) 40 Mg/Ml Susp 400 MG PO DAILY poor appetite #1 Ref 3 BOTTLE Metoprolol Tartrate (Metoprolol Tartrate) 25 Mg Tab 25 MG PO Q12HR heart #60 TAB Pantoprazole (Protonix) 40 Mg Tab 40 MG PO DAILY Inflammation #30 TAB Sucralfate Liq (Sucralfate Liq) 1 Gm/10 Ml Laura 1 GM PO ACHS gastritis #1 BOTTLE Continued Medications: Aspirin (Aspirin) 81 Mg Chew 81 MG CHEW DAILY Ref 0 TAB Ansley Briseno MD Oct 21, 2016 09:31 Surgical New Medications: Lactobacillus Acidophilus (Acidophilus/l-Sporogenes) 1 Tab Tab 1 TAB PO Q12HR Infection #30 TAB Levofloxacin (Levofloxacin) 500 Mg Tablet 500 MG PO DAILY Infection #7 TAB Megestrol Liq (Megestrol Liq) 40 Mg/Ml Susp 400 MG PO DAILY poor appetite #1 Ref 3 BOTTLE Metoprolol Tartrate (Metoprolol Tartrate) 25 Mg Tab 25 MG PO Q12HR heart #60 TAB Pantoprazole (Protonix) 40 Mg Tab 40 MG PO DAILY Inflammation #30 TAB Sucralfate Liq (Sucralfate Liq) 1 Gm/10 Ml Laura 1 GM PO ACHS gastritis #1 BOTTLE Continued Medications: Aspirin (Aspirin) 81 Mg Chew 81 MG CHEW DAILY Ref 0 TAB Ansley Briseno MD Oct 21, 2016 09:31 Home oxygen is to be delivered this evening in advance of pt's discharge. Pt Condition on Discharge: Stable Discharge Disposition: Hospice/ Home Discharge Time: > 30 minutes Discharge Instructions DIET: Follow Instructions for: As Tolerated, No Restrictions Speech Therapy-Diet Recommends: Soft Activities you can perform: Regular-No Restrictions Activities to Avoid: Prolonged Standing, Strenuous Activity Follow up Referrals: Oncology - 2-3 Days with Christiano Gilman MD PCP Follow-up - 1 Week Surgical New Medications: Lactobacillus Acidophilus (Acidophilus/l-Sporogenes) 1 Tab Tab 1 TAB PO Q12HR Infection #30 TAB Levofloxacin (Levofloxacin) 500 Mg Tablet 500 MG PO DAILY Infection #7 TAB Megestrol Liq (Megestrol Liq) 40 Mg/Ml Susp 400 MG PO DAILY poor appetite #1 Ref 3 BOTTLE Metoprolol Tartrate (Metoprolol Tartrate) 25 Mg Tab 25 MG PO Q12HR heart #60 TAB Pantoprazole (Protonix) 40 Mg Tab 40 MG PO DAILY Inflammation #30 TAB Sucralfate Liq (Sucralfate Liq) 1 Gm/10 Ml Laura 1 GM PO ACHS gastritis #1 BOTTLE Continued Medications: Aspirin (Aspirin) 81 Mg Chew 81 MG CHEW DAILY Ref 0 TAB Ansley Briseno MD Oct 21, 2016 09:31 Continued Medications: Aspirin (Aspirin) 81 Mg Chew 81 MG CHEW DAILY Ref 0 TAB Ansley Briseno MD Oct 21, 2016 09:31
--- NOTE | 2016-10-21 09:34 | PD.ONC.PN ---
Subjective Subjective Remarks feeling better and looking forward to going home Objective Data Date Time Temp Pulse Resp B/P Pulse Ox O2 Delivery O2 Flow Rate FiO2 10/21/16 08:00 97.7 101 18 127/62 96 10/21/16 04:00 97.9 102 20 115/54 95 10/21/16 03:00 Nasal Cannula 3.00 10/21/16 00:00 Nasal Cannula 3.00 10/21/16 00:00 98.0 93 18 116/53 100 10/20/16 20:44 98 Nasal Cannula 3.00 10/20/16 20:00 Nasal Cannula 3.00 10/20/16 20:00 98.1 94 18 125/60 99 10/20/16 20:00 96 10/20/16 16:00 97.7 103 18 120/55 97 10/20/16 15:32 3.00 10/20/16 15:00 Nasal Cannula 2.00 10/20/16 12:00 97.8 99 20 119/56 96 10/21/16 10/21/16 10/21/16 07:00 15:00 23:00 Intake Total 120 ml Output Total 400 ml Balance -280 ml Result Diagram: 10/18/16 0611 10/21/16 0040 Laboratory Results Laboratory Tests Test 10/21/16 00:40 Sodium Level 142 MEQ/L Potassium Level 3.8 MEQ/L Chloride Level 105 MEQ/L Carbon Dioxide Level 28.9 MEQ/L Anion Gap 8 MEQ/L Blood Urea Nitrogen 15 MG/DL Creatinine 0.59 MG/DL Estimat Glomerular Filtration 97 ML/MIN Rate Random Glucose 96 MG/DL Calcium Level 8.5 MG/DL Phosphorus Level 2.7 MG/DL Magnesium Level 1.9 MG/DL Administered Medications Medications (Trade) Dose Ordered Sig/Ariella Route PRN Reason Start Time Stop Time Status Last Admin Dose Admin Bisacodyl (Dulcolax Supp) 10 mg DAILY PRN RECTAL CONSTIPATION 09/29/16 17:15 10/02/16 17:26 Zolpidem Tartrate (Ambien) 5 mg HS PRN PO INSOMNIA/MAY REPEAT X1 DOSE 09/29/16 21:00 10/20/16 21:02 Sodium Chloride (NS Flush) 2 ml BID IV FLUSH 09/30/16 21:00 10/21/16 08:47 Sodium Chloride (NS Flush) 2 ml UNSCH PRN IV FLUSH FLUSH AFTER USING IV ACCESS 09/30/16 09:15 10/16/16 22:08 Ondansetron HCl (Zofran Inj) 4 mg Q6H PRN IV PUSH NAUSEA OR VOMITING 09/30/16 09:15 10/13/16 08:21 Docusate Calcium (Surfak) 240 mg HS PO 09/30/16 21:00 10/20/16 20:51 Magnesium Hydroxide (Milk Of Magnesia Liq) 30 ml DAILY PRN PO CONSTIPATION 09/30/16 09:15 10/01/16 08:07 Acetaminophen (Tylenol) 650 mg Q4H PRN PO TEMPERATURE > 101 F 09/30/16 09:15 09/30/16 17:58 Insulin Aspart (NovoLOG SUPPLEMENTAL SCALE) Q6HR SQ 09/30/16 12:00 10/20/16 16:07 Tramadol HCl (Ultram) 50 mg Q8H PRN PO PAIN SCALE 4 TO 10 10/03/16 09:45 10/19/16 06:16 Sucralfate (Carafate Liq) 1 gm ACHS PO 10/03/16 16:00 10/21/16 05:23 Carboxymethylcellulose Sodium (Refresh Tears 0.5% Opth Soln) 1 drop Q6H PRN EACH EYE dry eyes 10/08/16 05:15 10/08/16 21:06 Benzocaine/Menthol (Cepacol Extra Sriram (Sugar Free)) 1 lozenge Q2H PRN BUCCAL SORE THROAT 10/10/16 14:00 10/13/16 05:36 Enoxaparin Sodium (Lovenox Inj) 50 mg Q24H SQ 10/12/16 09:00 10/20/16 08:03 Lactobacillus Acidophilus (Lactinex) 1 tab Q12HR PO 10/16/16 11:00 10/21/16 08:46 Megestrol Acetate (Megace Liq) 400 mg DAILY PO 10/17/16 11:00 10/21/16 08:46 Levofloxacin (Levaquin) 500 mg DAILY PO 10/19/16 09:00 10/21/16 08:46 Pantoprazole Sodium (Protonix) 40 mg DAILY PO 10/19/16 09:00 10/21/16 08:46 Objective Remarks GENERAL: gaunt.. SKIN: Warm and dry. HEAD: Normocephalic. EYES: No scleral icterus. No injection or drainage. NECK: Supple, trachea midline. No JVD or lymphadenopathy. LYMPHATIC: No adenopathy. CARDIOVASCULAR: Regular rate and rhythm without murmurs. RESPIRATORY: decreased sounds right base GASTROINTESTINAL: soft . no tenderness EXTREMITIES: No cyanosis, or edema. MUSCULOSKELETAL: poor muscle tone. NEUROLOGICAL: No obvious focal deficit. Awake, alert, and oriented x3. PSYCHIATRIC: Appropriate mood and affect; insight and judgment normal. 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 nurse showed me rhythm strip with what looks like sustained V tachycardia at rate of 120. now in sinus rhythm. I am not sure if this requires tx given her poor prognosis Plan 1: Appreciate cardiology consult and met with hospice this am. She can be discharged home. I discussed discharged medicines with hospice. She will take aspirin, megace, metoprolol 25 bid, tarceva, and proton pump inhibitor or H2 jhonny. I will see her in several weeks if she is doing better. At this point nothing further to do and appreciate all the help. thanks. Christiano Gilman MD Oct 21, 2016 09:34
== END 2016-10-21 12:04 | disposition hospice, home (50) | DRG 166 ==
LOC: NEPE 15:34 → NEDA 17:02 → HCIS 19:27 → N04B 10-10 17:02
PROVIDERS: ADMIT Hospitalist; ATTEND Hospitalist
PROC: 0W9940Z Drainage of Right Pleural Cavity with Drainage Device, Percutaneous Endoscopic Approach (ICD-10-PCS; 2016-09-30)
PROC: 0BJQ4ZZ Inspection of Pleura, Percutaneous Endoscopic Approach (ICD-10-PCS; 2016-09-30)
PROC: 3E0L3GC Introduction of Other Therapeutic Substance into Pleural Cavity, Percutaneous Approach (ICD-10-PCS; 2016-09-30)
PROC: 0BBN4ZX Excision of Right Pleura, Percutaneous Endoscopic Approach, Diagnostic (ICD-10-PCS; principal; 2016-09-30 07:40)
PROC: 0DB68ZX Excision of Stomach, Via Natural or Artificial Opening Endoscopic, Diagnostic (ICD-10-PCS; 2016-10-05)
DX: C34.31 Malignant neoplasm of lower lobe, right bronchus or lung (principal); A41.9 Sepsis, unspecified organism; J69.0 Pneumonitis due to inhalation of food and vomit; J91.0 Malignant pleural effusion; I47.2 Ventricular tachycardia; K56.60 Unspecified intestinal obstruction; N39.0 Urinary tract infection, site not specified; C79.51 Secondary malignant neoplasm of bone; I82.511 Chronic embolism and thrombosis of right femoral vein; J98.11 Atelectasis; E87.1 Hypo-osmolality and hyponatremia; C78.2 Secondary malignant neoplasm of pleura; B96.20 Unspecified Escherichia coli [E. coli] as the cause of diseases classified elsewhere; R11.2 Nausea with vomiting, unspecified; K57.90 Diverticulosis of intestine, part unspecified, without perforation or abscess without bleeding; K21.9 Gastro-esophageal reflux disease without esophagitis; J02.9 Acute pharyngitis, unspecified; E87.5 Hyperkalemia; R73.9 Hyperglycemia, unspecified; K29.50 Unspecified chronic gastritis without bleeding; Z51.5 Encounter for palliative care; Z66 Do not resuscitate; Z85.828 Personal history of other malignant neoplasm of skin; Z86.718 Personal history of other venous thrombosis and embolism; Z88.5 Allergy status to narcotic agent; Z92.21 Personal history of antineoplastic chemotherapy; Z92.3 Personal history of irradiation; Z79.899 Other long term (current) drug therapy
CPT/HCPCS: 71010; 74000; 74176; 74250; 76937; 80048; 80053; 80202; 81001; 81235; 82270; 82947; 82948; 83036; 83735; 84100; 85025; 85027; 85610; 85730; 86850; 86900; 86901; 86920; 87015; 87040; 87070; 87077; 87086; 87102; 87116; 87186; 87205; 87206; 87493; 88112; 88305; 88312; 88360; 88381; 89051; 93005; 93970; 94150; 94620; 94640; 94664; 99285; C9113; J0131; J0171; J0461; J0690; J0696; J1200; J1650; J1815; J1885; J2060; J2270; J2370; J2405; J2543; J2550; J2930; J3010; J3370; J3480; J7040; J7042; J7050; J7120; J7512; J7626; J7644; Q9963

== ENCOUNTER 2016-12-01 17:04 | Emergency (ER) | payer MEDICARE, OTHER ==
[~2016-12-01] VITALS: Ht 157.5 cm; Wt 44.5 kg
[~2016-12-01 17:04] MED LIST changes: -ACET5SOL5 PO; +ASPI81CH CHEW; -BACT2CRE TOP; -CEFU1TAB42 PO; +LACT PO; +LEVO500T8 PO; +MEGE40SU PO; +METO25TA3 PO; -METR-1 PO; -POTA20IN3 PO; +PROT40TA PO; +SUCR1S PO; -TRAM50 PO
[2016-12-01 17:30] VITALS: BP 120/71; PULSE 98; RESP 20; TEMP 98; O2SAT 98
--- NOTE | 2016-12-01 18:01 | PD ---
Physical Exam Time Seen by Provider: 17:59 Narrative 86 y/o female here with left leg pain which started while walking at [employer] today. She reports that a large hematoma-type area developed spontaneously. Vital signs reviewed. Seen at triage desk. Awaiting bed placement. Data Data Last Documented VS Vital Signs Date Time Temp Pulse Resp B/P Pulse Ox O2 Delivery O2 Flow Rate FiO2 12/01/16 17:30 98.0 98 20 120/71 98 Room Air [facility] Medical Record Reviewed: Yes Supervised Visit with TIFFANY: Sb Renee Dec 01, 2016 18:01
--- NOTE | 2016-12-01 20:53 | PD ---
HPI Chief Complaint: Edema Time Seen by Provider: 20:42 Travel History International Travel<30 days: No Contact w/Intl Traveler<30days: No Traveled to known affect area: No History of Present Illness HPI This is an 86-year-old female who has a history of non-small cell lung cancer who follows with Dr. Gilman who presents to the emergency department having been walking in [facility] when she developed pain and swelling in her left leg. She went home and her home nurse looked at it and she had developed a hematoma. The nurse wrapped it and elevated her leg but she continued to have swelling and discoloration and she called Dr. Gilman's office who told her to come here. Patient bruises easily and always has some discoloration to her legs. She says she doesn't have any pain except when she touches it. She denies any numbness or weakness in the leg. PFSH Past Medical History Hx Anticoagulant Therapy: Yes (81 MG) Autoimmune Disease: No Anxiety: No Depression: No Cancer: Yes (SQUAMOUS CELL CA,LUNG CA AND SKIN CA) Cardiovascular Problems: No Chemotherapy: Yes Diabetes: No Endocrine: No Gastrointestinal Disorders: No Genitourinary: Yes (INCONTINENT/ 3 BLADDER SURGERY) Hepatitis: No Hiatal Hernia: No Hypertension: No Immune Disorder: No Musculoskeletal: Yes Neurologic: Yes Psychiatric: No Reproductive: Yes (HYSTERECTOMY) Respiratory: Yes (LUNG CA) Renal Failure: No Thyroid Disease: No ?: Not Past Surgical History Abdominal Surgery: Yes (COLONOSCOPY 5 YRS AGO ..OK) AICD: No Cardiac Surgery: No Ear Surgery: No Endocrine Surgery: No Eye Surgery: Yes (DARRON CATARACT SX) Genitourinary Surgery: Yes (ANTERIOR REPAIR, 3 BLADDER SURGERIES ) Gynecologic Surgery: Yes (HYSTERECTOMY, ) Hysterectomy: Yes Joint Replacement: No Neurologic Surgery: No Oral Surgery: No Pacemaker: No Thoracic Surgery: No Other Surgery: Yes Social History Alcohol Use: No Tobacco Use: No Substance Use: No Allergies-Medications (Allergen,Severity, Reaction): Coded Allergies: Codeine (Verified Allergy, Intermediate, NAUSEA AND VOMITING, 12/01/16) Reported Meds & Prescriptions Reported Meds & Active Scripts Active Metoprolol Tartrate 25 Mg Tab 25 Mg PO Q12HR Acidophilus/l-Sporogenes (Lactobacillus Acidophilus) 1 Tab Tab 1 Tab PO Q12HR Sucralfate Liq (Sucralfate) 1 Gm/10 Ml Laura 1 Gm PO ACHS Protonix (Pantoprazole Sodium) 40 Mg Tab 40 Mg PO DAILY Megestrol Liq (Megestrol Acetate) 40 Mg/Ml Susp 400 Mg PO DAILY Levofloxacin 500 Mg Tablet 500 Mg PO DAILY Reported Aspirin 81 Mg Chew 81 Mg CHEW DAILY Review of Systems Except as stated in HPI: all other systems reviewed are Neg Physical Exam Narrative GENERAL: Frail cachectic in no acute distress SKIN: Diffuse ecchymoses at different stages over the bilateral lower extremities. There is a 4 cm hematoma along the left calf with surrounding ecchymoses. There is no warmth or erythema of the leg. HEAD: Atraumatic. Normocephalic. EYES: Pupils equal and round. No injection or drainage. ENT: Moist mucous membranes NECK: Trachea midline. CARDIOVASCULAR: Regular rate and rhythm. No murmur appreciated. 2+ bilateral DP pulses with normal capillary refill. RESPIRATORY: Clear to auscultation. Breath sounds equal bilaterally. GASTROINTESTINAL: Abdomen soft, non-tender, nondistended. MUSCULOSKELETAL: No obvious deformities. NEUROLOGICAL: Awake and alert. No obvious cranial nerve deficits. Moving all extremities. PSYCHIATRIC: Appropriate mood and affect; insight and judgment normal. Data Data Last Documented VS Vital Signs Date Time Temp Pulse Resp B/P Pulse Ox O2 Delivery O2 Flow Rate FiO2 12/01/16 17:30 98.0 98 20 120/71 98 Room Air Orders Complete Blood Count With Diff (12/01/16 20:50) Comprehensive Metabolic Panel (12/01/16 20:50) Prothrombin Time / Inr (Pt) (12/01/16 20:50) Act Partial Throm Time (Ptt) (12/01/16 20:50) Labs Laboratory Tests Test 12/01/16 21:45 White Blood Count 9.0 TH/MM3 Red Blood Count 4.02 MIL/MM3 Hemoglobin 11.6 GM/DL Hematocrit 35.3 % Mean Corpuscular Volume 87.8 FL Mean Corpuscular Hemoglobin 29.0 PG Mean Corpuscular Hemoglobin 33.0 % Concent Red Cell Distribution Width 16.0 % Platelet Count 116 TH/MM3 Mean Platelet Volume 9.0 FL Neutrophils (%) (Auto) 78.8 % Lymphocytes (%) (Auto) 12.6 % Monocytes (%) (Auto) 7.1 % Eosinophils (%) (Auto) 1.1 % Basophils (%) (Auto) 0.4 % Neutrophils # (Auto) 7.1 TH/MM3 Lymphocytes # (Auto) 1.1 TH/MM3 Monocytes # (Auto) 0.6 TH/MM3 Eosinophils # (Auto) 0.1 TH/MM3 Basophils # (Auto) 0.0 TH/MM3 CBC Comment DIFF FINAL Differential Comment Prothrombin Time 15.2 SEC Prothromb Time International 1.4 RATIO Ratio Activated Partial 25.4 SEC Thromboplast Time Sodium Level 137 MEQ/L Potassium Level 3.4 MEQ/L Chloride Level 101 MEQ/L Carbon Dioxide Level 28.3 MEQ/L Anion Gap 8 MEQ/L Blood Urea Nitrogen 16 MG/DL Creatinine 0.77 MG/DL Estimat Glomerular Filtration 71 ML/MIN Rate Random Glucose 104 MG/DL Calcium Level 8.5 MG/DL Total Bilirubin 2.9 MG/DL Aspartate Amino Transf 49 U/L (AST/SGOT) Alanine Aminotransferase 36 U/L (ALT/SGPT) Alkaline Phosphatase 90 U/L Total Protein 6.3 GM/DL Albumin 3.0 GM/DL [facility] Medical Decision Making Medical Screen Exam Complete: Yes Emergency Medical Condition: Yes Medical Record Reviewed: Yes (patient has a history of non-small cell lung cancer for which she sees Dr. Gilman) Interpretation(s) Afebrile, mild tachycardia, normotensive No leukocytosis Mild thrombocytopenia Electrolytes are reassuring Total bilirubin is 2.9 which is similar to prior INR is 1.4 Differential Diagnosis Thrombocytopenia, coagulopathy, medication side effect Narrative Course This is an 86-year-old female who presents to the emergency department with a hematoma that developed spontaneously on her left lower extremity. She is a history of lung cancer. Labs were obtained which demonstrated bilirubin of 2.9 and an INR of 1.4 with a slightly low platelet count which are new findings for her. She did have an abnormal bilirubin several years ago which went unexplained. I spoke to Dr. Gilman who is her oncologist and he suggested stopping her aspirin but is not sure what the other lab abnormalities are related to. Otherwise I think patient is safe for discharge and follow-up as outpatient. Diagnosis Primary Impression: Hematoma Patient Instructions: General Instructions Additional Instructions: Stop taking your aspirin. If you develop redness, warmth, or fevers return to the emergency department. Follow up with Dr. Gilman Med/Other Pt SpecificInfo: Med Stopped Disposition: 01 DISCHARGE HOME Condition: Stable Lexus Hansen MD Dec 01, 2016 20:53
[2016-12-01 22:05] LABS: AUTOMATED NEUTROPHIL # 7.1 TH/MM3 (1.8-7.7); BASOPHIL % 0.4 % (0.0-2.0); EOSINOPHIL # 0.1 TH/MM3 (0-0.4); EOSINOPHIL % 1.1 % (0.0-4.0); HEMATOCRIT 35.3 % (35.0-46.0); HEMO FLAGS DIFF FINAL; LYMPH % 12.6 % (9.0-44.0); LYMPHOCYTE # 1.1 TH/MM3 (1.0-4.8); MEAN CELL VOLUME 87.8 FL (80.0-100.0); MONO % 7.1 % (0.0-8.0); NEUT % 78.8 % (16.0-70.0); PLATELET COUNT 116 TH/MM3 (150-450); RED BLOOD COUNT 4.02 MIL/MM3 (4.00-5.30)
[2016-12-01 22:16] LABS: ALT (GPT) 36 U/L (10-53)
[2016-12-01 22:18] LABS: ALKALINE PHOSPHATASE 90 U/L (45-117); TOTAL BILIRUBIN ADULT 2.9 MG/DL (0.2-1.0)
[2016-12-01 22:22] LABS: ANION GAP 8 MEQ/L (5-15); AST (GOT) 49 U/L (15-37); BICARBONATE 28.3 MEQ/L (21.0-32.0); BLOOD UREA NITROGEN 16 MG/DL (7-18); CHLORIDE 101 MEQ/L (98-107); GLOMERULAR FILTRATION RATE 71 ML/MIN (>89); SODIUM (NA) 137 MEQ/L (136-145)
[2016-12-01 22:23] LABS: POTASSIUM 3.4 MEQ/L (3.5-5.1)
[2016-12-01 22:33] LABS: APTT (PATIENT) 25.4 SEC (24.3-30.1); INTERNATIONAL NORMALIZED RATIO 1.4 RATIO; PROTHROMBIN TIME - PATIENT 15.2 SEC (9.8-11.6)
== END 2016-12-02 00:52 | disposition home or self-care (01) ==
LOC: NEPC 17:04
DX: S80.12XA Contusion of left lower leg, initial encounter (principal); R00.0 Tachycardia, unspecified; D69.6 Thrombocytopenia, unspecified; C34.92 Malignant neoplasm of unspecified part of left bronchus or lung; Y93.01 Activity, walking, marching and hiking; Z79.82 Long term (current) use of aspirin; Z79.899 Other long term (current) drug therapy
CPT/HCPCS: 80053; 85025; 85610; 85730; 99283